=== PATIENT | male | born 1930 | race Caucasian/White ===

== ENCOUNTER 2017-07-21 09:20 | Inpatient (IN) | payer MEDICARE, OTHER ==
[2017-07-21 09:20] VITALS: BMI 24.3
[2017-07-21] MEDS ORDERED: Albuterol-Ipratrop 3 mg / 0.5 (3 ml) UD INH STA ×2 (09:33→09:34)
[2017-07-21 09:53] LABS: BASO % 0.3 % (0.0-2.0); EOS # 0.9 K/uL (0.0-0.7); EOS % 6.7 % (0.0-4.0); HEMOGLOBIN 10.8 g/dL (12.0-18.0); LYMPH # 0.7 K/uL (1.0-4.3); LYMPH % 4.7 % (20.0-40.0); MEAN CORPUSCULAR HEMOGLOBIN 24.1 pg (27.0-31.0); MEAN CORPUSCULAR HGB CONC 32.1 g/dL (33.0-37.0); MEAN PLATELET VOLUME 7.8 fL (7.2-11.7); MONO # 0.8 K/uL (0.0-0.8); MONO % 6.1 % (0.0-10.0); NEUT # 11.4 K/uL (1.8-7.0); NEUT % 82.2 % (50.0-75.0); NRBC % 0.2 % (0.0-2.0); PLATELET COUNT 336 K/uL (130-400); RED CELL DISTRIBUTION WIDTH 19.2 % (11.5-14.5); WHITE BLOOD COUNT 13.9 K/uL (4.8-10.8)
[2017-07-21 10:00] LABS: INR 1.3; PROTHROMBIN TIME 14.4 SECONDS (9.7-12.2)
--- NOTE | 2017-07-21 10:09 | RAD ---
HISTORY: SOB COMPARISON: Chest x-ray performed 08/27/14 TECHNIQUE: Chest, one view. FINDINGS: LUNGS: Left greater than right apical scarring re-identified. Retraction of bilateral tyler. 8 mm left lower lobe nodular density. Scattered tiny right upper lobe nodular densities, possibly granulomas. Please note that chest x-ray has limited sensitivity for the detection of pulmonary masses. PLEURA: No significant pleural effusion identified. No definite pneumothorax . CARDIOVASCULAR: Cardiomegaly. OSSEOUS STRUCTURES: Osseous demineralization. Degenerative changes. VISUALIZED UPPER ABDOMEN: Unremarkable. OTHER FINDINGS: None. IMPRESSION: Left greater than right apical scarring re-identified. Retraction of bilateral tyler. Cardiomegaly. 8 mm left lower lobe nodular density. Scattered tiny right upper lobe nodular densities, possibly granulomas. Follow-up outpatient chest CT may be considered if indicated.
[2017-07-21 10:22] LABS: ALB/GLOB RATIO 1.1 (1.0-2.1); ALT/SGPT 43 U/L (21-72); AST/SGOT 32 U/L (17-59); BLOOD UREA NITROGEN 16 mg/dL (9-20); CALCIUM 8.1 mg/dl (8.6-10.4); GFR AFRICAN-AMERICAN > 60; GFR NON-AFRICAN AMERICAN > 60
[2017-07-21] MEDS ORDERED: Albuterol-Ipratrop 3 mg / 0.5 (3 ml) UD ONE ×2 (10:22→12:08)
--- NOTE | 2017-07-21 10:23 | C.PDOC ---
History Of Present Illness Patient presents to ED c/o SOB and wheezing, productive cough with yellow sputum since yesterday. Patient is also having sharp substernal chest pain. He denies fever, abdominal pain, nausea/vomiting/diarrhea. PMHx of COPD, HTN, Atrial fibrillation on Xarelto. Time Seen by Provider: 07/21/17 09:23 Chief Complaint (Nursing): Chest Pain History Per: Patient, Family History/Exam Limitations: clinical condition Onset/Duration Of Symptoms: Days Current Symptoms Are (Timing): Still Present Severity: Moderate Quality: Sharp, "Pain" Associated Symptoms: Dyspnea Exacerbating Factors: Movement, Deep Breathing Past Medical History Reviewed: Historical Data, Nursing Documentation, Vital Signs Vital Signs: Last Vital Signs Temp 97.4 F L 07/27/17 16:14 Pulse 87 07/27/17 16:14 Resp 20 07/27/17 16:14 BP 139/79 07/27/17 16:14 Pulse Ox 95 07/27/17 16:14 - Medical History PMH: Asthma, Atrial Fibrillation, COPD, Emphysema, HTN - [facility] Procedures CONTINUOUS INVASIVE MECHANICAL VENTILATION <96 CONSEC HRS (09/18/13) INSERT ENDOTRACHEAL TUBE (09/18/13) Family History: States: No Known Family Hx - Social History Hx Tobacco Use: No Hx Alcohol Use: No Hx Substance Use: No - Immunization History Hx Tetanus Toxoid Vaccination: No Hx Influenza Vaccination: No Hx Pneumococcal Vaccination: No Review Of Systems Except As Marked, All Systems Reviewed And Found Negative. Constitutional: Negative for: Fever, Chills Cardiovascular: Positive for: Chest Pain. Negative for: Palpitations Respiratory: Positive for: Cough, Shortness of Breath, SOB with Excertion Gastrointestinal: Negative for: Nausea, Vomiting, Abdominal Pain, Diarrhea Skin: Negative for: Rash Physical Exam - Physical Exam Appears: Non-toxic, In Acute Distress (in mild respiratory distress) Skin: Normal Color, Warm, Dry, Rash Head: Normacephalic Eye(s): bilateral: Normal Inspection Oral Mucosa: Moist Cardiovascular: Rhythm Irregular (tachycardic and irregularly irregular) Respiratory: Accessory Muscle Use (mild), No Rales, No Rhonchi, Wheezing ( diffuse expiratory wheezing B/L) Gastrointestinal/Abdominal: Normal Exam, Bowel Sounds, Soft, No Tenderness Extremity: Normal ROM, No Pedal Edema, No Calf Tenderness Pulses: Left Dorsalis Pedis: Normal, Right Dorsalis Pedis: Normal Neurological/Psych: Oriented x3 ED Course And Treatment - Laboratory Results Result Diagrams: 07/27/17 08:24 07/27/17 08:24 ECG: Interpreted By Me, Viewed By Me (atrial fibrillationwith RVR 146 bpm, normal axis, T wave inversions I, aVL, no acute ST changes) ECG Interpretation: Abnormal O2 Sat by Pulse Oximetry: 94 (RA) Pulse Ox Interpretation: Normal - Radiology CXR: Interpreted by Me, Viewed By Me CXR Interpretation: Yes: No Acute Disease. No: Infiltrates Progress Note: Blood work, EKG, CXR ordered and reviewed. Patient given IV solumedrol, duoneb treatments, IV Cardizem 10mg and PO Cardizem 30mg for rapid atrial fibrillation. IV rocephin and azithromycin given for COPD exacerbation/ productive cough. Reevaluation Time: 11:45 Reassessment Condition: Improved (Patient still tachycardic with borderline BP - IV digoxin given.) - Physician Consult Information Physician Contacted: Lori Rod Outcome Of Conversation: Discussed patient with Dr. Rod, agrees with admission for COPD exacerbation, productive cough, A fib with RVR. Critical Care Time - Critical Care Note Total Time (in mins): 40 Documented critical care: time excludes all time spent performing seperately billable procedures. Disposition - Disposition Disposition: HOSPITALIZED Disposition Time: 11:57 Condition: FAIR - Clinical Impression Clinical Impression: Atrial fibrillation with RVR, Productive cough, COPD with exacerbation Decision To Admit - Pt Status Changed To: Hospital Disposition Of: Inpatient - Admit Certification Admit to Inpatient:: After my assessment, the patient will require hospitalization for at least two midnights. This is because of the severity of symptoms shown, intensity of services needed, and/or the medical risk in this patient being treated as an outpatient. - InPatient: Physician Admission Certification: I certify that this patient requires 2 or more midnights of care for the following reason:: see notes - . Bed Request Type: Telemetry Admitting Physician: Lori Rod Patient Diagnosis: Atrial fibrillation with RVR, COPD with exacerbation, Productive cough
[2017-07-21 10:37] LABS: B-TYPE NATRIURETIC PEPTIDE 969 pg/mL (0-900); CK-MB 1.05 ng/mL (0.0-3.38)
[2017-07-21 11:18] LABS: BANDS 2 % (0-2); EOSINOPHIL 4 % (0-4); LYMPHOCYTE 5 % (20-40); MONOCYTE 8 % (0-10); NEUTROPHIL 81 % (50-75); TOTAL CELLS COUNTED 100
[2017-07-21 11:19] LABS: PLATELET ESTIMATE NORMAL (NORMAL)
[2017-07-21 11:20] LABS: ANISOCYTOSIS SLIGHT; HYPOCHROMIC SLIGHT; LARGE PLATELETS PRESENT; POLYCHROMIC SLIGHT
[2017-07-21] MEDS ORDERED: Albuterol 0.083% Inhal Sol (2.5 mg/3 mL) UD IH STA ×2 (11:41→11:49)
[2017-07-21] MEDS ORDERED: cefTRIAXone IV 1 gm in Dextros 50 ML IV STA (11:44)
[2017-07-21] MEDS ORDERED: Azithromycin 500 MG in Sodium Chloride 0.9% 250 ML IVPB STA (11:44)
[2017-07-21] MEDS ORDERED: Digoxin 500 mcg/2ml (0.5 mg/2ml) Inj IVP STA (11:49)
[2017-07-21] MEDS ORDERED: Digoxin 500 mcg/2ml (0.5 mg/2ml) Inj ONE (11:57)
--- NOTE | 2017-07-21 16:56 | CP.PCM.HP ---
History of Present Illness - History of Present Illness History of Present Illness: Patient presents to ED c/o SOB and wheezing, productive cough with yellow sputum since yesterday. Patient is also having sharp substernal chest pain. He denies fever, abdominal pain, nausea/vomiting/diarrhea. PMHx of COPD, HTN, Atrial fibrillation on Xarelto. Present on Admission - Present on Admission Any Indicators Present on Admission: No History of DVT/PE: No History of Uncontrolled Diabetes: No Urinary Catheter: No Decubitus Ulcer Present: No Review of Systems - Review of Systems All systems: reviewed and no additional remarkable complaints except (As in HPI) Past Patient History - Past Medical History & Family History Past Medical History?: Yes - Past Social History Smoking Status: Former Smoker - CARDIAC Hx Atrial Fibrillation: Yes Hx Hypertension: Yes - PULMONARY Hx Asthma: Yes Hx Chronic Obstructive Pulmonary Disease (COPD): Yes Hx Emphysema: Yes - MUSCULOSKELETAL/RHEUMATOLOGICAL Hx Falls: No - PSYCHIATRIC Hx Substance Use: No - SURGICAL HISTORY Other/Comment: abdominal sx - ANESTHESIA Hx Anesthesia: Yes Hx Anesthesia Reactions: No Hx Malignant Hyperthermia: No Meds Allergies/Adverse Reactions: Allergies Allergy/AdvReac Type Severity Reaction Status Date / Time No Known Allergies Allergy Verified 07/21/17 09:32 Physical Exam - Head Exam Head Exam: NORMAL INSPECTION - Eye Exam Eye Exam: Normal appearance - ENT Exam ENT Exam: Mucous Membranes Moist - Respiratory Exam Respiratory Exam: Decreased Breath Sounds, Prolonged Expiratory Phase, Wheezes - Cardiovascular Exam Cardiovascular Exam: REGULAR RHYTHM, +S1, +S2 - GI/Abdominal Exam GI & Abdominal Exam: Normal Bowel Sounds, Soft - Extremities Exam Extremities exam: Positive for: pedal edema Results - Vital Signs Recent Vital Signs: Last Vital Signs Temp 97.4 F L 07/21/17 16:15 Pulse 95 H 07/21/17 16:15 Resp 20 07/21/17 16:15 BP 121/75 07/21/17 16:15 Pulse Ox 98 07/21/17 16:15 - Labs Result Diagrams: 07/23/17 14:34 07/23/17 14:34 Labs: Laboratory Results - last 24 hr 07/21/17 07/21/17 07/21/17 09:47 09:47 09:47 WBC 13.9 H RBC 4.50 Hgb 10.8 L Hct 33.8 L MCV 75.0 L D MCH 24.1 L MCHC 32.1 L RDW 19.2 H Plt Count 336 D MPV 7.8 Neut % (Auto) 82.2 H Lymph % (Auto) 4.7 L [place] % (Auto) 6.1 Eos % (Auto) 6.7 H Baso % (Auto) 0.3 Neut # 11.4 H Lymph # 0.7 L [place] # 0.8 Eos # 0.9 H Baso # 0.0 Neutrophils % (Manual) 81 H Band Neutrophils % 2 Lymphocytes % (Manual) 5 L Monocytes % (Manual) 8 Eosinophils % (Manual) 4 Platelet Estimate Normal Large Platelets Present Polychromasia Slight Hypochromasia (manual) Slight Anisocytosis (manual) Slight PT 14.4 H INR 1.3 APTT 32 Sodium 129 L Potassium 4.3 Chloride 93 L Carbon Dioxide 25 Anion Gap 16 BUN 16 Creatinine 0.7 L Est GFR ( Amer) > 60 Est GFR (Non-Af Amer) > 60 Random Glucose 80 Calcium 8.1 L Total Bilirubin 1.8 H AST 32 ALT 43 Alkaline Phosphatase 73 Total Creatine Kinase 35 L CK-MB (Mass) 1.05 Troponin I < 0.0120 NT-Pro-B Natriuret Pep 969 H Total Protein 7.7 Albumin 4.0 Globulin 3.7 Albumin/Globulin Ratio 1.1 Assessment & Plan - Assessment and Plan (Free Text) Assessment: COPD exacerbation ? Pneumonia A. fib Ceftriaxone/Zithromax Bronchodilators Solu-Medrol Continue Xarelto Rest as per orders DVT/GI prophylaxis
[2017-07-21] MEDS: MethylPREDNISolone 40 mg Vial IVP SCH (17:34)
[2017-07-21] MEDS: Albuterol-Ipratrop 3 mg / 0.5 (3 ml) UD INH SCH (19:10)
[2017-07-21] MEDS ORDERED: guaiFENesin 200 mg/10 ml Syrup UD PO ONE (22:27)
[2017-07-22] MEDS: MethylPREDNISolone 40 mg Vial IVP SCH ×4 (00:56→17:32)
[2017-07-22] MEDS: Albuterol-Ipratrop 3 mg / 0.5 (3 ml) UD INH SCH ×5 (01:50→19:46)
[2017-07-22] MEDS: Azithromycin 500 MG in Sodium Chloride 0.9% 250 ML IVPB SCH (10:00)
--- NOTE | 2017-07-22 12:35 | CP.PCM.PN ---
Subjective - Date & Time of Evaluation Date of Evaluation: 07/22/17 Time of Evaluation: 12:35 - Subjective Subjective: Patient seen and examined Continues to wheeze Reports improved dyspnea Objective - Vital Signs/Intake and Output Vital Signs (last 24 hours): Temp Pulse Resp BP Pulse Ox 97.3 F L 95 H 20 126/67 98 07/22/17 08:52 07/22/17 08:52 07/22/17 08:52 07/22/17 08:52 07/22/17 08:52 - Medications Medications: Current Medications Albuterol/Ipratropium (Duoneb 3 Mg/0.5 Mg (3 Ml) Ud) 3 ml INH RQ6 [facility] Last Admin: 07/22/17 08:59 Dose: 3 ml Azithromycin 500 mg/ Sodium (Chloride) 250 mls @ 250 mls/hr IVPB DAILY [facility] Last Admin: 07/22/17 10:00 Dose: 250 mls/hr Ceftriaxone Sodium 1 gm/ (Sodium Chloride) 100 mls @ 100 mls/hr IVPB Q12H [facility] Last Admin: 07/22/17 12:00 Dose: 100 mls/hr Methylprednisolone (Solu-Medrol) 40 mg IVP Q6 [facility] Last Admin: 07/22/17 12:05 Dose: 40 mg Pneumococcal Polyvalent Vaccine (Pneumovax 23 Vaccine) 0.5 ml IM .ONCE ONE Stop: 07/23/17 10:01 Rivaroxaban (Xarelto) 15 mg PO DAILY [facility] Last Admin: 07/22/17 10:48 Dose: 15 mg - Labs Labs: 07/21/17 09:47 07/21/17 09:47 PT 14.4 SECONDS (9.7-12.2) H 07/21/17 09:47 INR 1.3 07/21/17 09:47 APTT 32 SECONDS (21-34) 07/21/17 09:47 - Head Exam Head Exam: NORMAL INSPECTION - Eye Exam Eye Exam: Normal appearance - ENT Exam ENT Exam: Mucous Membranes Moist - Respiratory Exam Respiratory Exam: Prolonged Expiratory Phase, Wheezes - Cardiovascular Exam Cardiovascular Exam: REGULAR RHYTHM, +S1, +S2 - GI/Abdominal Exam GI & Abdominal Exam: Soft, Normal Bowel Sounds - Extremities Exam Extremities Exam: Normal Inspection Assessment and Plan - Assessment and Plan (Free Text) Assessment: COPD exacerbation Pneumonia A. fib Ceftriaxone/Zithromax Bronchodilators Solu-Medrol Continue Xarelto Rest as per orders DVT/GI prophylaxis
--- NOTE | 2017-07-22 22:40 | CP.PCM.CON ---
History of Present Illness - History of Present Illness History of Present Illness: 86 M admitted for dyspnea, cough associated with sputum Chest pain non exertional Trop negative Likely COPD excarbation and Bronchtis Will follow Stress test when lungs improve Review Of Systems Except As Marked, All Systems Reviewed And Found Negative. Constitutional: Negative for: Fever, Chills Cardiovascular: Positive for: Chest Pain. Negative for: Palpitations Respiratory: Positive for: Cough, Shortness of Breath, SOB with Excertion Gastrointestinal: Negative for: Nausea, Vomiting, Abdominal Pain, Diarrhea Skin: Negative for: Rash Physical Exam - Physical Exam Appears: Non-toxic, In Acute Distress (in mild respiratory distress) Skin: Normal Color, Warm, Dry, Rash Head: Normacephalic Eye(s): bilateral: Normal Inspection Oral Mucosa: Moist Cardiovascular: Rhythm Irregular (tachycardic and irregularly irregular) Respiratory: Accessory Muscle Use (mild), No Rales, No Rhonchi, Wheezing ( diffuse expiratory wheezing B/L) Gastrointestinal/Abdominal: Normal Exam, Bowel Sounds, Soft, No Tenderness Extremity: Normal ROM, No Pedal Edema, No Calf Tenderness Pulses: Left Dorsalis Pedis: Normal, Right Dorsalis Pedis: Normal Neurological/Psych: Oriented x3 Past Patient History - Past Medical History & Family History Past Medical History?: Yes - Past Social History Smoking Status: Former Smoker - CARDIAC Hx Atrial Fibrillation: Yes Hx Hypertension: Yes - PULMONARY Hx Asthma: Yes Hx Chronic Obstructive Pulmonary Disease (COPD): Yes Hx Emphysema: Yes - MUSCULOSKELETAL/RHEUMATOLOGICAL Hx Falls: No - PSYCHIATRIC Hx Substance Use: No - SURGICAL HISTORY Other/Comment: abdominal sx - ANESTHESIA Hx Anesthesia: Yes Hx Anesthesia Reactions: No Hx Malignant Hyperthermia: No Meds Allergies/Adverse Reactions: Allergies Allergy/AdvReac Type Severity Reaction Status Date / Time No Known Allergies Allergy Verified 07/21/17 09:32 - Medications Medications: Current Medications Albuterol/Ipratropium (Duoneb 3 Mg/0.5 Mg (3 Ml) Ud) 3 ml INH RQ6 [facility] Last Admin: 07/22/17 19:46 Dose: 3 ml Diltiazem HCl (Cardizem) 30 mg PO Q6 [facility] Last Admin: 07/22/17 17:32 Dose: 30 mg Azithromycin 500 mg/ Sodium (Chloride) 250 mls @ 250 mls/hr IVPB DAILY [facility] Last Admin: 07/22/17 10:00 Dose: 250 mls/hr Ceftriaxone Sodium 1 gm/ (Sodium Chloride) 100 mls @ 100 mls/hr IVPB Q12H [facility] Last Admin: 07/22/17 12:00 Dose: 100 mls/hr Methylprednisolone (Solu-Medrol) 40 mg IVP Q6 [facility] Last Admin: 07/22/17 17:32 Dose: 40 mg Pneumococcal Polyvalent Vaccine (Pneumovax 23 Vaccine) 0.5 ml IM .ONCE ONE Stop: 07/23/17 10:01 Rivaroxaban (Xarelto) 15 mg PO DAILY [facility] Last Admin: 07/22/17 10:48 Dose: 15 mg Results - Vital Signs Recent Vital Signs: Last Vital Signs Temp 97.4 F L 07/22/17 15:33 Pulse 105 H 07/22/17 16:00 Resp 20 07/22/17 15:33 BP 127/63 07/22/17 15:33 Pulse Ox 100 07/22/17 15:33 - Labs Result Diagrams: 07/27/17 08:24 07/27/17 08:24 Assessment & Plan - Assessment and Plan (Free Text) Assessment: Assessment and Plan - Assessment and Plan (Free Text) Assessment: COPD exacerbation Pneumonia A. fib Ceftriaxone/Zithromax Bronchodilators Solu-Medrol Continue Xarelto Rest as per orders DVT/GI prophylaxis
[2017-07-23] MEDS ORDERED: Benzocaine/Menthol (Cepacol) Lozenge MT ONE
[2017-07-23] MEDS: MethylPREDNISolone 40 mg Vial IVP SCH ×4 (00:54→17:19)
[2017-07-23] MEDS: Albuterol-Ipratrop 3 mg / 0.5 (3 ml) UD INH SCH ×4 (01:40→19:53)
[2017-07-23] MEDS ORDERED: Pneumococcal 23-Valent Vaccine IM ONE (10:00)
[2017-07-23] MEDS: Azithromycin 500 MG in Sodium Chloride 0.9% 250 ML IVPB SCH (10:14)
--- NOTE | 2017-07-23 13:47 | CP.PCM.PN ---
Subjective - Date & Time of Evaluation Date of Evaluation: 07/23/17 Time of Evaluation: 13:47 - Subjective Subjective: Patient seen and examined No events overnight Objective - Vital Signs/Intake and Output Vital Signs (last 24 hours): Temp Pulse Resp BP Pulse Ox 97.6 F 62 20 119/61 95 07/23/17 08:17 07/23/17 08:17 07/23/17 08:17 07/23/17 08:17 07/23/17 08:17 - Medications Medications: Current Medications Albuterol/Ipratropium (Duoneb 3 Mg/0.5 Mg (3 Ml) Ud) 3 ml INH RQ6 [facility] Last Admin: 07/23/17 13:13 Dose: 3 ml Diltiazem HCl (Cardizem) 30 mg PO Q6 [facility] Last Admin: 07/23/17 12:21 Dose: 30 mg Azithromycin 500 mg/ Sodium (Chloride) 250 mls @ 250 mls/hr IVPB DAILY [facility] Last Admin: 07/23/17 10:14 Dose: 250 mls/hr Ceftriaxone Sodium 1 gm/ (Sodium Chloride) 100 mls @ 100 mls/hr IVPB Q12H [facility] Last Admin: 07/23/17 12:22 Dose: 100 mls/hr Methylprednisolone (Solu-Medrol) 40 mg IVP Q6 [facility] Last Admin: 07/23/17 12:20 Dose: 40 mg Rivaroxaban (Xarelto) 15 mg PO DAILY [facility] Last Admin: 07/23/17 10:15 Dose: 15 mg - Labs Labs: 07/21/17 09:47 07/21/17 09:47 PT 14.4 SECONDS (9.7-12.2) H 07/21/17 09:47 INR 1.3 07/21/17 09:47 APTT 32 SECONDS (21-34) 07/21/17 09:47 - Head Exam Head Exam: NORMAL INSPECTION - Eye Exam Eye Exam: Normal appearance - ENT Exam ENT Exam: Mucous Membranes Moist - Respiratory Exam Respiratory Exam: Prolonged Expiratory Phase, Wheezes - Cardiovascular Exam Cardiovascular Exam: REGULAR RHYTHM, +S1, +S2 - GI/Abdominal Exam GI & Abdominal Exam: Soft, Normal Bowel Sounds - Extremities Exam Extremities Exam: Normal Inspection Assessment and Plan - Assessment and Plan (Free Text) Assessment: COPD exacerbation Pneumonia A. fib Ceftriaxone/Zithromax Bronchodilators Solu-Medrol Continue Xarelto Cardizem Continue supportive care DVT/GI prophylaxis
[2017-07-23 14:48] LABS: BASO % 0.1 % (0.0-2.0); HEMOGLOBIN 9.8 g/dL (12.0-18.0); LYMPH # 0.2 K/uL (1.0-4.3); LYMPH % 0.9 % (20.0-40.0); MEAN CELL VOLUME 76.1 fL (80.0-94.0); MEAN CORPUSCULAR HEMOGLOBIN 23.6 pg (27.0-31.0); MEAN CORPUSCULAR HGB CONC 31.1 g/dL (33.0-37.0); MEAN PLATELET VOLUME 7.8 fL (7.2-11.7); MONO # 0.9 K/uL (0.0-0.8); MONO % 4.4 % (0.0-10.0); NEUT # 18.9 K/uL (1.8-7.0); NEUT % 94.6 % (50.0-75.0); PLATELET COUNT 370 K/uL (130-400); RBC 4.15 Mil/uL (4.40-5.90); RED CELL DISTRIBUTION WIDTH 19.1 % (11.5-14.5)
--- NOTE | 2017-07-23 15:03 | CARD ---
APPROVED REPORT EKG Measurement Heart [id number] <Conclusion> Atrial fibrillation with rapid ventricular response Septal infarct, age undetermined ST & T wave abnormality, consider lateral ischemia Abnormal ECG
[2017-07-23 15:13] LABS: BLOOD UREA NITROGEN 21 mg/dL (9-20); CALCIUM 7.8 mg/dl (8.6-10.4); GFR AFRICAN-AMERICAN > 60; GFR NON-AFRICAN AMERICAN > 60
[2017-07-23 18:41] LABS: BANDS 7 % (0-2); MICROCYTOSIS SLIGHT; MONOCYTE 6 % (0-10); NEUTROPHIL 87 % (50-75); PLATELET ESTIMATE NORMAL (NORMAL); TOTAL CELLS COUNTED 100
[2017-07-23 18:42] LABS: OVALOCYTES SLIGHT
--- NOTE | 2017-07-23 19:05 | CARD ---
APPROVED REPORT EXAM: Two-dimensional and M-mode echocardiogram with Doppler and color Doppler. Other Information Quality : GoodRhythm : INDICATION Dyspnea Atrial Fibrillation COPD ASTHMA RISK FACTORS Hypertension 2D DIMENSIONS IVSd1.0 (0.7-1.1cm)LVDd5.3 (3.9-5.9cm) PWd0.7 (0.7-1.1cm)LVDs4.7 (2.5-4.0cm) FS (%) 10.5 %LVEF (%)22.7 (>50%) M-Mode DIMENSIONS RVDd0.80 (2.1-3.2cm)Left Atrium (MM)4.57 (2.5-4.0cm) IVSd0.49 (0.7-1.1cm)Aortic Root3.30 (2.2-3.7cm) LVDd6.49 (4.0-5.6cm)Aortic Cusp Exc.1.89 (1.5-2.0cm) PWd0.69 (0.7-1.1cm)FS (%) 25 % LVDs4.86 (2.0-3.8cm)LVEF (%)49 (>50%) Aortic Valve AI P 1/2 [id number] Mitral Valve MV E Dsictmlq755.7cm/sMV A Mvudcvab07.5cm/sE/A ratio2.1 TDI E/Lateral E'0.0E/Medial E'0.0 Tricuspid Valve TR Peak Ptytanip828sg/sTR Peak Gr.[id number] LEFT VENTRICLE The Left Ventricle is moderately dilated. There is normal left ventricular wall thickness. Left ventricle systolic function is moderately impaired. The Ejection Fraction is 35-40%. There is global hypokinesis of the left ventricle. Transmitral Doppler flow pattern is Grade II-pseudonormal filling dynamics. RIGHT VENTRICLE The right ventricular systolic function is normal. ATRIA The left atrium is moderately dilated. The right atrium is moderately dilated. AORTIC VALVE The aortic valve is normal in structure. There is mild aortic regurgitation. MITRAL VALVE The mitral valve is normal in structure. Mitral regurgitation is mild. TRICUSPID VALVE The tricuspid valve is normal in structure. There is mild to moderate tricuspid regurgitation. Right ventricular systolic pressure is estimated at - 45 mmHg. There is mild-moderate pulmonary hypertension. PULMONIC VALVE The pulmonic valve is not well visualized. GREAT VESSELS The IVC is normal in size and collapses >50% with inspiration. PERICARDIAL EFFUSION There is no pericardial effusion. <Conclusion> There is global hypokinesis of the left ventricle. Left ventricle systolic function is moderately impaired. The Ejection Fraction is - 35-40%. Moderate diastoic dysfunction. Transmitral Doppler flow pattern is Grade II-pseudonormal filling dynamics. The right ventricular systolic function is normal. Moderate bi-atrial dilatation. There is mild aortic regurgitation. Mitral regurgitation is mild to moderate. There is mild to moderate tricuspid regurgitation. Right ventricular systolic pressure is estimated at - 45 mmHg compatible with mild-moderate pulmonary hypertension. No pericardial effusion.
[2017-07-23] MEDS ORDERED: Albuterol-Ipratrop 3 mg / 0.5 (3 ml) UD INH STA (22:18)
--- NOTE | 2017-07-23 23:09 | CP.PCM.PN ---
Subjective - Date & Time of Evaluation Date of Evaluation: 07/23/17 Time of Evaluation: 07:20 - Subjective Subjective: Patient seen and evaluated Denies chest pain Still some dyspnea COPD Mgt as per pulmonary Review Of Systems Except As Marked, All Systems Reviewed And Found Negative. Constitutional: Negative for: Fever, Chills Cardiovascular: Positive for: Chest Pain. Negative for: Palpitations Respiratory: Positive for: Cough, Shortness of Breath, SOB with Excertion Gastrointestinal: Negative for: Nausea, Vomiting, Abdominal Pain, Diarrhea Skin: Negative for: Rash Physical Exam - Physical Exam Appears: Non-toxic, In Acute Distress (in mild respiratory distress) Skin: Normal Color, Warm, Dry, Rash Head: Normacephalic Eye(s): bilateral: Normal Inspection Oral Mucosa: Moist Cardiovascular: Rhythm Irregular (tachycardic and irregularly irregular) Respiratory: Accessory Muscle Use (mild), No Rales, No Rhonchi, Wheezing ( diffuse expiratory wheezing B/L) Gastrointestinal/Abdominal: Normal Exam, Bowel Sounds, Soft, No Tenderness Extremity: Normal ROM, No Pedal Edema, No Calf Tenderness Pulses: Left Dorsalis Pedis: Normal, Right Dorsalis Pedis: Normal Neurological/Psych: Oriented x3 Objective - Vital Signs/Intake and Output Vital Signs (last 24 hours): Temp Pulse Resp BP Pulse Ox 97.4 F L 100 H 20 121/62 95 07/23/17 15:44 07/23/17 22:25 07/23/17 22:25 07/23/17 15:44 07/23/17 22:25 - Medications Medications: Current Medications Albuterol/Ipratropium (Duoneb 3 Mg/0.5 Mg (3 Ml) Ud) 3 ml INH RQ6 [facility] Last Admin: 07/23/17 19:53 Dose: 3 ml Diltiazem HCl (Cardizem) 30 mg PO Q6 [facility] Last Admin: 07/23/17 17:19 Dose: 30 mg Azithromycin 500 mg/ Sodium (Chloride) 250 mls @ 250 mls/hr IVPB DAILY [facility] Last Admin: 07/23/17 10:14 Dose: 250 mls/hr Ceftriaxone Sodium 1 gm/ (Sodium Chloride) 100 mls @ 100 mls/hr IVPB Q12H [facility] Last Admin: 07/23/17 12:22 Dose: 100 mls/hr Methylprednisolone (Solu-Medrol) 40 mg IVP Q6 [facility] Last Admin: 07/23/17 17:19 Dose: 40 mg Rivaroxaban (Xarelto) 15 mg PO DAILY [facility] Last Admin: 07/23/17 10:15 Dose: 15 mg - Labs Labs: 07/23/17 14:34 07/23/17 14:34 PT 14.4 SECONDS (9.7-12.2) H 07/21/17 09:47 INR 1.3 07/21/17 09:47 APTT 32 SECONDS (21-34) 07/21/17 09:47 Assessment and Plan - Assessment and Plan (Free Text) Assessment: Assessment and Plan - Assessment and Plan (Free Text) Assessment: COPD exacerbation Pneumonia A. fib Ceftriaxone/Zithromax Bronchodilators Solu-Medrol Continue Xarelto Rest as per orders DVT/GI prophylaxis
[2017-07-24] MEDS: MethylPREDNISolone 40 mg Vial IVP SCH ×4 (00:23→17:22)
[2017-07-24] MEDS: Albuterol-Ipratrop 3 mg / 0.5 (3 ml) UD INH SCH ×4 (01:20→20:20)
[2017-07-24] MEDS: Azithromycin 500 MG in Sodium Chloride 0.9% 250 ML IVPB SCH (09:42)
[2017-07-24] MEDS ORDERED: Albuterol-Ipratrop 3 mg / 0.5 (3 ml) UD INH STA (11:36)
[2017-07-24 11:47] LABS: BLOOD UREA NITROGEN 22 mg/dL (9-20); CALCIUM 7.2 mg/dl (8.6-10.4); GFR AFRICAN-AMERICAN > 60; GFR NON-AFRICAN AMERICAN > 60; MAGNESIUM 1.9 mg/dL (1.6-2.3)
[2017-07-24 11:55] LABS: ARTERIAL BLOOD GAS HCO3 28.2 mmol/L (21-28); ARTERIAL BLOOD GAS HEMOGLOBIN 9.8 g/dL (11.7-17.4); ARTERIAL BLOOD GAS O2 SAT 99.9 % (95-98); ARTERIAL BLOOD GAS PCO2 40 mm/Hg (35-45); ARTERIAL BLOOD GAS PH 7.46 (7.35-7.45); ARTERIAL BLOOD GAS PO2 116 mm/Hg (80-100); ARTERIAL BLOOD GAS TCO2 29.6 mmol/L (22-28)
--- NOTE | 2017-07-24 12:09 | CP.PCM.PN ---
<Moose White - Last Filed: 07/24/17 12:06> Subjective - Date & Time of Evaluation Date of Evaluation: 07/24/17 Time of Evaluation: 12:06 - Subjective Subjective: PGY-[address] Johnson. Patient this AM had 23 beats of VTach. Patient remained asymptomatic. Upon exam patient did not complain of any chest pain or palpitations. Bilateral wheezing was noted on physical. Objective - Vital Signs/Intake and Output Vital Signs (last 24 hours): Temp Pulse Resp BP Pulse Ox 97.6 F 104 H 20 126/70 95 07/24/17 08:26 07/24/17 08:26 07/24/17 08:26 07/24/17 08:26 07/24/17 08:26 - Medications Medications: Current Medications Albuterol/Ipratropium (Duoneb 3 Mg/0.5 Mg (3 Ml) Ud) 3 ml INH RQ6 [facility] Last Admin: 07/24/17 08:09 Dose: 3 ml Aspirin (Aspirin Chewable) 81 mg PO DAILY [facility] Clopidogrel Bisulfate (Plavix) 75 mg PO DAILY [facility] Diltiazem HCl (Cardizem) 30 mg PO Q6 [facility] Last Admin: 07/24/17 05:21 Dose: 30 mg Enoxaparin Sodium (Lovenox) 60 mg SC Q12 [facility] Azithromycin 500 mg/ Sodium (Chloride) 250 mls @ 250 mls/hr IVPB DAILY [facility] Last Admin: 07/24/17 09:42 Dose: 250 mls/hr Ceftriaxone Sodium 1 gm/ (Sodium Chloride) 100 mls @ 100 mls/hr IVPB Q12H [facility] Last Admin: 07/24/17 00:23 Dose: 100 mls/hr Methylprednisolone (Solu-Medrol) 60 mg IVP Q6 [facility] Rivaroxaban (Xarelto) 15 mg PO DAILY [facility] Last Admin: 07/24/17 09:43 Dose: 15 mg Rosuvastatin Calcium (Crestor) 5 mg PO HS [facility] Fluticasone/Salmeterol (Advair Diskus 250/50) 1 puff IH RQ12 [facility] - Labs Labs: 07/23/17 14:34 07/24/17 11:26 PT 14.4 SECONDS (9.7-12.2) H 07/21/17 09:47 INR 1.3 07/21/17 09:47 APTT 32 SECONDS (21-34) 07/21/17 09:47 - Constitutional Appears: No Acute Distress - Head Exam Head Exam: ATRAUMATIC, NORMAL INSPECTION - Eye Exam Eye Exam: EOMI - ENT Exam ENT Exam: Mucous Membranes Moist - Respiratory Exam Respiratory Exam: Wheezes - Cardiovascular Exam Cardiovascular Exam: Tachycardia, REGULAR RHYTHM. absent: Murmur - GI/Abdominal Exam GI & Abdominal Exam: Soft, Normal Bowel Sounds. 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 Denies any cardiac history. Denies family cardiac history. HTN. 23 beats of VTach noted on monitor AM of 07/24/17 Potassium NORMAL, ADALID on 07/21/17 NORMAL F/U ABG, Mag, repeat ADALID HOLD home Xaralto 15mg PO QD Will start therapeutic Lovenox 60mg SC Q12H 07/25/17 Start Aspirin 81mg PO QD Start Plavix 75mg PO QD Start Crestor 5mg PO HS Cardiac Cath planned for 07/27/17 Status: Acute (2) Atrial fibrillation Assessment & Plan: Hx of AFib. NSR on telemetry. HOLD home Xaralto 15mg PO QD Will start therapeutic Lovenox 60mg SC Q12H 07/25/17 See plan for above. Status: Acute <Francisco Johnson - Last Filed: 07/24/17 23:35> Objective - Vital Signs/Intake and Output Vital Signs (last 24 hours): Temp Pulse Resp BP Pulse Ox 97.4 F L 101 H 22 123/63 95 07/24/17 16:27 07/24/17 16:27 07/24/17 16:27 07/24/17 16:27 07/24/17 16:27 - Medications Medications: Current Medications Albuterol/Ipratropium (Duoneb 3 Mg/0.5 Mg (3 Ml) Ud) 3 ml INH RQ6 [facility] Last Admin: 07/24/17 20:20 Dose: 3 ml Aspirin (Aspirin Chewable) 81 mg PO DAILY [facility] Last Admin: 07/24/17 13:24 Dose: 81 mg Clopidogrel Bisulfate (Plavix) 75 mg PO DAILY [facility] Last Admin: 07/24/17 13:24 Dose: 75 mg Diltiazem HCl (Cardizem) 30 mg PO Q6 [facility] Last Admin: 07/24/17 17:22 Dose: 30 mg Enoxaparin Sodium (Lovenox) 60 mg SC Q12 [facility] Azithromycin 500 mg/ Sodium (Chloride) 250 mls @ 250 mls/hr IVPB DAILY [facility] Last Admin: 07/24/17 09:42 Dose: 250 mls/hr Ceftriaxone Sodium 1 gm/ (Sodium Chloride) 100 mls @ 100 mls/hr IVPB Q12H [facility] Last Admin: 07/24/17 12:09 Dose: 100 mls/hr Methylprednisolone (Solu-Medrol) 60 mg IVP Q6 [facility] Last Admin: 07/24/17 17:22 Dose: 60 mg Rivaroxaban (Xarelto) 15 mg PO DAILY [facility] Last Admin: 07/24/17 09:43 Dose: 15 mg Rosuvastatin Calcium (Crestor) 5 mg PO HS [facility] Last Admin: 07/24/17 21:09 Dose: 5 mg Fluticasone/Salmeterol (Advair Diskus 250/50) 1 puff IH RQ12 [facility] Last Admin: 07/24/17 20:20 Dose: 1 puff - Labs Labs: 07/24/17 12:07 07/24/17 11:26 PT 14.4 SECONDS (9.7-12.2) H 07/21/17 09:47 INR 1.3 07/21/17 09:47 APTT 32 SECONDS (21-34) 07/21/17 09:47 Assessment and Plan - Assessment and Plan (Free Text) Assessment: Patient seen and evaluated Cardiac cath Sunday Plan of care as documented
[2017-07-24 12:22] LABS: BASO % 0.2 % (0.0-2.0); HEMOGLOBIN 9.8 g/dL (12.0-18.0); LYMPH # 0.2 K/uL (1.0-4.3); LYMPH % 1.4 % (20.0-40.0); MEAN CELL VOLUME 75.3 fL (80.0-94.0); MEAN CORPUSCULAR HEMOGLOBIN 23.3 pg (27.0-31.0); MEAN PLATELET VOLUME 7.4 fL (7.2-11.7); MONO # 0.8 K/uL (0.0-0.8); MONO % 4.6 % (0.0-10.0); NEUT # 15.7 K/uL (1.8-7.0); NEUT % 93.8 % (50.0-75.0); PLATELET COUNT 378 K/uL (130-400); RBC 4.22 Mil/uL (4.40-5.90); RED CELL DISTRIBUTION WIDTH 19.1 % (11.5-14.5); WHITE BLOOD COUNT 16.7 K/uL (4.8-10.8)
[2017-07-24 12:59] LABS: ANISOCYTOSIS MODERATE; BANDS 5 % (0-2); LYMPHOCYTE 2 % (20-40); MONOCYTE 5 % (0-10); NEUTROPHIL 88 % (50-75); PLATELET ESTIMATE NORMAL (NORMAL); TOTAL CELLS COUNTED 100
[2017-07-24 13:00] LABS: HYPOCHROMIC SLIGHT; OVALOCYTES SLIGHT
--- NOTE | 2017-07-24 13:33 | CP.PCM.PN ---
Subjective - Date & Time of Evaluation Date of Evaluation: 07/24/17 Time of Evaluation: 13:33 Objective - Vital Signs/Intake and Output Vital Signs (last 24 hours): Temp Pulse Resp BP Pulse Ox 97.6 F 104 H 20 126/70 95 07/24/17 08:26 07/24/17 08:26 07/24/17 08:26 07/24/17 08:26 07/24/17 08:26 - Medications Medications: Current Medications Albuterol/Ipratropium (Duoneb 3 Mg/0.5 Mg (3 Ml) Ud) 3 ml INH RQ6 [facility] Last Admin: 07/24/17 08:09 Dose: 3 ml Aspirin (Aspirin Chewable) 81 mg PO DAILY [facility] Last Admin: 07/24/17 13:24 Dose: 81 mg Clopidogrel Bisulfate (Plavix) 75 mg PO DAILY [facility] Last Admin: 07/24/17 13:24 Dose: 75 mg Diltiazem HCl (Cardizem) 30 mg PO Q6 [facility] Last Admin: 07/24/17 12:09 Dose: 30 mg Enoxaparin Sodium (Lovenox) 60 mg SC Q12 [facility] Azithromycin 500 mg/ Sodium (Chloride) 250 mls @ 250 mls/hr IVPB DAILY [facility] Last Admin: 07/24/17 09:42 Dose: 250 mls/hr Ceftriaxone Sodium 1 gm/ (Sodium Chloride) 100 mls @ 100 mls/hr IVPB Q12H [facility] Last Admin: 07/24/17 12:09 Dose: 100 mls/hr Methylprednisolone (Solu-Medrol) 60 mg IVP Q6 [facility] Last Admin: 07/24/17 12:10 Dose: 60 mg Rivaroxaban (Xarelto) 15 mg PO DAILY [facility] Last Admin: 07/24/17 09:43 Dose: 15 mg Rosuvastatin Calcium (Crestor) 5 mg PO HS [facility] Fluticasone/Salmeterol (Advair Diskus 250/50) 1 puff IH RQ12 [facility] - Labs Labs: 07/24/17 12:07 07/24/17 11:26 PT 14.4 SECONDS (9.7-12.2) H 07/21/17 09:47 INR 1.3 07/21/17 09:47 APTT 32 SECONDS (21-34) 07/21/17 09:47
--- NOTE | 2017-07-24 14:16 | CP.PCM.CON ---
History of Present Illness - History of Present Illness History of Present Illness: Case and imaging studies reviewed Admitted with chest pain and cough with a working diagnosis of an infectious pulmonary process This AM was noted to have run of ventricular tachycardia Past medical history significant for systemic hypertension atrial fibrillation on Rivaroxaban/xarelto Exam Afebrile Echymoses scattered Normal venous pressures lungs: decreased breath osunds intensity; prolonged expiration; scattered rhinchi PMI undisplaced Varying heart sounds intensity No edema DP +=+ EKG: atrial fibrillation Tele: 23 beat run of regular monomorphic tachycardia at rates of 170 beats per minute likely ventricular tachycardia; there is no suggestion of the DAVID phenomenon Past Patient History - Past Medical History & Family History Past Medical History?: Yes - Past Social History Smoking Status: Former Smoker - CARDIAC Hx Atrial Fibrillation: Yes Hx Hypertension: Yes - PULMONARY Hx Asthma: Yes Hx Chronic Obstructive Pulmonary Disease (COPD): Yes Hx Emphysema: Yes - MUSCULOSKELETAL/RHEUMATOLOGICAL Hx Falls: No - PSYCHIATRIC Hx Substance Use: No - SURGICAL HISTORY Other/Comment: abdominal sx - ANESTHESIA Hx Anesthesia: Yes Hx Anesthesia Reactions: No Hx Malignant Hyperthermia: No Meds Allergies/Adverse Reactions: Allergies Allergy/AdvReac Type Severity Reaction Status Date / Time No Known Allergies Allergy Verified 07/21/17 09:32 - Medications Medications: Current Medications Albuterol/Ipratropium (Duoneb 3 Mg/0.5 Mg (3 Ml) Ud) 3 ml INH RQ6 [facility] Last Admin: 07/24/17 13:35 Dose: 3 ml Aspirin (Aspirin Chewable) 81 mg PO DAILY [facility] Last Admin: 07/24/17 13:24 Dose: 81 mg Clopidogrel Bisulfate (Plavix) 75 mg PO DAILY [facility] Last Admin: 07/24/17 13:24 Dose: 75 mg Diltiazem HCl (Cardizem) 30 mg PO Q6 [facility] Last Admin: 07/24/17 12:09 Dose: 30 mg Enoxaparin Sodium (Lovenox) 60 mg SC Q12 [facility] Azithromycin 500 mg/ Sodium (Chloride) 250 mls @ 250 mls/hr IVPB DAILY [facility] Last Admin: 07/24/17 09:42 Dose: 250 mls/hr Ceftriaxone Sodium 1 gm/ (Sodium Chloride) 100 mls @ 100 mls/hr IVPB Q12H [facility] Last Admin: 07/24/17 12:09 Dose: 100 mls/hr Methylprednisolone (Solu-Medrol) 60 mg IVP Q6 [facility] Last Admin: 07/24/17 12:10 Dose: 60 mg Rivaroxaban (Xarelto) 15 mg PO DAILY [facility] Last Admin: 07/24/17 09:43 Dose: 15 mg Rosuvastatin Calcium (Crestor) 5 mg PO HS [facility] Fluticasone/Salmeterol (Advair Diskus 250/50) 1 puff IH RQ12 [facility] Results - Vital Signs Recent Vital Signs: Last Vital Signs Temp 97.6 F 07/24/17 08:26 Pulse 104 H 07/24/17 08:26 Resp 20 07/24/17 08:26 BP 126/70 07/24/17 08:26 Pulse Ox 95 07/24/17 08:26 - Labs Result Diagrams: 07/24/17 12:07 07/24/17 11:26 Labs: Laboratory Results - last 24 hr 07/23/17 07/23/17 07/24/17 14:34 14:34 11:26 WBC 20.0 H RBC 4.15 L Hgb 9.8 L Hct 31.5 L MCV 76.1 L MCH 23.6 L MCHC 31.1 L RDW 19.1 H Plt Count 370 MPV 7.8 Neut % (Auto) 94.6 H Lymph % (Auto) 0.9 L [place] % (Auto) 4.4 Eos % (Auto) 0.0 Baso % (Auto) 0.1 Neut # 18.9 H Lymph # 0.2 L [place] # 0.9 H Eos # 0.0 Baso # 0.0 Neutrophils % (Manual) 87 H Band Neutrophils % 7 H Lymphocytes % (Manual) TEST NOT PERFORMED Monocytes % (Manual) 6 Platelet Estimate Normal Hypochromasia (manual) Anisocytosis (manual) Microcytosis (manual) Slight Ovalocytes Slight Puncture Site pCO2 pO2 HCO3 ABG pH ABG Total CO2 ABG O2 Saturation ABG Base Excess ABG Hemoglobin ABG Carboxyhemoglobin POC ABG HHb (Measured) ABG Methemoglobin Peter Test A-a O2 Difference Respiratory Index Hgb O2 Saturation Liter Flow FiO2 Sodium 134 131 L Potassium 4.0 4.5 Chloride 96 L 96 L Carbon Dioxide 27 26 Anion Gap 14 14 BUN 21 H 22 H Creatinine 0.7 L 0.5 L Est GFR ( Amer) > 60 > 60 Est GFR (Non-Af Amer) > 60 > 60 Random Glucose 119 H 182 H Lactic Acid Calcium 7.8 L 7.2 L Phosphorus 3.0 Magnesium 1.9 Total Bilirubin 0.6 Troponin I < 0.0120 07/24/17 07/24/17 07/24/17 11:52 12:07 12:07 WBC 16.7 H RBC 4.22 L Hgb 9.8 L Hct 31.8 L MCV 75.3 L MCH 23.3 L MCHC 31.0 L RDW 19.1 H Plt Count 378 MPV 7.4 Neut % (Auto) 93.8 H Lymph % (Auto) 1.4 L [place] % (Auto) 4.6 Eos % (Auto) 0.0 Baso % (Auto) 0.2 Neut # 15.7 H Lymph # 0.2 L [place] # 0.8 Eos # 0.0 Baso # 0.0 Neutrophils % (Manual) 88 H Band Neutrophils % 5 H Lymphocytes % (Manual) 2 L Monocytes % (Manual) 5 Platelet Estimate Normal Hypochromasia (manual) Slight Anisocytosis (manual) Moderate Microcytosis (manual) Ovalocytes Slight Puncture Site Rb pCO2 40 pO2 116 H HCO3 28.2 H ABG pH 7.46 H ABG Total CO2 29.6 H ABG O2 Saturation 99.9 H ABG Base Excess 4.2 H ABG Hemoglobin 9.8 L ABG Carboxyhemoglobin 2.4 H POC ABG HHb (Measured) 0.1 ABG Methemoglobin 1.0 Peter Test Na A-a O2 Difference 69.0 Respiratory Index 0.6 Hgb O2 Saturation 96.4 Liter Flow 3.0 FiO2 33.0 Sodium Potassium Chloride Carbon Dioxide Anion Gap BUN Creatinine Est GFR ( Amer) Est GFR (Non-Af Amer) Random Glucose Lactic Acid 3.3 H Calcium Phosphorus Magnesium Total Bilirubin Troponin I Assessment & Plan - Assessment and Plan (Free Text) Assessment: 86 year old male with 23 beat run of regular monomorphic tachycardia at rates of 170 beats per minute likely ventricular tachycardia; there is no suggestion of the DAVID phenomenon not discounting the underlying atrial fibrillation Assuming VT the underlying substrate is unclear (?ischemic) and the significance and its ability to sustain needs to be defined Atrial fibrillation is seemingly chronic rate controlled and appropriately anticoagulated in absence of an obvious contraindication; the supportive substrate is likely hypertensive heart disease; would exclude thyroid disease Plan: Plan: Echocardiogram Cardiac cath Thyroid function EP study contingent on results of further work up if in consonance with his advance directives
--- NOTE | 2017-07-24 15:35 | CP.PCM.PN ---
Subjective - Date & Time of Evaluation Date of Evaluation: 07/24/17 Time of Evaluation: 11:15 - Subjective Subjective: PAVING MACHINE OPERATOR NOTES Patient seen today , c/o sob an d cough, denies any chest pain , exp.wheezing noted RN reported 23 beat run of regular monomorphic tachycardia this am Objective - Vital Signs/Intake and Output Vital Signs (last 24 hours): Temp Pulse Resp BP Pulse Ox 97.6 F 104 H 20 126/70 95 07/24/17 08:26 07/24/17 08:26 07/24/17 08:26 07/24/17 08:26 07/24/17 08:26 - Medications Medications: Current Medications Albuterol/Ipratropium (Duoneb 3 Mg/0.5 Mg (3 Ml) Ud) 3 ml INH RQ6 [facility] Last Admin: 07/24/17 13:35 Dose: 3 ml Aspirin (Aspirin Chewable) 81 mg PO DAILY [facility] Last Admin: 07/24/17 13:24 Dose: 81 mg Clopidogrel Bisulfate (Plavix) 75 mg PO DAILY [facility] Last Admin: 07/24/17 13:24 Dose: 75 mg Diltiazem HCl (Cardizem) 30 mg PO Q6 [facility] Last Admin: 07/24/17 12:09 Dose: 30 mg Enoxaparin Sodium (Lovenox) 60 mg SC Q12 [facility] Azithromycin 500 mg/ Sodium (Chloride) 250 mls @ 250 mls/hr IVPB DAILY [facility] Last Admin: 07/24/17 09:42 Dose: 250 mls/hr Ceftriaxone Sodium 1 gm/ (Sodium Chloride) 100 mls @ 100 mls/hr IVPB Q12H [facility] Last Admin: 07/24/17 12:09 Dose: 100 mls/hr Methylprednisolone (Solu-Medrol) 60 mg IVP Q6 [facility] Last Admin: 07/24/17 12:10 Dose: 60 mg Rivaroxaban (Xarelto) 15 mg PO DAILY [facility] Last Admin: 07/24/17 09:43 Dose: 15 mg Rosuvastatin Calcium (Crestor) 5 mg PO HS [facility] Fluticasone/Salmeterol (Advair Diskus 250/50) 1 puff IH RQ12 [facility] - Labs Labs: 07/24/17 12:07 07/24/17 11:26 PT 14.4 SECONDS (9.7-12.2) H 07/21/17 09:47 INR 1.3 07/21/17 09:47 APTT 32 SECONDS (21-34) 07/21/17 09:47 Assessment and Plan - Assessment and Plan (Free Text) Assessment: A/P 86 yr old male admitted with
--- NOTE | 2017-07-24 17:54 | CP.PCM.CON ---
History of Present Illness - History of Present Illness History of Present Illness: CCU Consult Note HPI: Patient is a 86M who came to the ED on 07/21 with a CC of SOB. He has a history of COPD. Also complaining of cough with sputum production. Patient was found to have pneumonia. Patient is being treated with steroids and antibiotics. Has a history of Afib on xarelto. Patient was complaining of chest pain on admission that was non exertional in nature. Was seen by Dr. Johnson. Given the negative trops at that time it was unlikely to be cardiac in nature. On the morning of 07/24 patient had a 23 beat run of Vtach. Patient was asymptomatic at that time. Denied palpatations or chest pain. Will bring to ICU for closer monitoring. Review of Systems - Review of Systems Review of Systems: per HPI Past Patient History - Past Medical History & Family History Past Medical History?: Yes - Past Social History Smoking Status: Former Smoker - CARDIAC Hx Atrial Fibrillation: Yes Hx Hypertension: Yes - PULMONARY Hx Asthma: Yes Hx Chronic Obstructive Pulmonary Disease (COPD): Yes Hx Emphysema: Yes - MUSCULOSKELETAL/RHEUMATOLOGICAL Hx Falls: No - PSYCHIATRIC Hx Substance Use: No - SURGICAL HISTORY Other/Comment: abdominal sx - ANESTHESIA Hx Anesthesia: Yes Hx Anesthesia Reactions: No Hx Malignant Hyperthermia: No Meds Allergies/Adverse Reactions: Allergies Allergy/AdvReac Type Severity Reaction Status Date / Time No Known Allergies Allergy Verified 07/21/17 09:32 - Medications Medications: Current Medications Albuterol/Ipratropium (Duoneb 3 Mg/0.5 Mg (3 Ml) Ud) 3 ml INH RQ6 [facility] Last Admin: 07/24/17 13:35 Dose: 3 ml Aspirin (Aspirin Chewable) 81 mg PO DAILY [facility] Last Admin: 07/24/17 13:24 Dose: 81 mg Clopidogrel Bisulfate (Plavix) 75 mg PO DAILY [facility] Last Admin: 07/24/17 13:24 Dose: 75 mg Diltiazem HCl (Cardizem) 30 mg PO Q6 [facility] Last Admin: 07/24/17 17:22 Dose: 30 mg Enoxaparin Sodium (Lovenox) 60 mg SC Q12 [facility] Azithromycin 500 mg/ Sodium (Chloride) 250 mls @ 250 mls/hr IVPB DAILY [facility] Last Admin: 07/24/17 09:42 Dose: 250 mls/hr Ceftriaxone Sodium 1 gm/ (Sodium Chloride) 100 mls @ 100 mls/hr IVPB Q12H [facility] Last Admin: 07/24/17 12:09 Dose: 100 mls/hr Methylprednisolone (Solu-Medrol) 60 mg IVP Q6 [facility] Last Admin: 07/24/17 17:22 Dose: 60 mg Rivaroxaban (Xarelto) 15 mg PO DAILY [facility] Last Admin: 07/24/17 09:43 Dose: 15 mg Rosuvastatin Calcium (Crestor) 5 mg PO HS [facility] Fluticasone/Salmeterol (Advair Diskus 250/50) 1 puff IH RQ12 [facility] Physical Exam - Constitutional Appears: Well, Non-toxic, No Acute Distress - Head Exam Head Exam: ATRAUMATIC, NORMAL INSPECTION, NORMOCEPHALIC - Eye Exam Eye Exam: EOMI Pupil Exam: NORMAL ACCOMODATION - ENT Exam ENT Exam: Mucous Membranes Moist - Respiratory Exam Respiratory Exam: Clear to Auscultation Bilateral, NORMAL BREATHING PATTERN - Cardiovascular Exam Cardiovascular Exam: REGULAR RHYTHM - GI/Abdominal Exam GI & Abdominal Exam: Normal Bowel Sounds, Soft. absent: Distended, Tenderness - Extremities Exam Extremities exam: Negative for: joint swelling, tenderness - Neurological Exam Neurological exam: Alert, Oriented x3 - Psychiatric Exam Psychiatric exam: Normal Affect, Normal Mood - Skin Skin Exam: Dry, Intact, Normal Color, Warm Results - Vital Signs Recent Vital Signs: Last Vital Signs Temp 97.4 F L 07/24/17 16:27 Pulse 101 H 07/24/17 16:27 Resp 22 07/24/17 16:27 BP 123/63 07/24/17 16:27 Pulse Ox 95 07/24/17 16:27 - Labs Result Diagrams: 07/24/17 12:07 07/24/17 11:26 Labs: Laboratory Results - last 24 hr 07/23/17 07/24/17 07/24/17 14:34 11:26 11:52 WBC RBC Hgb Hct MCV MCH MCHC RDW Plt Count MPV Neut % (Auto) Lymph % (Auto) [place] % (Auto) Eos % (Auto) Baso % (Auto) Neut # Lymph # Morton # Eos # Baso # Neutrophils % (Manual) 87 H Band Neutrophils % 7 H Lymphocytes % (Manual) TEST NOT PERFORMED Monocytes % (Manual) 6 Platelet Estimate Normal Hypochromasia (manual) Anisocytosis (manual) Microcytosis (manual) Slight Ovalocytes Slight Puncture Site Rb pCO2 40 pO2 116 H HCO3 28.2 H ABG pH 7.46 H ABG Total CO2 29.6 H ABG O2 Saturation 99.9 H ABG Base Excess 4.2 H ABG Hemoglobin 9.8 L ABG Carboxyhemoglobin 2.4 H POC ABG HHb (Measured) 0.1 ABG Methemoglobin 1.0 Peter Test Na A-a O2 Difference 69.0 Respiratory Index 0.6 Hgb O2 Saturation 96.4 Liter Flow 3.0 FiO2 33.0 Sodium 131 L Potassium 4.5 Chloride 96 L Carbon Dioxide 26 Anion Gap 14 BUN 22 H Creatinine 0.5 L Est GFR ( Amer) > 60 Est GFR (Non-Af Amer) > 60 Random Glucose 182 H Lactic Acid Calcium 7.2 L Phosphorus 3.0 Magnesium 1.9 Total Bilirubin 0.6 Troponin I < 0.0120 07/24/17 07/24/17 12:07 12:07 WBC 16.7 H RBC 4.22 L Hgb 9.8 L Hct 31.8 L MCV 75.3 L MCH 23.3 L MCHC 31.0 L RDW 19.1 H Plt Count 378 MPV 7.4 Neut % (Auto) 93.8 H Lymph % (Auto) 1.4 L [place] % (Auto) 4.6 Eos % (Auto) 0.0 Baso % (Auto) 0.2 Neut # 15.7 H Lymph # 0.2 L [place] # 0.8 Eos # 0.0 Baso # 0.0 Neutrophils % (Manual) 88 H Band Neutrophils % 5 H Lymphocytes % (Manual) 2 L Monocytes % (Manual) 5 Platelet Estimate Normal Hypochromasia (manual) Slight Anisocytosis (manual) Moderate Microcytosis (manual) Ovalocytes Slight Puncture Site pCO2 pO2 HCO3 ABG pH ABG Total CO2 ABG O2 Saturation ABG Base Excess ABG Hemoglobin ABG Carboxyhemoglobin POC ABG HHb (Measured) ABG Methemoglobin Peter Test A-a O2 Difference Respiratory Index Hgb O2 Saturation Liter Flow FiO2 Sodium Potassium Chloride Carbon Dioxide Anion Gap BUN Creatinine Est GFR ( Amer) Est GFR (Non-Af Amer) Random Glucose Lactic Acid 3.3 H Calcium Phosphorus Magnesium Total Bilirubin Troponin I Assessment & Plan - Assessment and Plan (Free Text) Assessment: Neuro A&Ox3 Cardio: asx Vtach, Afib on xarelto Cardio (Ameen/Alex) Trop negative Meds: * plavix 75 PO daily * aspirin 81 PO daily * crestor 5 PO HS * hold Xarelto 15 PO daily * lovenox 60 SC Q12 07/25/17 * cardizem 30 PO Q6 Cardiac cath planned for 07/27/17 Pulm: Pneumonia, COPD, emphysema AB.46/40/116/29.6 on 3L flow FiO2 33.0 WBC: 16.7 Meds: * ceftriaxone IV Q12 * azithromycin 500mg IV QD * Solu-Medrol 60 IV Q6 * advair 1 puff RQ12 Renal BUN/Cr: 22/0.5 Fluids, electrolytes, nutrition * Electrolytes WNL except for mentioned below * Na: 131 * Cl: 96 * Calcium: 7.2 * Nutrition: HHD * Infectious disease: Pneumonia WBC: 16.7 Meds: * ceftriaxone IV Q12 * azithromycin 500mg IV QD Hematology H&H: 9.8/31.8 Plt: 378 PT/PTT/INR: 14.4/32/1.3 Prophylaxis GI: pepcid DVT: SCDs, levenox
--- NOTE | 2017-07-24 18:50 | CP.PCM.CON ---
Past Patient History - Past Medical History & Family History Past Medical History?: Yes - Past Social History Smoking Status: Former Smoker - CARDIAC Hx Atrial Fibrillation: Yes Hx Hypertension: Yes - PULMONARY Hx Asthma: Yes Hx Chronic Obstructive Pulmonary Disease (COPD): Yes Hx Emphysema: Yes - MUSCULOSKELETAL/RHEUMATOLOGICAL Hx Falls: No - PSYCHIATRIC Hx Substance Use: No - SURGICAL HISTORY Other/Comment: abdominal sx - ANESTHESIA Hx Anesthesia: Yes Hx Anesthesia Reactions: No Hx Malignant Hyperthermia: No Meds Allergies/Adverse Reactions: Allergies Allergy/AdvReac Type Severity Reaction Status Date / Time No Known Allergies Allergy Verified 07/21/17 09:32 - Medications Medications: Current Medications Albuterol/Ipratropium (Duoneb 3 Mg/0.5 Mg (3 Ml) Ud) 3 ml INH RQ6 [facility] Last Admin: 07/24/17 13:35 Dose: 3 ml Aspirin (Aspirin Chewable) 81 mg PO DAILY [facility] Last Admin: 07/24/17 13:24 Dose: 81 mg Clopidogrel Bisulfate (Plavix) 75 mg PO DAILY [facility] Last Admin: 07/24/17 13:24 Dose: 75 mg Diltiazem HCl (Cardizem) 30 mg PO Q6 [facility] Last Admin: 07/24/17 17:22 Dose: 30 mg Enoxaparin Sodium (Lovenox) 60 mg SC Q12 [facility] Azithromycin 500 mg/ Sodium (Chloride) 250 mls @ 250 mls/hr IVPB DAILY [facility] Last Admin: 07/24/17 09:42 Dose: 250 mls/hr Ceftriaxone Sodium 1 gm/ (Sodium Chloride) 100 mls @ 100 mls/hr IVPB Q12H [facility] Last Admin: 07/24/17 12:09 Dose: 100 mls/hr Methylprednisolone (Solu-Medrol) 60 mg IVP Q6 [facility] Last Admin: 07/24/17 17:22 Dose: 60 mg Rivaroxaban (Xarelto) 15 mg PO DAILY [facility] Last Admin: 07/24/17 09:43 Dose: 15 mg Rosuvastatin Calcium (Crestor) 5 mg PO HS [facility] Fluticasone/Salmeterol (Advair Diskus 250/50) 1 puff IH RQ12 [facility] Results - Vital Signs Recent Vital Signs: Last Vital Signs Temp 97.4 F L 07/24/17 16:27 Pulse 101 H 07/24/17 16:27 Resp 22 07/24/17 16:27 BP 123/63 07/24/17 16:27 Pulse Ox 95 07/24/17 16:27 - Labs Result Diagrams: 07/24/17 12:07 07/24/17 11:26 Labs: Laboratory Results - last 24 hr 07/23/17 07/24/17 07/24/17 14:34 11:26 11:52 WBC RBC Hgb Hct MCV MCH MCHC RDW Plt Count MPV Neut % (Auto) Lymph % (Auto) Nelson % (Auto) Eos % (Auto) Baso % (Auto) Neut # Lymph # Nelson # Eos # Baso # Neutrophils % (Manual) Band Neutrophils % Lymphocytes % (Manual) TEST NOT PERFORMED Monocytes % (Manual) Platelet Estimate Hypochromasia (manual) Anisocytosis (manual) Ovalocytes Puncture Site Rb pCO2 40 pO2 116 H HCO3 28.2 H ABG pH 7.46 H ABG Total CO2 29.6 H ABG O2 Saturation 99.9 H ABG Base Excess 4.2 H ABG Hemoglobin 9.8 L ABG Carboxyhemoglobin 2.4 H POC ABG HHb (Measured) 0.1 ABG Methemoglobin 1.0 Peter Test Na A-a O2 Difference 69.0 Respiratory Index 0.6 Hgb O2 Saturation 96.4 Liter Flow 3.0 FiO2 33.0 Sodium 131 L Potassium 4.5 Chloride 96 L Carbon Dioxide 26 Anion Gap 14 BUN 22 H Creatinine 0.5 L Est GFR ( Amer) > 60 Est GFR (Non-Af Amer) > 60 Random Glucose 182 H Lactic Acid Calcium 7.2 L Phosphorus 3.0 Magnesium 1.9 Total Bilirubin 0.6 Troponin I < 0.0120 07/24/17 07/24/17 12:07 12:07 WBC 16.7 H RBC 4.22 L Hgb 9.8 L Hct 31.8 L MCV 75.3 L MCH 23.3 L MCHC 31.0 L RDW 19.1 H Plt Count 378 MPV 7.4 Neut % (Auto) 93.8 H Lymph % (Auto) 1.4 L Nelson % (Auto) 4.6 Eos % (Auto) 0.0 Baso % (Auto) 0.2 Neut # 15.7 H Lymph # 0.2 L Nelson # 0.8 Eos # 0.0 Baso # 0.0 Neutrophils % (Manual) 88 H Band Neutrophils % 5 H Lymphocytes % (Manual) 2 L Monocytes % (Manual) 5 Platelet Estimate Normal Hypochromasia (manual) Slight Anisocytosis (manual) Moderate Ovalocytes Slight Puncture Site pCO2 pO2 HCO3 ABG pH ABG Total CO2 ABG O2 Saturation ABG Base Excess ABG Hemoglobin ABG Carboxyhemoglobin POC ABG HHb (Measured) ABG Methemoglobin Peter Test A-a O2 Difference Respiratory Index Hgb O2 Saturation Liter Flow FiO2 Sodium Potassium Chloride Carbon Dioxide Anion Gap BUN Creatinine Est GFR ( Amer) Est GFR (Non-Af Amer) Random Glucose Lactic Acid 3.3 H Calcium Phosphorus Magnesium Total Bilirubin Troponin I
[2017-07-24] MEDS: Fluticasone-Salmeterol 250-50mcg Diskus IH SCH (20:20)
[2017-07-25] MEDS: MethylPREDNISolone 40 mg Vial IVP SCH ×4 (00:38→22:00)
[2017-07-25] MEDS: Albuterol-Ipratrop 3 mg / 0.5 (3 ml) UD INH SCH ×4 (02:06→19:44)
[2017-07-25 06:38] LABS: HEMOGLOBIN 8.6 g/dL (12.0-18.0); LYMPH # 0.2 K/uL (1.0-4.3); LYMPH % 2.2 % (20.0-40.0); MEAN CELL VOLUME 74.9 fL (80.0-94.0); MEAN CORPUSCULAR HEMOGLOBIN 24.2 pg (27.0-31.0); MEAN CORPUSCULAR HGB CONC 32.3 g/dL (33.0-37.0); MEAN PLATELET VOLUME 7.6 fL (7.2-11.7); MONO # 0.5 K/uL (0.0-0.8); NEUT # 8.8 K/uL (1.8-7.0); NEUT % 92.8 % (50.0-75.0); RBC 3.54 Mil/uL (4.40-5.90); WHITE BLOOD COUNT 9.5 K/uL (4.8-10.8)
[2017-07-25 06:39] LABS: PLATELET COUNT 268 K/uL (130-400)
[2017-07-25 07:28] LABS: BLOOD UREA NITROGEN 21 mg/dL (9-20); CALCIUM 7.2 mg/dl (8.6-10.4); GFR AFRICAN-AMERICAN > 60; GFR NON-AFRICAN AMERICAN > 60; HDL CHOLESTEROL 28 mg/dL (30-70)
[2017-07-25] MEDS: Fluticasone-Salmeterol 250-50mcg Diskus IH SCH ×2 (07:34→19:42)
[2017-07-25 07:39] LABS: LDL CHOLESTEROL 54 mg/dL (0-129)
[2017-07-25 09:35] LABS: ANISOCYTOSIS SLIGHT; BANDS 7 % (0-2); LYMPHOCYTE 2 % (20-40); MONOCYTE 1 % (0-10); NEUTROPHIL 90 % (50-75); PLATELET ESTIMATE NORMAL (NORMAL); TOTAL CELLS COUNTED 100
[2017-07-25 09:36] LABS: HYPOCHROMIC SLIGHT; MICROCYTOSIS SLIGHT
[2017-07-25 09:38] LABS: OVALOCYTES SLIGHT
[2017-07-25 09:39] LABS: POLYCHROMIC SLIGHT
[2017-07-25] MEDS: Azithromycin 500 MG in Sodium Chloride 0.9% 250 ML IVPB SCH (10:30)
[2017-07-25] MEDS: Enoxaparin 60 mg Syringe SC SCH ×2 (10:55→21:56)
--- NOTE | 2017-07-25 12:20 | CP.PCM.PN ---
Subjective - Date & Time of Evaluation Date of Evaluation: 07/25/17 Time of Evaluation: 12:20 Objective - Vital Signs/Intake and Output Vital Signs (last 24 hours): Temp Pulse Resp BP Pulse Ox 98.1 F 120 H 20 128/63 98 07/25/17 08:47 07/25/17 08:47 07/25/17 08:47 07/25/17 08:47 07/25/17 08:47 Intake and Output: 07/25/17 07/25/17 06:59 18:59 Intake Total 140 Balance 140 - Medications Medications: Current Medications Albuterol/Ipratropium (Duoneb 3 Mg/0.5 Mg (3 Ml) Ud) 3 ml INH RQ6 [facility] Last Admin: 07/25/17 07:33 Dose: 3 ml Aspirin (Aspirin Chewable) 81 mg PO DAILY [facility] Last Admin: 07/25/17 10:55 Dose: 81 mg Clopidogrel Bisulfate (Plavix) 75 mg PO DAILY [facility] Last Admin: 07/25/17 10:55 Dose: 75 mg Diltiazem HCl (Cardizem) 30 mg PO Q6 [facility] [place] Last Admin: 07/25/17 11:22 Dose: 30 mg Enoxaparin Sodium (Lovenox) 60 mg SC Q12 [facility] [place] Last Admin: 07/25/17 10:55 Dose: 60 mg Azithromycin 500 mg/ Sodium (Chloride) 250 mls @ 250 mls/hr IVPB DAILY [facility] [place] Last Admin: 07/24/17 09:42 Dose: 250 mls/hr Ceftriaxone Sodium 1 gm/ (Sodium Chloride) 100 mls @ 100 mls/hr IVPB Q12H [facility] [place] Last Admin: 07/25/17 11:29 Dose: 100 mls/hr Methylprednisolone (Solu-Medrol) 60 mg IVP Q6 [facility] [place] Last Admin: 07/25/17 11:22 Dose: 60 mg Oseltamivir Phosphate (Tamiflu Cap) 75 mg PO BID [facility] [place] Stop: 07/30/17 08:47 Last Admin: 07/25/17 10:55 Dose: 75 mg Rivaroxaban (Xarelto) 15 mg PO DAILY [facility] [place] Last Admin: 07/24/17 09:43 Dose: 15 mg Rosuvastatin Calcium (Crestor) 5 mg PO HS [facility] Last Admin: 07/24/17 21:09 Dose: 5 mg Fluticasone/Salmeterol (Advair Diskus 250/50) 1 puff IH RQ12 [facility] Last Admin: 07/25/17 07:34 Dose: 1 puff - Labs Labs: 07/25/17 06:20 07/25/17 06:20 PT 14.4 SECONDS (9.7-12.2) H 07/21/17 09:47 INR 1.3 07/21/17 09:47 APTT 32 SECONDS (21-34) 07/21/17 09:47
--- NOTE | 2017-07-25 12:26 | CP.PCM.PN ---
Subjective - Date & Time of Evaluation Date of Evaluation: 07/25/17 Time of Evaluation: 12:25 - Subjective Subjective: No interval change Telemetry reviewed Objective - Vital Signs/Intake and Output Vital Signs (last 24 hours): Temp Pulse Resp BP Pulse Ox 98.1 F 120 H 20 128/63 98 07/25/17 08:47 07/25/17 08:47 07/25/17 08:47 07/25/17 08:47 07/25/17 08:47 Intake and Output: 07/25/17 07/25/17 06:59 18:59 Intake Total 140 Balance 140 - Medications Medications: Current Medications Albuterol/Ipratropium (Duoneb 3 Mg/0.5 Mg (3 Ml) Ud) 3 ml INH RQ6 [facility] Last Admin: 07/25/17 07:33 Dose: 3 ml Aspirin (Aspirin Chewable) 81 mg PO DAILY [facility] Last Admin: 07/25/17 10:55 Dose: 81 mg Clopidogrel Bisulfate (Plavix) 75 mg PO DAILY [facility] Last Admin: 07/25/17 10:55 Dose: 75 mg Diltiazem HCl (Cardizem) 30 mg PO Q6 [facility] Last Admin: 07/25/17 11:22 Dose: 30 mg Enoxaparin Sodium (Lovenox) 60 mg SC Q12 [facility] Last Admin: 07/25/17 10:55 Dose: 60 mg Azithromycin 500 mg/ Sodium (Chloride) 250 mls @ 250 mls/hr IVPB DAILY [facility] Last Admin: 07/24/17 09:42 Dose: 250 mls/hr Ceftriaxone Sodium 1 gm/ (Sodium Chloride) 100 mls @ 100 mls/hr IVPB Q12H [facility] Last Admin: 07/25/17 11:29 Dose: 100 mls/hr Methylprednisolone (Solu-Medrol) 60 mg IVP Q6 [facility] Last Admin: 07/25/17 11:22 Dose: 60 mg Oseltamivir Phosphate (Tamiflu Cap) 75 mg PO BID [facility] Stop: 07/30/17 08:47 Last Admin: 07/25/17 10:55 Dose: 75 mg Rivaroxaban (Xarelto) 15 mg PO DAILY [facility] Last Admin: 07/24/17 09:43 Dose: 15 mg Rosuvastatin Calcium (Crestor) 5 mg PO HS [facility] Last Admin: 07/24/17 21:09 Dose: 5 mg Fluticasone/Salmeterol (Advair Diskus 250/50) 1 puff IH RQ12 [facility] Last Admin: 07/25/17 07:34 Dose: 1 puff - Labs Labs: 07/25/17 06:20 07/25/17 06:20 PT 14.4 SECONDS (9.7-12.2) H 07/21/17 09:47 INR 1.3 07/21/17 09:47 APTT 32 SECONDS (21-34) 07/21/17 09:47 Assessment and Plan - Assessment and Plan (Free Text) Assessment: No recurrence of ventricular tachycardia Awaiting cardiac cath Plan: as outlined yesterday
--- NOTE | 2017-07-25 12:37 | CP.PCM.PN ---
<Moose White - Last Filed: 07/25/17 12:35> Subjective - Date & Time of Evaluation Date of Evaluation: 07/25/17 Time of Evaluation: 11:30 - Subjective Subjective: PGY-[address] Johnson. No acute events overnight. Patient on respiratory isolation due to Flu. Upon exam today patient did not complain of any chest pain or palpitations. Bilateral wheezing was noted on physical. Objective - Vital Signs/Intake and Output Vital Signs (last 24 hours): Temp Pulse Resp BP Pulse Ox 98.1 F 120 H 20 128/63 98 07/25/17 08:47 07/25/17 08:47 07/25/17 08:47 07/25/17 08:47 07/25/17 08:47 Intake and Output: 07/25/17 07/25/17 06:59 18:59 Intake Total 140 Balance 140 - Medications Medications: Current Medications Albuterol/Ipratropium (Duoneb 3 Mg/0.5 Mg (3 Ml) Ud) 3 ml INH RQ6 [facility] Last Admin: 07/25/17 07:33 Dose: 3 ml Aspirin (Aspirin Chewable) 81 mg PO DAILY [facility] Last Admin: 07/25/17 10:55 Dose: 81 mg Clopidogrel Bisulfate (Plavix) 75 mg PO DAILY [facility] Last Admin: 07/25/17 10:55 Dose: 75 mg Diltiazem HCl (Cardizem) 30 mg PO Q6 [facility] Last Admin: 07/25/17 11:22 Dose: 30 mg Enoxaparin Sodium (Lovenox) 60 mg SC Q12 [facility] Last Admin: 07/25/17 10:55 Dose: 60 mg Azithromycin 500 mg/ Sodium (Chloride) 250 mls @ 250 mls/hr IVPB DAILY [facility] Last Admin: 07/24/17 09:42 Dose: 250 mls/hr Ceftriaxone Sodium 1 gm/ (Sodium Chloride) 100 mls @ 100 mls/hr IVPB Q12H [facility] Last Admin: 07/25/17 11:29 Dose: 100 mls/hr Methylprednisolone (Solu-Medrol) 60 mg IVP Q6 [facility] Last Admin: 07/25/17 11:22 Dose: 60 mg Oseltamivir Phosphate (Tamiflu Cap) 75 mg PO BID [facility] Stop: 07/30/17 08:47 Last Admin: 07/25/17 10:55 Dose: 75 mg Rivaroxaban (Xarelto) 15 mg PO DAILY [facility] Last Admin: 07/24/17 09:43 Dose: 15 mg Rosuvastatin Calcium (Crestor) 5 mg PO HS [facility] Last Admin: 07/24/17 21:09 Dose: 5 mg Fluticasone/Salmeterol (Advair Diskus 250/50) 1 puff IH RQ12 [facility] Last Admin: 07/25/17 07:34 Dose: 1 puff - Labs Labs: 07/25/17 06:20 07/25/17 06:20 PT 14.4 SECONDS (9.7-12.2) H 07/21/17 09:47 INR 1.3 07/21/17 09:47 APTT 32 SECONDS (21-34) 07/21/17 09:47 - Additional Findings Additional findings: - Constitutional Appears: No Acute Distress - Head Exam Head Exam: ATRAUMATIC, NORMAL INSPECTION - Eye Exam Eye Exam: EOMI - ENT Exam ENT Exam: Mucous Membranes Moist - Respiratory Exam Respiratory Exam: Wheezes, decreased breath sounds, prolonged expiration, scattered rhonchi - Cardiovascular Exam Cardiovascular Exam: Tachycardia, IRREGULAR RHYTHM. absent: Murmur - GI/Abdominal Exam GI & Abdominal Exam: Soft, Normal Bowel Sounds. absent: Tenderness - Extremities Exam Extremities Exam: absent: Pedal Edema - Neurological Exam Neurological Exam: Alert, Oriented x3 - Skin Skin Exam: Intact, Normal Color, Warm Assessment and Plan (1) Ventricular tachycardia seen on registered nurse cardiac telemetry Status: Acute (2) Atrial fibrillation Status: Acute - Assessment and Plan (Free Text) Assessment: (1) Ventricular tachycardia seen on registered nurse cardiac telemetry Assessment & Plan: Cardiac Risk Factors: Patient admits to heavy tobacco use in the past. Denies any cardiac history. Denies family cardiac history. HTN. 23 beats of VTach noted on monitor AM of 07/24/17 Potassium NORMAL, Mag NORMAL, ADALID on 07/21/17 NORMAL HOLD home Xaralto 15mg PO QD Therapeutic Lovenox 60mg SC Q12H, started 07/25/17 Start Aspirin 81mg PO QD Start Plavix 75mg PO QD Start Crestor 5mg PO HS Cardiac Cath planned for 07/27/17 Status: Acute (2) Atrial fibrillation Assessment & Plan: Hx of AFib. NSR on telemetry. HOLD home Xaralto 15mg PO QD Therapeutic Lovenox 60mg SC Q12H, started 07/25/17 See plan for above. Status: Acute <Francisco Johnson - Last Filed: 07/25/17 20:44> Objective - Vital Signs/Intake and Output Vital Signs (last 24 hours): Temp Pulse Resp BP Pulse Ox 97.5 F L 99 H 20 128/65 95 07/25/17 16:00 07/25/17 16:00 07/25/17 16:00 07/25/17 16:00 07/25/17 16:00 Intake and Output: 07/25/17 07/26/17 18:59 06:59 Intake Total 710 Balance 710 - Medications Medications: Current Medications Albuterol/Ipratropium (Duoneb 3 Mg/0.5 Mg (3 Ml) Ud) 3 ml INH RQ6 [facility] Last Admin: 07/25/17 19:44 Dose: 3 ml Aspirin (Aspirin Chewable) 81 mg PO DAILY [facility] Last Admin: 07/25/17 10:55 Dose: 81 mg Clopidogrel Bisulfate (Plavix) 75 mg PO DAILY [facility] Last Admin: 07/25/17 10:55 Dose: 75 mg Diltiazem HCl (Cardizem) 30 mg PO Q6 [facility] Last Admin: 07/25/17 17:36 Dose: 30 mg Enoxaparin Sodium (Lovenox) 60 mg SC Q12 [facility] Last Admin: 07/25/17 10:55 Dose: 60 mg Azithromycin 500 mg/ Sodium (Chloride) 250 mls @ 250 mls/hr IVPB DAILY [facility] Last Admin: 07/25/17 10:30 Dose: 250 mls/hr Ceftriaxone Sodium 1 gm/ (Sodium Chloride) 100 mls @ 100 mls/hr IVPB Q12H [facility] Last Admin: 07/25/17 11:29 Dose: 100 mls/hr Methylprednisolone (Solu-Medrol) 60 mg IVP Q8 [facility] Oseltamivir Phosphate (Tamiflu Cap) 75 mg PO BID [facility] Stop: 07/30/17 10:01 Last Admin: 07/25/17 17:36 Dose: 75 mg Rivaroxaban (Xarelto) 15 mg PO DAILY [facility] Last Admin: 07/24/17 09:43 Dose: 15 mg Rosuvastatin Calcium (Crestor) 5 mg PO HS [facility] Last Admin: 07/24/17 21:09 Dose: 5 mg Fluticasone/Salmeterol (Advair Diskus 250/50) 1 puff IH RQ12 [facility] Last Admin: 07/25/17 19:42 Dose: Not Given - Labs Labs: 07/25/17 06:20 07/25/17 06:20 PT 14.4 SECONDS (9.7-12.2) H 07/21/17 09:47 INR 1.3 07/21/17 09:47 APTT 32 SECONDS (21-34) 07/21/17 09:47 Assessment and Plan - Assessment and Plan (Free Text) Assessment: Patient seen and evaluated personally by me. Plan d/w vice president of software development and as documented
[2017-07-26] MEDS: Albuterol-Ipratrop 3 mg / 0.5 (3 ml) UD INH SCH ×5 (00:41→19:37)
[2017-07-26] MEDS: MethylPREDNISolone 40 mg Vial IVP SCH ×3 (05:48→21:53)
[2017-07-26] MEDS: Fluticasone-Salmeterol 250-50mcg Diskus IH SCH ×2 (07:19→19:36)
[2017-07-26] MEDS: Enoxaparin 60 mg Syringe SC SCH ×2 (09:45→21:55)
--- NOTE | 2017-07-26 13:33 | CP.PCM.PN ---
<Moose White - Last Filed: 07/26/17 13:31> Subjective - Date & Time of Evaluation Date of Evaluation: 07/26/17 Time of Evaluation: 13:31 - Subjective Subjective: PGY-[address] Johnson. No acute events overnight. Patient on respiratory isolation due to Flu. Upon exam today patient did not complain of any chest pain or palpitations. Bilateral wheezing was noted on physical. Objective - Vital Signs/Intake and Output Vital Signs (last 24 hours): Temp Pulse Resp BP Pulse Ox 97.4 F L 105 H 20 143/71 96 07/26/17 08:45 07/26/17 08:45 07/26/17 08:45 07/26/17 08:45 07/26/17 08:45 - Medications Medications: Current Medications Albuterol/Ipratropium (Duoneb 3 Mg/0.5 Mg (3 Ml) Ud) 3 ml INH RQ6 [facility] Last Admin: 07/26/17 07:32 Dose: 3 ml Aspirin (Aspirin Chewable) 81 mg PO DAILY [facility] Last Admin: 07/26/17 09:46 Dose: 81 mg Clopidogrel Bisulfate (Plavix) 75 mg PO DAILY [facility] Last Admin: 07/26/17 09:46 Dose: 75 mg Diltiazem HCl (Cardizem) 30 mg PO Q6 [facility] Last Admin: 07/26/17 11:34 Dose: 30 mg Enoxaparin Sodium (Lovenox) 60 mg SC Q12 [facility] Last Admin: 07/26/17 09:45 Dose: 60 mg Ceftriaxone Sodium 1 gm/ (Sodium Chloride) 100 mls @ 100 mls/hr IVPB Q12H [facility] Last Admin: 07/26/17 11:34 Dose: 100 mls/hr Azithromycin 500 mg/ Dextrose 250 mls @ 250 mls/hr IVPB DAILY [facility] Last Admin: 07/26/17 09:45 Dose: 250 mls/hr Methylprednisolone (Solu-Medrol) 60 mg IVP Q8 [facility] Last Admin: 07/26/17 05:48 Dose: 60 mg Oseltamivir Phosphate (Tamiflu Cap) 75 mg PO BID [facility] Stop: 07/30/17 10:01 Last Admin: 07/26/17 09:46 Dose: 75 mg Rivaroxaban (Xarelto) 15 mg PO DAILY [facility] Last Admin: 07/24/17 09:43 Dose: 15 mg Rosuvastatin Calcium (Crestor) 5 mg PO HS [facility] Last Admin: 07/25/17 21:56 Dose: 5 mg Fluticasone/Salmeterol (Advair Diskus 250/50) 1 puff IH RQ12 [facility] Last Admin: 07/26/17 07:19 Dose: Not Given - Labs Labs: 07/25/17 06:20 07/25/17 06:20 PT 14.4 SECONDS (9.7-12.2) H 07/21/17 09:47 INR 1.3 07/21/17 09:47 APTT 32 SECONDS (21-34) 07/21/17 09:47 - Additional Findings Additional findings: - Constitutional Appears: No Acute Distress - Head Exam Head Exam: ATRAUMATIC, NORMAL INSPECTION - Eye Exam Eye Exam: EOMI - ENT Exam ENT Exam: Mucous Membranes Moist - Respiratory Exam Respiratory Exam: Wheezes, decreased breath sounds, prolonged expiration, scattered rhonchi - Cardiovascular Exam Cardiovascular Exam: Tachycardia, IRREGULAR RHYTHM. absent: Murmur - GI/Abdominal Exam GI & Abdominal Exam: Soft, Normal Bowel Sounds. absent: Tenderness - Extremities Exam Extremities Exam: absent: Pedal Edema - Neurological Exam Neurological Exam: Alert, Oriented x3 - Skin Skin Exam: Intact, Normal Color, Warm Assessment and Plan (1) Ventricular tachycardia seen on electronic device monitor Status: Acute (2) Atrial fibrillation Status: Acute - Assessment and Plan (Free Text) Assessment: (1) Ventricular tachycardia seen on electronic device monitor Assessment & Plan: Cardiac Risk Factors: Patient admits to heavy tobacco use in the past. Denies any cardiac history. Denies family cardiac history. HTN. 23 beats of VTach noted on monitor AM of 07/24/17 Potassium NORMAL, Mag NORMAL, ADALID on 07/21/17 NORMAL HOLD home Xaralto 15mg PO QD Therapeutic Lovenox 60mg SC Q12H, started 07/25/17 Start Aspirin 81mg PO QD Start Plavix 75mg PO QD Start Crestor 5mg PO HS Cardiac Cath planned for 07/27/17 * Will make NPO after midnight. Hold morning dose of Lovenox 07/27/17. Will check cbc, cmp, mag, phos, pt, ptt. Status: Acute (2) Atrial fibrillation Assessment & Plan: Hx of AFib. NSR on telemetry. HOLD home Xaralto 15mg PO QD Therapeutic Lovenox 60mg SC Q12H, started 07/25/17 See plan for above. Status: Acute <Francisco Johnson - Last Filed: 07/26/17 20:48> Subjective - Subjective Subjective: Patient seen and evaluated personally by me Plan of care as documented Objective - Vital Signs/Intake and Output Vital Signs (last 24 hours): Temp Pulse Resp BP Pulse Ox 97.5 F L 102 H 20 124/71 97 07/26/17 16:00 07/26/17 16:00 07/26/17 16:00 07/26/17 16:00 07/26/17 16:00 Intake and Output: 07/26/17 07/27/17 18:59 06:59 Intake Total 840 Balance 840 - Medications Medications: Current Medications Albuterol/Ipratropium (Duoneb 3 Mg/0.5 Mg (3 Ml) Ud) 3 ml INH RQ6 [facility] Last Admin: 07/26/17 19:37 Dose: 3 ml Aspirin (Aspirin Chewable) 81 mg PO DAILY [facility] Last Admin: 07/26/17 09:46 Dose: 81 mg Clopidogrel Bisulfate (Plavix) 75 mg PO DAILY [facility] Last Admin: 07/26/17 09:46 Dose: 75 mg Diltiazem HCl (Cardizem) 30 mg PO Q6 [facility] Last Admin: 07/26/17 18:05 Dose: 30 mg Enoxaparin Sodium (Lovenox) 60 mg SC Q12 [facility] Last Admin: 07/26/17 09:45 Dose: 60 mg Ceftriaxone Sodium 1 gm/ (Sodium Chloride) 100 mls @ 100 mls/hr IVPB Q12H [facility] Last Admin: 07/26/17 11:34 Dose: 100 mls/hr Azithromycin 500 mg/ Dextrose 250 mls @ 250 mls/hr IVPB DAILY [facility] Last Admin: 07/26/17 09:45 Dose: 250 mls/hr Methylprednisolone (Solu-Medrol) 60 mg IVP Q8 [facility] Last Admin: 07/26/17 14:18 Dose: 60 mg Oseltamivir Phosphate (Tamiflu Cap) 75 mg PO BID [facility] Stop: 07/30/17 10:01 Last Admin: 07/26/17 18:05 Dose: 75 mg Rivaroxaban (Xarelto) 15 mg PO DAILY [facility] Last Admin: 07/24/17 09:43 Dose: 15 mg Rosuvastatin Calcium (Crestor) 5 mg PO HS [facility] Last Admin: 07/25/17 21:56 Dose: 5 mg Fluticasone/Salmeterol (Advair Diskus 250/50) 1 puff IH RQ12 [facility] Last Admin: 07/26/17 19:36 Dose: Not Given Sodium Chloride ([place] Baby Saline 30 Ml) 0 ml [place] TID PRN PRN Reason: Cough and congestion - Labs Labs: 07/26/17 17:16 07/26/17 17:16 PT 13.6 SECONDS (9.7-12.2) H 07/26/17 17:16 INR 1.2 07/26/17 17:16 APTT 33 SECONDS (21-34) 07/26/17 17:16
[2017-07-26 17:22] LABS: BASO % 0.1 % (0.0-2.0); HEMOGLOBIN 8.4 g/dL (12.0-18.0); LYMPH # 0.3 K/uL (1.0-4.3); LYMPH % 2.3 % (20.0-40.0); MEAN CELL VOLUME 75.2 fL (80.0-94.0); MEAN CORPUSCULAR HEMOGLOBIN 23.2 pg (27.0-31.0); MEAN CORPUSCULAR HGB CONC 30.9 g/dL (33.0-37.0); MEAN PLATELET VOLUME 7.6 fL (7.2-11.7); MONO # 0.6 K/uL (0.0-0.8); MONO % 4.2 % (0.0-10.0); NEUT % 93.4 % (50.0-75.0); PLATELET COUNT 312 K/uL (130-400); RBC 3.61 Mil/uL (4.40-5.90); RED CELL DISTRIBUTION WIDTH 19.1 % (11.5-14.5)
[2017-07-26 17:39] LABS: INR 1.2; PROTHROMBIN TIME 13.6 SECONDS (9.7-12.2)
[2017-07-26 17:42] LABS: ALB/GLOB RATIO 1.1 (1.0-2.1); ALBUMIN 3.1 g/dL (3.5-5.0); ALT/SGPT 54 U/L (21-72); AST/SGOT 34 U/L (17-59); BLOOD UREA NITROGEN 24 mg/dL (9-20); CALCIUM 7.4 mg/dl (8.6-10.4); GFR AFRICAN-AMERICAN > 60; GFR NON-AFRICAN AMERICAN > 60; MAGNESIUM 1.9 mg/dL (1.6-2.3)
[2017-07-26 18:20] LABS: LYMPHOCYTE 1 % (20-40); MONOCYTE 2 % (0-10); NEUTROPHIL 97 % (50-75); TOTAL CELLS COUNTED 100
[2017-07-26 18:21] LABS: ANISOCYTOSIS SLIGHT; HYPOCHROMIC SLIGHT; MICROCYTOSIS SLIGHT; OVALOCYTES SLIGHT; PLATELET ESTIMATE NORMAL (NORMAL); POLYCHROMIC SLIGHT
--- NOTE | 2017-07-26 18:47 | CP.PCM.PN ---
Subjective - Date & Time of Evaluation Date of Evaluation: 07/26/17 Time of Evaluation: 18:47 Objective - Vital Signs/Intake and Output Vital Signs (last 24 hours): Temp Pulse Resp BP Pulse Ox 97.5 F L 102 H 20 124/71 97 07/26/17 16:00 07/26/17 16:00 07/26/17 16:00 07/26/17 16:00 07/26/17 16:00 Intake and Output: 07/26/17 07/26/17 06:59 18:59 Intake Total 840 Balance 840 - Medications Medications: Current Medications Albuterol/Ipratropium (Duoneb 3 Mg/0.5 Mg (3 Ml) Ud) 3 ml INH RQ6 [facility] Last Admin: 07/26/17 13:45 Dose: 3 ml Aspirin (Aspirin Chewable) 81 mg PO DAILY [facility] Last Admin: 07/26/17 09:46 Dose: 81 mg Clopidogrel Bisulfate (Plavix) 75 mg PO DAILY [facility] Last Admin: 07/26/17 09:46 Dose: 75 mg Diltiazem HCl (Cardizem) 30 mg PO Q6 [facility] Last Admin: 07/26/17 18:05 Dose: 30 mg Enoxaparin Sodium (Lovenox) 60 mg SC Q12 [facility] Last Admin: 07/26/17 09:45 Dose: 60 mg Ceftriaxone Sodium 1 gm/ (Sodium Chloride) 100 mls @ 100 mls/hr IVPB Q12H [facility] Last Admin: 07/26/17 11:34 Dose: 100 mls/hr Azithromycin 500 mg/ Dextrose 250 mls @ 250 mls/hr IVPB DAILY [facility] [place] Last Admin: 07/26/17 09:45 Dose: 250 mls/hr Methylprednisolone (Solu-Medrol) 60 mg IVP Q8 [facility] [place] Last Admin: 07/26/17 14:18 Dose: 60 mg Oseltamivir Phosphate (Tamiflu Cap) 75 mg PO BID [facility] [place] Stop: 07/30/17 10:01 Last Admin: 07/26/17 18:05 Dose: 75 mg Rivaroxaban (Xarelto) 15 mg PO DAILY [facility] [place] Last Admin: 07/24/17 09:43 Dose: 15 mg Rosuvastatin Calcium (Crestor) 5 mg PO HS [facility] [place] Last Admin: 07/25/17 21:56 Dose: 5 mg Fluticasone/Salmeterol (Advair Diskus 250/50) 1 puff [facility] RQ12 [facility] Last Admin: 07/26/17 07:19 Dose: Not Given - Labs Labs: 07/26/17 17:16 07/26/17 17:16 PT 13.6 SECONDS (9.7-12.2) H 07/26/17 17:16 INR 1.2 07/26/17 17:16 APTT 33 SECONDS (21-34) 07/26/17 17:16
[2017-07-26] MEDS: Sodium Chloride Nasal 0.65% Soln (30ml) NAS PRN (22:17)
[2017-07-27] MEDS: MethylPREDNISolone 40 mg Vial IVP SCH ×3 (05:51→22:04)
[2017-07-27] MEDS: Fluticasone-Salmeterol 250-50mcg Diskus IH SCH ×2 (08:05→21:15)
[2017-07-27 08:34] LABS: BASO % 0.1 % (0.0-2.0); HEMOGLOBIN 8.5 g/dL (12.0-18.0); LYMPH # 0.5 K/uL (1.0-4.3); MEAN CORPUSCULAR HEMOGLOBIN 23.9 pg (27.0-31.0); MEAN CORPUSCULAR HGB CONC 31.9 g/dL (33.0-37.0); MEAN PLATELET VOLUME 7.8 fL (7.2-11.7); MONO # 0.4 K/uL (0.0-0.8); MONO % 2.6 % (0.0-10.0); NEUT # 15.2 K/uL (1.8-7.0); NEUT % 94.3 % (50.0-75.0); NRBC % 0.1 % (0.0-2.0); PLATELET COUNT 382 K/uL (130-400); RBC 3.56 Mil/uL (4.40-5.90); RED CELL DISTRIBUTION WIDTH 18.5 % (11.5-14.5); WHITE BLOOD COUNT 16.1 K/uL (4.8-10.8)
[2017-07-27 09:25] LABS: ALB/GLOB RATIO 1.1 (1.0-2.1); ALBUMIN 3.3 g/dL (3.5-5.0); ALT/SGPT 48 U/L (21-72); AST/SGOT 38 U/L (17-59); BLOOD UREA NITROGEN 23 mg/dL (9-20); CALCIUM 7.9 mg/dl (8.6-10.4); GFR AFRICAN-AMERICAN > 60; GFR NON-AFRICAN AMERICAN > 60; MAGNESIUM 1.8 mg/dL (1.6-2.3)
[2017-07-27 11:08] LABS: BANDS 2 % (0-2); LYMPHOCYTE 2 % (20-40); MONOCYTE 5 % (0-10); NEUTROPHIL 91 % (50-75); PLATELET ESTIMATE NORMAL (NORMAL); TOTAL CELLS COUNTED 100
[2017-07-27 11:09] LABS: ANISOCYTOSIS MODERATE; HYPOCHROMIC SLIGHT; LARGE PLATELETS PRESENT; OVALOCYTES SLIGHT; POIKILOCYTOSIS SLIGHT; POLYCHROMIC SLIGHT
[2017-07-27 11:10] LABS: TOXIC GRANULATION PRESENT
--- NOTE | 2017-07-27 12:28 | CP.PCM.PN ---
Subjective - Date & Time of Evaluation Date of Evaluation: 07/27/17 Time of Evaluation: 12:28 - Subjective Subjective: Cath cancelled due to active Flue rescheduled for Sunday 2pm Physical Examination - Additional Findings Additional findings: - Constitutional Appears: No Acute Distress - Head Exam Head Exam: ATRAUMATIC, NORMAL INSPECTION - Eye Exam Eye Exam: EOMI - ENT Exam ENT Exam: Mucous Membranes Moist - Respiratory Exam Respiratory Exam: Wheezes, decreased breath sounds, prolonged expiration, scattered rhonchi - Cardiovascular Exam Cardiovascular Exam: Tachycardia, IRREGULAR RHYTHM. absent: Murmur - GI/Abdominal Exam GI & Abdominal Exam: Soft, Normal Bowel Sounds. absent: Tenderness - Extremities Exam Extremities Exam: absent: Pedal Edema - Neurological Exam Neurological Exam: Alert, Oriented x3 - Skin Skin Exam: Intact, Normal Color, Warm Objective - Vital Signs/Intake and Output Vital Signs (last 24 hours): Temp Pulse Resp BP Pulse Ox 97.3 F L 111 H 20 164/90 H 95 07/27/17 07:40 07/27/17 07:40 07/27/17 07:40 07/27/17 07:40 07/27/17 07:40 Intake and Output: 07/27/17 07/27/17 06:59 18:59 Intake Total 450 Balance 450 - Medications Medications: Current Medications Aspirin (Aspirin Chewable) 81 mg PO DAILY [facility] Last Admin: 07/27/17 10:23 Dose: 81 mg Clopidogrel Bisulfate (Plavix) 75 mg PO DAILY [facility] Last Admin: 07/27/17 10:23 Dose: 75 mg Diltiazem HCl (Cardizem) 30 mg PO Q6 [facility] Last Admin: 07/27/17 11:41 Dose: 30 mg Enoxaparin Sodium (Lovenox) 60 mg SC Q12 [facility] Last Admin: 07/26/17 21:55 Dose: 60 mg Azithromycin 500 mg/ Dextrose 250 mls @ 250 mls/hr IVPB DAILY [facility] Last Admin: 07/27/17 10:23 Dose: 250 mls/hr Methylprednisolone (Solu-Medrol) 60 mg IVP Q8 [facility] Last Admin: 07/27/17 05:51 Dose: 60 mg Oseltamivir Phosphate (Tamiflu Cap) 75 mg PO BID [facility] Stop: 07/30/17 10:01 Last Admin: 07/27/17 10:23 Dose: 75 mg Rivaroxaban (Xarelto) 15 mg PO DAILY [facility] Last Admin: 07/24/17 09:43 Dose: 15 mg Rosuvastatin Calcium (Crestor) 5 mg PO HS [facility] Last Admin: 07/26/17 21:52 Dose: 5 mg Fluticasone/Salmeterol (Advair Diskus 250/50) 1 puff IH RQ12 [facility] Last Admin: 07/27/17 08:05 Dose: Not Given Sodium Chloride ([place] Baby Saline 30 Ml) 0 ml [place] TID PRN PRN Reason: Cough and congestion Last Admin: 07/26/17 22:17 Dose: 1 spr - Labs Labs: 07/27/17 08:24 07/27/17 08:24 PT 13.6 SECONDS (9.7-12.2) H 07/26/17 17:16 INR 1.2 07/26/17 17:16 APTT 33 SECONDS (21-34) 07/26/17 17:16 Assessment and Plan - Assessment and Plan (Free Text) Assessment: (1) Ventricular tachycardia seen on supervisor pit and auxiliaries Assessment & Plan: Cardiac Risk Factors: Patient admits to heavy tobacco use in the past. Denies any cardiac history. Denies family cardiac history. HTN. 23 beats of VTach noted on monitor AM of 07/24/17 Potassium NORMAL, Mag NORMAL, ADALID on 07/21/17 NORMAL HOLD home Xaralto 15mg PO QD Therapeutic Lovenox 60mg SC Q12H, started 07/25/17 Start Aspirin 81mg PO QD Start Plavix 75mg PO QD Start Crestor 5mg PO HS Cardiac Cath planned for Sunday Status: Acute (2) Atrial fibrillation Assessment & Plan: Hx of AFib. NSR on telemetry. HOLD home Xaralto 15mg PO QD Therapeutic Lovenox 60mg SC Q12H, started 07/25/17 See plan for above. Status: Acute
--- NOTE | 2017-07-27 15:50 | CP.PCM.PN ---
Subjective - Date & Time of Evaluation Date of Evaluation: 07/27/17 Time of Evaluation: 15:50 Objective - Vital Signs/Intake and Output Vital Signs (last 24 hours): Temp Pulse Resp BP Pulse Ox 97.3 F L 111 H 20 164/90 H 95 07/27/17 07:40 07/27/17 07:40 07/27/17 07:40 07/27/17 07:40 07/27/17 07:40 Intake and Output: 07/27/17 07/27/17 06:59 18:59 Intake Total 450 Balance 450 - Medications Medications: Current Medications Aspirin (Aspirin Chewable) 81 mg PO DAILY [facility] Last Admin: 07/27/17 10:23 Dose: 81 mg Clopidogrel Bisulfate (Plavix) 75 mg PO DAILY [facility] Last Admin: 07/27/17 10:23 Dose: 75 mg Diltiazem HCl (Cardizem) 30 mg PO Q6 [facility] Last Admin: 07/27/17 11:41 Dose: 30 mg Enoxaparin Sodium (Lovenox) 60 mg SC Q12 [facility] Last Admin: 07/26/17 21:55 Dose: 60 mg Azithromycin 500 mg/ Dextrose 250 mls @ 250 mls/hr IVPB DAILY [facility] Last Admin: 07/27/17 10:23 Dose: 250 mls/hr Methylprednisolone (Solu-Medrol) 60 mg IVP Q8 [facility] Last Admin: 07/27/17 13:45 Dose: Not Given Oseltamivir Phosphate (Tamiflu Cap) 75 mg PO BID [facility] Stop: 07/30/17 10:01 Last Admin: 07/27/17 10:23 Dose: 75 mg Rivaroxaban (Xarelto) 15 mg PO DAILY [facility] Last Admin: 07/24/17 09:43 Dose: 15 mg Rosuvastatin Calcium (Crestor) 5 mg PO HS [facility] Last Admin: 07/26/17 21:52 Dose: 5 mg Fluticasone/Salmeterol (Advair Diskus 250/50) 1 puff IH RQ12 [facility] Last Admin: 07/27/17 08:05 Dose: Not Given Sodium Chloride ([place] Baby Saline 30 Ml) 0 ml [place] TID PRN PRN Reason: Cough and congestion Last Admin: 07/26/17 22:17 Dose: 1 spr - Labs Labs: 07/27/17 08:24 07/27/17 08:24 PT 13.6 SECONDS (9.7-12.2) H 07/26/17 17:16 INR 1.2 07/26/17 17:16 APTT 33 SECONDS (21-34) 07/26/17 17:16
[2017-07-27] MEDS ORDERED: Albuterol-Ipratrop 3 mg / 0.5 (3 ml) UD INH SCH (20:00)
[2017-07-27] MEDS: Albuterol-Ipratrop 3 mg / 0.5 (3 ml) UD INH SCH (21:16)
[2017-07-27] MEDS: Enoxaparin 60 mg Syringe SC SCH (22:48)
[2017-07-28] MEDS: Albuterol-Ipratrop 3 mg / 0.5 (3 ml) UD INH SCH ×4 (01:32→19:31)
[2017-07-28] MEDS: MethylPREDNISolone 40 mg Vial IVP SCH ×3 (05:15→21:12)
[2017-07-28] MEDS: Fluticasone-Salmeterol 250-50mcg Diskus IH SCH ×2 (07:48→19:31)
[2017-07-28] MEDS: Enoxaparin 60 mg Syringe SC SCH ×2 (13:10→21:11)
--- NOTE | 2017-07-28 15:55 | CP.PCM.PN ---
Subjective - Date & Time of Evaluation Date of Evaluation: 07/28/17 Time of Evaluation: 15:54 Objective - Vital Signs/Intake and Output Vital Signs (last 24 hours): Temp Pulse Resp BP Pulse Ox 97.4 F L 100 H 18 144/80 99 07/28/17 08:06 07/28/17 08:06 07/28/17 08:06 07/28/17 08:06 07/28/17 08:06 - Medications Medications: Current Medications Albuterol/Ipratropium (Duoneb 3 Mg/0.5 Mg (3 Ml) Ud) 3 ml INH RQ6 [facility] Last Admin: 07/28/17 13:30 Dose: 3 ml Aspirin (Aspirin Chewable) 81 mg PO DAILY [facility] Last Admin: 07/28/17 13:09 Dose: 81 mg Clopidogrel Bisulfate (Plavix) 75 mg PO DAILY [facility] Last Admin: 07/28/17 13:10 Dose: 75 mg Diltiazem HCl (Cardizem) 30 mg PO Q6 [facility] Last Admin: 07/28/17 13:26 Dose: 30 mg Enoxaparin Sodium (Lovenox) 60 mg SC Q12 [facility] Last Admin: 07/28/17 13:10 Dose: 60 mg Azithromycin 500 mg/ Dextrose 250 mls @ 250 mls/hr IVPB DAILY [facility] Last Admin: 07/28/17 13:08 Dose: 250 mls/hr Methylprednisolone (Solu-Medrol) 60 mg IVP Q8 [facility] Last Admin: 07/28/17 13:26 Dose: 60 mg Oseltamivir Phosphate (Tamiflu Cap) 75 mg PO BID [facility] Stop: 07/30/17 10:01 Last Admin: 07/28/17 13:09 Dose: 75 mg Rivaroxaban (Xarelto) 15 mg PO DAILY [facility] Last Admin: 07/24/17 09:43 Dose: 15 mg Rosuvastatin Calcium (Crestor) 5 mg PO HS [facility] Last Admin: 07/27/17 22:05 Dose: 5 mg Fluticasone/Salmeterol (Advair Diskus 250/50) 1 puff IH RQ12 [facility] Last Admin: 07/28/17 07:48 Dose: 1 puff Sodium Chloride ([place] Baby Saline 30 Ml) 0 ml [place] TID PRN PRN Reason: Cough and congestion Last Admin: 07/26/17 22:17 Dose: 1 spr - Labs Labs: 07/27/17 08:24 07/27/17 08:24 PT 13.6 SECONDS (9.7-12.2) H 07/26/17 17:16 INR 1.2 07/26/17 17:16 APTT 33 SECONDS (21-34) 07/26/17 17:16
[2017-07-28] MEDS ORDERED: Sodium Chloride Nasal 0.65% Soln (30ml) NAS PRN (16:42)
[2017-07-28] MEDS: Sodium Chloride Nasal 0.65% Soln (30ml) NAS PRN (21:10)
[2017-07-29] MEDS: Albuterol-Ipratrop 3 mg / 0.5 (3 ml) UD INH SCH ×4 (01:38→20:24)
[2017-07-29] MEDS: MethylPREDNISolone 40 mg Vial IVP SCH ×3 (06:10→22:23)
[2017-07-29] MEDS: Fluticasone-Salmeterol 250-50mcg Diskus IH SCH ×2 (07:36→20:24)
[2017-07-29] MEDS: Enoxaparin 60 mg Syringe SC SCH (10:39)
--- NOTE | 2017-07-29 11:21 | CP.PCM.PN ---
Subjective - Date & Time of Evaluation Date of Evaluation: 07/29/17 Time of Evaluation: 11:21 Objective - Vital Signs/Intake and Output Vital Signs (last 24 hours): Temp Pulse Resp BP Pulse Ox 97.4 F L 114 H 20 126/84 98 07/29/17 08:18 07/29/17 08:18 07/29/17 08:18 07/29/17 08:18 07/29/17 08:18 Intake and Output: 07/29/17 07/29/17 06:59 18:59 Intake Total 240 Balance 240 - Medications Medications: Current Medications Albuterol/Ipratropium (Duoneb 3 Mg/0.5 Mg (3 Ml) Ud) 3 ml INH RQ6 [facility] Last Admin: 07/29/17 07:37 Dose: 3 ml Aspirin (Aspirin Chewable) 81 mg PO DAILY [facility] Last Admin: 07/29/17 10:39 Dose: 81 mg Clopidogrel Bisulfate (Plavix) 75 mg PO DAILY [facility] Last Admin: 07/29/17 10:39 Dose: 75 mg Diltiazem HCl (Cardizem) 30 mg PO Q6 [facility] Last Admin: 07/29/17 06:10 Dose: 30 mg Enoxaparin Sodium (Lovenox) 60 mg SC Q12 [facility] Last Admin: 07/29/17 10:39 Dose: 60 mg Azithromycin 500 mg/ Dextrose 250 mls @ 250 mls/hr IVPB DAILY [facility] Last Admin: 07/29/17 10:39 Dose: 250 mls/hr Methylprednisolone (Solu-Medrol) 60 mg IVP Q8 [facility] Last Admin: 07/29/17 06:10 Dose: 60 mg Oseltamivir Phosphate (Tamiflu Cap) 75 mg PO BID [facility] Stop: 07/30/17 10:01 Last Admin: 07/29/17 10:39 Dose: 75 mg Rivaroxaban (Xarelto) 15 mg PO DAILY [facility] Last Admin: 07/24/17 09:43 Dose: 15 mg Rosuvastatin Calcium (Crestor) 5 mg PO HS [facility] Last Admin: 07/28/17 21:10 Dose: 5 mg Fluticasone/Salmeterol (Advair Diskus 250/50) 1 puff IH RQ12 [facility] Last Admin: 07/29/17 07:36 Dose: 1 puff Sodium Chloride ([place] Baby Saline 30 Ml) 0 ml [place] TID PRN PRN Reason: Cough and congestion Last Admin: 07/28/17 21:10 Dose: 1 spr Sodium Chloride ([place] Baby Saline 30 Ml) 0 ml [place] Q4 PRN PRN Reason: Cough and congestion - Labs Labs: 07/27/17 08:24 07/27/17 08:24 PT 13.6 SECONDS (9.7-12.2) H 07/26/17 17:16 INR 1.2 07/26/17 17:16 APTT 33 SECONDS (21-34) 07/26/17 17:16
--- NOTE | 2017-07-29 13:48 | CP.PCM.PN ---
Subjective - Date & Time of Evaluation Date of Evaluation: 07/28/17 Time of Evaluation: 14:10 - Subjective Subjective: Patient denies chest pain and dyspnea For Cath Sunday Physical Examination - Additional Findings Additional findings: - Constitutional Appears: No Acute Distress - Head Exam Head Exam: ATRAUMATIC, NORMAL INSPECTION - Eye Exam Eye Exam: EOMI - ENT Exam ENT Exam: Mucous Membranes Moist - Respiratory Exam Respiratory Exam: Wheezes, decreased breath sounds, prolonged expiration, scattered rhonchi - Cardiovascular Exam Cardiovascular Exam: Tachycardia, IRREGULAR RHYTHM. absent: Murmur - GI/Abdominal Exam GI & Abdominal Exam: Soft, Normal Bowel Sounds. absent: Tenderness - Extremities Exam Extremities Exam: absent: Pedal Edema - Neurological Exam Neurological Exam: Alert, Oriented x3 - Skin Skin Exam: Intact, Normal Color, Warm Objective - Vital Signs/Intake and Output Vital Signs (last 24 hours): Temp Pulse Resp BP Pulse Ox 97.4 F L 114 H 20 126/84 98 07/29/17 08:18 07/29/17 08:18 07/29/17 08:18 07/29/17 08:18 07/29/17 08:18 Intake and Output: 07/29/17 07/29/17 06:59 18:59 Intake Total 240 Balance 240 - Medications Medications: Current Medications Albuterol/Ipratropium (Duoneb 3 Mg/0.5 Mg (3 Ml) Ud) 3 ml INH RQ6 [facility] Last Admin: 07/29/17 13:20 Dose: 3 ml Aspirin (Aspirin Chewable) 81 mg PO DAILY [facility] Last Admin: 07/29/17 10:39 Dose: 81 mg Clopidogrel Bisulfate (Plavix) 75 mg PO DAILY [facility] Last Admin: 07/29/17 10:39 Dose: 75 mg Diltiazem HCl (Cardizem) 30 mg PO Q6 [facility] Last Admin: 07/29/17 13:10 Dose: 30 mg Enoxaparin Sodium (Lovenox) 60 mg SC Q12 [facility] Last Admin: 07/29/17 10:39 Dose: 60 mg Azithromycin 500 mg/ Dextrose 250 mls @ 250 mls/hr IVPB DAILY [facility] Last Admin: 07/29/17 10:39 Dose: 250 mls/hr Methylprednisolone (Solu-Medrol) 60 mg IVP Q8 [facility] Last Admin: 07/29/17 13:10 Dose: 60 mg Oseltamivir Phosphate (Tamiflu Cap) 75 mg PO BID [facility] Stop: 07/30/17 10:01 Last Admin: 07/29/17 10:39 Dose: 75 mg Rivaroxaban (Xarelto) 15 mg PO DAILY [facility] Last Admin: 07/24/17 09:43 Dose: 15 mg Rosuvastatin Calcium (Crestor) 5 mg PO HS [facility] Last Admin: 07/28/17 21:10 Dose: 5 mg Fluticasone/Salmeterol (Advair Diskus 250/50) 1 puff IH RQ12 [facility] Last Admin: 07/29/17 07:36 Dose: 1 puff Sodium Chloride ([place] Baby Saline 30 Ml) 0 ml [place] TID PRN PRN Reason: Cough and congestion Last Admin: 07/28/17 21:10 Dose: 1 spr Sodium Chloride ([place] Baby Saline 30 Ml) 0 ml [place] Q4 PRN PRN Reason: Cough and congestion - Labs Labs: 07/27/17 08:24 07/27/17 08:24 PT 13.6 SECONDS (9.7-12.2) H 07/26/17 17:16 INR 1.2 07/26/17 17:16 APTT 33 SECONDS (21-34) 07/26/17 17:16 Assessment and Plan - Assessment and Plan (Free Text) Assessment: (1) Ventricular tachycardia seen on clinical nursing director Assessment & Plan: Cardiac Risk Factors: Patient admits to heavy tobacco use in the past. Denies any cardiac history. Denies family cardiac history. HTN. 23 beats of VTach noted on monitor AM of 07/24/17 Potassium NORMAL, Mag NORMAL, ADALID on 07/21/17 NORMAL HOLD home Xaralto 15mg PO QD Therapeutic Lovenox 60mg SC Q12H, started 07/25/17 Start Aspirin 81mg PO QD Start Plavix 75mg PO QD Start Crestor 5mg PO HS Cardiac Cath planned for Sunday Status: Acute (2) Atrial fibrillation Assessment & Plan: Hx of AFib. NSR on telemetry. HOLD home Xaralto 15mg PO QD Therapeutic Lovenox 60mg SC Q12H, started 07/25/17 See plan for above. Status: Acute
[2017-07-29] MEDS ORDERED: Benzocaine/Menthol (Cepacol) Lozenge MT SCH (16:00)
--- NOTE | 2017-07-29 22:15 | CP.PCM.PN ---
Subjective - Date & Time of Evaluation Date of Evaluation: 07/29/17 Time of Evaluation: 07:10 - Subjective Subjective: Patient seen and evaluated No cardiac symptoms For cardiac cath tomorrow for V Tach run Objective - Vital Signs/Intake and Output Vital Signs (last 24 hours): Temp Pulse Resp BP Pulse Ox 97.5 F L 99 H 20 122/63 95 07/29/17 15:53 07/29/17 18:00 07/29/17 15:53 07/29/17 15:53 07/29/17 15:53 Intake and Output: 07/29/17 07/30/17 18:59 06:59 Intake Total 760 Balance 760 - Medications Medications: Current Medications Albuterol/Ipratropium (Duoneb 3 Mg/0.5 Mg (3 Ml) Ud) 3 ml INH RQ6 [facility] Last Admin: 07/29/17 20:24 Dose: 3 ml Aspirin (Aspirin Chewable) 81 mg PO DAILY [facility] Last Admin: 07/29/17 10:39 Dose: 81 mg Benzocaine/Menthol (Cepacol Sore Throat) 1 [place]yan [place] Q4 PRN PRN Reason: Sore Throat Clopidogrel Bisulfate (Plavix) 75 mg PO DAILY [facility] Last Admin: 07/29/17 10:39 Dose: 75 mg Diltiazem HCl (Cardizem) 30 mg PO Q6 [facility] Last Admin: 07/29/17 17:27 Dose: 30 mg Azithromycin 500 mg/ Dextrose 250 mls @ 250 mls/hr IVPB DAILY [facility] Last Admin: 07/29/17 10:39 Dose: 250 mls/hr Methylprednisolone (Solu-Medrol) 60 mg IVP Q8 [facility] Last Admin: 07/29/17 13:10 Dose: 60 mg Oseltamivir Phosphate (Tamiflu Cap) 75 mg PO BID [facility] Stop: 07/30/17 10:01 Last Admin: 07/29/17 17:27 Dose: 75 mg Rosuvastatin Calcium (Crestor) 5 mg PO HS [facility] Last Admin: 07/28/17 21:10 Dose: 5 mg Fluticasone/Salmeterol (Advair Diskus 250/50) 1 puff IH RQ12 [facility] Last Admin: 07/29/17 20:24 Dose: 1 puff Sodium Chloride ([place] Baby Saline 30 Ml) 0 ml [place] TID PRN PRN Reason: Cough and congestion Last Admin: 07/28/17 21:10 Dose: 1 spr Sodium Chloride ([place] Baby Saline 30 Ml) 0 ml [place] Q4 PRN PRN Reason: Cough and congestion - Labs Labs: 07/27/17 08:24 07/27/17 08:24 PT 13.6 SECONDS (9.7-12.2) H 07/26/17 17:16 INR 1.2 07/26/17 17:16 APTT 33 SECONDS (21-34) 07/26/17 17:16
[2017-07-30] MEDS: Albuterol-Ipratrop 3 mg / 0.5 (3 ml) UD INH SCH ×4 (01:09→20:55)
[2017-07-30] MEDS: MethylPREDNISolone 40 mg Vial IVP SCH ×3 (05:43→21:22)
[2017-07-30] MEDS: Fluticasone-Salmeterol 250-50mcg Diskus IH SCH ×2 (13:32→20:55)
--- NOTE | 2017-07-30 14:38 | CT ---
CT chest without IV contrast Indication: bloody sputum Technique: Contiguous axial images were obtained through the chest without intravenous contrast enhancement. Sagittal and coronal reconstructions were generated and reviewed. This CT exam was performed using 1 or more of the following dose reduction techniques: Automated exposure control, adjustment of the MAA and/or kV according to patient size, and/or use of iterative reconstruction technique. Radiation dose (DLP): 235.22 MGy-cm. Comparison: Chest xray performed 07/21/17 Findings: Visualized portions of the inferior thyroid gland appear unremarkable. The unenhanced mediastinal and hilar vascular structures appear grossly unremarkable. Cardiomegaly. Left greater than right apical scarring/consolidaion. Retraction of bilateral tyler. Left apical traction bronchiectasis. Scattered bilateral calcified granulomas. Multifocal patchy right greater than left pulmonary opacities may reflect infiltrates. Small left pleural effusion. No pneumothorax. Limited visualization of the noncontrast upper abdomen ; partially imaged hypodense lesion within the right lateral mid pole kidney measures approximately 6 HU, likely cyst. Mild bilateral gynecomastia. Osseous demineralization. Degenerative changes. Kyphosis. 8 mm T10 sclerotic focus, likely bone island. Impression: Cardiomegaly. Left greater than right apical scarring/ consolidation. Retraction of bilateral tyler. Left apical traction bronchiectasis. Scattered bilateral calcified granulomas. Multifocal patchy right greater than left pulmonary opacities may reflect infiltrates. Small left pleural effusion. Correlate clinically. Additional findings as above.
[2017-07-30 17:11] LABS: HEMOGLOBIN 7.6 g/dL (12.0-18.0); LYMPH # 0.2 K/uL (1.0-4.3); MEAN PLATELET VOLUME 7.6 fL (7.2-11.7)
[2017-07-30 17:17] LABS: LYMPH % 1.1 % (20.0-40.0); MEAN CELL VOLUME 74.3 fL (80.0-94.0); MEAN CORPUSCULAR HGB CONC 30.9 g/dL (33.0-37.0); MONO # 0.7 K/uL (0.0-0.8); MONO % 3.5 % (0.0-10.0); NEUT # 18.2 K/uL (1.8-7.0); NEUT % 95.4 % (50.0-75.0); NRBC % 0.1 % (0.0-2.0); PLATELET COUNT 353 K/uL (130-400); RBC 3.29 Mil/uL (4.40-5.90); WHITE BLOOD COUNT 19.1 K/uL (4.8-10.8)
[2017-07-30 17:29] LABS: ALB/GLOB RATIO 1.2 (1.0-2.1); ALT/SGPT 58 U/L (21-72); AST/SGOT 42 U/L (17-59); BLOOD UREA NITROGEN 21 mg/dL (9-20); CALCIUM 7.5 mg/dl (8.6-10.4); GFR AFRICAN-AMERICAN > 60; GFR NON-AFRICAN AMERICAN > 60
[2017-07-30 17:59] LABS: LYMPHOCYTE 2 % (20-40); MONOCYTE 5 % (0-10); NEUTROPHIL 93 % (50-75); TOTAL CELLS COUNTED 100
[2017-07-30 18:00] LABS: ANISOCYTOSIS SLIGHT; HYPOCHROMIC SLIGHT; MICROCYTOSIS SLIGHT; PLATELET ESTIMATE NORMAL (NORMAL); POIKILOCYTOSIS SLIGHT
--- NOTE | 2017-07-30 19:38 | CP.PCM.PN ---
Subjective - Date & Time of Evaluation Date of Evaluation: 07/30/17 Time of Evaluation: 19:38 Objective - Vital Signs/Intake and Output Vital Signs (last 24 hours): Temp Pulse Resp BP Pulse Ox 97.5 F L 96 H 20 124/75 95 07/30/17 15:31 07/30/17 16:46 07/30/17 15:31 07/30/17 15:31 07/30/17 15:31 Intake and Output: 07/30/17 07/31/17 18:59 06:59 Intake Total 480 Balance 480 - Medications Medications: Current Medications Albuterol/Ipratropium (Duoneb 3 Mg/0.5 Mg (3 Ml) Ud) 3 ml INH RQ6 [facility] Last Admin: 07/30/17 13:32 Dose: 3 ml Aspirin (Aspirin Chewable) 81 mg PO DAILY [facility] Last Admin: 07/30/17 10:41 Dose: Not Given Benzocaine/Menthol (Cepacol Sore Throat) 1 ryan MT Q4 PRN PRN Reason: Sore Throat Clopidogrel Bisulfate (Plavix) 75 mg PO DAILY [facility] Last Admin: 07/30/17 10:41 Dose: Not Given Diltiazem HCl (Cardizem) 30 mg PO Q6 [facility] Last Admin: 07/30/17 17:08 Dose: 30 mg Azithromycin 500 mg/ Dextrose 250 mls @ 250 mls/hr IVPB DAILY [facility] Last Admin: 07/30/17 10:39 Dose: 250 mls/hr Methylprednisolone (Solu-Medrol) 60 mg IVP Q8 [facility] Last Admin: 07/30/17 13:54 Dose: 60 mg Rosuvastatin Calcium (Crestor) 5 mg PO HS [facility] Last Admin: 07/29/17 22:22 Dose: 5 mg Fluticasone/Salmeterol (Advair Diskus 250/50) 1 puff IH RQ12 [facility] Last Admin: 07/30/17 13:32 Dose: 1 puff Sodium Chloride ([place] Baby Saline 30 Ml) 0 ml [place] Q4 PRN PRN Reason: Cough and congestion - Labs Labs: 07/30/17 16:59 07/30/17 16:59 PT 13.6 SECONDS (9.7-12.2) H 07/26/17 17:16 INR 1.2 07/26/17 17:16 APTT 33 SECONDS (21-34) 07/26/17 17:16
--- NOTE | 2017-07-30 20:02 | CP.PCM.PN ---
Subjective - Date & Time of Evaluation Date of Evaluation: 07/30/17 Objective - Vital Signs/Intake and Output Vital Signs (last 24 hours): Temp Pulse Resp BP Pulse Ox 97.5 F L 96 H 20 124/75 95 07/30/17 15:31 07/30/17 16:46 07/30/17 15:31 07/30/17 15:31 07/30/17 15:31 Intake and Output: 07/30/17 07/31/17 18:59 06:59 Intake Total 480 Balance 480 - Medications Medications: Current Medications Albuterol/Ipratropium (Duoneb 3 Mg/0.5 Mg (3 Ml) Ud) 3 ml INH RQ6 [facility] Last Admin: 07/30/17 13:32 Dose: 3 ml Aspirin (Aspirin Chewable) 81 mg PO DAILY [facility] Last Admin: 07/30/17 10:41 Dose: Not Given Benzocaine/Menthol (Cepacol Sore Throat) 1 ryan MT Q4 PRN PRN Reason: Sore Throat Clopidogrel Bisulfate (Plavix) 75 mg PO DAILY [facility] Last Admin: 07/30/17 10:41 Dose: Not Given Diltiazem HCl (Cardizem) 30 mg PO Q6 [facility] Last Admin: 07/30/17 17:08 Dose: 30 mg Azithromycin 500 mg/ Dextrose 250 mls @ 250 mls/hr IVPB DAILY [facility] Last Admin: 07/30/17 10:39 Dose: 250 mls/hr Methylprednisolone (Solu-Medrol) 60 mg IVP Q8 [facility] Last Admin: 07/30/17 13:54 Dose: 60 mg Rosuvastatin Calcium (Crestor) 5 mg PO HS [facility] Last Admin: 07/29/17 22:22 Dose: 5 mg Fluticasone/Salmeterol (Advair Diskus 250/50) 1 puff IH RQ12 [facility] Last Admin: 07/30/17 13:32 Dose: 1 puff Sodium Chloride ([place] Baby Saline 30 Ml) 0 ml [place] Q4 PRN PRN Reason: Cough and congestion - Labs Labs: 07/30/17 16:59 07/30/17 16:59 PT 13.6 SECONDS (9.7-12.2) H 07/26/17 17:16 INR 1.2 07/26/17 17:16 APTT 33 SECONDS (21-34) 07/26/17 17:16
--- NOTE | 2017-07-30 22:41 | CP.PCM.PN ---
Subjective - Date & Time of Evaluation Date of Evaluation: 07/30/17 Time of Evaluation: 11:15 - Subjective Subjective: Cadiac cath cancelled for today due to hemoptysis and respiratory isolation Objective - Vital Signs/Intake and Output Vital Signs (last 24 hours): Temp Pulse Resp BP Pulse Ox 97.5 F L 96 H 20 124/75 95 07/30/17 15:31 07/30/17 16:46 07/30/17 15:31 07/30/17 15:31 07/30/17 15:31 Intake and Output: 07/30/17 07/31/17 18:59 06:59 Intake Total 480 Balance 480 - Medications Medications: Current Medications Albuterol/Ipratropium (Duoneb 3 Mg/0.5 Mg (3 Ml) Ud) 3 ml INH RQ6 [facility] Last Admin: 07/30/17 20:55 Dose: 3 ml Aspirin (Aspirin Chewable) 81 mg PO DAILY [facility] Last Admin: 07/30/17 10:41 Dose: Not Given Benzocaine/Menthol (Cepacol Sore Throat) 1 ryan MT Q4 PRN PRN Reason: Sore Throat Clopidogrel Bisulfate (Plavix) 75 mg PO DAILY [facility] Last Admin: 07/30/17 10:41 Dose: Not Given Diltiazem HCl (Cardizem) 30 mg PO Q6 [facility] Last Admin: 07/30/17 17:08 Dose: 30 mg Azithromycin 500 mg/ Dextrose 250 mls @ 250 mls/hr IVPB DAILY [facility] Last Admin: 07/30/17 10:39 Dose: 250 mls/hr Methylprednisolone (Solu-Medrol) 60 mg IVP Q8 [facility] Last Admin: 07/30/17 21:22 Dose: 60 mg Rosuvastatin Calcium (Crestor) 5 mg PO HS [facility] Last Admin: 07/30/17 21:22 Dose: 5 mg Fluticasone/Salmeterol (Advair Diskus 250/50) 1 puff IH RQ12 [facility] Last Admin: 07/30/17 20:55 Dose: 1 puff Sodium Chloride ([place] Baby Saline 30 Ml) 0 ml [place] Q4 PRN PRN Reason: Cough and congestion - Labs Labs: 07/30/17 16:59 07/30/17 16:59 PT 13.6 SECONDS (9.7-12.2) H 07/26/17 17:16 INR 1.2 07/26/17 17:16 APTT 33 SECONDS (21-34) 07/26/17 17:16
--- NOTE | 2017-07-30 22:55 | CP.PCM.PN ---
Subjective - Date & Time of Evaluation Date of Evaluation: 07/30/17 Time of Evaluation: 22:53 - Subjective Subjective: Events noted Cath on hold Hemoptysis and respiratory isolation No recurrence of ventricular tachycardia Objective - Vital Signs/Intake and Output Vital Signs (last 24 hours): Temp Pulse Resp BP Pulse Ox 97.5 F L 96 H 20 124/75 95 07/30/17 15:31 07/30/17 16:46 07/30/17 15:31 07/30/17 15:31 07/30/17 15:31 Intake and Output: 07/30/17 07/31/17 18:59 06:59 Intake Total 480 Balance 480 - Medications Medications: Current Medications Albuterol/Ipratropium (Duoneb 3 Mg/0.5 Mg (3 Ml) Ud) 3 ml INH RQ6 [facility] Last Admin: 07/30/17 20:55 Dose: 3 ml Aspirin (Aspirin Chewable) 81 mg PO DAILY [facility] Last Admin: 07/30/17 10:41 Dose: Not Given Benzocaine/Menthol (Cepacol Sore Throat) 1 ryan MT Q4 PRN PRN Reason: Sore Throat Clopidogrel Bisulfate (Plavix) 75 mg PO DAILY [facility] Last Admin: 07/30/17 10:41 Dose: Not Given Diltiazem HCl (Cardizem) 30 mg PO Q6 [facility] Last Admin: 07/30/17 17:08 Dose: 30 mg Azithromycin 500 mg/ Dextrose 250 mls @ 250 mls/hr IVPB DAILY [facility] Last Admin: 07/30/17 10:39 Dose: 250 mls/hr Methylprednisolone (Solu-Medrol) 60 mg IVP Q8 [facility] Last Admin: 07/30/17 21:22 Dose: 60 mg Rosuvastatin Calcium (Crestor) 5 mg PO HS [facility] Last Admin: 07/30/17 21:22 Dose: 5 mg Fluticasone/Salmeterol (Advair Diskus 250/50) 1 puff IH RQ12 [facility] Last Admin: 07/30/17 20:55 Dose: 1 puff Sodium Chloride ([place] Baby Saline 30 Ml) 0 ml [place] Q4 PRN PRN Reason: Cough and congestion - Labs Labs: 07/30/17 16:59 07/30/17 16:59 PT 13.6 SECONDS (9.7-12.2) H 07/26/17 17:16 INR 1.2 07/26/17 17:16 APTT 33 SECONDS (21-34) 07/26/17 17:16 Assessment and Plan - Assessment and Plan (Free Text) Assessment: Stable from an arrhythmic standpoint No recurrence of ventricular tachycardia would await cardiac cath for final recommendations Plan: Continue with current care
[2017-07-31] MEDS: Albuterol-Ipratrop 3 mg / 0.5 (3 ml) UD INH SCH ×4 (01:01→20:18)
[2017-07-31] MEDS: MethylPREDNISolone 40 mg Vial IVP SCH ×3 (05:26→21:14)
[2017-07-31] MEDS: Fluticasone-Salmeterol 250-50mcg Diskus IH SCH ×2 (08:00→20:18)
[2017-07-31 11:39] LABS: HEMOGLOBIN 8.3 g/dL (12.0-18.0); LYMPH # 0.2 K/uL (1.0-4.3)
[2017-07-31 11:54] LABS: BASO # 0.2 K/uL (0.0-0.2); BASO % 0.3 % (0.0-2.0); LYMPH % 0.4 % (20.0-40.0); MEAN CORPUSCULAR HEMOGLOBIN 23.2 pg (27.0-31.0); MEAN CORPUSCULAR HGB CONC 30.9 g/dL (33.0-37.0); MEAN PLATELET VOLUME 7.8 fL (7.2-11.7); MONO # 1.6 K/uL (0.0-0.8); MONO % 3.3 % (0.0-10.0); NEUT # 47.6 K/uL (1.8-7.0); PLATELET COUNT 365 K/uL (130-400); RBC 3.56 Mil/uL (4.40-5.90); RED CELL DISTRIBUTION WIDTH 18.9 % (11.5-14.5)
[2017-07-31 12:01] LABS: WHITE BLOOD COUNT 49.6 K/uL (4.8-10.8)
[2017-07-31 12:13] LABS: ANISOCYTOSIS SLIGHT; BANDS 6 % (0-2); HYPOCHROMIC SLIGHT; LYMPHOCYTE 2 % (20-40); MONOCYTE 2 % (0-10); NEUTROPHIL 90 % (50-75); PLATELET ESTIMATE NORMAL (NORMAL); TOTAL CELLS COUNTED 100
[2017-07-31 12:14] LABS: ALB/GLOB RATIO 1.1 (1.0-2.1); ALBUMIN 2.9 g/dL (3.5-5.0); ALT/SGPT 55 U/L (21-72); AST/SGOT 29 U/L (17-59); BLOOD UREA NITROGEN 24 mg/dL (9-20); CALCIUM 7.7 mg/dl (8.6-10.4); GFR AFRICAN-AMERICAN > 60; GFR NON-AFRICAN AMERICAN > 60
--- NOTE | 2017-07-31 12:18 | CP.PCM.CON ---
History of Present Illness - History of Present Illness History of Present Illness: Admitted with chest pain and cough with a working diagnosis of an infectious pulmonary process + Flu ag now with hemoptysis AFB smears ordered Past medical history significant for systemic hypertension atrial fibrillation on Rivaroxaban/xarelto Review of Systems - Review of Systems All systems: reviewed and no additional remarkable complaints except - Constitutional Constitutional: As Per HPI Past Patient History - Past Medical History & Family History Past Medical History?: Yes - Past Social History Smoking Status: Former Smoker - CARDIAC Hx Atrial Fibrillation: Yes Hx Hypertension: Yes - PULMONARY Hx Asthma: Yes Hx Chronic Obstructive Pulmonary Disease (COPD): Yes Hx Emphysema: Yes - MUSCULOSKELETAL/RHEUMATOLOGICAL Hx Falls: No - PSYCHIATRIC Hx Substance Use: No - SURGICAL HISTORY Other/Comment: abdominal sx - ANESTHESIA Hx Anesthesia: Yes Hx Anesthesia Reactions: No Hx Malignant Hyperthermia: No Meds Allergies/Adverse Reactions: Allergies Allergy/AdvReac Type Severity Reaction Status Date / Time No Known Allergies Allergy Verified 07/21/17 09:32 - Medications Medications: Current Medications Albuterol/Ipratropium (Duoneb 3 Mg/0.5 Mg (3 Ml) Ud) 3 ml INH RQ6 [facility] Last Admin: 07/31/17 08:00 Dose: 3 ml Aspirin (Aspirin Chewable) 81 mg PO DAILY [facility] Benzocaine/Menthol (Cepacol Sore Throat) 1 ryan MT Q4 PRN PRN Reason: Sore Throat Clopidogrel Bisulfate (Plavix) 75 mg PO DAILY [facility] Last Admin: 07/30/17 10:41 Dose: Not Given Diltiazem HCl (Cardizem) 30 mg PO Q6 [facility] Last Admin: 07/31/17 05:26 Dose: 30 mg Azithromycin 500 mg/ Dextrose 250 mls @ 250 mls/hr IVPB DAILY [facility] Last Admin: 07/31/17 09:58 Dose: 250 mls/hr Ceftriaxone Sodium 1 gm/ (Sodium Chloride) 100 mls @ 100 mls/hr IVPB DAILY [facility] Methylprednisolone (Solu-Medrol) 60 mg IVP Q8 [facility] Last Admin: 07/31/17 05:26 Dose: 60 mg Rosuvastatin Calcium (Crestor) 5 mg PO HS [facility] Last Admin: 07/30/17 21:22 Dose: 5 mg Fluticasone/Salmeterol (Advair Diskus 250/50) 1 puff IH RQ12 [facility] Last Admin: 07/31/17 08:00 Dose: 1 puff Sodium Chloride ([place] Baby Saline 30 Ml) 0 ml [place] Q4 PRN PRN Reason: Cough and congestion Physical Exam - Constitutional Appears: No Acute Distress, Cachectic, Chronically Ill - Head Exam Head Exam: NORMAL INSPECTION - Eye Exam Eye Exam: PERRL - ENT Exam ENT Exam: Mucous Membranes Dry - Neck Exam Neck exam: Negative for: Lymphadenopathy - Respiratory Exam Respiratory Exam: Decreased Breath Sounds, Rhonchi - Cardiovascular Exam Cardiovascular Exam: REGULAR RHYTHM, +S1, +S2 - GI/Abdominal Exam GI & Abdominal Exam: Diminished Bowel Sounds, Soft. absent: Tenderness - Rectal Exam Rectal Exam: Deferred - Exam Exam: NORMAL INSPECTION - Extremities Exam Extremities exam: Negative for: calf tenderness, pedal edema - Back Exam Back exam: absent: CVA tenderness (L), CVA tenderness (R) - Neurological Exam Neurological exam: Alert, CN II-XII Intact, Oriented x3, Reflexes Normal - Psychiatric Exam Psychiatric exam: Depressed - Skin Skin Exam: Dry Results - Vital Signs Recent Vital Signs: Last Vital Signs Temp 97.7 F 07/31/17 08:27 Pulse 109 H 07/31/17 08:27 Resp 20 07/31/17 08:27 BP 123/75 07/31/17 08:27 Pulse Ox 95 07/31/17 08:27 - Labs Result Diagrams: 07/31/17 11:26 07/31/17 11:26 Labs: Laboratory Results - last 24 hr 07/30/17 07/30/17 07/31/17 16:59 16:59 06:29 WBC 19.1 H RBC 3.29 L Hgb 7.6 L Hct 24.5 L MCV 74.3 L MCH 23.0 L MCHC 30.9 L RDW 19.0 H Plt Count 353 MPV 7.6 Neut % (Auto) 95.4 H Lymph % (Auto) 1.1 L [place] % (Auto) 3.5 Eos % (Auto) 0.0 Baso % (Auto) 0.0 Neut # 18.2 H Lymph # 0.2 L [place] # 0.7 Eos # 0.0 Baso # 0.0 Neutrophils % (Manual) 93 H Band Neutrophils % Lymphocytes % (Manual) 2 L Monocytes % (Manual) 5 Platelet Estimate Normal Hypochromasia (manual) Slight Poikilocytosis (manual Slight Anisocytosis (manual) Slight Microcytosis (manual) Slight Sodium 130 L Potassium 3.8 Chloride 94 L Carbon Dioxide 32 H Anion Gap 8 L BUN 21 H Creatinine 0.5 L Est GFR ( Amer) > 60 Est GFR (Non-Af Amer) > 60 POC Glucose (mg/dL) 194 H Random Glucose 143 H Calcium 7.5 L Total Bilirubin 1.0 AST 42 ALT 58 Alkaline Phosphatase 46 Total Protein 5.6 L Albumin 3.0 L Globulin 2.6 Albumin/Globulin Ratio 1.2 07/31/17 07/31/17 11:26 11:26 WBC 49.6 H* D RBC 3.56 L Hgb 8.3 L Hct 26.7 L MCV 75.0 L MCH 23.2 L MCHC 30.9 L RDW 18.9 H Plt Count 365 MPV 7.8 Neut % (Auto) 96.0 H Lymph % (Auto) 0.4 L [place] % (Auto) 3.3 Eos % (Auto) 0.0 Baso % (Auto) 0.3 Neut # 47.6 H Lymph # 0.2 L [place] # 1.6 H Eos # 0.0 Baso # 0.2 Neutrophils % (Manual) 90 H Band Neutrophils % 6 H Lymphocytes % (Manual) 2 L Monocytes % (Manual) 2 Platelet Estimate Normal Hypochromasia (manual) Slight Poikilocytosis (manual Anisocytosis (manual) Slight Microcytosis (manual) Sodium 131 L Potassium 4.1 Chloride 93 L Carbon Dioxide 33 H Anion Gap 9 L BUN 24 H Creatinine 0.6 L Est GFR ( Amer) > 60 Est GFR (Non-Af Amer) > 60 POC Glucose (mg/dL) Random Glucose 178 H Calcium 7.7 L Total Bilirubin 1.1 AST 29 ALT 55 Alkaline Phosphatase 48 Total Protein 5.4 L Albumin 2.9 L Globulin 2.5 Albumin/Globulin Ratio 1.1 Assessment & Plan - Assessment and Plan (Free Text) Assessment: cont iv antibiotics and tamiflu await AFB smears
[2017-07-31 12:28] LABS: FERRITIN 56.6 ng/mL
--- NOTE | 2017-07-31 13:19 | CP.PCM.PN ---
Subjective - Date & Time of Evaluation Date of Evaluation: 07/31/17 Time of Evaluation: 13:19 Objective - Vital Signs/Intake and Output Vital Signs (last 24 hours): Temp Pulse Resp BP Pulse Ox 97.7 F 112 H 23 111/72 93 L 07/31/17 08:27 07/31/17 13:12 07/31/17 13:12 07/31/17 13:12 07/31/17 13:12 Intake and Output: 07/31/17 07/31/17 06:59 18:59 Intake Total 700 Balance 700 - Medications Medications: Current Medications Albuterol/Ipratropium (Duoneb 3 Mg/0.5 Mg (3 Ml) Ud) 3 ml INH RQ6 [facility] Last Admin: 07/31/17 08:00 Dose: 3 ml Aspirin (Aspirin Chewable) 81 mg PO DAILY [facility] Benzocaine/Menthol (Cepacol Sore Throat) 1 ryan MT Q4 PRN PRN Reason: Sore Throat Clopidogrel Bisulfate (Plavix) 75 mg PO DAILY [facility] Last Admin: 07/30/17 10:41 Dose: Not Given Diltiazem HCl (Cardizem) 30 mg PO Q6 [facility] Last Admin: 07/31/17 05:26 Dose: 30 mg Azithromycin 500 mg/ Dextrose 250 mls @ 250 mls/hr IVPB DAILY [facility] Last Admin: 07/31/17 09:58 Dose: 250 mls/hr Ceftriaxone Sodium 1 gm/ (Sodium Chloride) 100 mls @ 100 mls/hr IVPB DAILY [facility] Methylprednisolone (Solu-Medrol) 40 mg IVP Q8 [facility] Rosuvastatin Calcium (Crestor) 5 mg PO HS [facility] Last Admin: 07/30/17 21:22 Dose: 5 mg Fluticasone/Salmeterol (Advair Diskus 250/50) 1 puff IH RQ12 [facility] Last Admin: 07/31/17 08:00 Dose: 1 puff Sodium Chloride ([place] Baby Saline 30 Ml) 0 ml [place] Q4 PRN PRN Reason: Cough and congestion - Labs Labs: 07/31/17 11:26 07/31/17 11:26 PT 13.6 SECONDS (9.7-12.2) H 07/26/17 17:16 INR 1.2 07/26/17 17:16 APTT 33 SECONDS (21-34) 07/26/17 17:16
[2017-07-31 13:27] LABS: ARTERIAL BLOOD GAS HCO3 30.4 mmol/L (21-28); ARTERIAL BLOOD GAS O2 SAT 99.1 % (95-98); ARTERIAL BLOOD GAS PCO2 36 mm/Hg (35-45); ARTERIAL BLOOD GAS PH 7.53 (7.35-7.45); ARTERIAL BLOOD GAS PO2 76 mm/Hg (80-100); ARTERIAL BLOOD GAS TCO2 31.2 mmol/L (22-28)
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
--- NOTE | 2017-07-31 16:42 | RAD ---
PROCEDURE: CHEST RADIOGRAPH, 1 VIEW HISTORY: sob COMPARISON: 07/21/2017 FINDINGS: LUNGS: Left apical parenchymal opacity with traction bronchiectasis similar. A left zack diaphragmatic scar/retraction tenting similar Interval increased infiltrates right lung base and right upper lobe PLEURA: No pneumothorax or pleural fluid seen. CARDIOVASCULAR: Normal. OSSEOUS STRUCTURES: No significant abnormalities. VISUALIZED UPPER ABDOMEN: Normal. OTHER FINDINGS: None. IMPRESSION: Interval right upper lobe and right lower lobe infiltrates. That the right lung base is more dense and more nodular.
--- NOTE | 2017-07-31 18:15 | CP.PCM.PN ---
Subjective - Date & Time of Evaluation Date of Evaluation: 07/31/17 Time of Evaluation: 12:00 - Subjective Subjective: clinically same Objective - Vital Signs/Intake and Output Vital Signs (last 24 hours): Temp Pulse Resp BP Pulse Ox 97.3 F L 102 H 20 121/64 95 07/31/17 16:34 07/31/17 17:05 07/31/17 16:34 07/31/17 16:34 07/31/17 16:34 Intake and Output: 07/31/17 07/31/17 06:59 18:59 Intake Total 700 730 Balance 700 730 - Medications Medications: Current Medications Albuterol/Ipratropium (Duoneb 3 Mg/0.5 Mg (3 Ml) Ud) 3 ml INH RQ6 [facility] Last Admin: 07/31/17 13:00 Dose: 3 ml Aspirin (Aspirin Chewable) 81 mg PO DAILY [facility] Last Admin: 07/31/17 13:23 Dose: 81 mg Benzocaine/Menthol (Cepacol Sore Throat) 1 [place]yan MT Q4 PRN PRN Reason: Sore Throat Clopidogrel Bisulfate (Plavix) 75 mg PO DAILY [facility] Last Admin: 07/30/17 10:41 Dose: Not Given Diltiazem HCl (Cardizem) 30 mg PO Q6 [facility] Last Admin: 07/31/17 17:45 Dose: 30 mg Azithromycin 500 mg/ Dextrose 250 mls @ 250 mls/hr IVPB DAILY [facility] Last Admin: 07/31/17 09:58 Dose: 250 mls/hr Ceftriaxone Sodium 1 gm/ (Sodium Chloride) 100 mls @ 100 mls/hr IVPB DAILY [facility] Last Admin: 07/31/17 15:03 Dose: 100 mls/hr Methylprednisolone (Solu-Medrol) 40 mg IVP Q8 [facility] Last Admin: 07/31/17 13:23 Dose: 40 mg Rosuvastatin Calcium (Crestor) 5 mg PO HS [facility] Last Admin: 07/30/17 21:22 Dose: 5 mg Fluticasone/Salmeterol (Advair Diskus 250/50) 1 puff IH RQ12 [facility] Last Admin: 07/31/17 08:00 Dose: 1 puff Sodium Chloride ([place] Baby Saline 30 Ml) 0 ml [place] Q4 PRN PRN Reason: Cough and congestion - Labs Labs: 07/31/17 11:26 01/23/18 11:26 PT 13.6 SECONDS (9.7-12.2) H 07/26/17 17:16 INR 1.2 07/26/17 17:16 APTT 33 SECONDS (21-34) 07/26/17 17:16 - Constitutional Appears: Well - Head Exam Head Exam: ATRAUMATIC, NORMAL INSPECTION, NORMOCEPHALIC - Eye Exam Eye Exam: EOMI, Normal appearance, PERRL Pupil Exam: NORMAL ACCOMODATION, PERRL - ENT Exam ENT Exam: Mucous Membranes Moist, Normal Exam - Neck Exam Neck Exam: Full ROM, Normal Inspection. absent: Lymphadenopathy - Respiratory Exam Respiratory Exam: Decreased Breath Sounds - Cardiovascular Exam Cardiovascular Exam: REGULAR RHYTHM, +S1, +S2 - GI/Abdominal Exam GI & Abdominal Exam: Soft, Diminished Bowel Sounds - Rectal Exam Rectal Exam: Deferred
[2017-08-01] MEDS: Albuterol-Ipratrop 3 mg / 0.5 (3 ml) UD INH SCH ×3 (02:25→13:22)
[2017-08-01] MEDS: MethylPREDNISolone 40 mg Vial IVP SCH ×3 (05:57→21:07)
[2017-08-01] MEDS: Fluticasone-Salmeterol 250-50mcg Diskus IH SCH ×2 (07:11→20:58)
[2017-08-01 08:13] LABS: RBC 3.27 Mil/uL (4.40-5.90)
[2017-08-01 08:18] LABS: BASO # 0.1 K/uL (0.0-0.2); BASO % 0.2 % (0.0-2.0); HEMOGLOBIN 7.8 g/dL (12.0-18.0); LYMPH # 0.2 K/uL (1.0-4.3); LYMPH % 0.7 % (20.0-40.0); MEAN CELL VOLUME 75.2 fL (80.0-94.0); MEAN CORPUSCULAR HEMOGLOBIN 23.7 pg (27.0-31.0); MEAN CORPUSCULAR HGB CONC 31.5 g/dL (33.0-37.0); MONO # 0.9 K/uL (0.0-0.8); MONO % 2.6 % (0.0-10.0); NEUT # 32.8 K/uL (1.8-7.0); NEUT % 96.5 % (50.0-75.0); RED CELL DISTRIBUTION WIDTH 18.8 % (11.5-14.5)
[2017-08-01 08:22] LABS: PLATELET COUNT 259 K/uL (130-400)
[2017-08-01 10:43] LABS: BANDS 9 % (0-2); LYMPHOCYTE 1 % (20-40); MONOCYTE 1 % (0-10); NEUTROPHIL 89 % (50-75); PLATELET ESTIMATE NORMAL (NORMAL); TOTAL CELLS COUNTED 100
[2017-08-01 10:44] LABS: ANISOCYTOSIS SLIGHT; OVALOCYTES SLIGHT; POIKILOCYTOSIS SLIGHT
[2017-08-01 10:45] LABS: TARGET CELLS SLIGHT; TOXIC GRANULATION PRESENT
--- NOTE | 2017-08-01 12:48 | CP.PCM.PN ---
<Sil Timmons - Last Filed: 08/01/17 12:44> Subjective - Date & Time of Evaluation Date of Evaluation: 08/01/17 Time of Evaluation: 10:00 - Subjective Subjective: PGY 3- Heme/Onc Progress Note- Dr. Maldonado's Service: Patient seen and examined at bedside this AM. Patient states he is breathing better this morning. He continues to have cough and phlegm and has been providing sputum samples. He has no other complaints this AM. Objective - Vital Signs/Intake and Output Vital Signs (last 24 hours): Temp Pulse Resp BP Pulse Ox 97.4 F L 103 H 20 101/59 L 94 L 08/01/17 07:15 08/01/17 08:00 08/01/17 07:15 08/01/17 07:15 08/01/17 07:15 Intake and Output: 08/01/17 08/01/17 06:59 18:59 Intake Total 500 Output Total 375 Balance 125 - Medications Medications: Current Medications Albuterol/Ipratropium (Duoneb 3 Mg/0.5 Mg (3 Ml) Ud) 3 ml INH RQ6 [facility] Last Admin: 08/01/17 07:11 Dose: 3 ml Aspirin (Aspirin Chewable) 81 mg PO DAILY [facility] Last Admin: 08/01/17 09:40 Dose: 81 mg Benzocaine/Menthol (Cepacol Sore Throat) 1 ryan MT Q4 PRN PRN Reason: Sore Throat Clopidogrel Bisulfate (Plavix) 75 mg PO DAILY [facility] Last Admin: 07/30/17 10:41 Dose: Not Given Diltiazem HCl (Cardizem) 30 mg PO Q6 [facility] Last Admin: 08/01/17 11:12 Dose: 30 mg Azithromycin 500 mg/ Dextrose 250 mls @ 250 mls/hr IVPB DAILY [facility] Last Admin: 08/01/17 10:55 Dose: 250 mls/hr Ceftriaxone Sodium 1 gm/ (Sodium Chloride) 100 mls @ 100 mls/hr IVPB DAILY [facility] Last Admin: 08/01/17 09:40 Dose: 100 mls/hr Methylprednisolone (Solu-Medrol) 40 mg IVP Q8 [facility] Last Admin: 08/01/17 05:57 Dose: 40 mg Rosuvastatin Calcium (Crestor) 5 mg PO HS [facility] Last Admin: 07/31/17 21:14 Dose: 5 mg Fluticasone/Salmeterol (Advair Diskus 250/50) 1 puff IH RQ12 [facility] Last Admin: 08/01/17 07:11 Dose: Not Given Sodium Chloride ([place] Baby Saline 30 Ml) 0 ml [place] Q4 PRN PRN Reason: Cough and congestion - Labs Labs: 08/01/17 07:58 07/31/17 11:26 PT 13.6 SECONDS (9.7-12.2) H 07/26/17 17:16 INR 1.2 07/26/17 17:16 APTT 33 SECONDS (21-34) 07/26/17 17:16 - Constitutional Appears: No Acute Distress - Head Exam Head Exam: NORMAL INSPECTION, NORMOCEPHALIC - Eye Exam Eye Exam: EOMI, Normal appearance - ENT Exam ENT Exam: Mucous Membranes Moist - Respiratory Exam Respiratory Exam: Rales, Rhonchi, Wheezes. absent: Clear to Ausculation Bilateral - Cardiovascular Exam Cardiovascular Exam: Irregular Rhythm - GI/Abdominal Exam GI & Abdominal Exam: Soft. absent: Distended, Tenderness - Extremities Exam Extremities Exam: Full ROM, Normal Capillary Refill - Neurological Exam Neurological Exam: Alert, Awake, Oriented x3 - Psychiatric Exam Psychiatric exam: Normal Mood - Skin Skin Exam: Dry, Warm Assessment and Plan - Assessment and Plan (Free Text) Assessment: (1) Anemia Assessment and Plan: Hgb 7.6. Up to 8.3 today. Retic 1.6, retic index 0.68. Hypoproliferative. 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 Can supplement IV iron once clear of infection. Transfusion support PRN. Status: Acute (2) Leukocytosis Assessment and Plan: likely leukomoid reaction given patient is on steroids. patient on antibiotics and tamiflu monitor Status: Acute Patient seen and examined during rounds with Dr. Maldonado. Recommendations above as per attending. Kaelyn Timmons, PGY 3 <Dean Maldonado - Last Filed: 08/01/17 22:04> Objective - Vital Signs/Intake and Output Vital Signs (last 24 hours): Temp Pulse Resp BP Pulse Ox 97.8 F 107 H 22 110/69 94 L 08/01/17 17:20 08/01/17 20:12 08/01/17 17:20 08/01/17 17:20 08/01/17 17:34 Intake and Output: 08/01/17 08/02/17 18:59 06:59 Intake Total 810 Balance 810 - Medications Medications: Current Medications Aspirin (Aspirin Chewable) 81 mg PO DAILY [facility] Last Admin: 08/01/17 09:40 Dose: 81 mg Benzocaine/Menthol (Cepacol Sore Throat) 1 ryan MT Q4 PRN PRN Reason: Sore Throat Clopidogrel Bisulfate (Plavix) 75 mg PO DAILY [facility] Last Admin: 07/30/17 10:41 Dose: Not Given Diltiazem HCl (Cardizem) 30 mg PO Q6 [facility] Last Admin: 08/01/17 17:40 Dose: 30 mg Azithromycin 500 mg/ Dextrose 250 mls @ 250 mls/hr IVPB DAILY [facility] Last Admin: 08/01/17 10:55 Dose: 250 mls/hr Ceftriaxone Sodium 1 gm/ (Sodium Chloride) 100 mls @ 100 mls/hr IVPB DAILY [facility] Last Admin: 08/01/17 09:40 Dose: 100 mls/hr Methylprednisolone (Solu-Medrol) 40 mg IVP Q8 [facility] Last Admin: 08/01/17 21:07 Dose: 40 mg Rosuvastatin Calcium (Crestor) 5 mg PO HS [facility] Last Admin: 08/01/17 21:06 Dose: 5 mg Fluticasone/Salmeterol (Advair Diskus 250/50) 1 puff IH RQ12 [facility] Last Admin: 08/01/17 20:58 Dose: 1 puff Sodium Chloride ([place] Baby Saline 30 Ml) 0 ml [place] Q4 PRN PRN Reason: Cough and congestion - Labs Labs: 08/01/17 07:58 08/01/17 20:01 PT 13.6 SECONDS (9.7-12.2) H 07/26/17 17:16 INR 1.2 07/26/17 17:16 APTT 33 SECONDS (21-34) 07/26/17 17:16 Assessment and Plan - Assessment and Plan (Free Text) Assessment: Pt seen and examined, agree with residents note.
--- NOTE | 2017-08-01 14:24 | CP.PCM.PN ---
Subjective - Date & Time of Evaluation Date of Evaluation: 08/01/17 Time of Evaluation: 14:24 Objective - Vital Signs/Intake and Output Vital Signs (last 24 hours): Temp Pulse Resp BP Pulse Ox 97.4 F L 103 H 20 101/59 L 94 L 08/01/17 07:15 08/01/17 08:00 08/01/17 07:15 08/01/17 07:15 08/01/17 07:15 Intake and Output: 08/01/17 08/01/17 06:59 18:59 Intake Total 500 Output Total 375 Balance 125 - Medications Medications: Current Medications Albuterol/Ipratropium (Duoneb 3 Mg/0.5 Mg (3 Ml) Ud) 3 ml INH RQ6 [facility] Last Admin: 08/01/17 13:22 Dose: 3 ml Aspirin (Aspirin Chewable) 81 mg PO DAILY [facility] Last Admin: 08/01/17 09:40 Dose: 81 mg Benzocaine/Menthol (Cepacol Sore Throat) 1 ryan MT Q4 PRN PRN Reason: Sore Throat Clopidogrel Bisulfate (Plavix) 75 mg PO DAILY [facility] Last Admin: 07/30/17 10:41 Dose: Not Given Diltiazem HCl (Cardizem) 30 mg PO Q6 [facility] Last Admin: 08/01/17 11:12 Dose: 30 mg Azithromycin 500 mg/ Dextrose 250 mls @ 250 mls/hr IVPB DAILY [facility] Last Admin: 08/01/17 10:55 Dose: 250 mls/hr Ceftriaxone Sodium 1 gm/ (Sodium Chloride) 100 mls @ 100 mls/hr IVPB DAILY [facility] Last Admin: 08/01/17 09:40 Dose: 100 mls/hr Methylprednisolone (Solu-Medrol) 40 mg IVP Q8 [facility] Last Admin: 08/01/17 13:04 Dose: 40 mg Rosuvastatin Calcium (Crestor) 5 mg PO HS [facility] Last Admin: 07/31/17 21:14 Dose: 5 mg Fluticasone/Salmeterol (Advair Diskus 250/50) 1 puff IH RQ12 [facility] Last Admin: 08/01/17 07:11 Dose: Not Given Sodium Chloride ([place] Baby Saline 30 Ml) 0 ml [place] Q4 PRN PRN Reason: Cough and congestion - Labs Labs: 08/01/17 07:58 07/31/17 11:26 PT 13.6 SECONDS (9.7-12.2) H 07/26/17 17:16 INR 1.2 07/26/17 17:16 APTT 33 SECONDS (21-34) 07/26/17 17:16
[2017-08-01] MEDS ORDERED: Albuterol-Ipratrop 3 mg / 0.5 (3 ml) UD INH STA (17:30)
--- NOTE | 2017-08-01 18:35 | CP.PCM.PN ---
Subjective - Date & Time of Evaluation Date of Evaluation: 08/01/17 Time of Evaluation: 06:00 - Subjective Subjective: weak and bedridden no fever Positive cough Objective - Vital Signs/Intake and Output Vital Signs (last 24 hours): Temp Pulse Resp BP Pulse Ox 97.8 F 108 H 22 110/69 94 L 08/01/17 17:20 08/01/17 17:20 08/01/17 17:20 08/01/17 17:20 08/01/17 17:34 Intake and Output: 08/01/17 08/01/17 06:59 18:59 Intake Total 500 810 Output Total 375 Balance 125 810 - Medications Medications: Current Medications Aspirin (Aspirin Chewable) 81 mg PO DAILY [facility] Last Admin: 08/01/17 09:40 Dose: 81 mg Benzocaine/Menthol (Cepacol Sore Throat) 1 ryan MT Q4 PRN PRN Reason: Sore Throat Clopidogrel Bisulfate (Plavix) 75 mg PO DAILY [facility] Last Admin: 07/30/17 10:41 Dose: Not Given Diltiazem HCl (Cardizem) 30 mg PO Q6 [facility] Last Admin: 08/01/17 17:40 Dose: 30 mg Azithromycin 500 mg/ Dextrose 250 mls @ 250 mls/hr IVPB DAILY [facility] Last Admin: 08/01/17 10:55 Dose: 250 mls/hr Ceftriaxone Sodium 1 gm/ (Sodium Chloride) 100 mls @ 100 mls/hr IVPB DAILY [facility] Last Admin: 08/01/17 09:40 Dose: 100 mls/hr Methylprednisolone (Solu-Medrol) 40 mg IVP Q8 [facility] Last Admin: 08/01/17 13:04 Dose: 40 mg Rosuvastatin Calcium (Crestor) 5 mg PO HS [facility] Last Admin: 07/31/17 21:14 Dose: 5 mg Fluticasone/Salmeterol (Advair Diskus 250/50) 1 puff IH RQ12 [facility] Last Admin: 08/01/17 07:11 Dose: Not Given Sodium Chloride ([place] Baby Saline 30 Ml) 0 ml [place] Q4 PRN PRN Reason: Cough and congestion - Labs Labs: 08/01/17 07:58 07/31/17 11:26 PT 13.6 SECONDS (9.7-12.2) H 07/26/17 17:16 INR 1.2 07/26/17 17:16 APTT 33 SECONDS (21-34) 07/26/17 17:16 - Constitutional Appears: Non-toxic, Chronically Ill - Head Exam Head Exam: NORMOCEPHALIC - Eye Exam Eye Exam: PERRL - ENT Exam ENT Exam: Mucous Membranes Dry - Neck Exam Neck Exam: absent: Lymphadenopathy - Respiratory Exam Respiratory Exam: Decreased Breath Sounds, Rales, Rhonchi - Cardiovascular Exam Cardiovascular Exam: REGULAR RHYTHM - GI/Abdominal Exam GI & Abdominal Exam: Distended, Soft - Rectal Exam Rectal Exam: Deferred - Exam Exam: NORMAL INSPECTION - Extremities Exam Extremities Exam: absent: Pedal Edema - Back Exam Back Exam: absent: CVA tenderness (L), CVA tenderness (R) Assessment and Plan - Assessment and Plan (Free Text) Plan: cont rx pneumonia check afb follow up with pulmonary
--- NOTE | 2017-08-01 19:18 | CP.PCM.PN ---
Subjective - Date & Time of Evaluation Date of Evaluation: 08/01/17 Time of Evaluation: 09:00 - Subjective Subjective: clinically same Objective - Vital Signs/Intake and Output Vital Signs (last 24 hours): Temp Pulse Resp BP Pulse Ox 97.8 F 108 H 22 110/69 94 L 08/01/17 17:20 08/01/17 17:20 08/01/17 17:20 08/01/17 17:20 08/01/17 17:34 Intake and Output: 08/01/17 08/02/17 18:59 06:59 Intake Total 810 Balance 810 - Medications Medications: Current Medications Aspirin (Aspirin Chewable) 81 mg PO DAILY [facility] Last Admin: 08/01/17 09:40 Dose: 81 mg Benzocaine/Menthol (Cepacol Sore Throat) 1 ryan MT Q4 PRN PRN Reason: Sore Throat Clopidogrel Bisulfate (Plavix) 75 mg PO DAILY [facility] Last Admin: 07/30/17 10:41 Dose: Not Given Diltiazem HCl (Cardizem) 30 mg PO Q6 [facility] Last Admin: 08/01/17 17:40 Dose: 30 mg Azithromycin 500 mg/ Dextrose 250 mls @ 250 mls/hr IVPB DAILY [facility] Last Admin: 08/01/17 10:55 Dose: 250 mls/hr Ceftriaxone Sodium 1 gm/ (Sodium Chloride) 100 mls @ 100 mls/hr IVPB DAILY [facility] Last Admin: 08/01/17 09:40 Dose: 100 mls/hr Methylprednisolone (Solu-Medrol) 40 mg IVP Q8 [facility] Last Admin: 08/01/17 13:04 Dose: 40 mg Rosuvastatin Calcium (Crestor) 5 mg PO HS [facility] Last Admin: 07/31/17 21:14 Dose: 5 mg Fluticasone/Salmeterol (Advair Diskus 250/50) 1 puff IH RQ12 [facility] Last Admin: 08/01/17 07:11 Dose: Not Given Sodium Chloride ([place] Baby Saline 30 Ml) 0 ml [place] Q4 PRN PRN Reason: Cough and congestion - Labs Labs: 08/01/17 07:58 07/31/17 11:26 PT 13.6 SECONDS (9.7-12.2) H 07/26/17 17:16 INR 1.2 07/26/17 17:16 APTT 33 SECONDS (21-34) 07/26/17 17:16
--- NOTE | 2017-08-01 20:22 | CP.PCM.PN ---
Subjective - Date & Time of Evaluation Date of Evaluation: 08/01/17 Time of Evaluation: 10:00 - Subjective Subjective: Seen and examined remains in isolation no recurrence of ventricular tachycardia Objective - Vital Signs/Intake and Output Vital Signs (last 24 hours): Temp Pulse Resp BP Pulse Ox 97.8 F 107 H 22 110/69 94 L 08/01/17 17:20 08/01/17 20:12 08/01/17 17:20 08/01/17 17:20 08/01/17 17:34 Intake and Output: 08/01/17 08/02/17 18:59 06:59 Intake Total 810 Balance 810 - Medications Medications: Current Medications Aspirin (Aspirin Chewable) 81 mg PO DAILY [facility] Last Admin: 08/01/17 09:40 Dose: 81 mg Benzocaine/Menthol (Cepacol Sore Throat) 1 ryan MT Q4 PRN PRN Reason: Sore Throat Clopidogrel Bisulfate (Plavix) 75 mg PO DAILY [facility] Last Admin: 07/30/17 10:41 Dose: Not Given Diltiazem HCl (Cardizem) 30 mg PO Q6 [facility] Last Admin: 08/01/17 17:40 Dose: 30 mg Azithromycin 500 mg/ Dextrose 250 mls @ 250 mls/hr IVPB DAILY [facility] Last Admin: 08/01/17 10:55 Dose: 250 mls/hr Ceftriaxone Sodium 1 gm/ (Sodium Chloride) 100 mls @ 100 mls/hr IVPB DAILY [facility] Last Admin: 08/01/17 09:40 Dose: 100 mls/hr Methylprednisolone (Solu-Medrol) 40 mg IVP Q8 [facility] Last Admin: 08/01/17 13:04 Dose: 40 mg Rosuvastatin Calcium (Crestor) 5 mg PO HS [facility] Last Admin: 07/31/17 21:14 Dose: 5 mg Fluticasone/Salmeterol (Advair Diskus 250/50) 1 puff IH RQ12 [facility] Last Admin: 08/01/17 07:11 Dose: Not Given Sodium Chloride ([place] Baby Saline 30 Ml) 0 ml [place] Q4 PRN PRN Reason: Cough and congestion - Labs Labs: 08/01/17 07:58 07/31/17 11:26 PT 13.6 SECONDS (9.7-12.2) H 07/26/17 17:16 INR 1.2 07/26/17 17:16 APTT 33 SECONDS (21-34) 07/26/17 17:16 Assessment and Plan - Assessment and Plan (Free Text) Assessment: Hemoptysis Ventricular tachycardia Coronary artery disease Plan: Cardiac cath at some point EPS ? contingent on cath results
[2017-08-01 20:54] LABS: ALB/GLOB RATIO 1.1 (1.0-2.1); ALBUMIN 2.6 g/dL (3.5-5.0); ALT/SGPT 49 U/L (21-72); AST/SGOT 32 U/L (17-59); BLOOD UREA NITROGEN 31 mg/dL (9-20); CALCIUM 7.6 mg/dl (8.6-10.4); GFR AFRICAN-AMERICAN > 60; GFR NON-AFRICAN AMERICAN > 60
--- NOTE | 2017-08-01 22:16 | CP.PCM.PN ---
Subjective - Date & Time of Evaluation Date of Evaluation: 07/31/17 Time of Evaluation: 10:30 - Subjective Subjective: Patient s/p endoleak repair with Stent Denies chest pain and dyspnea No cardiac events noted Objective - Vital Signs/Intake and Output Vital Signs (last 24 hours): Temp Pulse Resp BP Pulse Ox 97.8 F 107 H 22 110/69 94 L 08/01/17 17:20 08/01/17 20:12 08/01/17 17:20 08/01/17 17:20 08/01/17 17:34 Intake and Output: 08/01/17 08/02/17 18:59 06:59 Intake Total 810 300 Balance 810 300 - Medications Medications: Current Medications Aspirin (Aspirin Chewable) 81 mg PO DAILY [facility] Last Admin: 08/01/17 09:40 Dose: 81 mg Benzocaine/Menthol (Cepacol Sore Throat) 1 ryan MT Q4 PRN PRN Reason: Sore Throat Clopidogrel Bisulfate (Plavix) 75 mg PO DAILY [facility] Last Admin: 07/30/17 10:41 Dose: Not Given Diltiazem HCl (Cardizem) 30 mg PO Q6 [facility] Last Admin: 08/01/17 17:40 Dose: 30 mg Azithromycin 500 mg/ Dextrose 250 mls @ 250 mls/hr IVPB DAILY [facility] Last Admin: 08/01/17 10:55 Dose: 250 mls/hr Ceftriaxone Sodium 1 gm/ (Sodium Chloride) 100 mls @ 100 mls/hr IVPB DAILY [facility] Last Admin: 08/01/17 09:40 Dose: 100 mls/hr Methylprednisolone (Solu-Medrol) 40 mg IVP Q8 [facility] Last Admin: 08/01/17 21:07 Dose: 40 mg Rosuvastatin Calcium (Crestor) 5 mg PO HS [facility] Last Admin: 08/01/17 21:06 Dose: 5 mg Fluticasone/Salmeterol (Advair Diskus 250/50) 1 puff IH RQ12 [facility] Last Admin: 08/01/17 20:58 Dose: 1 puff Sodium Chloride ([place] Baby Saline 30 Ml) 0 ml [place] Q4 PRN PRN Reason: Cough and congestion - Labs Labs: 08/01/17 07:58 08/01/17 20:01 PT 13.6 SECONDS (9.7-12.2) H 07/26/17 17:16 INR 1.2 07/26/17 17:16 APTT 33 SECONDS (21-34) 07/26/17 17:16
--- NOTE | 2017-08-01 22:16 | CP.PCM.PN ---
Subjective - Date & Time of Evaluation Date of Evaluation: 08/01/17 Time of Evaluation: 10:25 - Subjective Subjective: Patient s/p endoleak repair with Stent Denies chest pain and dyspnea No cardiac events noted Objective - Vital Signs/Intake and Output Vital Signs (last 24 hours): Temp Pulse Resp BP Pulse Ox 97.8 F 107 H 22 110/69 94 L 08/01/17 17:20 08/01/17 20:12 08/01/17 17:20 08/01/17 17:20 08/01/17 17:34 Intake and Output: 08/01/17 08/02/17 18:59 06:59 Intake Total 810 300 Balance 810 300 - Medications Medications: Current Medications Aspirin (Aspirin Chewable) 81 mg PO DAILY [facility] Last Admin: 08/01/17 09:40 Dose: 81 mg Benzocaine/Menthol (Cepacol Sore Throat) 1 [place]yan MT Q4 PRN PRN Reason: Sore Throat Clopidogrel Bisulfate (Plavix) 75 mg PO DAILY [facility] Last Admin: 07/30/17 10:41 Dose: Not Given Diltiazem HCl (Cardizem) 30 mg PO Q6 [facility] Last Admin: 08/01/17 17:40 Dose: 30 mg Azithromycin 500 mg/ Dextrose 250 mls @ 250 mls/hr IVPB DAILY [facility] Last Admin: 08/01/17 10:55 Dose: 250 mls/hr Ceftriaxone Sodium 1 gm/ (Sodium Chloride) 100 mls @ 100 mls/hr IVPB DAILY [facility] Last Admin: 08/01/17 09:40 Dose: 100 mls/hr Methylprednisolone (Solu-Medrol) 40 mg IVP Q8 [facility] Last Admin: 08/01/17 21:07 Dose: 40 mg Rosuvastatin Calcium (Crestor) 5 mg PO HS [facility] Last Admin: 08/01/17 21:06 Dose: 5 mg Fluticasone/Salmeterol (Advair Diskus 250/50) 1 puff IH RQ12 [facility] Last Admin: 08/01/17 20:58 Dose: 1 puff Sodium Chloride ([place] Baby Saline 30 Ml) 0 ml [place] Q4 PRN PRN Reason: Cough and congestion - Labs Labs: 08/01/17 07:58 08/01/17 20:01 PT 13.6 SECONDS (9.7-12.2) H 07/26/17 17:16 INR 1.2 07/26/17 17:16 APTT 33 SECONDS (21-34) 07/26/17 17:16
[2017-08-02] MEDS: Albuterol-Ipratrop 3 mg / 0.5 (3 ml) UD INH SCH ×4 (01:08→20:25)
[2017-08-02] MEDS: MethylPREDNISolone 40 mg Vial IVP SCH ×3 (05:58→21:28)
[2017-08-02] MEDS: Fluticasone-Salmeterol 250-50mcg Diskus IH SCH ×2 (07:05→20:25)
--- NOTE | 2017-08-02 11:59 | CP.PCM.PN ---
Subjective - Date & Time of Evaluation Date of Evaluation: 08/02/17 Time of Evaluation: 09:40 - Subjective Subjective: clinically same Objective - Vital Signs/Intake and Output Vital Signs (last 24 hours): Temp Pulse Resp BP Pulse Ox 97.4 F L 98 H 20 109/66 95 08/02/17 07:10 08/02/17 07:45 08/02/17 07:10 08/02/17 07:10 08/02/17 07:10 Intake and Output: 08/02/17 08/02/17 06:59 18:59 Intake Total 300 Output Total 200 Balance 100 - Medications Medications: Current Medications Albuterol/Ipratropium (Duoneb 3 Mg/0.5 Mg (3 Ml) Ud) 3 ml INH RQ6 [facility] Last Admin: 08/02/17 08:55 Dose: 3 ml Aspirin (Aspirin Chewable) 81 mg PO DAILY [facility] Last Admin: 08/02/17 09:12 Dose: 81 mg Benzocaine/Menthol (Cepacol Sore Throat) 1 ryan MT Q4 PRN PRN Reason: Sore Throat Clopidogrel Bisulfate (Plavix) 75 mg PO DAILY [facility] Last Admin: 07/30/17 10:41 Dose: Not Given Diltiazem HCl (Cardizem) 30 mg PO Q6 [facility] Last Admin: 08/02/17 11:05 Dose: 30 mg Azithromycin 500 mg/ Dextrose 250 mls @ 250 mls/hr IVPB DAILY [facility] Last Admin: 08/02/17 10:55 Dose: 250 mls/hr Ceftriaxone Sodium 1 gm/ (Sodium Chloride) 100 mls @ 100 mls/hr IVPB DAILY [facility] Last Admin: 08/02/17 09:12 Dose: 100 mls/hr Methylprednisolone (Solu-Medrol) 40 mg IVP Q8 [facility] Last Admin: 08/02/17 05:58 Dose: 40 mg Rosuvastatin Calcium (Crestor) 5 mg PO HS [facility] Last Admin: 08/01/17 21:06 Dose: 5 mg Fluticasone/Salmeterol (Advair Diskus 250/50) 1 puff IH RQ12 [facility] Last Admin: 08/01/17 20:58 Dose: 1 puff Sodium Chloride ([place] Baby Saline 30 Ml) 0 ml [place] Q4 PRN PRN Reason: Cough and congestion - Labs Labs: 08/01/17 07:58 08/01/17 20:01 PT 13.6 SECONDS (9.7-12.2) H 07/26/17 17:16 INR 1.2 07/26/17 17:16 APTT 33 SECONDS (21-34) 07/26/17 17:16 - Constitutional Appears: Well - Head Exam Head Exam: ATRAUMATIC, NORMAL INSPECTION, NORMOCEPHALIC - Eye Exam Eye Exam: EOMI, Normal appearance, PERRL Pupil Exam: NORMAL ACCOMODATION, PERRL - ENT Exam ENT Exam: Mucous Membranes Moist, Normal Exam - Neck Exam Neck Exam: Full ROM, Normal Inspection. absent: Lymphadenopathy - Respiratory Exam Respiratory Exam: Decreased Breath Sounds - Cardiovascular Exam Cardiovascular Exam: REGULAR RHYTHM, +S1, +S2 - GI/Abdominal Exam GI & Abdominal Exam: Soft, Diminished Bowel Sounds - Rectal Exam Rectal Exam: Deferred
[2017-08-02] MEDS ORDERED: Albuterol 0.083% Inhal Sol (2.5 mg/3 mL) UD INH STA (16:05)
--- NOTE | 2017-08-02 18:43 | CP.PCM.PN ---
Subjective - Date & Time of Evaluation Date of Evaluation: 08/02/17 Time of Evaluation: 18:43 Objective - Vital Signs/Intake and Output Vital Signs (last 24 hours): Temp Pulse Resp BP Pulse Ox 98.1 F 100 H 20 114/64 95 08/02/17 16:42 08/02/17 17:37 08/02/17 17:37 08/02/17 17:37 08/02/17 17:37 Intake and Output: 08/02/17 08/02/17 06:59 18:59 Intake Total 300 Output Total 200 Balance 100 - Medications Medications: Current Medications Albuterol/Ipratropium (Duoneb 3 Mg/0.5 Mg (3 Ml) Ud) 3 ml INH RQ6 [facility] Last Admin: 08/02/17 14:05 Dose: Not Given Aspirin (Aspirin Chewable) 81 mg PO DAILY [facility] Last Admin: 08/02/17 09:12 Dose: 81 mg Benzocaine/Menthol (Cepacol Sore Throat) 1 ryan MT Q4 PRN PRN Reason: Sore Throat Clopidogrel Bisulfate (Plavix) 75 mg PO DAILY [facility] Last Admin: 07/30/17 10:41 Dose: Not Given Diltiazem HCl (Cardizem) 30 mg PO Q6 [facility] Last Admin: 08/02/17 17:38 Dose: 30 mg Azithromycin 500 mg/ Dextrose 250 mls @ 250 mls/hr IVPB DAILY [facility] Last Admin: 08/02/17 10:55 Dose: 250 mls/hr Ceftriaxone Sodium 1 gm/ (Sodium Chloride) 100 mls @ 100 mls/hr IVPB DAILY [facility] Last Admin: 08/02/17 09:12 Dose: 100 mls/hr Lidocaine HCl (Lidocaine 2% Viscous) 15 ml PO ONCE PRN PRN Reason: throat pain Last Admin: 08/02/17 13:30 Dose: 15 ml Methylprednisolone (Solu-Medrol) 40 mg IVP Q8 [facility] Last Admin: 08/02/17 13:30 Dose: 40 mg Rosuvastatin Calcium (Crestor) 5 mg PO HS [facility] Last Admin: 08/01/17 21:06 Dose: 5 mg Fluticasone/Salmeterol (Advair Diskus 250/50) 1 puff IH RQ12 [facility] Last Admin: 08/02/17 07:05 Dose: Not Given Sodium Chloride ([place] Baby Saline 30 Ml) 0 ml [place] Q4 PRN PRN Reason: Cough and congestion - Labs Labs: 08/01/17 07:58 08/01/17 20:01 PT 13.6 SECONDS (9.7-12.2) H 07/26/17 17:16 INR 1.2 07/26/17 17:16 APTT 33 SECONDS (21-34) 07/26/17 17:16
--- NOTE | 2017-08-02 20:11 | CP.PCM.PN ---
Subjective - Date & Time of Evaluation Date of Evaluation: 08/02/17 Time of Evaluation: 13:00 - Subjective Subjective: No complaints. Objective - Vital Signs/Intake and Output Vital Signs (last 24 hours): Temp Pulse Resp BP Pulse Ox 98.1 F 98 H 20 114/64 95 08/02/17 16:42 08/02/17 18:57 08/02/17 17:37 08/02/17 17:37 08/02/17 17:37 - Medications Medications: Current Medications Albuterol/Ipratropium (Duoneb 3 Mg/0.5 Mg (3 Ml) Ud) 3 ml INH RQ6 [facility] Last Admin: 08/02/17 14:05 Dose: Not Given Aspirin (Aspirin Chewable) 81 mg PO DAILY [facility] Last Admin: 08/02/17 09:12 Dose: 81 mg Benzocaine/Menthol (Cepacol Sore Throat) 1 ryan MT Q4 PRN PRN Reason: Sore Throat Clopidogrel Bisulfate (Plavix) 75 mg PO DAILY [facility] Last Admin: 07/30/17 10:41 Dose: Not Given Diltiazem HCl (Cardizem) 30 mg PO Q6 [facility] Last Admin: 08/02/17 17:38 Dose: 30 mg Azithromycin 500 mg/ Dextrose 250 mls @ 250 mls/hr IVPB DAILY [facility] Last Admin: 08/02/17 10:55 Dose: 250 mls/hr Ceftriaxone Sodium 1 gm/ (Sodium Chloride) 100 mls @ 100 mls/hr IVPB DAILY [facility] Last Admin: 08/02/17 09:12 Dose: 100 mls/hr Lidocaine HCl (Lidocaine 2% Viscous) 15 ml PO ONCE PRN PRN Reason: throat pain Last Admin: 08/02/17 13:30 Dose: 15 ml Methylprednisolone (Solu-Medrol) 40 mg IVP Q8 [facility] Last Admin: 08/02/17 13:30 Dose: 40 mg Rosuvastatin Calcium (Crestor) 5 mg PO HS [facility] Last Admin: 08/01/17 21:06 Dose: 5 mg Fluticasone/Salmeterol (Advair Diskus 250/50) 1 puff IH RQ12 [facility] Last Admin: 08/02/17 07:05 Dose: Not Given Sodium Chloride ([place] Baby Saline 30 Ml) 0 ml [place] Q4 PRN PRN Reason: Cough and congestion - Labs Labs: 08/01/17 07:58 08/01/17 20:01 PT 13.6 SECONDS (9.7-12.2) H 07/26/17 17:16 INR 1.2 07/26/17 17:16 APTT 33 SECONDS (21-34) 07/26/17 17:16 - Head Exam Head Exam: ATRAUMATIC - Eye Exam Eye Exam: Normal appearance - ENT Exam ENT Exam: Mucous Membranes Dry - Respiratory Exam Respiratory Exam: Decreased Breath Sounds - Cardiovascular Exam Cardiovascular Exam: +S1, +S2 - GI/Abdominal Exam GI & Abdominal Exam: Normal Bowel Sounds Assessment and Plan (1) Anemia Assessment & Plan: chronic diseae borderline iron stores; okay to start IV iron once clear of infection transfusion support PRN Status: Acute (2) Leukocytosis Assessment & Plan: secondary to steroids Status: Acute
[2017-08-02 20:15] LABS: BASO # 0.1 K/uL (0.0-0.2); BASO % 0.2 % (0.0-2.0); HEMOGLOBIN 7.3 g/dL (12.0-18.0); LYMPH # 0.2 K/uL (1.0-4.3); LYMPH % 0.7 % (20.0-40.0); MEAN CELL VOLUME 76.7 fL (80.0-94.0); MEAN CORPUSCULAR HEMOGLOBIN 24.2 pg (27.0-31.0); MEAN CORPUSCULAR HGB CONC 31.6 g/dL (33.0-37.0); MEAN PLATELET VOLUME 8.2 fL (7.2-11.7); MONO % 3.2 % (0.0-10.0); NEUT # 28.6 K/uL (1.8-7.0); NEUT % 95.9 % (50.0-75.0); NRBC % 0.1 % (0.0-2.0); PLATELET COUNT 221 K/uL (130-400); RBC 3.02 Mil/uL (4.40-5.90); RED CELL DISTRIBUTION WIDTH 19.4 % (11.5-14.5); WHITE BLOOD COUNT 29.8 K/uL (4.8-10.8)
[2017-08-02] MEDS: Benzocaine/Menthol (Cepacol) Lozenge MT PRN (21:28)
[2017-08-02 21:50] LABS: ANISOCYTOSIS SLIGHT; BANDS 2 % (0-2); LYMPHOCYTE 2 % (20-40); MICROCYTOSIS SLIGHT; MONOCYTE 4 % (0-10); NEUTROPHIL 92 % (50-75); PLATELET ESTIMATE NORMAL (NORMAL); POIKILOCYTOSIS SLIGHT; TOTAL CELLS COUNTED 100
[2017-08-02 21:51] LABS: HYPOCHROMIC SLIGHT
[2017-08-02 21:52] LABS: ACANTHOCYTES SLIGHT
--- NOTE | 2017-08-02 22:13 | CP.PCM.PN ---
Subjective - Date & Time of Evaluation Date of Evaluation: 08/02/17 Time of Evaluation: 16:15 - Subjective Subjective: Patient seen and evaluated No cardiac events noted Denies chest pain and dyspnea Objective - Vital Signs/Intake and Output Vital Signs (last 24 hours): Temp Pulse Resp BP Pulse Ox 98.1 F 110 H 20 114/64 95 08/02/17 16:42 08/02/17 20:12 08/02/17 17:37 08/02/17 17:37 08/02/17 17:37 - Medications Medications: Current Medications Albuterol/Ipratropium (Duoneb 3 Mg/0.5 Mg (3 Ml) Ud) 3 ml INH RQ6 [facility] Last Admin: 08/02/17 20:25 Dose: 3 ml Aspirin (Aspirin Chewable) 81 mg PO DAILY [facility] Last Admin: 08/02/17 09:12 Dose: 81 mg Benzocaine/Menthol (Cepacol Sore Throat) 1 ryan MT Q4 PRN PRN Reason: Sore Throat Last Admin: 08/02/17 21:28 Dose: 1 ryan Clopidogrel Bisulfate (Plavix) 75 mg PO DAILY [facility] Last Admin: 07/30/17 10:41 Dose: Not Given Diltiazem HCl (Cardizem) 30 mg PO Q6 [facility] Last Admin: 08/02/17 17:38 Dose: 30 mg Azithromycin 500 mg/ Dextrose 250 mls @ 250 mls/hr IVPB DAILY [facility] Last Admin: 08/02/17 10:55 Dose: 250 mls/hr Ceftriaxone Sodium 1 gm/ (Sodium Chloride) 100 mls @ 100 mls/hr IVPB DAILY [facility] Last Admin: 08/02/17 09:12 Dose: 100 mls/hr Lidocaine HCl (Lidocaine 2% Viscous) 15 ml PO ONCE PRN PRN Reason: throat pain Last Admin: 08/02/17 13:30 Dose: 15 ml Methylprednisolone (Solu-Medrol) 40 mg IVP Q8 [facility] Last Admin: 08/02/17 21:28 Dose: 40 mg Rosuvastatin Calcium (Crestor) 5 mg PO HS [facility] Last Admin: 08/02/17 21:28 Dose: 5 mg Fluticasone/Salmeterol (Advair Diskus 250/50) 1 puff IH RQ12 [facility] Last Admin: 08/02/17 20:25 Dose: 1 puff Sodium Chloride ([place] Baby Saline 30 Ml) 0 ml [place] Q4 PRN PRN Reason: Cough and congestion - Labs Labs: 08/02/17 19:59 08/01/17 20:01 PT 13.6 SECONDS (9.7-12.2) H 07/26/17 17:16 INR 1.2 07/26/17 17:16 APTT 33 SECONDS (21-34) 07/26/17 17:16
[2017-08-02] MEDS ORDERED: Albuterol-Ipratrop 3 mg / 0.5 (3 ml) UD INH SCH (23:37)
[2017-08-03] MEDS: Albuterol-Ipratrop 3 mg / 0.5 (3 ml) UD INH SCH ×5 (01:01→18:56)
[2017-08-03] MEDS: MethylPREDNISolone 40 mg Vial IVP SCH ×3 (05:23→21:40)
[2017-08-03] MEDS: Fluticasone-Salmeterol 250-50mcg Diskus IH SCH ×2 (08:03→18:55)
--- NOTE | 2017-08-03 12:56 | CP.PCM.PN ---
<Sil Timmons - Last Filed: 08/03/17 12:53> Subjective - Date & Time of Evaluation Date of Evaluation: 08/03/17 Time of Evaluation: 10:30 - Subjective Subjective: PGY 3 Progress Note- Heme/Onc Service - Dr. Maldonado: Patient seen and examined at bedside this AM. Patient reports he is having wheezing and some trouble breathing. He has been receiving nebulizer treatments. S/P PRBC last night. Will check CBC today. Objective - Vital Signs/Intake and Output Vital Signs (last 24 hours): Temp Pulse Resp BP Pulse Ox 97.4 F L 104 H 20 116/77 96 08/03/17 08:10 08/03/17 08:10 08/03/17 08:10 08/03/17 08:10 08/03/17 08:10 Intake and Output: 08/03/17 08/03/17 06:59 18:59 Intake Total 860 Balance 860 - Medications Medications: Current Medications Acetaminophen (Tylenol 325mg Tab) 650 mg PO ONCE PRN PRN Reason: Pre transfusion Last Admin: 08/03/17 01:35 Dose: 650 mg Albuterol/Ipratropium (Duoneb 3 Mg/0.5 Mg (3 Ml) Ud) 3 ml INH Q4H [facility] Aspirin (Aspirin Chewable) 81 mg PO DAILY [facility] Last Admin: 08/03/17 10:36 Dose: 81 mg Benzocaine/Menthol (Cepacol Sore Throat) 1 ryan MT Q4 PRN PRN Reason: Sore Throat Last Admin: 08/02/17 21:28 Dose: 1 ryan Clopidogrel Bisulfate (Plavix) 75 mg PO DAILY [facility] Last Admin: 07/30/17 10:41 Dose: Not Given Diltiazem HCl (Cardizem) 30 mg PO Q6 [facility] Last Admin: 08/03/17 05:23 Dose: 30 mg Diphenhydramine HCl (Benadryl) 25 mg PO ONCE PRN PRN Reason: Pre transfusion Last Admin: 08/03/17 01:35 Dose: 25 mg Azithromycin 500 mg/ Dextrose 250 mls @ 250 mls/hr IVPB DAILY [facility] Last Admin: 08/03/17 10:36 Dose: 250 mls/hr Ceftriaxone Sodium 1 gm/ (Sodium Chloride) 100 mls @ 100 mls/hr IVPB DAILY [facility] Last Admin: 08/03/17 09:00 Dose: 100 mls/hr Lidocaine HCl (Lidocaine 2% Viscous) 15 ml PO ONCE PRN PRN Reason: throat pain Last Admin: 08/02/17 13:30 Dose: 15 ml Methylprednisolone (Solu-Medrol) 40 mg IVP Q8 [facility] Last Admin: 08/03/17 05:23 Dose: 40 mg Rosuvastatin Calcium (Crestor) 5 mg PO HS [facility] Last Admin: 08/02/17 21:28 Dose: 5 mg Fluticasone/Salmeterol (Advair Diskus 250/50) 1 puff IH RQ12 [facility] Last Admin: 08/03/17 08:03 Dose: 1 puff Sodium Chloride ([place] Baby Saline 30 Ml) 0 ml [place] Q4 PRN PRN Reason: Cough and congestion - Labs Labs: 08/02/17 19:59 08/01/17 20:01 PT 13.6 SECONDS (9.7-12.2) H 07/26/17 17:16 INR 1.2 07/26/17 17:16 APTT 33 SECONDS (21-34) 07/26/17 17:16 - Constitutional Appears: No Acute Distress, Chronically Ill - Head Exam Head Exam: NORMAL INSPECTION, NORMOCEPHALIC - Eye Exam Eye Exam: EOMI, Normal appearance - ENT Exam ENT Exam: Mucous Membranes Moist - Neck Exam Neck Exam: Full ROM - Respiratory Exam Respiratory Exam: Rales, Rhonchi, Wheezes - Cardiovascular Exam Cardiovascular Exam: REGULAR RHYTHM, +S1, +S2 - GI/Abdominal Exam GI & Abdominal Exam: Soft. absent: Distended, Tenderness - Extremities Exam Extremities Exam: Full ROM - Neurological Exam Neurological Exam: Alert, Awake, Oriented x3 - Psychiatric Exam Psychiatric exam: Normal Mood - Skin Skin Exam: Dry, Warm Assessment and Plan - Assessment and Plan (Free Text) Assessment: (1) Anemia Assessment and Plan: Hgb 7.63 yesterday AM. S/P 1 unit of PRBC overnight. Recheck CBC today. Patient with Retic 1.6, retic index 0.68. Hypoproliferative. Ferritin 56.6 B12 943 Check stool OB Transfusion support PRN. Anemia workup consistent with iron deficiency and chronic disease. Can supplement IV iron once clear of infection. Status: Acute (2) Leukocytosis Assessment and Plan: patient on antibiotics and tamiflu monitor Status: Acute Patient seen and examined during rounds with Dr. Maldonado. Recommendations above as per attending. Kaelyn Timmons, PGY 3 <Dean Maldonado - Last Filed: 08/03/17 22:29> Objective - Vital Signs/Intake and Output Vital Signs (last 24 hours): Temp Pulse Resp BP Pulse Ox 98.2 F 123 H 20 118/70 79 L 08/03/17 16:59 08/03/17 16:59 08/03/17 16:59 08/03/17 18:11 08/03/17 16:59 - Medications Medications: Current Medications Acetaminophen (Tylenol 325mg Tab) 650 mg PO ONCE PRN PRN Reason: Pre transfusion Last Admin: 08/03/17 01:35 Dose: 650 mg Albuterol/Ipratropium (Duoneb 3 Mg/0.5 Mg (3 Ml) Ud) 3 ml INH Q4H [facility] Last Admin: 08/03/17 18:56 Dose: 3 ml Aspirin (Aspirin Chewable) 81 mg PO DAILY [facility] Last Admin: 08/03/17 10:36 Dose: 81 mg Benzocaine/Menthol (Cepacol Sore Throat) 1 ryan MT Q4 PRN PRN Reason: Sore Throat Last Admin: 08/02/17 21:28 Dose: 1 ryan Clopidogrel Bisulfate (Plavix) 75 mg PO DAILY [facility] Last Admin: 07/30/17 10:41 Dose: Not Given Diltiazem HCl (Cardizem) 30 mg PO Q6 [facility] Last Admin: 08/03/17 18:07 Dose: 30 mg Diphenhydramine HCl (Benadryl) 25 mg PO ONCE PRN PRN Reason: Pre transfusion Last Admin: 08/03/17 01:35 Dose: 25 mg Azithromycin 500 mg/ Dextrose 250 mls @ 250 mls/hr IVPB DAILY [facility] Last Admin: 08/03/17 10:36 Dose: 250 mls/hr Cefepime HCl 1 gm/ Dextrose 50 mls @ 100 mls/hr IVPB Q8H [facility] Vancomycin HCl 1 gm/ Sodium (Chloride) 200 mls @ 133.333 mls/hr IVPB Q12H [facility] Last Admin: 08/03/17 17:33 Dose: 133.333 mls/hr Lidocaine HCl (Lidocaine 2% Viscous) 15 ml PO ONCE PRN PRN Reason: throat pain Last Admin: 08/02/17 13:30 Dose: 15 ml Methylprednisolone (Solu-Medrol) 40 mg IVP Q8 [facility] Last Admin: 08/03/17 21:40 Dose: 40 mg Nystatin (Nystop Topical Powder) 1 applic TOP BID [facility] Stop: 08/17/17 18:01 Last Admin: 08/03/17 18:39 Dose: Not Given Rosuvastatin Calcium (Crestor) 5 mg PO HS [facility] Last Admin: 08/03/17 21:41 Dose: 5 mg Fluticasone/Salmeterol (Advair Diskus 250/50) 1 puff IH RQ12 [facility] Last Admin: 08/03/17 18:55 Dose: 1 puff Sodium Chloride ([place] Baby Saline 30 Ml) 0 ml [place] Q4 PRN PRN Reason: Cough and congestion - Labs Labs: 08/03/17 14:24 08/03/17 17:40 PT 13.6 SECONDS (9.7-12.2) H 07/26/17 17:16 INR 1.2 07/26/17 17:16 APTT 33 SECONDS (21-34) 07/26/17 17:16 Assessment and Plan (1) Anemia Status: Acute (2) Leukocytosis Status: Acute - Assessment and Plan (Free Text) Assessment: Pt seen and examined, agree with residents note.
[2017-08-03 14:29] LABS: BASO # 0.1 K/uL (0.0-0.2); BASO % 0.3 % (0.0-2.0); HEMOGLOBIN 8.8 g/dL (12.0-18.0); LYMPH # 0.1 K/uL (1.0-4.3); LYMPH % 0.3 % (20.0-40.0); MEAN PLATELET VOLUME 8.1 fL (7.2-11.7); MONO # 0.8 K/uL (0.0-0.8); MONO % 2.4 % (0.0-10.0); NEUT # 32.2 K/uL (1.8-7.0); NRBC % 0.1 % (0.0-2.0); PLATELET COUNT 225 K/uL (130-400); RBC 3.51 Mil/uL (4.40-5.90)
[2017-08-03 14:42] LABS: WHITE BLOOD COUNT 33.3 K/uL (4.8-10.8)
[2017-08-03 15:06] LABS: ANISOCYTOSIS MODERATE; BANDS 8 % (0-2); MONOCYTE 3 % (0-10); NEUTROPHIL 89 % (50-75); PLATELET ESTIMATE NORMAL (NORMAL); TOTAL CELLS COUNTED 100; TOXIC GRANULATION PRESENT
[2017-08-03 15:07] LABS: HYPOCHROMIC SLIGHT; OVALOCYTES SLIGHT; POIKILOCYTOSIS SLIGHT; POLYCHROMIC SLIGHT
[2017-08-03 15:08] LABS: LARGE PLATELETS PRESENT; SCHISTOCYTES SLIGHT; TARGET CELLS SLIGHT
[2017-08-03 15:09] LABS: MICROCYTOSIS SLIGHT
--- NOTE | 2017-08-03 15:18 | CP.PCM.PN ---
Subjective - Date & Time of Evaluation Date of Evaluation: 08/03/17 Time of Evaluation: 15:18 Objective - Vital Signs/Intake and Output Vital Signs (last 24 hours): Temp Pulse Resp BP Pulse Ox 97.4 F L 104 H 20 116/77 96 08/03/17 08:10 08/03/17 08:10 08/03/17 08:10 08/03/17 08:10 08/03/17 08:10 Intake and Output: 08/03/17 08/03/17 06:59 18:59 Intake Total 860 Balance 860 - Medications Medications: Current Medications Acetaminophen (Tylenol 325mg Tab) 650 mg PO ONCE PRN PRN Reason: Pre transfusion Last Admin: 08/03/17 01:35 Dose: 650 mg Albuterol/Ipratropium (Duoneb 3 Mg/0.5 Mg (3 Ml) Ud) 3 ml INH Q4H [facility] Last Admin: 08/03/17 14:00 Dose: 3 ml Aspirin (Aspirin Chewable) 81 mg PO DAILY [facility] Last Admin: 08/03/17 10:36 Dose: 81 mg Benzocaine/Menthol (Cepacol Sore Throat) 1 ryan MT Q4 PRN PRN Reason: Sore Throat Last Admin: 08/02/17 21:28 Dose: 1 ryan Clopidogrel Bisulfate (Plavix) 75 mg PO DAILY [facility] Last Admin: 07/30/17 10:41 Dose: Not Given Diltiazem HCl (Cardizem) 30 mg PO Q6 [facility] Last Admin: 08/03/17 12:55 Dose: 30 mg Diphenhydramine HCl (Benadryl) 25 mg PO ONCE PRN PRN Reason: Pre transfusion Last Admin: 08/03/17 01:35 Dose: 25 mg Azithromycin 500 mg/ Dextrose 250 mls @ 250 mls/hr IVPB DAILY [facility] Last Admin: 08/03/17 10:36 Dose: 250 mls/hr Ceftriaxone Sodium 1 gm/ (Sodium Chloride) 100 mls @ 100 mls/hr IVPB DAILY [facility] Last Admin: 08/03/17 09:00 Dose: 100 mls/hr Lidocaine HCl (Lidocaine 2% Viscous) 15 ml PO ONCE PRN PRN Reason: throat pain Last Admin: 08/02/17 13:30 Dose: 15 ml Methylprednisolone (Solu-Medrol) 40 mg IVP Q8 [facility] Last Admin: 08/03/17 14:38 Dose: 40 mg Rosuvastatin Calcium (Crestor) 5 mg PO HS [facility] Last Admin: 08/02/17 21:28 Dose: 5 mg Fluticasone/Salmeterol (Advair Diskus 250/50) 1 puff IH RQ12 [facility] Last Admin: 08/03/17 08:03 Dose: 1 puff Sodium Chloride ([place] Baby Saline 30 Ml) 0 ml [place] Q4 PRN PRN Reason: Cough and congestion - Labs Labs: 08/03/17 14:24 08/01/17 20:01 PT 13.6 SECONDS (9.7-12.2) H 07/26/17 17:16 INR 1.2 07/26/17 17:16 APTT 33 SECONDS (21-34) 07/26/17 17:16
[2017-08-03] MEDS ORDERED: Digoxin 500 mcg/2ml (0.5 mg/2ml) Inj IVP STA (16:11)
--- NOTE | 2017-08-03 16:38 | PCM.RRT ---
BALL [employer]OLDER Nurses Assessment - Situation Date: 08/03/17 New IV Insertion Tolerance: Good - Ventilator Settings SAO2 %: 96 - Head Head Exam: ATRAUMATIC, NORMOCEPHALIC - Eyes Eye Exam: EOMI - Respiratory Exam Respiratory Exam: Rales, Rhonchi, Wheezes, Respiratory Distress. absent: Clear to Ausculation Bilateral, NORMAL BREATHING PATTERN - Cardiovascular Exam Cardiovascular Exam: +S1, +S2 - GI/Abdominal Exam GI & Abdominal Exam: Soft, Normal Bowel Sounds. absent: Tenderness - Neurological Exam Neurological Exam: Alert, Awake - Extremities Exam Extremities Exam: absent: Pedal Edema Plan - Assessment of Findings&Treatment Plan BALL HOLDER was called at 16:04 for SOB and low oxygen saturation. Vitals were taken and showed T98.2 BP 115/70 HR123, O2 sat 79. O2 sat was retaken and was 72% . Chart was reviewed imaging from 07/30/17 and 07/31/17 were reviewed. Lasix 20mg IV once was given. Chest xray was ordered. Cefepime 1gm Q8 and Vanco 1gm Q12h were ordered. Azithromycin was continued, and Rocephin was discontinued. CMP, Blood culturesx2 and urine cultures were ordered. Procalcitonin and ABG shock were ordered. Blood pressure was manually retaken and was 110/60. Patient was given digoxin 0.25mg once for tachycardia. Patient was also given his scheduled dose of Cardizem 30mg. Repeat manual BP showed 120/75. Patient placed on non rebreather and stabilized. Patient's PMD, Dr. Carolina Payne, Outside Plant Technician, Dr. Rod, and multiple launch rocket system crewmember, Dr. Johnson were contacted and notified.
--- NOTE | 2017-08-03 16:48 | RAD ---
HISTORY: sob COMPARISON: 07/31/2017 FINDINGS: Examination limited due to oblique positioning of the patient. LUNGS: Marked increase in extent of infiltrate throughout the right lung compared to the prior examination. No left-sided infiltrate is appreciated. There is a 10 mm nodular density at the left base not seen on prior examination. This most likely represents a nipple shadow. Recent chest CT examination of 07/30/2017 failed to demonstrate a corresponding 10 mm nodule in the lower left lung. Nevertheless, follow-up chest radiograph with nipple markers is suggested. PLEURA: No significant pleural effusion identified, no pneumothorax apparent. CARDIOVASCULAR: Normal. OSSEOUS STRUCTURES: No significant abnormalities. VISUALIZED UPPER ABDOMEN: Normal. OTHER FINDINGS: None. IMPRESSION: Extensive diffuse right-sided pulmonary consolidation. Concerning for pneumonia. Interval change compared to prior examination. Circumscribed 10 mm nodular density at left base. Possible nipple shadow. Follow-up with repeat chest x-ray utilizing nipple markers.
[2017-08-03 17:04] LABS: ARTERIAL BLOOD GAS HCO3 17.1 mmol/L (21-28); ARTERIAL BLOOD GAS O2 SAT 99.1 % (95-98); ARTERIAL BLOOD GAS PCO2 20 mm/Hg (35-45); ARTERIAL BLOOD GAS PO2 75 mm/Hg (80-100)
[2017-08-03] MEDS: Vancomycin 1 GM in Sodium Chloride 0.9% 200 ML IVPB SCH (17:33)
[2017-08-03 18:01] LABS: ALBUMIN 2.9 g/dL (3.5-5.0); ALT/SGPT 54 U/L (21-72); AST/SGOT 40 U/L (17-59); BLOOD UREA NITROGEN 32 mg/dL (9-20); CALCIUM 7.9 mg/dl (8.6-10.4); GFR AFRICAN-AMERICAN > 60; GFR NON-AFRICAN AMERICAN > 60
--- NOTE | 2017-08-03 19:19 | CP.PCM.PN ---
Subjective - Date & Time of Evaluation Date of Evaluation: 08/03/17 Time of Evaluation: 08:00 - Subjective Subjective: improving slowly' Objective - Vital Signs/Intake and Output Vital Signs (last 24 hours): Temp Pulse Resp BP Pulse Ox 98.2 F 123 H 20 118/70 79 L 08/03/17 16:59 08/03/17 16:59 08/03/17 16:59 08/03/17 18:11 08/03/17 16:59 - Medications Medications: Current Medications Acetaminophen (Tylenol 325mg Tab) 650 mg PO ONCE PRN PRN Reason: Pre transfusion Last Admin: 08/03/17 01:35 Dose: 650 mg Albuterol/Ipratropium (Duoneb 3 Mg/0.5 Mg (3 Ml) Ud) 3 ml INH Q4H [facility] Last Admin: 08/03/17 18:56 Dose: 3 ml Aspirin (Aspirin Chewable) 81 mg PO DAILY [facility] Last Admin: 08/03/17 10:36 Dose: 81 mg Benzocaine/Menthol (Cepacol Sore Throat) 1 ryan MT Q4 PRN PRN Reason: Sore Throat Last Admin: 08/02/17 21:28 Dose: 1 ryan Clopidogrel Bisulfate (Plavix) 75 mg PO DAILY [facility] Last Admin: 07/30/17 10:41 Dose: Not Given Diltiazem HCl (Cardizem) 30 mg PO Q6 [facility] Last Admin: 08/03/17 18:07 Dose: 30 mg Diphenhydramine HCl (Benadryl) 25 mg PO ONCE PRN PRN Reason: Pre transfusion Last Admin: 08/03/17 01:35 Dose: 25 mg Azithromycin 500 mg/ Dextrose 250 mls @ 250 mls/hr IVPB DAILY [facility] Last Admin: 08/03/17 10:36 Dose: 250 mls/hr Cefepime HCl 1 gm/ Dextrose 50 mls @ 100 mls/hr IVPB Q8H [facility] Vancomycin HCl 1 gm/ Sodium (Chloride) 200 mls @ 133.333 mls/hr IVPB Q12H [facility] Lidocaine HCl (Lidocaine 2% Viscous) 15 ml PO ONCE PRN PRN Reason: throat pain Last Admin: 08/02/17 13:30 Dose: 15 ml Methylprednisolone (Solu-Medrol) 40 mg IVP Q8 [facility] Last Admin: 08/03/17 14:38 Dose: 40 mg Nystatin (Nystop Topical Powder) 1 applic TOP BID [facility] Stop: 08/17/17 18:01 Rosuvastatin Calcium (Crestor) 5 mg PO HS [facility] Last Admin: 08/02/17 21:28 Dose: 5 mg Fluticasone/Salmeterol (Advair Diskus 250/50) 1 puff IH RQ12 [facility] Last Admin: 08/03/17 18:55 Dose: 1 puff Sodium Chloride ([place] Baby Saline 30 Ml) 0 ml [facility] Q4 PRN PRN Reason: Cough and congestion - Labs Labs: 08/03/17 14:24 08/03/17 17:40 PT 13.6 SECONDS (9.7-12.2) H 07/26/17 17:16 INR 1.2 07/26/17 17:16 APTT 33 SECONDS (21-34) 07/26/17 17:16 - Constitutional Appears: Non-toxic, Cachectic, Chronically Ill - Head Exam Head Exam: NORMOCEPHALIC - Eye Exam Eye Exam: PERRL - ENT Exam ENT Exam: Mucous Membranes Dry - Neck Exam Neck Exam: absent: Lymphadenopathy - Respiratory Exam Respiratory Exam: Decreased Breath Sounds - Cardiovascular Exam Cardiovascular Exam: REGULAR RHYTHM
--- NOTE | 2017-08-03 21:55 | CP.PCM.PN ---
Subjective - Date & Time of Evaluation Date of Evaluation: 08/03/17 Time of Evaluation: 08:00 - Subjective Subjective: clinically same Objective - Vital Signs/Intake and Output Vital Signs (last 24 hours): Temp Pulse Resp BP Pulse Ox 98.2 F 123 H 20 118/70 79 L 08/03/17 16:59 08/03/17 16:59 08/03/17 16:59 08/03/17 18:11 08/03/17 16:59 - Medications Medications: Current Medications Acetaminophen (Tylenol 325mg Tab) 650 mg PO ONCE PRN PRN Reason: Pre transfusion Last Admin: 08/03/17 01:35 Dose: 650 mg Albuterol/Ipratropium (Duoneb 3 Mg/0.5 Mg (3 Ml) Ud) 3 ml INH Q4H [facility] Last Admin: 08/03/17 18:56 Dose: 3 ml Aspirin (Aspirin Chewable) 81 mg PO DAILY [facility] Last Admin: 08/03/17 10:36 Dose: 81 mg Benzocaine/Menthol (Cepacol Sore Throat) 1 ryan MT Q4 PRN PRN Reason: Sore Throat Last Admin: 08/02/17 21:28 Dose: 1 ryan Clopidogrel Bisulfate (Plavix) 75 mg PO DAILY [facility] Last Admin: 07/30/17 10:41 Dose: Not Given Diltiazem HCl (Cardizem) 30 mg PO Q6 [facility] Last Admin: 08/03/17 18:07 Dose: 30 mg Diphenhydramine HCl (Benadryl) 25 mg PO ONCE PRN PRN Reason: Pre transfusion Last Admin: 08/03/17 01:35 Dose: 25 mg Azithromycin 500 mg/ Dextrose 250 mls @ 250 mls/hr IVPB DAILY [facility] Last Admin: 08/03/17 10:36 Dose: 250 mls/hr Cefepime HCl 1 gm/ Dextrose 50 mls @ 100 mls/hr IVPB Q8H [facility] Vancomycin HCl 1 gm/ Sodium (Chloride) 200 mls @ 133.333 mls/hr IVPB Q12H [facility] Last Admin: 08/03/17 17:33 Dose: 133.333 mls/hr Lidocaine HCl (Lidocaine 2% Viscous) 15 ml PO ONCE PRN PRN Reason: throat pain Last Admin: 08/02/17 13:30 Dose: 15 ml Methylprednisolone (Solu-Medrol) 40 mg IVP Q8 [facility] Last Admin: 08/03/17 21:40 Dose: 40 mg Nystatin (Nystop Topical Powder) 1 applic TOP BID [facility] Stop: 08/17/17 18:01 Last Admin: 08/03/17 18:39 Dose: Not Given Rosuvastatin Calcium (Crestor) 5 mg PO HS [facility] Last Admin: 08/03/17 21:41 Dose: 5 mg Fluticasone/Salmeterol (Advair Diskus 250/50) 1 puff IH RQ12 [facility] Last Admin: 08/03/17 18:55 Dose: 1 puff Sodium Chloride (Nicasio Baby Saline 30 Ml) 0 ml [place] Q4 PRN PRN Reason: Cough and congestion - Labs Labs: 08/03/17 14:24 08/03/17 17:40 PT 13.6 SECONDS (9.7-12.2) H 07/26/17 17:16 INR 1.2 07/26/17 17:16 APTT 33 SECONDS (21-34) 07/26/17 17:16
--- NOTE | 2017-08-04 00:38 | CP.PCM.CON ---
History of Present Illness - History of Present Illness History of Present Illness: ICU Attending Pt is 86 yo male admitted. with Hemoptysis and treated for Influenza ,PNA,COPD exacerbation. Pt had Rapid response today for desat and improved with supplemental O2. ICU consult placed to assess pt. Pt claims breathing better on O2. Denied pain or nausea. O2 sat now 100% on NRB. ROS- as noted All- NKDA [id number]/ no etoh or drugs Meds- reviewed FH- Unknown PE T-97.6 P-102 r- 22 BP-144/80 elderly responsive malenad/ able to talk /no acc ms usage Neck- no jvd Lungs- bilat coarse bs, scattered crackles Heart-irreg irreg Abd- benign eXt- nontender Labs ,EKG,[id number] A&P R PNA Influenza + s/p Rx COPD A-fib Leukocytosis cont meds cont Ab cont supplemental O2 maintain optimal lytes cont rate control DVT prophylaxis re-consult prn Past Patient History - Past Medical History & Family History Past Medical History?: Yes - Past Social History Smoking Status: Former Smoker - CARDIAC Hx Atrial Fibrillation: Yes Hx Hypertension: Yes - PULMONARY Hx Asthma: Yes Hx Chronic Obstructive Pulmonary Disease (COPD): Yes Hx Emphysema: Yes - MUSCULOSKELETAL/RHEUMATOLOGICAL Hx Falls: No - PSYCHIATRIC Hx Substance Use: No - SURGICAL HISTORY Other/Comment: abdominal sx - ANESTHESIA Hx Anesthesia: Yes Hx Anesthesia Reactions: No Hx Malignant Hyperthermia: No Meds Allergies/Adverse Reactions: Allergies Allergy/AdvReac Type Severity Reaction Status Date / Time No Known Allergies Allergy Verified 07/21/17 09:32 - Medications Medications: Current Medications Acetaminophen (Tylenol 325mg Tab) 650 mg PO ONCE PRN PRN Reason: Pre transfusion Last Admin: 08/03/17 01:35 Dose: 650 mg Albuterol/Ipratropium (Duoneb 3 Mg/0.5 Mg (3 Ml) Ud) 3 ml INH Q4H [facility] Last Admin: 08/03/17 18:56 Dose: 3 ml Aspirin (Aspirin Chewable) 81 mg PO DAILY [facility] Last Admin: 08/03/17 10:36 Dose: 81 mg Benzocaine/Menthol (Cepacol Sore Throat) 1 ryan MT Q4 PRN PRN Reason: Sore Throat Last Admin: 08/02/17 21:28 Dose: 1 ryan Clopidogrel Bisulfate (Plavix) 75 mg PO DAILY [facility] Last Admin: 07/30/17 10:41 Dose: Not Given Diltiazem HCl (Cardizem) 30 mg PO Q6 [facility] Last Admin: 08/04/17 00:02 Dose: 30 mg Diphenhydramine HCl (Benadryl) 25 mg PO ONCE PRN PRN Reason: Pre transfusion Last Admin: 08/03/17 01:35 Dose: 25 mg Azithromycin 500 mg/ Dextrose 250 mls @ 250 mls/hr IVPB DAILY [facility] Last Admin: 08/03/17 10:36 Dose: 250 mls/hr Cefepime HCl 1 gm/ Dextrose 50 mls @ 100 mls/hr IVPB Q8H [facility] Last Admin: 08/03/17 17:55 Dose: 100 mls/hr Vancomycin HCl 1 gm/ Sodium (Chloride) 200 mls @ 133.333 mls/hr IVPB Q12H [facility] Last Admin: 08/03/17 17:33 Dose: 133.333 mls/hr Lidocaine HCl (Lidocaine 2% Viscous) 15 ml PO ONCE PRN PRN Reason: throat pain Last Admin: 08/02/17 13:30 Dose: 15 ml Methylprednisolone (Solu-Medrol) 40 mg IVP Q8 [facility] Last Admin: 08/03/17 21:40 Dose: 40 mg Nystatin (Nystop Topical Powder) 1 applic TOP BID [facility] Stop: 08/17/17 18:01 Last Admin: 08/03/17 18:39 Dose: Not Given Rosuvastatin Calcium (Crestor) 5 mg PO HS [facility] Last Admin: 08/03/17 21:41 Dose: 5 mg Fluticasone/Salmeterol (Advair Diskus 250/50) 1 puff IH RQ12 [facility] Last Admin: 08/03/17 18:55 Dose: 1 puff Sodium Chloride ([place] Baby Saline 30 Ml) 0 ml [place] Q4 PRN PRN Reason: Cough and congestion Results - Vital Signs Recent Vital Signs: Last Vital Signs Temp 98.2 F 08/03/17 16:59 Pulse 123 H 08/03/17 16:59 Resp 20 08/03/17 16:59 BP 118/70 08/03/17 18:11 Pulse Ox 79 L 08/03/17 16:59 - Labs Result Diagrams: 08/03/17 14:24 08/03/17 17:40 Labs: Laboratory Results - last 24 hr 08/02/17 08/03/17 08/03/17 22:52 14:24 17:00 WBC 33.3 H RBC 3.51 L Hgb 8.8 L Hct 27.4 L MCV 78.0 L MCH 25.0 L MCHC 32.0 L RDW 19.0 H Plt Count 225 MPV 8.1 Neut % (Auto) 97.0 H Lymph % (Auto) 0.3 L [place] % (Auto) 2.4 Eos % (Auto) 0.0 Baso % (Auto) 0.3 Neut # 32.2 H Lymph # 0.1 L [place] # 0.8 Eos # 0.0 Baso # 0.1 Neutrophils % (Manual) 89 H Band Neutrophils % 8 H Lymphocytes % (Manual) TEST NOT PERFORMED Monocytes % (Manual) 3 Toxic Granulation Present Platelet Estimate Normal Large Platelets Present Polychromasia Slight Hypochromasia (manual) Slight Poikilocytosis (manual Slight Anisocytosis (manual) Moderate Microcytosis (manual) Slight Target Cells Slight Ovalocytes Slight Schistocytes Slight Puncture Site Artery pCO2 20 L pO2 75 L HCO3 17.1 L ABG pH 7.40 ABG Total CO2 13.0 L ABG O2 Saturation 99.1 H ABG Base Excess -10.0 L Peter Test Drawn by them ABG Potassium 1.4 L* Sodium 152.0 H Chloride 129.0 H Glucose 70 L Lactate 1.1 Crit Value Called To Dr. bustillo Crit Value Called By Abhilash banda Crit Value Read Back Y Blood Gas Notified Time 1704 Potassium Carbon Dioxide Anion Gap BUN Creatinine Est GFR ( Amer) Est GFR (Non-Af Amer) Random Glucose Calcium Total Bilirubin AST ALT Alkaline Phosphatase Total Protein Albumin Globulin Albumin/Globulin Ratio Arterial Blood Potassium 1.4 L* Blood Type A NEGATIVE Antibody Screen Negative 08/03/17 17:40 WBC RBC Hgb Hct MCV MCH MCHC RDW Plt Count MPV Neut % (Auto) Lymph % (Auto) [place] % (Auto) Eos % (Auto) Baso % (Auto) Neut # Lymph # [place] # Eos # Baso # Neutrophils % (Manual) Band Neutrophils % Lymphocytes % (Manual) Monocytes % (Manual) Toxic Granulation Platelet Estimate Large Platelets Polychromasia Hypochromasia (manual) Poikilocytosis (manual Anisocytosis (manual) Microcytosis (manual) Target Cells Ovalocytes Schistocytes Puncture Site pCO2 pO2 HCO3 ABG pH ABG Total CO2 ABG O2 Saturation ABG Base Excess Peter Test ABG Potassium Sodium 135 Chloride 96 L Glucose Lactate Crit Value Called To Crit Value Called By Crit Value Read Back Blood Gas Notified Time Potassium 4.1 Carbon Dioxide 34 H Anion Gap 9 L BUN 32 H Creatinine 0.6 L Est GFR ( Amer) > 60 Est GFR (Non-Af Amer) > 60 Random Glucose 167 H Calcium 7.9 L Total Bilirubin 1.7 H AST 40 ALT 54 Alkaline Phosphatase 76 Total Protein 5.6 L Albumin 2.9 L Globulin 2.8 Albumin/Globulin Ratio 1.0 Arterial Blood Potassium Blood Type Antibody Screen Assessment & Plan (1) PNA (pneumonia) Status: Acute (2) COPD with exacerbation Status: Acute (3) Atrial fibrillation with RVR Status: Acute (4) HTN (hypertension) Status: Chronic
[2017-08-04] MEDS: Albuterol-Ipratrop 3 mg / 0.5 (3 ml) UD INH SCH ×6 (00:59→20:05)
[2017-08-04] MEDS: Vancomycin 1 GM in Sodium Chloride 0.9% 200 ML IVPB SCH ×2 (04:22→17:49)
[2017-08-04] MEDS: MethylPREDNISolone 40 mg Vial IVP SCH ×3 (05:37→21:55)
[2017-08-04] MEDS: Fluticasone-Salmeterol 250-50mcg Diskus IH SCH ×2 (07:15→20:05)
[2017-08-04 11:49] LABS: BASO # 0.1 K/uL (0.0-0.2); BASO % 0.2 % (0.0-2.0); HEMOGLOBIN 8.1 g/dL (12.0-18.0); LYMPH # 0.1 K/uL (1.0-4.3); LYMPH % 0.3 % (20.0-40.0); MEAN CELL VOLUME 77.2 fL (80.0-94.0); MEAN CORPUSCULAR HEMOGLOBIN 25.2 pg (27.0-31.0); MEAN CORPUSCULAR HGB CONC 32.6 g/dL (33.0-37.0); MEAN PLATELET VOLUME 8.3 fL (7.2-11.7); MONO # 0.6 K/uL (0.0-0.8); MONO % 1.9 % (0.0-10.0); NEUT % 97.6 % (50.0-75.0); PLATELET COUNT 161 K/uL (130-400); RED CELL DISTRIBUTION WIDTH 18.8 % (11.5-14.5); WHITE BLOOD COUNT 29.7 K/uL (4.8-10.8)
[2017-08-04 12:06] LABS: ALBUMIN 2.6 g/dL (3.5-5.0); ALT/SGPT 47 U/L (21-72); AST/SGOT 34 U/L (17-59); BLOOD UREA NITROGEN 32 mg/dL (9-20); CALCIUM 7.7 mg/dl (8.6-10.4); GFR AFRICAN-AMERICAN > 60; GFR NON-AFRICAN AMERICAN > 60
[2017-08-04 12:08] LABS: ANISOCYTOSIS MODERATE; BANDS 3 % (0-2); HYPOCHROMIC SLIGHT; LYMPHOCYTE 1 % (20-40); MONOCYTE 2 % (0-10); NEUTROPHIL 94 % (50-75); PLATELET ESTIMATE NORMAL (NORMAL); POLYCHROMIC SLIGHT; TOTAL CELLS COUNTED 100
[2017-08-04 12:09] LABS: LARGE PLATELETS PRESENT
--- NOTE | 2017-08-04 12:21 | CP.PCM.PN ---
Subjective - Date & Time of Evaluation Date of Evaluation: 08/04/17 Time of Evaluation: 12:21 Objective - Vital Signs/Intake and Output Vital Signs (last 24 hours): Temp Pulse Resp BP Pulse Ox 98.2 F 110 H 21 117/61 92 L 08/04/17 07:55 08/04/17 07:55 08/04/17 07:55 08/04/17 07:55 08/04/17 07:55 - Medications Medications: Current Medications Acetaminophen (Tylenol 325mg Tab) 650 mg PO ONCE PRN PRN Reason: Pre transfusion Last Admin: 08/03/17 01:35 Dose: 650 mg Albuterol/Ipratropium (Duoneb 3 Mg/0.5 Mg (3 Ml) Ud) 3 ml INH Q4H [facility] Last Admin: 08/04/17 11:20 Dose: 3 ml Aspirin (Aspirin Chewable) 81 mg PO DAILY [facility] Last Admin: 08/04/17 10:14 Dose: 81 mg Benzocaine/Menthol (Cepacol Sore Throat) 1 ryan MT Q4 PRN PRN Reason: Sore Throat Last Admin: 08/02/17 21:28 Dose: 1 ryan Clopidogrel Bisulfate (Plavix) 75 mg PO DAILY [facility] Last Admin: 07/30/17 10:41 Dose: Not Given Diltiazem HCl (Cardizem) 30 mg PO Q6 [facility] Last Admin: 08/04/17 05:38 Dose: 30 mg Diphenhydramine HCl (Benadryl) 25 mg PO ONCE PRN PRN Reason: Pre transfusion Last Admin: 08/03/17 01:35 Dose: 25 mg Azithromycin 500 mg/ Dextrose 250 mls @ 250 mls/hr IVPB DAILY [facility] Last Admin: 08/04/17 11:32 Dose: 250 mls/hr Cefepime HCl 1 gm/ Dextrose 50 mls @ 100 mls/hr IVPB Q8H [facility] Last Admin: 08/04/17 10:14 Dose: 100 mls/hr Vancomycin HCl 1 gm/ Sodium (Chloride) 200 mls @ 133.333 mls/hr IVPB Q12H [facility] Last Admin: 08/04/17 04:22 Dose: 133.333 mls/hr Lidocaine HCl (Lidocaine 2% Viscous) 15 ml PO ONCE PRN PRN Reason: throat pain Last Admin: 08/02/17 13:30 Dose: 15 ml Methylprednisolone (Solu-Medrol) 40 mg IVP Q8 [facility] Last Admin: 08/04/17 05:37 Dose: 40 mg Nystatin (Nystop Topical Powder) 1 applic TOP BID [facility] Stop: 08/17/17 18:01 Last Admin: 08/04/17 10:15 Dose: 1 applic Rosuvastatin Calcium (Crestor) 5 mg PO HS [facility] Last Admin: 08/03/17 21:41 Dose: 5 mg Fluticasone/Salmeterol (Advair Diskus 250/50) 1 puff IH RQ12 [facility] Last Admin: 08/04/17 07:15 Dose: 1 puff Sodium Chloride ([place] Baby Saline 30 Ml) 0 ml [place] Q4 PRN PRN Reason: Cough and congestion - Labs Labs: 08/04/17 11:42 08/04/17 11:42 PT 13.6 SECONDS (9.7-12.2) H 07/26/17 17:16 INR 1.2 07/26/17 17:16 APTT 33 SECONDS (21-34) 07/26/17 17:16
[2017-08-04] MEDS: Benzocaine/Menthol (Cepacol) Lozenge MT PRN (14:39)
--- NOTE | 2017-08-04 14:56 | CP.PCM.PN ---
Subjective - Date & Time of Evaluation Date of Evaluation: 08/04/17 Time of Evaluation: 08:00 - Subjective Subjective: clinically same Objective - Vital Signs/Intake and Output Vital Signs (last 24 hours): Temp Pulse Resp BP Pulse Ox 98.2 F 110 H 21 117/61 92 L 08/04/17 07:55 08/04/17 07:55 08/04/17 07:55 08/04/17 07:55 08/04/17 07:55 - Medications Medications: Current Medications Acetaminophen (Tylenol 325mg Tab) 650 mg PO ONCE PRN PRN Reason: Pre transfusion Last Admin: 08/03/17 01:35 Dose: 650 mg Albuterol/Ipratropium (Duoneb 3 Mg/0.5 Mg (3 Ml) Ud) 3 ml INH Q4H [facility] Last Admin: 08/04/17 11:20 Dose: 3 ml Aspirin (Aspirin Chewable) 81 mg PO DAILY [facility] Last Admin: 08/04/17 10:14 Dose: 81 mg Benzocaine/Menthol (Cepacol Sore Throat) 1 ryan MT Q4 PRN PRN Reason: Sore Throat Last Admin: 08/04/17 14:39 Dose: 1 ryan Clopidogrel Bisulfate (Plavix) 75 mg PO DAILY [facility] Last Admin: 07/30/17 10:41 Dose: Not Given Diltiazem HCl (Cardizem) 30 mg PO Q6 [facility] Last Admin: 08/04/17 12:20 Dose: 30 mg Diphenhydramine HCl (Benadryl) 25 mg PO ONCE PRN PRN Reason: Pre transfusion Last Admin: 08/03/17 01:35 Dose: 25 mg Azithromycin 500 mg/ Dextrose 250 mls @ 250 mls/hr IVPB DAILY [facility] Last Admin: 08/04/17 11:32 Dose: 250 mls/hr Cefepime HCl 1 gm/ Dextrose 50 mls @ 100 mls/hr IVPB Q8H [facility] Last Admin: 08/04/17 10:14 Dose: 100 mls/hr Vancomycin HCl 1 gm/ Sodium (Chloride) 200 mls @ 133.333 mls/hr IVPB Q12H [facility] Last Admin: 08/04/17 04:22 Dose: 133.333 mls/hr Lidocaine HCl (Lidocaine 2% Viscous) 15 ml PO ONCE PRN PRN Reason: throat pain Last Admin: 08/02/17 13:30 Dose: 15 ml Methylprednisolone (Solu-Medrol) 40 mg IVP Q8 [facility] Last Admin: 08/04/17 14:39 Dose: 40 mg Nystatin (Nystop Topical Powder) 1 applic TOP BID [facility] Stop: 08/17/17 18:01 Last Admin: 08/04/17 10:15 Dose: 1 applic Rosuvastatin Calcium (Crestor) 5 mg PO HS [facility] Last Admin: 08/03/17 21:41 Dose: 5 mg Fluticasone/Salmeterol (Advair Diskus 250/50) 1 puff IH RQ12 [facility] Last Admin: 08/04/17 07:15 Dose: 1 puff Sodium Chloride ([place] Baby Saline 30 Ml) 0 ml [place] Q4 PRN PRN Reason: Cough and congestion - Labs Labs: 08/04/17 11:42 08/04/17 11:42 PT 13.6 SECONDS (9.7-12.2) H 07/26/17 17:16 INR 1.2 07/26/17 17:16 APTT 33 SECONDS (21-34) 07/26/17 17:16 - Constitutional Appears: Well - Head Exam Head Exam: ATRAUMATIC, NORMAL INSPECTION, NORMOCEPHALIC - Eye Exam Eye Exam: EOMI, Normal appearance, PERRL Pupil Exam: NORMAL ACCOMODATION, PERRL - ENT Exam ENT Exam: Mucous Membranes Moist, Normal Exam - Neck Exam Neck Exam: Full ROM, Normal Inspection. absent: Lymphadenopathy - Respiratory Exam Respiratory Exam: Decreased Breath Sounds - Cardiovascular Exam Cardiovascular Exam: REGULAR RHYTHM, +S1, +S2 - GI/Abdominal Exam GI & Abdominal Exam: Soft, Diminished Bowel Sounds - Rectal Exam Rectal Exam: Deferred
--- NOTE | 2017-08-04 22:04 | CP.PCM.PN ---
Subjective - Date & Time of Evaluation Date of Evaluation: 08/03/17 Time of Evaluation: 09:25 - Subjective Subjective: Patient seen and evaluated No acute distress S/P Non sustained V Tach A Fib HTN Pneumonia Cath postponed due to pneumonia Objective - Vital Signs/Intake and Output Vital Signs (last 24 hours): Temp Pulse Resp BP Pulse Ox 97.9 F 111 H 22 117/64 92 L 08/04/17 16:01 08/04/17 21:14 08/04/17 16:01 08/04/17 16:01 08/04/17 16:01 Intake and Output: 08/04/17 08/05/17 18:59 06:59 Intake Total 520 100 Output Total 300 Balance 520 -200 - Medications Medications: Current Medications Acetaminophen (Tylenol 325mg Tab) 650 mg PO ONCE PRN PRN Reason: Pre transfusion Last Admin: 08/03/17 01:35 Dose: 650 mg Albuterol/Ipratropium (Duoneb 3 Mg/0.5 Mg (3 Ml) Ud) 3 ml INH Q4H [facility] Last Admin: 08/04/17 20:05 Dose: 3 ml Aspirin (Aspirin Chewable) 81 mg PO DAILY [facility] Last Admin: 08/04/17 10:14 Dose: 81 mg Benzocaine/Menthol (Cepacol Sore Throat) 1 ryan MT Q4 PRN PRN Reason: Sore Throat Last Admin: 08/04/17 14:39 Dose: 1 ryan Clopidogrel Bisulfate (Plavix) 75 mg PO DAILY [facility] Last Admin: 07/30/17 10:41 Dose: Not Given Diltiazem HCl (Cardizem) 30 mg PO Q6 [facility] Last Admin: 08/04/17 17:54 Dose: 30 mg Diphenhydramine HCl (Benadryl) 25 mg PO ONCE PRN PRN Reason: Pre transfusion Last Admin: 08/03/17 01:35 Dose: 25 mg Azithromycin 500 mg/ Dextrose 250 mls @ 250 mls/hr IVPB DAILY [facility] Last Admin: 08/04/17 11:32 Dose: 250 mls/hr Cefepime HCl 1 gm/ Dextrose 50 mls @ 100 mls/hr IVPB Q8H [facility] Last Admin: 08/04/17 18:14 Dose: 100 mls/hr Vancomycin HCl 1 gm/ Sodium (Chloride) 200 mls @ 133.333 mls/hr IVPB Q12H [facility] Last Admin: 08/04/17 17:49 Dose: 133.333 mls/hr Lidocaine HCl (Lidocaine 2% Viscous) 15 ml PO ONCE PRN PRN Reason: throat pain Last Admin: 08/02/17 13:30 Dose: 15 ml Methylprednisolone (Solu-Medrol) 40 mg IVP Q8 [facility] Last Admin: 08/04/17 21:55 Dose: 40 mg Nystatin (Nystop Topical Powder) 1 applic TOP BID [facility] Stop: 08/17/17 18:01 Last Admin: 08/04/17 17:54 Dose: 1 applic Rosuvastatin Calcium (Crestor) 5 mg PO HS [facility] Last Admin: 08/04/17 21:55 Dose: 5 mg Fluticasone/Salmeterol (Advair Diskus 250/50) 1 puff IH RQ12 [facility] Last Admin: 08/04/17 20:05 Dose: Not Given Sodium Chloride ([place] Baby Saline 30 Ml) 0 ml [place] Q4 PRN PRN Reason: Cough and congestion Last Admin: 08/04/17 19:12 Dose: 1 spr - Labs Labs: 08/04/17 11:42 08/04/17 11:42 PT 13.6 SECONDS (9.7-12.2) H 07/26/17 17:16 INR 1.2 07/26/17 17:16 APTT 33 SECONDS (21-34) 07/26/17 17:16
--- NOTE | 2017-08-04 22:05 | CP.PCM.PN ---
Subjective - Date & Time of Evaluation Date of Evaluation: 08/04/17 Time of Evaluation: 08:15 - Subjective Subjective: Events noted Hx of S/P Non sustained V Tach A Fib HTN Pneumonia Cath postponed due to pneumonia Objective - Vital Signs/Intake and Output Vital Signs (last 24 hours): Temp Pulse Resp BP Pulse Ox 97.9 F 111 H 22 117/64 92 L 08/04/17 16:01 08/04/17 21:14 08/04/17 16:01 08/04/17 16:01 08/04/17 16:01 Intake and Output: 08/04/17 08/05/17 18:59 06:59 Intake Total 520 100 Output Total 300 Balance 520 -200 - Medications Medications: Current Medications Acetaminophen (Tylenol 325mg Tab) 650 mg PO ONCE PRN PRN Reason: Pre transfusion Last Admin: 08/03/17 01:35 Dose: 650 mg Albuterol/Ipratropium (Duoneb 3 Mg/0.5 Mg (3 Ml) Ud) 3 ml INH Q4H [facility] Last Admin: 08/04/17 20:05 Dose: 3 ml Aspirin (Aspirin Chewable) 81 mg PO DAILY [facility] Last Admin: 08/04/17 10:14 Dose: 81 mg Benzocaine/Menthol (Cepacol Sore Throat) 1 ryan MT Q4 PRN PRN Reason: Sore Throat Last Admin: 08/04/17 14:39 Dose: 1 ryan Clopidogrel Bisulfate (Plavix) 75 mg PO DAILY [facility] Last Admin: 07/30/17 10:41 Dose: Not Given Diltiazem HCl (Cardizem) 30 mg PO Q6 [facility] Last Admin: 08/04/17 17:54 Dose: 30 mg Diphenhydramine HCl (Benadryl) 25 mg PO ONCE PRN PRN Reason: Pre transfusion Last Admin: 08/03/17 01:35 Dose: 25 mg Azithromycin 500 mg/ Dextrose 250 mls @ 250 mls/hr IVPB DAILY [facility] Last Admin: 08/04/17 11:32 Dose: 250 mls/hr Cefepime HCl 1 gm/ Dextrose 50 mls @ 100 mls/hr IVPB Q8H [facility] Last Admin: 08/04/17 18:14 Dose: 100 mls/hr Vancomycin HCl 1 gm/ Sodium (Chloride) 200 mls @ 133.333 mls/hr IVPB Q12H [facility] Last Admin: 08/04/17 17:49 Dose: 133.333 mls/hr Lidocaine HCl (Lidocaine 2% Viscous) 15 ml PO ONCE PRN PRN Reason: throat pain Last Admin: 08/02/17 13:30 Dose: 15 ml Methylprednisolone (Solu-Medrol) 40 mg IVP Q8 [facility] Last Admin: 08/04/17 21:55 Dose: 40 mg Nystatin (Nystop Topical Powder) 1 applic TOP BID [facility] Stop: 08/17/17 18:01 Last Admin: 08/04/17 17:54 Dose: 1 applic Rosuvastatin Calcium (Crestor) 5 mg PO HS [facility] Last Admin: 08/04/17 21:55 Dose: 5 mg Fluticasone/Salmeterol (Advair Diskus 250/50) 1 puff IH RQ12 [facility] Last Admin: 08/04/17 20:05 Dose: Not Given Sodium Chloride ([place] Baby Saline 30 Ml) 0 ml [place] Q4 PRN PRN Reason: Cough and congestion Last Admin: 08/04/17 19:12 Dose: 1 spr - Labs Labs: 08/04/17 11:42 08/04/17 11:42 PT 13.6 SECONDS (9.7-12.2) H 07/26/17 17:16 INR 1.2 07/26/17 17:16 APTT 33 SECONDS (21-34) 07/26/17 17:16
[2017-08-05] MEDS: Albuterol-Ipratrop 3 mg / 0.5 (3 ml) UD INH SCH ×6 (00:02→21:03)
[2017-08-05] MEDS: Vancomycin 1 GM in Sodium Chloride 0.9% 200 ML IVPB SCH ×2 (04:32→16:35)
[2017-08-05] MEDS: MethylPREDNISolone 40 mg Vial IVP SCH ×3 (06:07→22:04)
[2017-08-05] MEDS: Fluticasone-Salmeterol 250-50mcg Diskus IH SCH ×2 (07:11→21:02)
[2017-08-05] MEDS: Benzocaine/Menthol (Cepacol) Lozenge MT PRN (15:22)
--- NOTE | 2017-08-05 16:13 | CP.PCM.PN ---
Subjective - Date & Time of Evaluation Date of Evaluation: 08/05/17 Time of Evaluation: 10:00 - Subjective Subjective: evennts noted discussed with dr bustillo Objective - Vital Signs/Intake and Output Vital Signs (last 24 hours): Temp Pulse Resp BP Pulse Ox 97.0 F L 110 H 20 133/68 90 L 08/05/17 08:40 08/05/17 08:40 08/05/17 08:40 08/05/17 08:40 08/05/17 08:40 Intake and Output: 08/05/17 08/05/17 06:59 18:59 Intake Total 300 Output Total 700 Balance -400 - Medications Medications: Current Medications Acetaminophen (Tylenol 325mg Tab) 650 mg PO ONCE PRN PRN Reason: Pre transfusion Last Admin: 08/03/17 01:35 Dose: 650 mg Albuterol/Ipratropium (Duoneb 3 Mg/0.5 Mg (3 Ml) Ud) 3 ml INH Q4H [facility] Last Admin: 08/05/17 15:32 Dose: 3 ml Aspirin (Aspirin Chewable) 81 mg PO DAILY [facility] Last Admin: 08/05/17 09:09 Dose: 81 mg Benzocaine/Menthol (Cepacol Sore Throat) 1 ryan MT Q4 PRN PRN Reason: Sore Throat Last Admin: 08/05/17 15:22 Dose: 1 ryan Clopidogrel Bisulfate (Plavix) 75 mg PO DAILY [facility] Last Admin: 07/30/17 10:41 Dose: Not Given Diltiazem HCl (Cardizem) 30 mg PO Q6 [facility] Last Admin: 08/05/17 11:28 Dose: 30 mg Diphenhydramine HCl (Benadryl) 25 mg PO ONCE PRN PRN Reason: Pre transfusion Last Admin: 08/03/17 01:35 Dose: 25 mg Azithromycin 500 mg/ Dextrose 250 mls @ 250 mls/hr IVPB DAILY [facility] Last Admin: 08/05/17 11:18 Dose: 250 mls/hr Cefepime HCl 1 gm/ Dextrose 50 mls @ 100 mls/hr IVPB Q8H [facility] Last Admin: 08/05/17 10:26 Dose: 100 mls/hr Vancomycin HCl 1 gm/ Sodium (Chloride) 200 mls @ 133.333 mls/hr IVPB Q12H [facility] Last Admin: 08/05/17 04:32 Dose: 133.333 mls/hr Lidocaine HCl (Lidocaine 2% Viscous) 15 ml PO ONCE PRN PRN Reason: throat pain Last Admin: 08/05/17 15:22 Dose: 15 ml Methylprednisolone (Solu-Medrol) 40 mg IVP Q8 [facility] Last Admin: 08/05/17 13:48 Dose: 40 mg Nystatin (Nystop Topical Powder) 1 applic TOP BID [facility] Stop: 08/17/17 18:01 Last Admin: 08/05/17 10:26 Dose: 1 applic Rosuvastatin Calcium (Crestor) 5 mg PO HS [facility] Last Admin: 08/04/17 21:55 Dose: 5 mg Fluticasone/Salmeterol (Advair Diskus 250/50) 1 puff IH RQ12 [facility] Last Admin: 08/05/17 07:11 Dose: 1 puff Sodium Chloride ([place] Baby Saline 30 Ml) 0 ml [place] Q4 PRN PRN Reason: Cough and congestion Last Admin: 08/04/17 19:12 Dose: 1 spr - Labs Labs: 08/04/17 11:42 08/04/17 11:42 PT 13.6 SECONDS (9.7-12.2) H 07/26/17 17:16 INR 1.2 07/26/17 17:16 APTT 33 SECONDS (21-34) 07/26/17 17:16 - Constitutional Appears: Non-toxic, Cachectic, Chronically Ill - Head Exam Head Exam: NORMOCEPHALIC - Eye Exam Eye Exam: PERRL - ENT Exam ENT Exam: Mucous Membranes Dry - Neck Exam Neck Exam: absent: Lymphadenopathy - Respiratory Exam Respiratory Exam: Decreased Breath Sounds - Cardiovascular Exam Cardiovascular Exam: REGULAR RHYTHM - GI/Abdominal Exam GI & Abdominal Exam: Distended Assessment and Plan (1) Anemia Status: Acute (2) Atrial fibrillation with RVR Status: Acute (3) COPD with exacerbation Status: Acute (4) Leukocytosis Status: Acute (5) PNA (pneumonia) Status: Acute (6) Productive cough Status: Acute
--- NOTE | 2017-08-05 17:56 | CP.PCM.PN ---
Subjective - Date & Time of Evaluation Date of Evaluation: 08/05/17 Time of Evaluation: 08:00 - Subjective Subjective: clinically same Objective - Vital Signs/Intake and Output Vital Signs (last 24 hours): Temp Pulse Resp BP Pulse Ox 98.3 F 111 H 18 116/68 100 08/05/17 16:15 08/05/17 17:36 08/05/17 16:15 08/05/17 16:15 08/05/17 17:36 Intake and Output: 08/05/17 08/05/17 06:59 18:59 Intake Total 300 260 Output Total 700 100 Balance -400 160 - Medications Medications: Current Medications Acetaminophen (Tylenol 325mg Tab) 650 mg PO ONCE PRN PRN Reason: Pre transfusion Last Admin: 08/03/17 01:35 Dose: 650 mg Albuterol/Ipratropium (Duoneb 3 Mg/0.5 Mg (3 Ml) Ud) 3 ml INH Q4H [facility] Last Admin: 08/05/17 15:32 Dose: 3 ml Aspirin (Aspirin Chewable) 81 mg PO DAILY [facility] Last Admin: 08/05/17 09:09 Dose: 81 mg Benzocaine/Menthol (Cepacol Sore Throat) 1 ryan MT Q4 PRN PRN Reason: Sore Throat Last Admin: 08/05/17 15:22 Dose: 1 ryan Clopidogrel Bisulfate (Plavix) 75 mg PO DAILY [facility] Last Admin: 07/30/17 10:41 Dose: Not Given Diltiazem HCl (Cardizem) 30 mg PO Q6 [facility] Last Admin: 08/05/17 17:44 Dose: 30 mg Diphenhydramine HCl (Benadryl) 25 mg PO ONCE PRN PRN Reason: Pre transfusion Last Admin: 08/03/17 01:35 Dose: 25 mg Azithromycin 500 mg/ Dextrose 250 mls @ 250 mls/hr IVPB DAILY [facility] Last Admin: 08/05/17 11:18 Dose: 250 mls/hr Cefepime HCl 1 gm/ Dextrose 50 mls @ 100 mls/hr IVPB Q8H [facility] Last Admin: 08/05/17 10:26 Dose: 100 mls/hr Vancomycin HCl 1 gm/ Sodium (Chloride) 200 mls @ 133.333 mls/hr IVPB Q12H [facility] Last Admin: 08/05/17 16:35 Dose: 133.333 mls/hr Lidocaine HCl (Lidocaine 2% Viscous) 15 ml PO ONCE PRN PRN Reason: throat pain Last Admin: 08/05/17 15:22 Dose: 15 ml Methylprednisolone (Solu-Medrol) 40 mg IVP Q8 [facility] Last Admin: 08/05/17 13:48 Dose: 40 mg Nystatin (Nystop Topical Powder) 1 applic TOP BID [facility] Stop: 08/17/17 18:01 Last Admin: 08/05/17 17:45 Dose: 1 applic Rosuvastatin Calcium (Crestor) 5 mg PO HS [facility] Last Admin: 08/04/17 21:55 Dose: 5 mg Fluticasone/Salmeterol (Advair Diskus 250/50) 1 puff IH RQ12 [facility] Last Admin: 08/05/17 07:11 Dose: 1 puff Sodium Chloride ([place] Baby Saline 30 Ml) 0 ml [place] Q4 PRN PRN Reason: Cough and congestion Last Admin: 08/04/17 19:12 Dose: 1 spr - Labs Labs: 08/04/17 11:42 08/04/17 11:42 PT 13.6 SECONDS (9.7-12.2) H 07/26/17 17:16 INR 1.2 07/26/17 17:16 APTT 33 SECONDS (21-34) 07/26/17 17:16 - Constitutional Appears: Well - Head Exam Head Exam: ATRAUMATIC, NORMAL INSPECTION, NORMOCEPHALIC - Eye Exam Eye Exam: EOMI, Normal appearance, PERRL Pupil Exam: NORMAL ACCOMODATION, PERRL - ENT Exam ENT Exam: Mucous Membranes Moist, Normal Exam - Neck Exam Neck Exam: Full ROM, Normal Inspection. absent: Lymphadenopathy - Respiratory Exam Respiratory Exam: Decreased Breath Sounds - Cardiovascular Exam Cardiovascular Exam: REGULAR RHYTHM, +S1, +S2 - GI/Abdominal Exam GI & Abdominal Exam: Soft, Diminished Bowel Sounds - Rectal Exam Rectal Exam: Deferred
--- NOTE | 2017-08-05 18:58 | CP.PCM.PN ---
Subjective - Date & Time of Evaluation Date of Evaluation: 08/05/17 Time of Evaluation: 18:58 Objective - Vital Signs/Intake and Output Vital Signs (last 24 hours): Temp Pulse Resp BP Pulse Ox 98.3 F 111 H 18 116/68 100 08/05/17 16:15 08/05/17 17:36 08/05/17 16:15 08/05/17 16:15 08/05/17 17:36 Intake and Output: 08/05/17 08/05/17 06:59 18:59 Intake Total 300 310 Output Total 700 100 Balance -400 210 - Medications Medications: Current Medications Acetaminophen (Tylenol 325mg Tab) 650 mg PO ONCE PRN PRN Reason: Pre transfusion Last Admin: 08/03/17 01:35 Dose: 650 mg Albuterol/Ipratropium (Duoneb 3 Mg/0.5 Mg (3 Ml) Ud) 3 ml INH Q4H [facility] Last Admin: 08/05/17 15:32 Dose: 3 ml Aspirin (Aspirin Chewable) 81 mg PO DAILY [facility] Last Admin: 08/05/17 09:09 Dose: 81 mg Benzocaine/Menthol (Cepacol Sore Throat) 1 ryan MT Q4 PRN PRN Reason: Sore Throat Last Admin: 08/05/17 15:22 Dose: 1 ryan Clopidogrel Bisulfate (Plavix) 75 mg PO DAILY [facility] Last Admin: 07/30/17 10:41 Dose: Not Given Diltiazem HCl (Cardizem) 30 mg PO Q6 [facility] Last Admin: 08/05/17 17:44 Dose: 30 mg Diphenhydramine HCl (Benadryl) 25 mg PO ONCE PRN PRN Reason: Pre transfusion Last Admin: 08/03/17 01:35 Dose: 25 mg Azithromycin 500 mg/ Dextrose 250 mls @ 250 mls/hr IVPB DAILY [facility] Last Admin: 08/05/17 11:18 Dose: 250 mls/hr Cefepime HCl 1 gm/ Dextrose 50 mls @ 100 mls/hr IVPB Q8H [facility] Last Admin: 08/05/17 18:10 Dose: 100 mls/hr Vancomycin HCl 1 gm/ Sodium (Chloride) 200 mls @ 133.333 mls/hr IVPB Q12H [facility] Last Admin: 08/05/17 16:35 Dose: 133.333 mls/hr Lidocaine HCl (Lidocaine 2% Viscous) 15 ml PO ONCE PRN PRN Reason: throat pain Last Admin: 08/05/17 15:22 Dose: 15 ml Methylprednisolone (Solu-Medrol) 40 mg IVP Q8 [facility] Last Admin: 08/05/17 13:48 Dose: 40 mg Nystatin (Nystop Topical Powder) 1 applic TOP BID [facility] Stop: 08/17/17 18:01 Last Admin: 08/05/17 17:45 Dose: 1 applic Rosuvastatin Calcium (Crestor) 5 mg PO HS [facility] Last Admin: 08/04/17 21:55 Dose: 5 mg Fluticasone/Salmeterol (Advair Diskus 250/50) 1 puff IH RQ12 [facility] Last Admin: 08/05/17 07:11 Dose: 1 puff Sodium Chloride ([place] Baby Saline 30 Ml) 0 ml [place] Q4 PRN PRN Reason: Cough and congestion Last Admin: 08/04/17 19:12 Dose: 1 spr - Labs Labs: 08/04/17 11:42 08/04/17 11:42 PT 13.6 SECONDS (9.7-12.2) H 07/26/17 17:16 INR 1.2 07/26/17 17:16 APTT 33 SECONDS (21-34) 07/26/17 17:16
[2017-08-06] MEDS: Albuterol-Ipratrop 3 mg / 0.5 (3 ml) UD INH SCH ×6 (00:55→20:02)
[2017-08-06] MEDS: MethylPREDNISolone 40 mg Vial IVP SCH ×4 (05:28→21:28)
[2017-08-06] MEDS: Vancomycin 1 GM in Sodium Chloride 0.9% 200 ML IVPB SCH ×2 (05:28→19:18)
[2017-08-06] MEDS: Fluticasone-Salmeterol 250-50mcg Diskus IH SCH ×2 (07:08→20:02)
--- NOTE | 2017-08-06 18:42 | CP.PCM.PN ---
Subjective - Date & Time of Evaluation Date of Evaluation: 08/06/17 Time of Evaluation: 18:41 Objective - Vital Signs/Intake and Output Vital Signs (last 24 hours): Temp Pulse Resp BP Pulse Ox 97.2 F L 114 H 20 107/67 99 08/06/17 15:52 08/06/17 15:52 08/06/17 15:52 08/06/17 15:52 08/06/17 15:52 Intake and Output: 08/06/17 08/06/17 06:59 18:59 Intake Total 310 Balance 310 - Medications Medications: Current Medications Acetaminophen (Tylenol 325mg Tab) 650 mg PO ONCE PRN PRN Reason: Pre transfusion Last Admin: 08/03/17 01:35 Dose: 650 mg Albuterol/Ipratropium (Duoneb 3 Mg/0.5 Mg (3 Ml) Ud) 3 ml INH Q4H [facility] Last Admin: 08/06/17 15:56 Dose: 3 ml Aspirin (Aspirin Chewable) 81 mg PO DAILY [facility] Last Admin: 08/06/17 09:14 Dose: 81 mg Benzocaine/Menthol (Cepacol Sore Throat) 1 ryan MT Q4 PRN PRN Reason: Sore Throat Last Admin: 08/05/17 15:22 Dose: 1 ryan Clopidogrel Bisulfate (Plavix) 75 mg PO DAILY [facility] Last Admin: 07/30/17 10:41 Dose: Not Given Diphenhydramine HCl (Benadryl) 25 mg PO ONCE PRN PRN Reason: Pre transfusion Last Admin: 08/03/17 01:35 Dose: 25 mg Azithromycin 500 mg/ Dextrose 250 mls @ 250 mls/hr IVPB DAILY [facility] Last Admin: 08/06/17 10:55 Dose: 250 mls/hr Cefepime HCl 1 gm/ Dextrose 50 mls @ 100 mls/hr IVPB Q8H [facility] Last Admin: 08/06/17 09:36 Dose: 100 mls/hr Vancomycin HCl 1 gm/ Sodium (Chloride) 200 mls @ 133.333 mls/hr IVPB Q12H [facility] Last Admin: 08/06/17 05:28 Dose: 133.333 mls/hr Lidocaine HCl (Lidocaine 2% Viscous) 15 ml PO ONCE PRN PRN Reason: throat pain Last Admin: 08/05/17 15:22 Dose: 15 ml Methylprednisolone (Solu-Medrol) 40 mg IVP Q8 [facility] Last Admin: 08/06/17 15:17 Dose: Not Given Nystatin (Nystop Topical Powder) 1 applic TOP BID [facility] Stop: 08/17/17 18:01 Last Admin: 08/06/17 10:46 Dose: 1 applic Rosuvastatin Calcium (Crestor) 5 mg PO HS [facility] Last Admin: 08/05/17 22:06 Dose: 5 mg Fluticasone/Salmeterol (Advair Diskus 250/50) 1 puff IH RQ12 [facility] Last Admin: 08/06/17 07:08 Dose: 1 puff Sodium Chloride ([place] Baby Saline 30 Ml) 0 ml [place] Q4 PRN PRN Reason: Cough and congestion Last Admin: 08/04/17 19:12 Dose: 1 spr - Labs Labs: 08/04/17 11:42 08/04/17 11:42 PT 13.6 SECONDS (9.7-12.2) H 07/26/17 17:16 INR 1.2 07/26/17 17:16 APTT 33 SECONDS (21-34) 07/26/17 17:16
--- NOTE | 2017-08-06 19:46 | CP.PCM.PN ---
Subjective - Date & Time of Evaluation Date of Evaluation: 08/06/17 Time of Evaluation: 08:00 - Subjective Subjective: clinically same Objective - Vital Signs/Intake and Output Vital Signs (last 24 hours): Temp Pulse Resp BP Pulse Ox 97.2 F L 114 H 20 107/67 99 08/06/17 15:52 08/06/17 15:52 08/06/17 15:52 08/06/17 15:52 08/06/17 15:52 - Medications Medications: Current Medications Acetaminophen (Tylenol 325mg Tab) 650 mg PO ONCE PRN PRN Reason: Pre transfusion Last Admin: 08/03/17 01:35 Dose: 650 mg Albuterol/Ipratropium (Duoneb 3 Mg/0.5 Mg (3 Ml) Ud) 3 ml INH Q4H [facility] Last Admin: 08/06/17 15:56 Dose: 3 ml Aspirin (Aspirin Chewable) 81 mg PO DAILY [facility] Last Admin: 08/06/17 09:14 Dose: 81 mg Benzocaine/Menthol (Cepacol Sore Throat) 1 ryan MT Q4 PRN PRN Reason: Sore Throat Last Admin: 08/05/17 15:22 Dose: 1 ryan Clopidogrel Bisulfate (Plavix) 75 mg PO DAILY [facility] Last Admin: 07/30/17 10:41 Dose: Not Given Diphenhydramine HCl (Benadryl) 25 mg PO ONCE PRN PRN Reason: Pre transfusion Last Admin: 08/03/17 01:35 Dose: 25 mg Azithromycin 500 mg/ Dextrose 250 mls @ 250 mls/hr IVPB DAILY [facility] Last Admin: 08/06/17 10:55 Dose: 250 mls/hr Cefepime HCl 1 gm/ Dextrose 50 mls @ 100 mls/hr IVPB Q8H [facility] Last Admin: 08/06/17 19:17 Dose: Not Given Vancomycin HCl 1 gm/ Sodium (Chloride) 200 mls @ 133.333 mls/hr IVPB Q12H [facility] Last Admin: 08/06/17 19:18 Dose: Not Given Lidocaine HCl (Lidocaine 2% Viscous) 15 ml PO ONCE PRN PRN Reason: throat pain Last Admin: 08/05/17 15:22 Dose: 15 ml Methylprednisolone (Solu-Medrol) 40 mg IVP Q8 [facility] Last Admin: 08/06/17 15:17 Dose: Not Given Nystatin (Nystop Topical Powder) 1 applic TOP BID [facility] Stop: 08/17/17 18:01 Last Admin: 08/06/17 17:39 Dose: 1 applic Rosuvastatin Calcium (Crestor) 5 mg PO HS [facility] Last Admin: 08/05/17 22:06 Dose: 5 mg Fluticasone/Salmeterol (Advair Diskus 250/50) 1 puff IH RQ12 [facility] Last Admin: 08/06/17 07:08 Dose: 1 puff Sodium Chloride ([place] Baby Saline 30 Ml) 0 ml [place] Q4 PRN PRN Reason: Cough and congestion Last Admin: 08/04/17 19:12 Dose: 1 spr - Labs Labs: 08/04/17 11:42 08/04/17 11:42 PT 13.6 SECONDS (9.7-12.2) H 07/26/17 17:16 INR 1.2 07/26/17 17:16 APTT 33 SECONDS (21-34) 07/26/17 17:16 - Constitutional Appears: Well - Head Exam Head Exam: ATRAUMATIC, NORMAL INSPECTION, NORMOCEPHALIC - Eye Exam Eye Exam: EOMI, Normal appearance, PERRL Pupil Exam: NORMAL ACCOMODATION, PERRL - ENT Exam ENT Exam: Mucous Membranes Moist, Normal Exam - Neck Exam Neck Exam: Full ROM, Normal Inspection. absent: Lymphadenopathy - Respiratory Exam Respiratory Exam: Decreased Breath Sounds - Cardiovascular Exam Cardiovascular Exam: REGULAR RHYTHM, +S1, +S2 - GI/Abdominal Exam GI & Abdominal Exam: Soft, Diminished Bowel Sounds - Rectal Exam Rectal Exam: Deferred
--- NOTE | 2017-08-06 21:38 | CP.PCM.PN ---
Subjective - Date & Time of Evaluation Date of Evaluation: 08/04/17 Time of Evaluation: 16:00 - Subjective Subjective: Episodes of shortness of breath Objective - Vital Signs/Intake and Output Vital Signs (last 24 hours): Temp Pulse Resp BP Pulse Ox 97.2 F L 114 H 20 107/67 99 08/06/17 15:52 08/06/17 15:52 08/06/17 15:52 08/06/17 15:52 08/06/17 15:52 - Medications Medications: Current Medications Acetaminophen (Tylenol 325mg Tab) 650 mg PO ONCE PRN PRN Reason: Pre transfusion Last Admin: 08/03/17 01:35 Dose: 650 mg Albuterol/Ipratropium (Duoneb 3 Mg/0.5 Mg (3 Ml) Ud) 3 ml INH Q4H [facility] Last Admin: 08/06/17 20:02 Dose: 3 ml Aspirin (Aspirin Chewable) 81 mg PO DAILY [facility] Last Admin: 08/06/17 09:14 Dose: 81 mg Benzocaine/Menthol (Cepacol Sore Throat) 1 ryan MT Q4 PRN PRN Reason: Sore Throat Last Admin: 08/05/17 15:22 Dose: 1 ryan Clopidogrel Bisulfate (Plavix) 75 mg PO DAILY [facility] Last Admin: 07/30/17 10:41 Dose: Not Given Diphenhydramine HCl (Benadryl) 25 mg PO ONCE PRN PRN Reason: Pre transfusion Last Admin: 08/03/17 01:35 Dose: 25 mg Azithromycin 500 mg/ Dextrose 250 mls @ 250 mls/hr IVPB DAILY [facility] Last Admin: 08/06/17 10:55 Dose: 250 mls/hr Cefepime HCl 1 gm/ Dextrose 50 mls @ 100 mls/hr IVPB Q8H [facility] Last Admin: 08/06/17 19:17 Dose: Not Given Vancomycin HCl 1 gm/ Sodium (Chloride) 200 mls @ 133.333 mls/hr IVPB Q12H [facility] Last Admin: 08/06/17 19:18 Dose: Not Given Lidocaine HCl (Lidocaine 2% Viscous) 15 ml PO ONCE PRN PRN Reason: throat pain Last Admin: 08/05/17 15:22 Dose: 15 ml Methylprednisolone (Solu-Medrol) 40 mg IVP Q8 [facility] Last Admin: 08/06/17 21:28 Dose: Not Given Nystatin (Nystop Topical Powder) 1 applic TOP BID [facility] Stop: 08/17/17 18:01 Last Admin: 08/06/17 17:39 Dose: 1 applic Rosuvastatin Calcium (Crestor) 5 mg PO HS [facility] Last Admin: 08/06/17 21:27 Dose: 5 mg Fluticasone/Salmeterol (Advair Diskus 250/50) 1 puff IH RQ12 [facility] Last Admin: 08/06/17 20:02 Dose: 1 puff Sodium Chloride ([place] Baby Saline 30 Ml) 0 ml [place] Q4 PRN PRN Reason: Cough and congestion Last Admin: 08/04/17 19:12 Dose: 1 spr - Labs Labs: 08/04/17 11:42 08/04/17 11:42 PT 13.6 SECONDS (9.7-12.2) H 07/26/17 17:16 INR 1.2 07/26/17 17:16 APTT 33 SECONDS (21-34) 07/26/17 17:16 - Head Exam Head Exam: ATRAUMATIC - Eye Exam Eye Exam: Normal appearance - ENT Exam ENT Exam: Mucous Membranes Dry - Respiratory Exam Respiratory Exam: Decreased Breath Sounds - Cardiovascular Exam Cardiovascular Exam: +S1, +S2 - GI/Abdominal Exam GI & Abdominal Exam: Normal Bowel Sounds Assessment and Plan (1) Anemia Assessment & Plan: chronic disease borderline iron stores Status: Acute (2) Leukocytosis Status: Acute
--- NOTE | 2017-08-06 21:50 | CP.PCM.PN ---
Subjective - Date & Time of Evaluation Date of Evaluation: 08/06/17 Time of Evaluation: 20:00 - Subjective Subjective: Intermittent periods of shortness of breath Objective - Vital Signs/Intake and Output Vital Signs (last 24 hours): Temp Pulse Resp BP Pulse Ox 97.2 F L 114 H 20 107/67 99 08/06/17 15:52 08/06/17 15:52 08/06/17 15:52 08/06/17 15:52 08/06/17 15:52 - Medications Medications: Current Medications Acetaminophen (Tylenol 325mg Tab) 650 mg PO ONCE PRN PRN Reason: Pre transfusion Last Admin: 08/03/17 01:35 Dose: 650 mg Albuterol/Ipratropium (Duoneb 3 Mg/0.5 Mg (3 Ml) Ud) 3 ml INH Q4H [facility] Last Admin: 08/06/17 20:02 Dose: 3 ml Aspirin (Aspirin Chewable) 81 mg PO DAILY [facility] Last Admin: 08/06/17 09:14 Dose: 81 mg Benzocaine/Menthol (Cepacol Sore Throat) 1 ryan MT Q4 PRN PRN Reason: Sore Throat Last Admin: 08/05/17 15:22 Dose: 1 ryan Clopidogrel Bisulfate (Plavix) 75 mg PO DAILY [facility] Last Admin: 07/30/17 10:41 Dose: Not Given Diphenhydramine HCl (Benadryl) 25 mg PO ONCE PRN PRN Reason: Pre transfusion Last Admin: 08/03/17 01:35 Dose: 25 mg Azithromycin 500 mg/ Dextrose 250 mls @ 250 mls/hr IVPB DAILY [facility] Last Admin: 08/06/17 10:55 Dose: 250 mls/hr Cefepime HCl 1 gm/ Dextrose 50 mls @ 100 mls/hr IVPB Q8H [facility] Last Admin: 08/06/17 19:17 Dose: Not Given Vancomycin HCl 1 gm/ Sodium (Chloride) 200 mls @ 133.333 mls/hr IVPB Q12H [facility] Last Admin: 08/06/17 19:18 Dose: Not Given Lidocaine HCl (Lidocaine 2% Viscous) 15 ml PO ONCE PRN PRN Reason: throat pain Last Admin: 08/05/17 15:22 Dose: 15 ml Methylprednisolone (Solu-Medrol) 40 mg IVP Q8 [facility] Last Admin: 08/06/17 21:28 Dose: Not Given Nystatin (Nystop Topical Powder) 1 applic TOP BID [facility] Stop: 08/17/17 18:01 Last Admin: 08/06/17 17:39 Dose: 1 applic Rosuvastatin Calcium (Crestor) 5 mg PO HS [facility] Last Admin: 08/06/17 21:27 Dose: 5 mg Fluticasone/Salmeterol (Advair Diskus 250/50) 1 puff IH RQ12 [facility] Last Admin: 08/06/17 20:02 Dose: 1 puff Sodium Chloride ([place] Baby Saline 30 Ml) 0 ml [place] Q4 PRN PRN Reason: Cough and congestion Last Admin: 08/04/17 19:12 Dose: 1 spr - Labs Labs: 08/04/17 11:42 08/04/17 11:42 PT 13.6 SECONDS (9.7-12.2) H 07/26/17 17:16 INR 1.2 07/26/17 17:16 APTT 33 SECONDS (21-34) 07/26/17 17:16 - Head Exam Head Exam: ATRAUMATIC - Eye Exam Eye Exam: Normal appearance - ENT Exam ENT Exam: Mucous Membranes Dry - Respiratory Exam Respiratory Exam: Decreased Breath Sounds - Cardiovascular Exam Cardiovascular Exam: +S1, +S2 - GI/Abdominal Exam GI & Abdominal Exam: Normal Bowel Sounds Assessment and Plan (1) Anemia Assessment & Plan: chronic disease borderline iron stores, repeat ferritin Status: Acute (2) Leukocytosis Status: Acute
[2017-08-07] MEDS: Albuterol-Ipratrop 3 mg / 0.5 (3 ml) UD INH SCH ×6 (00:42→20:01)
[2017-08-07] MEDS ORDERED: Digoxin 500 mcg/2ml (0.5 mg/2ml) Inj IVP ONE (01:13)
--- NOTE | 2017-08-07 01:16 | PCM.RRT ---
CATALYST RECOVERY OPERATOR Nurses Assessment - Situation Date: 08/03/17 - IV IV Inserted during CATALYST RECOVERY OPERATOR?: No New IV Insertion Tolerance: Good - Respiratory [employer] RECOVERY OPERATOR Delivery Method: Non Rebreather @% Oxygen Flow Rate: 10 Received Nebulizer Treatments: Yes Was the Patient Ventilated with Bag/Mask 100% O2?: No Secretions Suctioned?: No Was the Patient Intubated?: No Was the Patient Placed on a Ventilator?: No - Ventilator Settings SAO2 %: 92 - Diagnostic Test Ordered EKG: No Chest X-Ray: Yes CT Scan: No - Stat Labs Ordered [employer]YST RECOVERY OPERATOR Stat Labs Ordered: BMP, LACTIC ACID, BLOOD C&S X2, ABG CPR started during CATALYST RECOVERY OPERATOR?: No - Vital Signs Vital Signs: Rapid Response Vital Sign Blood Pressure 115/70 Pulse Rate 123 Respiratory Rate 30 Temperature 98.2 F Oxygen Saturation 72 - Time CATALYST RECOVERY OPERATOR Ended Time [employer]ALYST RECOVERY OPERATOR Ended: 16:45 - Vital Signs at end of CATALYST RECOVERY OPERATOR Vital Signs at end of CATALYST RECOVERY OPERATOR: Rapid Response End Vital Sign Blood Pressure 120/75 Pulse Rate 112 Respiratory Rate 22 Temperature 98.3 F O2 Sat by Pulse Oximetry 96 - Respiratory Oxygen Delivery Method: Non Rebreather @% Oxygen Flow Rate: 10 Plan - Assessment of Findings&Treatment Plan CATALYST RECOVERY OPERATOR was called at 12:59am for tachycardia at 140bpm and low oxygen saturation 80 -85%. Vitals were taken and showed T 97.9 BP 114/69 HR 84 O2 sat 81%. Upon review of patients daily vitals it appears that he has been tachycardic 129bpm for the greater portion of the day, however no intervention has been taken thus far. Patient was also previously on cardizem which has since fallen off his medication list. EKG was done and patient is in afib. The patient was given digoxin 0.25mg IVP once for tachycardia however the heart rate continued to be elevated at 140bpm. Review of his chart showed that he had not received cardizem dosage in >6hrs. A one time dose was entered for 30mg PO. The heart rate improved 100-120bpm. Patient is hemodynamically stable. The cardizem is to be renewed at the discretion of PMD/cardiology. Patient placed on BIPAP 10/5 @ 50%. O2 sat improved to 95-100% saturation. Patient's PMD, Dr. Carolina Payne, Candle Wrapper, Dr. Rod, and insurance sales specialist, Dr. Johnson were contacted and notified by the nursing staff.
[2017-08-07 01:32] LABS: ARTERIAL BLOOD GAS HCO3 30.9 mmol/L (21-28); ARTERIAL BLOOD GAS HEMOGLOBIN 7.4 g/dL (11.7-17.4); ARTERIAL BLOOD GAS O2 SAT 98.1 % (95-98); ARTERIAL BLOOD GAS PCO2 36 mm/Hg (35-45); ARTERIAL BLOOD GAS PH 7.54 (7.35-7.45); ARTERIAL BLOOD GAS PO2 62 mm/Hg (80-100); ARTERIAL BLOOD GAS TCO2 31.9 mmol/L (22-28)
[2017-08-07 01:45] LABS: BASO # 0.1 K/uL (0.0-0.2); BASO % 0.2 % (0.0-2.0); HEMOGLOBIN 7.5 g/dL (12.0-18.0); LYMPH # 0.2 K/uL (1.0-4.3); LYMPH % 0.6 % (20.0-40.0); MEAN CELL VOLUME 77.9 fL (80.0-94.0); MEAN CORPUSCULAR HEMOGLOBIN 24.7 pg (27.0-31.0); MEAN CORPUSCULAR HGB CONC 31.8 g/dL (33.0-37.0); MEAN PLATELET VOLUME 8.3 fL (7.2-11.7); MONO # 0.3 K/uL (0.0-0.8); MONO % 1.1 % (0.0-10.0); NEUT % 98.1 % (50.0-75.0); NRBC % 0.1 % (0.0-2.0); PLATELET COUNT 103 K/uL (130-400); RBC 3.04 Mil/uL (4.40-5.90); RED CELL DISTRIBUTION WIDTH 19.5 % (11.5-14.5); WHITE BLOOD COUNT 24.5 K/uL (4.8-10.8)
[2017-08-07 01:53] LABS: ALB/GLOB RATIO 0.9 (1.0-2.1); ALBUMIN 2.5 g/dL (3.5-5.0); ALT/SGPT 56 U/L (21-72); AST/SGOT 37 U/L (17-59); BLOOD UREA NITROGEN 38 mg/dL (9-20); CALCIUM 7.9 mg/dl (8.6-10.4); GFR AFRICAN-AMERICAN > 60; GFR NON-AFRICAN AMERICAN > 60
[2017-08-07 04:17] LABS: LYMPHOCYTE 1 % (20-40); MONOCYTE 1 % (0-10); NEUTROPHIL 98 % (50-75); OVALOCYTES SLIGHT; PLATELET ESTIMATE SLIGHTLY DECREASED (NORMAL); TEARDROP CELLS SLIGHT; TOTAL CELLS COUNTED 100; TOXIC GRANULATION PRESENT
[2017-08-07 04:18] LABS: ANISOCYTOSIS MODERATE; GIANT PLATELETS PRESENT; HYPOCHROMIC MODERATE; MICROCYTOSIS MODERATE; ROULEAUX FORMATION SLIGHT
[2017-08-07] MEDS: MethylPREDNISolone 40 mg Vial IVP SCH ×2 (06:57→13:09)
[2017-08-07] MEDS: Vancomycin 1 GM in Sodium Chloride 0.9% 200 ML IVPB SCH ×2 (07:03→18:14)
[2017-08-07] MEDS: Fluticasone-Salmeterol 250-50mcg Diskus IH SCH ×2 (07:15→19:58)
[2017-08-07 07:40] LABS: BASO % 0.1 % (0.0-2.0); HEMOGLOBIN 7.7 g/dL (12.0-18.0); LYMPH # 0.1 K/uL (1.0-4.3); LYMPH % 0.5 % (20.0-40.0); MEAN CELL VOLUME 78.6 fL (80.0-94.0); MEAN CORPUSCULAR HGB CONC 31.8 g/dL (33.0-37.0); MEAN PLATELET VOLUME 8.5 fL (7.2-11.7); MONO # 0.3 K/uL (0.0-0.8); MONO % 1.1 % (0.0-10.0); NEUT # 23.8 K/uL (1.8-7.0); NEUT % 98.3 % (50.0-75.0); PLATELET COUNT 90 K/uL (130-400); RBC 3.08 Mil/uL (4.40-5.90); RED CELL DISTRIBUTION WIDTH 19.8 % (11.5-14.5); WHITE BLOOD COUNT 24.2 K/uL (4.8-10.8)
[2017-08-07 09:07] LABS: ANISOCYTOSIS SLIGHT; BANDS 6 % (0-2); HYPOCHROMIC SLIGHT; LYMPHOCYTE 1 % (20-40); MICROCYTOSIS SLIGHT; MONOCYTE 1 % (0-10); NEUTROPHIL 92 % (50-75); PLATELET ESTIMATE DECREASED (NORMAL); POLYCHROMIC SLIGHT; TOTAL CELLS COUNTED 100
[2017-08-07 09:12] LABS: OVALOCYTES SLIGHT
--- NOTE | 2017-08-07 09:49 | RAD ---
HISTORY: sob COMPARISON: Chest x-ray performed 08/03/17 TECHNIQUE: Chest, one view. FINDINGS: Images were obtained with the patient in an oblique position. LUNGS: Biapical pleural thickening. Bilateral interstitial and airspace opacities appear increased overall in extent particularly at the left lung base. Persistent right middle and lower lobe consolidation. Please note that chest x-ray has limited sensitivity for the detection of pulmonary masses. PLEURA: No significant pleural effusion identified. No definite pneumothorax . CARDIOVASCULAR: Partially obscured. OSSEOUS STRUCTURES: Degenerative changes. VISUALIZED UPPER ABDOMEN: Unremarkable. OTHER FINDINGS: None. IMPRESSION: Increasing consolidations as above. Overall appearance concerning for pneumonia. Recommend follow-up to complete resolution.
[2017-08-07] MEDS ORDERED: Metoprolol 1 mg/ml Inj IVP ONE (11:00)
[2017-08-07] MEDS: Digoxin 500 mcg/2ml (0.5 mg/2ml) Inj IVP ONE ×2 (11:02→13:07)
[2017-08-07 11:04] VITALS: PULSE 131
[2017-08-07 11:24] LABS: ABG ALLEN TEST POS; ARTERIAL BLOOD GAS HCO3 29.5 mmol/L (21-28); ARTERIAL BLOOD GAS O2 SAT 98.8 % (95-98); ARTERIAL BLOOD GAS PCO2 39 mm/Hg (35-45); ARTERIAL BLOOD GAS PH 7.49 (7.35-7.45); ARTERIAL BLOOD GAS PO2 74 mm/Hg (80-100); ARTERIAL BLOOD GAS TCO2 30.9 mmol/L (22-28)
[2017-08-07] MEDS ORDERED: Etomidate 20 mg/10ml Inj IV ONE (12:37)
[2017-08-07] MEDS: Propofol 10 mg/ml 1,000 MG/100 ML VIAL IV PRN (13:03)
--- NOTE | 2017-08-07 13:14 | PCM.PROC ---
Procedures Attestation:: I certify that I have explained the specified Operation(s) or Procedure(s), risks, benefits and reasonable alternatives to the Patient and/or other person responsible. The opportunity was given to ask questions and all questions answered - Central Line Placement Right Internal Jugular Triple Lumen Catheter Aseptic technique was employed throughout the procedure: Hand Hygiene done prior to procedure, Full sterile barriers (mask, hair cover, sterile gown, sterile gloves), Full body sterile drape, Chloraprep Antiseptic: 30 second prep for IJ or SC sites CVP Time Out Performed: Yes Pt. Placed on Pulse Ox Monitor: Yes Central Line Prep: Chlorhexidine-Alcohol Combination Local Anesthesia Used: Lidocaine 1% Ultrasound Used for Placement: Yes Central Line Lumen Inserted: triple Central Line Length: 16 cm Post Procedure: Sutured in Place, Good Blood Return, All Ports Aspirated, Flushed, Capped, Sterile Dressing Applied Secured by: Suture Post procedure dressing: Gauze Post Procedure X-Ray: Yes Patient Tolerated Procedure: Well Immediate Complications: None
--- NOTE | 2017-08-07 13:36 | CP.PCM.CON ---
<Francisco Taylor - Last Filed: 08/07/17 14:01> History of Present Illness - History of Present Illness History of Present Illness: CCU Consult Note CC: Rapid Afib, SOB, Pneumonia HPI: 86 year old male with a history of COPD, HTN and Afib hospitalized since 07/21 due to difficulty breathing. Pt was found to be positive for influenza infection and his stay has been complicated by pneumonia. Today, pt unable to speak full sentences on bipap and will be transferred to the ICU for respiratory distress. During hospitalization, Afib was treated with plavix, ASA , cardizem, digoxin and crestor. COPD was treated with advair, solumedrol, duonebs and benedryl. Pneumonia was treated with vancomycin and maxipime, and azithromycin will be added at this time. Patient was taken to the ICU, intubated and TLC placed. PMH: COPD, HTN and Afib PSH: none FH: unremarkable SH: ex smoker, denies alcohol or tobacco All: none Review of Systems - Review of Systems Review of Systems: per hpi Past Patient History - Past Medical History & Family History Past Medical History?: Yes - Past Social History Smoking Status: Former Smoker - CARDIAC Hx Atrial Fibrillation: Yes Hx Hypertension: Yes - PULMONARY Hx Asthma: Yes Hx Chronic Obstructive Pulmonary Disease (COPD): Yes Hx Emphysema: Yes - MUSCULOSKELETAL/RHEUMATOLOGICAL Hx Falls: No - PSYCHIATRIC Hx Substance Use: No - SURGICAL HISTORY Other/Comment: abdominal sx - ANESTHESIA Hx Anesthesia: Yes Hx Anesthesia Reactions: No Hx Malignant Hyperthermia: No Meds Allergies/Adverse Reactions: Allergies Allergy/AdvReac Type Severity Reaction Status Date / Time No Known Allergies Allergy Verified 07/21/17 09:32 - Medications Medications: Current Medications Acetaminophen (Tylenol 325mg Tab) 650 mg PO ONCE PRN PRN Reason: Pre transfusion Last Admin: 08/03/17 01:35 Dose: 650 mg Albuterol/Ipratropium (Duoneb 3 Mg/0.5 Mg (3 Ml) Ud) 3 ml INH Q4H [facility] Last Admin: 08/07/17 11:19 Dose: Not Given Aspirin (Aspirin Chewable) 81 mg PO DAILY [facility] Last Admin: 08/07/17 10:26 Dose: 81 mg Benzocaine/Menthol (Cepacol Sore Throat) 1 ryan MT Q4 PRN PRN Reason: Sore Throat Last Admin: 08/05/17 15:22 Dose: 1 ryan Clopidogrel Bisulfate (Plavix) 75 mg PO DAILY [facility] Last Admin: 07/30/17 10:41 Dose: Not Given Diltiazem HCl (Cardizem) 30 mg PO Q6 [facility] Last Admin: 08/07/17 10:10 Dose: 30 mg Diphenhydramine HCl (Benadryl) 25 mg PO ONCE PRN PRN Reason: Pre transfusion Last Admin: 08/03/17 01:35 Dose: 25 mg Cefepime HCl 1 gm/ Dextrose 50 mls @ 100 mls/hr IVPB Q8H [facility] Last Admin: 08/07/17 10:24 Dose: 100 mls/hr Vancomycin HCl 1 gm/ Sodium (Chloride) 200 mls @ 133.333 mls/hr IVPB Q12H [facility] Last Admin: 08/07/17 07:03 Dose: 133.333 mls/hr Azithromycin 500 mg/ Sodium (Chloride) 250 mls @ 250 mls/hr IVPB DAILY [facility] Propofol (Diprivan) 1,000 mg in 100 mls @ 1.683 mls/hr IV .Q24H PRN; Protocol; 5 MCG/KG/MIN PRN Reason: TITRATE PER MD ORDER Last Admin: 08/07/17 13:03 Dose: 10 mcg/kg/min, 3.367 mls/hr Lidocaine HCl (Lidocaine 2% Viscous) 15 ml PO ONCE PRN PRN Reason: throat pain Last Admin: 08/05/17 15:22 Dose: 15 ml Methylprednisolone (Solu-Medrol) 40 mg IVP Q8 [facility] Last Admin: 08/07/17 13:09 Dose: 40 mg Nystatin (Nystop Topical Powder) 1 applic TOP BID [facility] Stop: 08/17/17 18:01 Last Admin: 08/06/17 17:39 Dose: 1 applic Rosuvastatin Calcium (Crestor) 5 mg PO HS [facility] Last Admin: 08/06/17 21:27 Dose: 5 mg Fluticasone/Salmeterol (Advair Diskus 250/50) 1 puff IH RQ12 [facility] Last Admin: 08/07/17 07:15 Dose: Not Given Sodium Chloride (Ada Baby Saline 30 Ml) 0 ml [place] Q4 PRN PRN Reason: Cough and congestion Last Admin: 08/04/17 19:12 Dose: 1 spr Physical Exam - Constitutional Appears: Non-toxic - Head Exam Head Exam: ATRAUMATIC, NORMAL INSPECTION, NORMOCEPHALIC - Eye Exam Eye Exam: EOMI - ENT Exam ENT Exam: Mucous Membranes Moist Additional comments: intubated - Respiratory Exam Respiratory Exam: Rhonchi Additional comments: intubated - Cardiovascular Exam Cardiovascular Exam: Tachycardia - GI/Abdominal Exam GI & Abdominal Exam: Normal Bowel Sounds, Soft. absent: Distended, Tenderness Results - Vital Signs Recent Vital Signs: Last Vital Signs Temp 97.9 F 08/07/17 11:40 Pulse 121 H 08/07/17 11:40 Resp 22 08/07/17 11:40 BP 129/56 L 08/07/17 11:40 Pulse Ox 95 08/07/17 11:40 - Labs Result Diagrams: 08/07/17 07:32 08/07/17 01:35 Labs: Laboratory Results - last 24 hr 08/07/17 08/07/17 08/07/17 01:22 01:25 01:34 WBC 24.5 H RBC 3.04 L Hgb 7.5 L Hct 23.7 L MCV 77.9 L MCH 24.7 L MCHC 31.8 L RDW 19.5 H Plt Count 103 L D MPV 8.3 Neut % (Auto) 98.1 H Lymph % (Auto) 0.6 L [place] % (Auto) 1.1 Eos % (Auto) 0.0 Baso % (Auto) 0.2 Neut # 24.0 H Lymph # 0.2 L [place] # 0.3 Eos # 0.0 Baso # 0.1 Neutrophils % (Manual) 98 H Band Neutrophils % Lymphocytes % (Manual) 1 L Monocytes % (Manual) 1 Toxic Granulation Present Platelet Estimate Slightly decreased L Giant Platelets Present Polychromasia Hypochromasia (manual) Moderate Anisocytosis (manual) Moderate Microcytosis (manual) Moderate Tear Drop Cells Slight Ovalocytes Slight Rouleaux Slight Puncture Site Rb pCO2 36 pO2 62 L HCO3 30.9 H ABG pH 7.54 H ABG Total CO2 31.9 H ABG O2 Saturation 98.1 H ABG Base Excess 7.7 H ABG Hemoglobin 7.4 L ABG Carboxyhemoglobin 2.8 H POC ABG HHb (Measured) 1.8 ABG Methemoglobin 0.5 Peter Test Na ABG Potassium A-a O2 Difference 250.0 Respiratory Index 4.0 Hgb O2 Saturation 94.8 L Glucose Lactate Vent Mode Bipap FiO2 50.0 Inspiratory BiPAP 10 Expiratory BiPAP 5 Sodium Potassium Chloride Carbon Dioxide Anion Gap BUN Creatinine Est GFR ( Amer) Est GFR (Non-Af Amer) POC Glucose (mg/dL) 164 H Random Glucose Calcium Total Bilirubin AST ALT Alkaline Phosphatase Total Protein Albumin Globulin Albumin/Globulin Ratio Arterial Blood Potassium 08/07/17 08/07/17 08/07/17 01:35 07:32 11:18 WBC 24.2 H RBC 3.08 L Hgb 7.7 L Hct 24.2 L MCV 78.6 L MCH 25.0 L MCHC 31.8 L RDW 19.8 H Plt Count 90 L MPV 8.5 Neut % (Auto) 98.3 H Lymph % (Auto) 0.5 L [place] % (Auto) 1.1 Eos % (Auto) 0.0 Baso % (Auto) 0.1 Neut # 23.8 H Lymph # 0.1 L [place] # 0.3 Eos # 0.0 Baso # 0.0 Neutrophils % (Manual) 92 H Band Neutrophils % 6 H Lymphocytes % (Manual) 1 L Monocytes % (Manual) 1 Toxic Granulation Platelet Estimate Decreased L Giant Platelets Polychromasia Slight Hypochromasia (manual) Slight Anisocytosis (manual) Slight Microcytosis (manual) Slight Tear Drop Cells Ovalocytes Slight Rouleaux Puncture Site Lra pCO2 39 pO2 74 L HCO3 29.5 H ABG pH 7.49 H ABG Total CO2 30.9 H ABG O2 Saturation 98.8 H ABG Base Excess 5.9 H ABG Hemoglobin ABG Carboxyhemoglobin POC ABG HHb (Measured) ABG Methemoglobin Peter Test Pos ABG Potassium 3.5 L A-a O2 Difference 234.0 Respiratory Index 3.2 Hgb O2 Saturation Glucose 143 H Lactate 1.4 Vent Mode Bipap FiO2 50.0 Inspiratory BiPAP 10 Expiratory BiPAP 5 Sodium 144 146.0 Potassium 4.0 Chloride 105 117.0 H Carbon Dioxide 32 H Anion Gap 11 BUN 38 H Creatinine 0.6 L Est GFR ( Amer) > 60 Est GFR (Non-Af Amer) > 60 POC Glucose (mg/dL) Random Glucose 156 H Calcium 7.9 L Total Bilirubin 1.5 H AST 37 ALT 56 Alkaline Phosphatase 73 Total Protein 5.2 L Albumin 2.5 L Globulin 2.7 Albumin/Globulin Ratio 0.9 L Arterial Blood Potassium 3.5 L Assessment & Plan - Assessment and Plan (Free Text) Assessment: Psych: no acute issues Neuro: sedated diprivan Cardio: Rapid Afib cardizem 30 Q6 Plan: Psych: No acute issues Neuro: sedated, diprivan Cards: rapid afib, cardizem 30, asa, plavix held due to thrombocytopenia, low Hgb and patient only wanted to be on ASA Pulm: pneumonia complicated by respiratory failure, intubated cefepime, zithromax, vanco Q12 GI: No acute issues Renal: No acute issues PPX: protonix, heparin <Stone Rodgers S - Last Filed: 08/07/17 17:20> Meds - Medications Medications: Current Medications Acetaminophen (Tylenol 325mg Tab) 650 mg PO ONCE PRN PRN Reason: Pre transfusion Last Admin: 08/03/17 01:35 Dose: 650 mg Albuterol/Ipratropium (Duoneb 3 Mg/0.5 Mg (3 Ml) Ud) 3 ml INH Q4H [facility] Last Admin: 08/07/17 16:58 Dose: 3 ml Aspirin (Aspirin Chewable) 81 mg PO DAILY [facility] Last Admin: 08/07/17 10:26 Dose: 81 mg Benzocaine/Menthol (Cepacol Sore Throat) 1 ryan MT Q4 PRN PRN Reason: Sore Throat Last Admin: 08/05/17 15:22 Dose: 1 ryan Clopidogrel Bisulfate (Plavix) 75 mg PO DAILY [facility] Last Admin: 07/30/17 10:41 Dose: Not Given Diltiazem HCl (Cardizem) 30 mg PO Q6 [facility] Last Admin: 08/07/17 15:45 Dose: 30 mg Diphenhydramine HCl (Benadryl) 25 mg PO ONCE PRN PRN Reason: Pre transfusion Last Admin: 08/03/17 01:35 Dose: 25 mg Famotidine (Pepcid) 20 mg IVP DAILY [facility] Last Admin: 08/07/17 15:45 Dose: 20 mg Heparin Sodium (Porcine) (Heparin) 5,000 units SC Q8 [facility] Cefepime HCl 1 gm/ Dextrose 50 mls @ 100 mls/hr IVPB Q8H [facility] Last Admin: 08/07/17 10:24 Dose: 100 mls/hr Vancomycin HCl 1 gm/ Sodium (Chloride) 200 mls @ 133.333 mls/hr IVPB Q12H [facility] Last Admin: 08/07/17 07:03 Dose: 133.333 mls/hr Azithromycin 500 mg/ Sodium (Chloride) 250 mls @ 250 mls/hr IVPB DAILY [facility] Propofol (Diprivan) 1,000 mg in 100 mls @ 1.683 mls/hr IV .Q24H PRN; Protocol; 5 MCG/KG/MIN PRN Reason: TITRATE PER MD ORDER Last Admin: 08/07/17 13:03 Dose: 10 mcg/kg/min, 3.367 mls/hr Lidocaine HCl (Lidocaine 2% Viscous) 15 ml PO ONCE PRN PRN Reason: throat pain Last Admin: 08/05/17 15:22 Dose: 15 ml Nystatin (Nystop Topical Powder) 1 applic TOP BID [facility] Stop: 08/17/17 18:01 Last Admin: 08/06/17 17:39 Dose: 1 applic Rosuvastatin Calcium (Crestor) 5 mg PO HS [facility] Last Admin: 08/06/17 21:27 Dose: 5 mg Fluticasone/Salmeterol (Advair Diskus 250/50) 1 puff IH RQ12 [facility] Last Admin: 08/07/17 07:15 Dose: Not Given Sodium Chloride (Ada Baby Saline 30 Ml) 0 ml [place] Q4 PRN PRN Reason: Cough and congestion Last Admin: 08/04/17 19:12 Dose: 1 spr Results - Vital Signs Recent Vital Signs: Last Vital Signs Temp 97.9 F 08/07/17 16:00 Pulse 121 H 08/07/17 11:40 Resp 22 08/07/17 11:40 BP 129/56 L 08/07/17 11:40 Pulse Ox 95 08/07/17 11:40 - Labs Result Diagrams: 08/07/17 07:32 08/07/17 01:35 Labs: Laboratory Results - last 24 hr 08/07/17 08/07/17 08/07/17 01:22 01:25 01:34 WBC 24.5 H RBC 3.04 L Hgb 7.5 L Hct 23.7 L MCV 77.9 L MCH 24.7 L MCHC 31.8 L RDW 19.5 H Plt Count 103 L D MPV 8.3 Neut % (Auto) 98.1 H Lymph % (Auto) 0.6 L [place] % (Auto) 1.1 Eos % (Auto) 0.0 Baso % (Auto) 0.2 Neut # 24.0 H Lymph # 0.2 L [place] # 0.3 Eos # 0.0 Baso # 0.1 Neutrophils % (Manual) 98 H Band Neutrophils % Lymphocytes % (Manual) 1 L Monocytes % (Manual) 1 Toxic Granulation Present Platelet Estimate Slightly decreased L Giant Platelets Present Polychromasia Hypochromasia (manual) Moderate Anisocytosis (manual) Moderate Microcytosis (manual) Moderate Tear Drop Cells Slight Ovalocytes Slight Rouleaux Slight Puncture Site Rb pCO2 36 pO2 62 L HCO3 30.9 H ABG pH 7.54 H ABG Total CO2 31.9 H ABG O2 Saturation 98.1 H ABG Base Excess 7.7 H ABG Hemoglobin 7.4 L ABG Carboxyhemoglobin 2.8 H POC ABG HHb (Measured) 1.8 ABG Methemoglobin 0.5 Peter Test Na ABG Potassium A-a O2 Difference 250.0 Respiratory Index 4.0 Hgb O2 Saturation 94.8 L Glucose Lactate Vent Mode Bipap Mechanical Rate FiO2 50.0 Tidal Volume PEEP Inspiratory BiPAP 10 Expiratory BiPAP 5 Sodium Potassium Chloride Carbon Dioxide Anion Gap BUN Creatinine Est GFR ( Amer) Est GFR (Non-Af Amer) POC Glucose (mg/dL) 164 H Random Glucose Calcium Total Bilirubin AST ALT Alkaline Phosphatase Total Protein Albumin Globulin Albumin/Globulin Ratio Arterial Blood Potassium 08/07/17 08/07/17 08/07/17 01:35 07:32 11:18 WBC 24.2 H RBC 3.08 L Hgb 7.7 L Hct 24.2 L MCV 78.6 L MCH 25.0 L MCHC 31.8 L RDW 19.8 H Plt Count 90 L MPV 8.5 Neut % (Auto) 98.3 H Lymph % (Auto) 0.5 L [place] % (Auto) 1.1 Eos % (Auto) 0.0 Baso % (Auto) 0.1 Neut # 23.8 H Lymph # 0.1 L [place] # 0.3 Eos # 0.0 Baso # 0.0 Neutrophils % (Manual) 92 H Band Neutrophils % 6 H Lymphocytes % (Manual) 1 L Monocytes % (Manual) 1 Toxic Granulation Platelet Estimate Decreased L Giant Platelets Polychromasia Slight Hypochromasia (manual) Slight Anisocytosis (manual) Slight Microcytosis (manual) Slight Tear Drop Cells Ovalocytes Slight Rouleaux Puncture Site Lra pCO2 39 pO2 74 L HCO3 29.5 H ABG pH 7.49 H ABG Total CO2 30.9 H ABG O2 Saturation 98.8 H ABG Base Excess 5.9 H ABG Hemoglobin ABG Carboxyhemoglobin POC ABG HHb (Measured) ABG Methemoglobin Peter Test Pos ABG Potassium 3.5 L A-a O2 Difference 234.0 Respiratory Index 3.2 Hgb O2 Saturation Glucose 143 H Lactate 1.4 Vent Mode Bipap Mechanical Rate FiO2 50.0 Tidal Volume PEEP Inspiratory BiPAP 10 Expiratory BiPAP 5 Sodium 144 146.0 Potassium 4.0 Chloride 105 117.0 H Carbon Dioxide 32 H Anion Gap 11 BUN 38 H Creatinine 0.6 L Est GFR ( Amer) > 60 Est GFR (Non-Af Amer) > 60 POC Glucose (mg/dL) Random Glucose 156 H Calcium 7.9 L Total Bilirubin 1.5 H AST 37 ALT 56 Alkaline Phosphatase 73 Total Protein 5.2 L Albumin 2.5 L Globulin 2.7 Albumin/Globulin Ratio 0.9 L Arterial Blood Potassium 3.5 L 08/07/17 13:50 WBC RBC Hgb Hct MCV MCH MCHC RDW Plt Count MPV Neut % (Auto) Lymph % (Auto) [place] % (Auto) Eos % (Auto) Baso % (Auto) Neut # Lymph # [place] # Eos # Baso # Neutrophils % (Manual) Band Neutrophils % Lymphocytes % (Manual) Monocytes % (Manual) Toxic Granulation Platelet Estimate Giant Platelets Polychromasia Hypochromasia (manual) Anisocytosis (manual) Microcytosis (manual) Tear Drop Cells Ovalocytes Rouleaux Puncture Site Rb pCO2 46 H pO2 311 H HCO3 30.4 H ABG pH 7.45 ABG Total CO2 33.4 H ABG O2 Saturation 99.9 H ABG Base Excess 6.9 H ABG Hemoglobin ABG Carboxyhemoglobin POC ABG HHb (Measured) ABG Methemoglobin Peter Test Na ABG Potassium 3.9 A-a O2 Difference 345.0 Respiratory Index 1.1 Hgb O2 Saturation Glucose 160 H Lactate 1.5 Vent Mode Mechanical Rate 14 FiO2 100.0 Tidal Volume 450 PEEP 5 Inspiratory BiPAP Expiratory BiPAP Sodium 149.0 H Potassium Chloride 114.0 H Carbon Dioxide Anion Gap BUN Creatinine Est GFR ( Amer) Est GFR (Non-Af Amer) POC Glucose (mg/dL) Random Glucose Calcium Total Bilirubin AST ALT Alkaline Phosphatase Total Protein Albumin Globulin Albumin/Globulin Ratio Arterial Blood Potassium 3.9 Attending/Attestation - Attestation I have personally seen and examined this patient.: Yes I have fully participated in the care of the patient.: Yes I have reviewed all pertinent clinical information: Yes Notes (Text): 08/07/17 17:09 patient seen and examined 86-year-old male was transferred to intensive care unit for respiratory distress. Patient intubated and put on ventilatory support. Copious amount of thick purulent secretions aspirated from the ET tube Continue IV antibiotic Follow-up culture and sensitivity Follow-up ABG and chest x-ray Continue Cardizem for A. fib Heparin on hold for thrombocytopenia
[2017-08-07 13:54] LABS: ARTERIAL BLOOD GAS HCO3 30.4 mmol/L (21-28); ARTERIAL BLOOD GAS O2 SAT 99.9 % (95-98); ARTERIAL BLOOD GAS PCO2 46 mm/Hg (35-45); ARTERIAL BLOOD GAS PH 7.45 (7.35-7.45); ARTERIAL BLOOD GAS PO2 311 mm/Hg (80-100); ARTERIAL BLOOD GAS TCO2 33.4 mmol/L (22-28)
--- NOTE | 2017-08-07 14:29 | RAD ---
HISTORY: tlc COMPARISON: 08/07/2017 at 0926 hours and 09/18/2013 FINDINGS: LUNGS: Bilateral similar coalescent airspace opacities concomitant interstitial lung marking prominence not excluded. Left apical asymmetrical pleural thickening with scarring//traction bronchiectasis here suggested - similar to recent study and to a 2014 exam PLEURA: No significant pleural effusion identified, no pneumothorax apparent. Left apical chronic changes as above CARDIOVASCULAR: Normal. OSSEOUS STRUCTURES: Thoracic spondylosis. Bilateral shoulder arthrosis VISUALIZED UPPER ABDOMEN: Normal. OTHER FINDINGS: None. IMPRESSION: Bilateral coalescing pulmonary infiltrates inferred. Similar with most recent Interval insertion endotracheal tube back clavicle level. Interval insertion right internal jugular vein catheter tip cavoatrial junction. . Interval insertion NG tube- course along gastric cardia tip beyond inferior edge of this image Low left apical pleural thickening with traction bronchiectasis similar dating back to 2013
--- NOTE | 2017-08-07 15:10 | PCM.PROC ---
Procedures Attestation:: I certify that I have explained the specified Operation(s) or Procedure(s), risks, benefits and reasonable alternatives to the Patient and/or other person responsible. The opportunity was given to ask questions and all questions answered - Intubation Time Out Performed: Yes Sedative: Etomidate Mg Given: 20 Laryngoscope: Smith ET Tube Size: 8.0 ET Tube Uncuffed: Yes ET Tube Secured at Depth: 22 ET Tube Secured [place]: Lips ET Tube Placement Confirmation: Visualized Passing Through Cords, Breath Sounds Equal Bilaterally, No Breath Sounds Over Epigastrum, Confirmation w/Capnometry Patient Tolerated Procedure: Well Procedure Immediate Complications: None
--- NOTE | 2017-08-07 17:15 | CP.PCM.PN ---
Subjective - Date & Time of Evaluation Date of Evaluation: 08/07/17 Time of Evaluation: 12:20 - Subjective Subjective: clinically same Objective - Vital Signs/Intake and Output Vital Signs (last 24 hours): Temp Pulse Resp BP Pulse Ox 97.9 F 121 H 22 129/56 L 95 08/07/17 16:00 08/07/17 11:40 08/07/17 11:40 08/07/17 11:40 08/07/17 11:40 Intake and Output: 08/07/17 08/07/17 06:59 18:59 Intake Total 23.4 Output Total 300 Balance -276.6 - Medications Medications: Current Medications Acetaminophen (Tylenol 325mg Tab) 650 mg PO ONCE PRN PRN Reason: Pre transfusion Last Admin: 08/03/17 01:35 Dose: 650 mg Albuterol/Ipratropium (Duoneb 3 Mg/0.5 Mg (3 Ml) Ud) 3 ml INH Q4H [facility] Last Admin: 08/07/17 16:58 Dose: 3 ml Aspirin (Aspirin Chewable) 81 mg PO DAILY [facility] Last Admin: 08/07/17 10:26 Dose: 81 mg Benzocaine/Menthol (Cepacol Sore Throat) 1 ryan MT Q4 PRN PRN Reason: Sore Throat Last Admin: 08/05/17 15:22 Dose: 1 ryan Clopidogrel Bisulfate (Plavix) 75 mg PO DAILY [facility] Last Admin: 07/30/17 10:41 Dose: Not Given Diltiazem HCl (Cardizem) 30 mg PO Q6 [facility] Last Admin: 08/07/17 15:45 Dose: 30 mg Diphenhydramine HCl (Benadryl) 25 mg PO ONCE PRN PRN Reason: Pre transfusion Last Admin: 08/03/17 01:35 Dose: 25 mg Famotidine (Pepcid) 20 mg IVP DAILY [facility] Last Admin: 08/07/17 15:45 Dose: 20 mg Heparin Sodium (Porcine) (Heparin) 5,000 units SC Q8 [facility] Cefepime HCl 1 gm/ Dextrose 50 mls @ 100 mls/hr IVPB Q8H [facility] Last Admin: 08/07/17 10:24 Dose: 100 mls/hr Vancomycin HCl 1 gm/ Sodium (Chloride) 200 mls @ 133.333 mls/hr IVPB Q12H [facility] Last Admin: 08/07/17 07:03 Dose: 133.333 mls/hr Azithromycin 500 mg/ Sodium (Chloride) 250 mls @ 250 mls/hr IVPB DAILY [facility] Propofol (Diprivan) 1,000 mg in 100 mls @ 1.683 mls/hr IV .Q24H PRN; Protocol; 5 MCG/KG/MIN PRN Reason: TITRATE PER MD ORDER Last Admin: 08/07/17 13:03 Dose: 10 mcg/kg/min, 3.367 mls/hr Lidocaine HCl (Lidocaine 2% Viscous) 15 ml PO ONCE PRN PRN Reason: throat pain Last Admin: 08/05/17 15:22 Dose: 15 ml Nystatin (Nystop Topical Powder) 1 applic TOP BID [facility] Stop: 08/17/17 18:01 Last Admin: 08/06/17 17:39 Dose: 1 applic Rosuvastatin Calcium (Crestor) 5 mg PO HS [facility] Last Admin: 08/06/17 21:27 Dose: 5 mg Fluticasone/Salmeterol (Advair Diskus 250/50) 1 puff IH RQ12 [facility] Last Admin: 08/07/17 07:15 Dose: Not Given Sodium Chloride ([place] Baby Saline 30 Ml) 0 ml [place] Q4 PRN PRN Reason: Cough and congestion Last Admin: 08/04/17 19:12 Dose: 1 spr - Labs Labs: 08/07/17 07:32 08/07/17 01:35 PT 13.6 SECONDS (9.7-12.2) H 07/26/17 17:16 INR 1.2 07/26/17 17:16 APTT 33 SECONDS (21-34) 07/26/17 17:16 - Constitutional Appears: Well - Head Exam Head Exam: ATRAUMATIC, NORMAL INSPECTION, NORMOCEPHALIC - Eye Exam Eye Exam: EOMI, Normal appearance, PERRL Pupil Exam: NORMAL ACCOMODATION, PERRL - ENT Exam ENT Exam: Mucous Membranes Moist, Normal Exam - Neck Exam Neck Exam: Full ROM, Normal Inspection. absent: Lymphadenopathy - Respiratory Exam Respiratory Exam: Decreased Breath Sounds - Cardiovascular Exam Cardiovascular Exam: REGULAR RHYTHM, +S1, +S2 - GI/Abdominal Exam GI & Abdominal Exam: Soft, Diminished Bowel Sounds - Rectal Exam Rectal Exam: Deferred
--- NOTE | 2017-08-07 17:17 | CP.PCM.PN ---
Subjective - Date & Time of Evaluation Date of Evaluation: 08/07/17 Time of Evaluation: 17:17 Objective - Vital Signs/Intake and Output Vital Signs (last 24 hours): Temp Pulse Resp BP Pulse Ox 97.9 F 121 H 22 129/56 L 95 08/07/17 16:00 08/07/17 11:40 08/07/17 11:40 08/07/17 11:40 08/07/17 11:40 Intake and Output: 08/07/17 08/07/17 06:59 18:59 Intake Total 23.4 Output Total 300 Balance -276.6 - Medications Medications: Current Medications Acetaminophen (Tylenol 325mg Tab) 650 mg PO ONCE PRN PRN Reason: Pre transfusion Last Admin: 08/03/17 01:35 Dose: 650 mg Albuterol/Ipratropium (Duoneb 3 Mg/0.5 Mg (3 Ml) Ud) 3 ml INH Q4H [facility] Last Admin: 08/07/17 16:58 Dose: 3 ml Aspirin (Aspirin Chewable) 81 mg PO DAILY [facility] Last Admin: 08/07/17 10:26 Dose: 81 mg Benzocaine/Menthol (Cepacol Sore Throat) 1 ryan MT Q4 PRN PRN Reason: Sore Throat Last Admin: 08/05/17 15:22 Dose: 1 ryan Clopidogrel Bisulfate (Plavix) 75 mg PO DAILY [facility] Last Admin: 07/30/17 10:41 Dose: Not Given Diltiazem HCl (Cardizem) 30 mg PO Q6 [facility] Last Admin: 08/07/17 15:45 Dose: 30 mg Diphenhydramine HCl (Benadryl) 25 mg PO ONCE PRN PRN Reason: Pre transfusion Last Admin: 08/03/17 01:35 Dose: 25 mg Famotidine (Pepcid) 20 mg IVP DAILY [facility] Last Admin: 08/07/17 15:45 Dose: 20 mg Heparin Sodium (Porcine) (Heparin) 5,000 units SC Q8 [facility] Cefepime HCl 1 gm/ Dextrose 50 mls @ 100 mls/hr IVPB Q8H [facility] Last Admin: 08/07/17 10:24 Dose: 100 mls/hr Vancomycin HCl 1 gm/ Sodium (Chloride) 200 mls @ 133.333 mls/hr IVPB Q12H [facility] Last Admin: 08/07/17 07:03 Dose: 133.333 mls/hr Azithromycin 500 mg/ Sodium (Chloride) 250 mls @ 250 mls/hr IVPB DAILY [facility] Propofol (Diprivan) 1,000 mg in 100 mls @ 1.683 mls/hr IV .Q24H PRN; Protocol; 5 MCG/KG/MIN PRN Reason: TITRATE PER MD ORDER Last Admin: 08/07/17 13:03 Dose: 10 mcg/kg/min, 3.367 mls/hr Lidocaine HCl (Lidocaine 2% Viscous) 15 ml PO ONCE PRN PRN Reason: throat pain Last Admin: 08/05/17 15:22 Dose: 15 ml Nystatin (Nystop Topical Powder) 1 applic TOP BID [facility] Stop: 08/17/17 18:01 Last Admin: 08/06/17 17:39 Dose: 1 applic Rosuvastatin Calcium (Crestor) 5 mg PO HS [facility] Last Admin: 08/06/17 21:27 Dose: 5 mg Fluticasone/Salmeterol (Advair Diskus 250/50) 1 puff IH RQ12 [facility] Last Admin: 08/07/17 07:15 Dose: Not Given Sodium Chloride ([place] Baby Saline 30 Ml) 0 ml [place] Q4 PRN PRN Reason: Cough and congestion Last Admin: 08/04/17 19:12 Dose: 1 spr - Labs Labs: 08/07/17 07:32 08/07/17 01:35 PT 13.6 SECONDS (9.7-12.2) H 07/26/17 17:16 INR 1.2 07/26/17 17:16 APTT 33 SECONDS (21-34) 07/26/17 17:16
[2017-08-07 19:24] LABS: LEGIONELLA AG URINE NEGATIVE (NEGATIVE); MYCOPLASMA PNEUMONIAE IGM NEGATIVE (NEGATIVE)
--- NOTE | 2017-08-07 22:09 | CP.PCM.PN ---
Subjective - Date & Time of Evaluation Date of Evaluation: 08/07/17 Time of Evaluation: 20:00 - Subjective Subjective: Vented Objective - Vital Signs/Intake and Output Vital Signs (last 24 hours): Temp Pulse Resp BP Pulse Ox 98.8 F 106 H 19 120/43 L 97 08/07/17 20:00 08/07/17 20:30 08/07/17 20:30 08/07/17 20:30 08/07/17 20:30 Intake and Output: 08/07/17 08/08/17 18:59 06:59 Intake Total 278.4 130 Output Total 420 90 Balance -141.6 40 - Medications Medications: Current Medications Acetaminophen (Tylenol 325mg Tab) 650 mg PO ONCE PRN PRN Reason: Pre transfusion Last Admin: 08/03/17 01:35 Dose: 650 mg Albuterol/Ipratropium (Duoneb 3 Mg/0.5 Mg (3 Ml) Ud) 3 ml INH Q4H [facility] Last Admin: 08/07/17 20:01 Dose: 3 ml Aspirin (Aspirin Chewable) 81 mg PO DAILY [facility] Last Admin: 08/07/17 10:26 Dose: 81 mg Benzocaine/Menthol (Cepacol Sore Throat) 1 ryan [place] Q4 PRN PRN Reason: Sore Throat Last Admin: 08/05/17 15:22 Dose: 1 ryan Clopidogrel Bisulfate (Plavix) 75 mg PO DAILY [facility] Last Admin: 07/30/17 10:41 Dose: Not Given Diltiazem HCl (Cardizem) 30 mg PO Q6 [facility] Last Admin: 08/07/17 18:15 Dose: 30 mg Diphenhydramine HCl (Benadryl) 25 mg PO ONCE PRN PRN Reason: Pre transfusion Last Admin: 08/03/17 01:35 Dose: 25 mg Famotidine (Pepcid) 20 mg IVP DAILY [facility] Last Admin: 08/07/17 15:45 Dose: 20 mg Heparin Sodium (Porcine) (Heparin) 5,000 units SC Q8 [facility] Last Admin: 08/07/17 21:59 Dose: 5,000 units Cefepime HCl 1 gm/ Dextrose 50 mls @ 100 mls/hr IVPB Q8H [facility] Last Admin: 08/07/17 18:15 Dose: 100 mls/hr Vancomycin HCl 1 gm/ Sodium (Chloride) 200 mls @ 133.333 mls/hr IVPB Q12H [facility] Last Admin: 08/07/17 18:14 Dose: 133.333 mls/hr Azithromycin 500 mg/ Sodium (Chloride) 250 mls @ 250 mls/hr IVPB DAILY [facility] Propofol (Diprivan) 1,000 mg in 100 mls @ 1.683 mls/hr IV .Q24H PRN; Protocol; 5 MCG/KG/MIN PRN Reason: TITRATE PER MD ORDER Last Titration: 08/07/17 20:12 Dose: 15 mcg/kg/min, 5.05 mls/hr Lidocaine HCl (Lidocaine 2% Viscous) 15 ml PO ONCE PRN PRN Reason: throat pain Last Admin: 08/05/17 15:22 Dose: 15 ml Nystatin (Nystop Topical Powder) 1 applic TOP BID [facility] Stop: 08/17/17 18:01 Last Admin: 08/07/17 18:17 Dose: 1 applic Rosuvastatin Calcium (Crestor) 5 mg PO HS [facility] Last Admin: 08/07/17 21:59 Dose: 5 mg Fluticasone/Salmeterol (Advair Diskus 250/50) 1 puff IH RQ12 [facility] Last Admin: 08/07/17 19:58 Dose: Not Given Sodium Chloride ([place] Baby Saline 30 Ml) 0 ml [place] Q4 PRN PRN Reason: Cough and congestion Last Admin: 08/04/17 19:12 Dose: 1 spr - Labs Labs: 08/07/17 07:32 08/07/17 01:35 PT 13.6 SECONDS (9.7-12.2) H 07/26/17 17:16 INR 1.2 07/26/17 17:16 APTT 33 SECONDS (21-34) 07/26/17 17:16 - Head Exam Head Exam: ATRAUMATIC - Eye Exam Eye Exam: Normal appearance - ENT Exam ENT Exam: Mucous Membranes Dry - Respiratory Exam Respiratory Exam: NORMAL BREATHING PATTERN - GI/Abdominal Exam GI & Abdominal Exam: Normal Bowel Sounds Assessment and Plan (1) Thrombocytopenia Assessment & Plan: progressive ? sepsis rule out DIC heparin Ab and serotonin release assay sent Status: Acute (2) Anemia Assessment & Plan: chronic disease, borderline iron stores transfusion support PRN Status: Acute (3) Leukocytosis Assessment & Plan: on antibiotics Status: Acute
--- NOTE | 2017-08-07 23:25 | CP.PCM.PN ---
Subjective - Date & Time of Evaluation Date of Evaluation: 08/05/17 Time of Evaluation: 07:20 - Subjective Subjective: Patient seen and evaluated Objective - Vital Signs/Intake and Output Vital Signs (last 24 hours): Temp Pulse Resp BP Pulse Ox 98.8 F 106 H 19 120/43 L 97 08/07/17 20:00 08/07/17 20:30 08/07/17 20:30 08/07/17 20:30 08/07/17 20:30 Intake and Output: 08/07/17 08/08/17 18:59 06:59 Intake Total 278.4 130 Output Total 420 90 Balance -141.6 40 - Medications Medications: Current Medications Acetaminophen (Tylenol 325mg Tab) 650 mg PO ONCE PRN PRN Reason: Pre transfusion Last Admin: 08/03/17 01:35 Dose: 650 mg Albuterol/Ipratropium (Duoneb 3 Mg/0.5 Mg (3 Ml) Ud) 3 ml INH Q4H [facility] Last Admin: 08/07/17 20:01 Dose: 3 ml Aspirin (Aspirin Chewable) 81 mg PO DAILY [facility] Last Admin: 08/07/17 10:26 Dose: 81 mg Benzocaine/Menthol (Cepacol Sore Throat) 1 ryan MT Q4 PRN PRN Reason: Sore Throat Last Admin: 08/05/17 15:22 Dose: 1 ryan Clopidogrel Bisulfate (Plavix) 75 mg PO DAILY [facility] Last Admin: 07/30/17 10:41 Dose: Not Given Diltiazem HCl (Cardizem) 30 mg PO Q6 [facility] Last Admin: 08/07/17 18:15 Dose: 30 mg Diphenhydramine HCl (Benadryl) 25 mg PO ONCE PRN PRN Reason: Pre transfusion Last Admin: 08/03/17 01:35 Dose: 25 mg Famotidine (Pepcid) 20 mg IVP DAILY [facility] Last Admin: 08/07/17 15:45 Dose: 20 mg Heparin Sodium (Porcine) (Heparin) 5,000 units SC Q8 [facility] Last Admin: 08/07/17 21:59 Dose: 5,000 units Cefepime HCl 1 gm/ Dextrose 50 mls @ 100 mls/hr IVPB Q8H [facility] Last Admin: 08/07/17 18:15 Dose: 100 mls/hr Vancomycin HCl 1 gm/ Sodium (Chloride) 200 mls @ 133.333 mls/hr IVPB Q12H [facility] Last Admin: 08/07/17 18:14 Dose: 133.333 mls/hr Azithromycin 500 mg/ Sodium (Chloride) 250 mls @ 250 mls/hr IVPB DAILY [facility] Propofol (Diprivan) 1,000 mg in 100 mls @ 1.683 mls/hr IV .Q24H PRN; Protocol; 5 MCG/KG/MIN PRN Reason: TITRATE PER MD ORDER Last Titration: 08/07/17 20:12 Dose: 15 mcg/kg/min, 5.05 mls/hr Lidocaine HCl (Lidocaine 2% Viscous) 15 ml PO ONCE PRN PRN Reason: throat pain Last Admin: 08/05/17 15:22 Dose: 15 ml Nystatin (Nystop Topical Powder) 1 applic TOP BID [facility] Stop: 08/17/17 18:01 Last Admin: 08/07/17 18:17 Dose: 1 applic Rosuvastatin Calcium (Crestor) 5 mg PO HS [facility] Last Admin: 08/07/17 21:59 Dose: 5 mg Fluticasone/Salmeterol (Advair Diskus 250/50) 1 puff IH RQ12 [facility] Last Admin: 08/07/17 19:58 Dose: Not Given Sodium Chloride ([place] Baby Saline 30 Ml) 0 ml [place] Q4 PRN PRN Reason: Cough and congestion Last Admin: 08/04/17 19:12 Dose: 1 spr - Labs Labs: 08/07/17 07:32 08/07/17 01:35 PT 13.6 SECONDS (9.7-12.2) H 07/26/17 17:16 INR 1.2 07/26/17 17:16 APTT 33 SECONDS (21-34) 07/26/17 17:16
--- NOTE | 2017-08-07 23:26 | CP.PCM.PN ---
Subjective - Date & Time of Evaluation Date of Evaluation: 08/06/17 Time of Evaluation: 08:10 - Subjective Subjective: Patient seen and evaluated No new events noted Objective - Vital Signs/Intake and Output Vital Signs (last 24 hours): Temp Pulse Resp BP Pulse Ox 98.8 F 106 H 19 120/43 L 97 08/07/17 20:00 08/07/17 20:30 08/07/17 20:30 08/07/17 20:30 08/07/17 20:30 Intake and Output: 08/07/17 08/08/17 18:59 06:59 Intake Total 278.4 130 Output Total 420 90 Balance -141.6 40 - Medications Medications: Current Medications Acetaminophen (Tylenol 325mg Tab) 650 mg PO ONCE PRN PRN Reason: Pre transfusion Last Admin: 08/03/17 01:35 Dose: 650 mg Albuterol/Ipratropium (Duoneb 3 Mg/0.5 Mg (3 Ml) Ud) 3 ml INH Q4H [facility] Last Admin: 08/07/17 20:01 Dose: 3 ml Aspirin (Aspirin Chewable) 81 mg PO DAILY [facility] Last Admin: 08/07/17 10:26 Dose: 81 mg Benzocaine/Menthol (Cepacol Sore Throat) 1 ryan MT Q4 PRN PRN Reason: Sore Throat Last Admin: 08/05/17 15:22 Dose: 1 ryan Clopidogrel Bisulfate (Plavix) 75 mg PO DAILY [facility] Last Admin: 07/30/17 10:41 Dose: Not Given Diltiazem HCl (Cardizem) 30 mg PO Q6 [facility] Last Admin: 08/07/17 18:15 Dose: 30 mg Diphenhydramine HCl (Benadryl) 25 mg PO ONCE PRN PRN Reason: Pre transfusion Last Admin: 08/03/17 01:35 Dose: 25 mg Famotidine (Pepcid) 20 mg IVP DAILY [facility] Last Admin: 08/07/17 15:45 Dose: 20 mg Heparin Sodium (Porcine) (Heparin) 5,000 units SC Q8 [facility] Last Admin: 08/07/17 21:59 Dose: 5,000 units Cefepime HCl 1 gm/ Dextrose 50 mls @ 100 mls/hr IVPB Q8H [facility] Last Admin: 08/07/17 18:15 Dose: 100 mls/hr Vancomycin HCl 1 gm/ Sodium (Chloride) 200 mls @ 133.333 mls/hr IVPB Q12H [facility] Last Admin: 08/07/17 18:14 Dose: 133.333 mls/hr Azithromycin 500 mg/ Sodium (Chloride) 250 mls @ 250 mls/hr IVPB DAILY [facility] Propofol (Diprivan) 1,000 mg in 100 mls @ 1.683 mls/hr IV .Q24H PRN; Protocol; 5 MCG/KG/MIN PRN Reason: TITRATE PER MD ORDER Last Titration: 08/07/17 20:12 Dose: 15 mcg/kg/min, 5.05 mls/hr Lidocaine HCl (Lidocaine 2% Viscous) 15 ml PO ONCE PRN PRN Reason: throat pain Last Admin: 08/05/17 15:22 Dose: 15 ml Nystatin (Nystop Topical Powder) 1 applic TOP BID [facility] Stop: 08/17/17 18:01 Last Admin: 08/07/17 18:17 Dose: 1 applic Rosuvastatin Calcium (Crestor) 5 mg PO HS [facility] Last Admin: 08/07/17 21:59 Dose: 5 mg Fluticasone/Salmeterol (Advair Diskus 250/50) 1 puff IH RQ12 [facility] Last Admin: 08/07/17 19:58 Dose: Not Given Sodium Chloride ([place] Baby Saline 30 Ml) 0 ml [place] Q4 PRN PRN Reason: Cough and congestion Last Admin: 08/04/17 19:12 Dose: 1 spr - Labs Labs: 08/07/17 07:32 08/07/17 01:35 PT 13.6 SECONDS (9.7-12.2) H 07/26/17 17:16 INR 1.2 07/26/17 17:16 APTT 33 SECONDS (21-34) 07/26/17 17:16
--- NOTE | 2017-08-07 23:27 | CP.PCM.PN ---
Subjective - Date & Time of Evaluation Date of Evaluation: 08/07/17 Time of Evaluation: 08:25 - Subjective Subjective: Patient seen and evaluated in ICU Objective - Vital Signs/Intake and Output Vital Signs (last 24 hours): Temp Pulse Resp BP Pulse Ox 98.8 F 106 H 19 120/43 L 97 08/07/17 20:00 08/07/17 20:30 08/07/17 20:30 08/07/17 20:30 08/07/17 20:30 Intake and Output: 08/07/17 08/08/17 18:59 06:59 Intake Total 278.4 130 Output Total 420 90 Balance -141.6 40 - Medications Medications: Current Medications Acetaminophen (Tylenol 325mg Tab) 650 mg PO ONCE PRN PRN Reason: Pre transfusion Last Admin: 08/03/17 01:35 Dose: 650 mg Albuterol/Ipratropium (Duoneb 3 Mg/0.5 Mg (3 Ml) Ud) 3 ml INH Q4H [facility] Last Admin: 08/07/17 20:01 Dose: 3 ml Aspirin (Aspirin Chewable) 81 mg PO DAILY [facility] Last Admin: 08/07/17 10:26 Dose: 81 mg Benzocaine/Menthol (Cepacol Sore Throat) 1 ryan MT Q4 PRN PRN Reason: Sore Throat Last Admin: 08/05/17 15:22 Dose: 1 ryan Clopidogrel Bisulfate (Plavix) 75 mg PO DAILY [facility] Last Admin: 07/30/17 10:41 Dose: Not Given Diltiazem HCl (Cardizem) 30 mg PO Q6 [facility] Last Admin: 08/07/17 18:15 Dose: 30 mg Diphenhydramine HCl (Benadryl) 25 mg PO ONCE PRN PRN Reason: Pre transfusion Last Admin: 08/03/17 01:35 Dose: 25 mg Famotidine (Pepcid) 20 mg IVP DAILY [facility] Last Admin: 08/07/17 15:45 Dose: 20 mg Heparin Sodium (Porcine) (Heparin) 5,000 units SC Q8 [facility] Last Admin: 08/07/17 21:59 Dose: 5,000 units Cefepime HCl 1 gm/ Dextrose 50 mls @ 100 mls/hr IVPB Q8H [facility] Last Admin: 08/07/17 18:15 Dose: 100 mls/hr Vancomycin HCl 1 gm/ Sodium (Chloride) 200 mls @ 133.333 mls/hr IVPB Q12H [facility] Last Admin: 08/07/17 18:14 Dose: 133.333 mls/hr Azithromycin 500 mg/ Sodium (Chloride) 250 mls @ 250 mls/hr IVPB DAILY [facility] Propofol (Diprivan) 1,000 mg in 100 mls @ 1.683 mls/hr IV .Q24H PRN; Protocol; 5 MCG/KG/MIN PRN Reason: TITRATE PER MD ORDER Last Titration: 08/07/17 20:12 Dose: 15 mcg/kg/min, 5.05 mls/hr Lidocaine HCl (Lidocaine 2% Viscous) 15 ml PO ONCE PRN PRN Reason: throat pain Last Admin: 08/05/17 15:22 Dose: 15 ml Nystatin (Nystop Topical Powder) 1 applic TOP BID [facility] Stop: 08/17/17 18:01 Last Admin: 08/07/17 18:17 Dose: 1 applic Rosuvastatin Calcium (Crestor) 5 mg PO HS [facility] Last Admin: 08/07/17 21:59 Dose: 5 mg Fluticasone/Salmeterol (Advair Diskus 250/50) 1 puff IH RQ12 [facility] Last Admin: 08/07/17 19:58 Dose: Not Given Sodium Chloride ([place] Baby Saline 30 Ml) 0 ml [place] Q4 PRN PRN Reason: Cough and congestion Last Admin: 08/04/17 19:12 Dose: 1 spr - Labs Labs: 08/07/17 07:32 08/07/17 01:35 PT 13.6 SECONDS (9.7-12.2) H 07/26/17 17:16 INR 1.2 07/26/17 17:16 APTT 33 SECONDS (21-34) 07/26/17 17:16
[2017-08-08] MEDS: Albuterol-Ipratrop 3 mg / 0.5 (3 ml) UD INH SCH ×6 (00:09→19:59)
[2017-08-08] MEDS: Vancomycin 1 GM in Sodium Chloride 0.9% 200 ML IVPB SCH ×2 (04:29→17:00)
[2017-08-08] MEDS: Propofol 10 mg/ml 1,000 MG/100 ML VIAL IV PRN (04:29)
[2017-08-08 05:29] LABS: ARTERIAL BLOOD GAS HCO3 30.2 mmol/L (21-28); ARTERIAL BLOOD GAS HEMOGLOBIN 7.2 g/dL (11.7-17.4); ARTERIAL BLOOD GAS O2 SAT 99.4 % (95-98); ARTERIAL BLOOD GAS PCO2 38 mm/Hg (35-45); ARTERIAL BLOOD GAS PH 7.51 (7.35-7.45); ARTERIAL BLOOD GAS PO2 102 mm/Hg (80-100); ARTERIAL BLOOD GAS TCO2 31.5 mmol/L (22-28)
[2017-08-08 06:30] LABS: BASO % 0.1 % (0.0-2.0); LYMPH # 0.2 K/uL (1.0-4.3); MEAN CORPUSCULAR HEMOGLOBIN 25.2 pg (27.0-31.0); MEAN CORPUSCULAR HGB CONC 31.9 g/dL (33.0-37.0); MEAN PLATELET VOLUME 9.3 fL (7.2-11.7); MONO # 0.2 K/uL (0.0-0.8); MONO % 1.1 % (0.0-10.0); NEUT # 16.5 K/uL (1.8-7.0); NEUT % 97.8 % (50.0-75.0); PLATELET COUNT 59 K/uL (130-400); WHITE BLOOD COUNT 16.9 K/uL (4.8-10.8)
[2017-08-08 06:54] LABS: ALB/GLOB RATIO 0.8 (1.0-2.1); ALBUMIN 2.2 g/dL (3.5-5.0); ALT/SGPT 46 U/L (21-72); AST/SGOT 35 U/L (17-59); BLOOD UREA NITROGEN 36 mg/dL (9-20); CALCIUM 7.6 mg/dl (8.6-10.4); GFR AFRICAN-AMERICAN > 60; GFR NON-AFRICAN AMERICAN > 60; MAGNESIUM 2.1 mg/dL (1.6-2.3)
[2017-08-08 06:57] LABS: HEMOGLOBIN 6.5 g/dL (12.0-18.0)
[2017-08-08] MEDS: Fluticasone-Salmeterol 250-50mcg Diskus IH SCH (07:56)
[2017-08-08 08:13] LABS: LYMPH # 0.2 K/uL (1.0-4.3); LYMPH % 1.1 % (20.0-40.0); MEAN CELL VOLUME 78.3 fL (80.0-94.0); MEAN CORPUSCULAR HEMOGLOBIN 25.2 pg (27.0-31.0); MEAN CORPUSCULAR HGB CONC 32.2 g/dL (33.0-37.0); MEAN PLATELET VOLUME 8.6 fL (7.2-11.7); MONO # 0.2 K/uL (0.0-0.8); NEUT # 16.1 K/uL (1.8-7.0); NEUT % 97.9 % (50.0-75.0); RBC 2.59 Mil/uL (4.40-5.90); RED CELL DISTRIBUTION WIDTH 19.6 % (11.5-14.5); WHITE BLOOD COUNT 16.4 K/uL (4.8-10.8)
[2017-08-08 08:20] LABS: HEMOGLOBIN 6.5 g/dL (12.0-18.0)
[2017-08-08 08:40] LABS: ANISOCYTOSIS MODERATE; BANDS 7 % (0-2); HYPOCHROMIC MODERATE; LYMPHOCYTE 1 % (20-40); MONOCYTE 1 % (0-10); NEUTROPHIL 91 % (50-75); PLATELET ESTIMATE DECREASED (NORMAL); TOTAL CELLS COUNTED 100
[2017-08-08 08:54] LABS: LARGE PLATELETS PRESENT; OVALOCYTES SLIGHT; TOXIC GRANULATION PRESENT
--- NOTE | 2017-08-08 08:57 | RAD ---
HISTORY: sob COMPARISON: 08/07/2017 FINDINGS: LUNGS: Extensive opacity upper and lower right lung. Opacity at left lung base unchanged. Slight improvement in left upper lobe opacity. PLEURA: Extensive left apical pleural thickening, unchanged. No pleural effusion or pneumothorax. CARDIOVASCULAR: Normal heart size. ET tube, NG tube and right IJ central venous catheter unchanged. OSSEOUS STRUCTURES: No significant abnormalities. VISUALIZED UPPER ABDOMEN: Normal. OTHER FINDINGS: None. IMPRESSION: Persistent bilateral infiltrates. Extensive left apical pleural thickening. Lines and tubes unchanged.
[2017-08-08] MEDS ORDERED: Azithromycin 500 MG in Sodium Chloride 0.9% 250 ML IVPB SCH (10:00)
--- NOTE | 2017-08-08 11:47 | CP.CCUPN ---
<Francisco Taylor - Last Filed: 08/08/17 11:44> CCU Subjective - Physician Review Subjective (Free Text): 08/08/17 11:44 patient seen and examined at bedside intubted sedated patient HgB dropped today, transfuse 2 units, checking stool for blood, will let GI know pneumonia, afib, will continue antibiotics CCU Objective - Vital Signs / Intake & Output Vital Signs (Last 4 hours): Vital Signs Temp Pulse Resp BP 08/08/17 10:25 98.1 F 117 H 18 107/41 L 08/08/17 10:05 98.1 F 117 H 17 100/49 L Intake and Output (Last 8hrs): Intake & Output 08/07/17 08/08/17 08/08/17 22:59 06:59 14:59 Intake Total 440 430 60 Output Total 550 450 0 Balance -110 -20 60 Weight 121 lb 4.068 oz Intake: IV 20 80 50 Intake, IV Amount 390 290 10 Right Medial Port 40 40 10 Right Proximal Port 350 250 Blood Product 0 Red Blood Cells Cpd As1 0 Lr Unit [id number] Other 30 60 Output: Urine 550 450 0 Urethral (Han) 550 450 0 Emesis 0 Other: # Bowel Movements 0 0 0 - Physical Exam Head: Positive for: Atraumatic, Normocephalic Pupils: Positive for: PERRL Extroacular Muscles: Positive for: EOMI Conjunctiva: Positive for: Normal Mouth: Positive for: Moist Mucous Membranes Neck: Positive for: Normal Range of Motion Respiratory/Chest: Positive for: Rales Cardiovascular: Positive for: Tachycardic Abdomen: Positive for: Normal Bowel Sounds. Negative for: Tenderness, Distention, Peritoneal Signs Skin: Positive for: Warm Psychiatric: Positive for: Alert - Medications Active Medications: Active Medications Generic Name Dose Route Start Last Admin Trade Name Freq PRN Reason Stop Dose Admin Acetaminophen 650 mg 08/03/17 01:00 08/03/17 01:35 Tylenol 325mg Tab PO 650 mg ONCE PRN Administration Pre transfusion Albuterol/Ipratropium 3 ml 08/03/17 12:00 08/08/17 07:56 Duoneb 3 Mg/0.5 Mg (3 Ml) Ud INH 3 ml Q4H HAZEL Administration Benzocaine/Menthol 1 ryan 07/29/17 16:59 08/05/17 15:22 Cepacol Sore Throat MT 1 ryan Q4 PRN Administration Sore Throat Clopidogrel Bisulfate 75 mg 07/24/17 12:15 07/30/17 10:41 Plavix PO Not Given DAILY HAZEL Diltiazem HCl 30 mg 08/07/17 09:15 08/08/17 05:11 Cardizem PO 30 mg Q6 HAZEL Administration Diphenhydramine HCl 25 mg 08/03/17 01:00 08/03/17 01:35 Benadryl PO 25 mg ONCE PRN Administration Pre transfusion Famotidine 20 mg 08/07/17 14:15 08/08/17 11:25 Pepcid IVP 20 mg DAILY HAEZL Administration Cefepime HCl 1 gm/ Dextrose 50 mls @ 100 mls/hr 08/03/17 18:30 08/08/17 11:31 IVPB 100 mls/hr Q8H HAZEL Administration Vancomycin HCl 1 gm/ Sodium 200 mls @ 133.333 mls/hr 08/03/17 17:00 08/08/17 04:29 Chloride IVPB 133.333 mls/hr Q12H HAZEL Administration Propofol 1,000 mg in 100 mls @ 1.683 mls/hr 08/07/17 11:11 08/08/17 09:00 Diprivan IV 0 mcg/kg/min .Q24H PRN 0 mls/hr TITRATE PER MD ORDER Titration Protocol 5 MCG/KG/MIN Lidocaine HCl 15 ml 08/02/17 12:41 08/05/17 15:22 Lidocaine 2% Viscous PO 15 ml ONCE PRN Administration throat pain Nystatin 1 applic 08/03/17 18:00 08/08/17 10:00 Nystop Topical Powder TOP 08/17/17 18:01 1 applic BID HAZEL Administration Rosuvastatin Calcium 5 mg 07/24/17 22:00 08/07/17 21:59 Crestor PO 5 mg HS HAZEL Administration Sodium Chloride 0 ml 07/28/17 16:42 08/04/17 19:12 Hart Baby Saline 30 Ml MADISON 1 spr Q4 PRN Administration Cough and congestion - Patient Studies Lab Studies: Microbiology Studies 08/07/17 13:46 Gram Stain - Final Trachasp 08/03/17 16:45 Blood Culture - Preliminary Blood-Venous NO GROWTH AFTER 4 DAYS 08/03/17 17:00 Blood Culture - Preliminary Blood-Venous NO GROWTH AFTER 4 DAYS 08/05/17 07:56 Mycobacterial Culture - Preliminary Other: Please Indicate Lab Studies 08/08/17 08/08/17 08/08/17 Range/Units 07:59 07:59 06:19 WBC 16.4 H (4.8-10.8) K/uL RBC 2.59 L (4.40-5.90) Mil/uL Hgb 6.5 L* (12.0-18.0) g/dL Hct 20.3 L (35.0-51.0) % MCV 78.3 L (80.0-94.0) fL MCH 25.2 L (27.0-31.0) pg MCHC 32.2 L (33.0-37.0) g/dL RDW 19.6 H (11.5-14.5) % Plt Count 57 L (130-400) K/uL MPV 8.6 (7.2-11.7) fL Neut % (Auto) 97.9 H (50.0-75.0) % Lymph % (Auto) 1.1 L (20.0-40.0) % Weston % (Auto) 1.0 (0.0-10.0) % Eos % (Auto) 0.0 (0.0-4.0) % Baso % (Auto) 0.0 (0.0-2.0) % Neut # (Auto) 16.1 H (1.8-7.0) K/uL Lymph # (Auto) 0.2 L (1.0-4.3) K/uL Weston # (Auto) 0.2 (0.0-0.8) K/uL Eos # (Auto) 0.0 (0.0-0.7) K/uL Baso # (Auto) 0.0 (0.0-0.2) K/uL Neutrophils % (Manual) (50-75) % Band Neutrophils % (0-2) % Lymphocytes % (Manual) (20-40) % Monocytes % (Manual) (0-10) % Toxic Granulation Platelet Estimate (NORMAL) Large Platelets Hypochromasia (manual) Anisocytosis (manual) Ovalocytes Fibrinogen (200-400) mg/dL Puncture Site pCO2 (35-45) mm/Hg pO2 (80-100) mm/Hg HCO3 (21-28) mmol/L ABG pH (7.35-7.45) ABG Total CO2 (22-28) mmol/L ABG O2 Saturation (95-98) % ABG Base Excess (-2.0-3.0) mmol/L ABG Hemoglobin (11.7-17.4) g/dL ABG Carboxyhemoglobin (0.5-1.5) % POC ABG HHb (Measured) (0.0-5.0) % ABG Methemoglobin (0.0-3.0) % Peter Test ABG Potassium (3.6-5.2) mmol/L A-a O2 Difference mm/Hg Respiratory Index Sodium 148 (132-148) mmol/l Chloride 109 H (98-107) mmol/L Glucose (75-110) mg/dl Lactate (0.7-2.1) mmol/L Hgb O2 Saturation (95.0-98.0) % Mechanical Rate FiO2 % Tidal Volume PEEP Vent Mode Potassium 3.6 (3.6-5.2) mmol/L Carbon Dioxide 33 H (22-30) mmol/L Anion Gap 9 L (10-20) BUN 36 H (9-20) mg/dL Creatinine 0.6 L (0.8-1.5) mg/dL Est GFR ( Amer) > 60 Est GFR (Non-Af Amer) > 60 Random Glucose 142 H (75-110) mg/dL Calcium 7.6 L (8.6-10.4) mg/dl Phosphorus 3.8 (2.5-4.5) mg/dL Magnesium 2.1 (1.6-2.3) mg/dL Total Bilirubin 1.3 (0.2-1.3) mg/dL AST 35 (17-59) U/L ALT 46 (21-72) U/L Alkaline Phosphatase 79 (38-126) U/L Total Protein 4.9 L (6.3-8.3) g/dL Albumin 2.2 L (3.5-5.0) g/dL Globulin 2.7 (2.2-3.9) gm/dL Albumin/Globulin Ratio 0.8 L (1.0-2.1) Procalcitonin (0.19-0.49) NG/ML Arterial Blood Potassium (3.6-5.2) mmol/L Ur L.pneumophila Ag (NEGATIVE) Mycoplasma pneumon IgM (NEGATIVE) Blood Type A NEGATIVE Antibody Screen Negative 08/08/17 08/08/17 08/08/17 Range/Units 06:18 06:18 05:11 WBC 16.9 H (4.8-10.8) K/uL RBC 2.60 L (4.40-5.90) Mil/uL Hgb 6.5 L* (12.0-18.0) g/dL Hct 20.5 L (35.0-51.0) % MCV 79.0 L (80.0-94.0) fL MCH 25.2 L (27.0-31.0) pg MCHC 31.9 L (33.0-37.0) g/dL RDW 20.0 H (11.5-14.5) % Plt Count 59 L D (130-400) K/uL MPV 9.3 (7.2-11.7) fL Neut % (Auto) 97.8 H (50.0-75.0) % Lymph % (Auto) 1.0 L (20.0-40.0) % Weston % (Auto) 1.1 (0.0-10.0) % Eos % (Auto) 0.0 (0.0-4.0) % Baso % (Auto) 0.1 (0.0-2.0) % Neut # (Auto) 16.5 H (1.8-7.0) K/uL Lymph # (Auto) 0.2 L (1.0-4.3) K/uL Weston # (Auto) 0.2 (0.0-0.8) K/uL Eos # (Auto) 0.0 (0.0-0.7) K/uL Baso # (Auto) 0.0 (0.0-0.2) K/uL Neutrophils % (Manual) 91 H (50-75) % Band Neutrophils % 7 H (0-2) % Lymphocytes % (Manual) 1 L (20-40) % Monocytes % (Manual) 1 (0-10) % Toxic Granulation Present Platelet Estimate Decreased L (NORMAL) Large Platelets Present Hypochromasia (manual) Moderate Anisocytosis (manual) Moderate Ovalocytes Slight Fibrinogen 633 H (200-400) mg/dL Puncture Site Rb pCO2 38 (35-45) mm/Hg pO2 102 H (80-100) mm/Hg HCO3 30.2 H (21-28) mmol/L ABG pH 7.51 H (7.35-7.45) ABG Total CO2 31.5 H (22-28) mmol/L ABG O2 Saturation 99.4 H (95-98) % ABG Base Excess 6.7 H (-2.0-3.0) mmol/L ABG Hemoglobin 7.2 L (11.7-17.4) g/dL ABG Carboxyhemoglobin 2.2 H (0.5-1.5) % POC ABG HHb (Measured) 0.6 (0.0-5.0) % ABG Methemoglobin 0.5 (0.0-3.0) % Peter Test Na ABG Potassium (3.6-5.2) mmol/L A-a O2 Difference 207.0 mm/Hg Respiratory Index 2.0 Sodium (132-148) mmol/l Chloride (98-107) mmol/L Glucose (75-110) mg/dl Lactate (0.7-2.1) mmol/L Hgb O2 Saturation 96.7 (95.0-98.0) % Mechanical Rate 14 FiO2 50.0 % Tidal Volume 450 PEEP 5 Vent Mode Prvc Potassium (3.6-5.2) mmol/L Carbon Dioxide (22-30) mmol/L Anion Gap (10-20) BUN (9-20) mg/dL Creatinine (0.8-1.5) mg/dL Est GFR ( Amer) Est GFR (Non-Af Amer) Random Glucose (75-110) mg/dL Calcium (8.6-10.4) mg/dl Phosphorus (2.5-4.5) mg/dL Magnesium (1.6-2.3) mg/dL Total Bilirubin (0.2-1.3) mg/dL AST (17-59) U/L ALT (21-72) U/L Alkaline Phosphatase (38-126) U/L Total Protein (6.3-8.3) g/dL Albumin (3.5-5.0) g/dL Globulin (2.2-3.9) gm/dL Albumin/Globulin Ratio (1.0-2.1) Procalcitonin (0.19-0.49) NG/ML Arterial Blood Potassium (3.6-5.2) mmol/L Ur L.pneumophila Ag (NEGATIVE) Mycoplasma pneumon IgM (NEGATIVE) Blood Type Antibody Screen 08/07/17 08/07/17 08/07/17 Range/Units 18:38 18:38 13:50 WBC (4.8-10.8) K/uL RBC (4.40-5.90) Mil/uL Hgb (12.0-18.0) g/dL Hct (35.0-51.0) % MCV (80.0-94.0) fL MCH (27.0-31.0) pg MCHC (33.0-37.0) g/dL RDW (11.5-14.5) % Plt Count (130-400) K/uL MPV (7.2-11.7) fL Neut % (Auto) (50.0-75.0) % Lymph % (Auto) (20.0-40.0) % Weston % (Auto) (0.0-10.0) % Eos % (Auto) (0.0-4.0) % Baso % (Auto) (0.0-2.0) % Neut # (Auto) (1.8-7.0) K/uL Lymph # (Auto) (1.0-4.3) K/uL Weston # (Auto) (0.0-0.8) K/uL Eos # (Auto) (0.0-0.7) K/uL Baso # (Auto) (0.0-0.2) K/uL Neutrophils % (Manual) (50-75) % Band Neutrophils % (0-2) % Lymphocytes % (Manual) (20-40) % Monocytes % (Manual) (0-10) % Toxic Granulation Platelet Estimate (NORMAL) Large Platelets Hypochromasia (manual) Anisocytosis (manual) Ovalocytes Fibrinogen (200-400) mg/dL Puncture Site Rb pCO2 46 H (35-45) mm/Hg pO2 311 H (80-100) mm/Hg HCO3 30.4 H (21-28) mmol/L ABG pH 7.45 (7.35-7.45) ABG Total CO2 33.4 H (22-28) mmol/L ABG O2 Saturation 99.9 H (95-98) % ABG Base Excess 6.9 H (-2.0-3.0) mmol/L ABG Hemoglobin (11.7-17.4) g/dL ABG Carboxyhemoglobin (0.5-1.5) % POC ABG HHb (Measured) (0.0-5.0) % ABG Methemoglobin (0.0-3.0) % Peter Test Na ABG Potassium 3.9 (3.6-5.2) mmol/L A-a O2 Difference 345.0 mm/Hg Respiratory Index 1.1 Sodium 149.0 H (132-148) mmol/l Chloride 114.0 H (98-107) mmol/L Glucose 160 H (75-110) mg/dl Lactate 1.5 (0.7-2.1) mmol/L Hgb O2 Saturation (95.0-98.0) % Mechanical Rate 14 FiO2 100.0 % Tidal Volume 450 PEEP 5 Vent Mode Potassium (3.6-5.2) mmol/L Carbon Dioxide (22-30) mmol/L Anion Gap (10-20) BUN (9-20) mg/dL Creatinine (0.8-1.5) mg/dL Est GFR ( Amer) Est GFR (Non-Af Amer) Random Glucose (75-110) mg/dL Calcium (8.6-10.4) mg/dl Phosphorus (2.5-4.5) mg/dL Magnesium (1.6-2.3) mg/dL Total Bilirubin (0.2-1.3) mg/dL AST (17-59) U/L ALT (21-72) U/L Alkaline Phosphatase (38-126) U/L Total Protein (6.3-8.3) g/dL Albumin (3.5-5.0) g/dL Globulin (2.2-3.9) gm/dL Albumin/Globulin Ratio (1.0-2.1) Procalcitonin 0.49 (0.19-0.49) NG/ML Arterial Blood Potassium 3.9 (3.6-5.2) mmol/L Ur L.pneumophila Ag Negative (NEGATIVE) Mycoplasma pneumon IgM Negative (NEGATIVE) Blood Type Antibody Screen Laboratory Results - last 24 hr 08/07/17 08/07/17 08/07/17 13:50 18:38 18:38 WBC RBC Hgb Hct MCV MCH MCHC RDW Plt Count MPV Neut % (Auto) Lymph % (Auto) Weston % (Auto) Eos % (Auto) Baso % (Auto) Neut # (Auto) Lymph # (Auto) Weston # (Auto) Eos # (Auto) Baso # (Auto) Neutrophils % (Manual) Band Neutrophils % Lymphocytes % (Manual) Monocytes % (Manual) Toxic Granulation Platelet Estimate Large Platelets Hypochromasia (manual) Anisocytosis (manual) Ovalocytes Fibrinogen Puncture Site Rb pCO2 46 H pO2 311 H HCO3 30.4 H ABG pH 7.45 ABG Total CO2 33.4 H ABG O2 Saturation 99.9 H ABG Base Excess 6.9 H ABG Hemoglobin ABG Carboxyhemoglobin POC ABG HHb (Measured) ABG Methemoglobin Peter Test Na ABG Potassium 3.9 A-a O2 Difference 345.0 Respiratory Index 1.1 Sodium 149.0 H Chloride 114.0 H Glucose 160 H Lactate 1.5 Hgb O2 Saturation Mechanical Rate 14 FiO2 100.0 Tidal Volume 450 PEEP 5 Vent Mode Potassium Carbon Dioxide Anion Gap BUN Creatinine Est GFR ( Amer) Est GFR (Non-Af Amer) Random Glucose Calcium Phosphorus Magnesium Total Bilirubin AST ALT Alkaline Phosphatase Total Protein Albumin Globulin Albumin/Globulin Ratio Procalcitonin 0.49 Arterial Blood Potassium 3.9 Ur L.pneumophila Ag Negative Mycoplasma pneumon IgM Negative Blood Type Antibody Screen 08/08/17 08/08/17 08/08/17 05:11 06:18 06:18 WBC 16.9 H RBC 2.60 L Hgb 6.5 L* Hct 20.5 L MCV 79.0 L MCH 25.2 L MCHC 31.9 L RDW 20.0 H Plt Count 59 L D MPV 9.3 Neut % (Auto) 97.8 H Lymph % (Auto) 1.0 L Weston % (Auto) 1.1 Eos % (Auto) 0.0 Baso % (Auto) 0.1 Neut # (Auto) 16.5 H Lymph # (Auto) 0.2 L Weston # (Auto) 0.2 Eos # (Auto) 0.0 Baso # (Auto) 0.0 Neutrophils % (Manual) 91 H Band Neutrophils % 7 H Lymphocytes % (Manual) 1 L Monocytes % (Manual) 1 Toxic Granulation Present Platelet Estimate Decreased L Large Platelets Present Hypochromasia (manual) Moderate Anisocytosis (manual) Moderate Ovalocytes Slight Fibrinogen 633 H Puncture Site Rb pCO2 38 pO2 102 H HCO3 30.2 H ABG pH 7.51 H ABG Total CO2 31.5 H ABG O2 Saturation 99.4 H ABG Base Excess 6.7 H ABG Hemoglobin 7.2 L ABG Carboxyhemoglobin 2.2 H POC ABG HHb (Measured) 0.6 ABG Methemoglobin 0.5 Peter Test Na ABG Potassium A-a O2 Difference 207.0 Respiratory Index 2.0 Sodium Chloride Glucose Lactate Hgb O2 Saturation 96.7 Mechanical Rate 14 FiO2 50.0 Tidal Volume 450 PEEP 5 Vent Mode Prvc Potassium Carbon Dioxide Anion Gap BUN Creatinine Est GFR ( Amer) Est GFR (Non-Af Amer) Random Glucose Calcium Phosphorus Magnesium Total Bilirubin AST ALT Alkaline Phosphatase Total Protein Albumin Globulin Albumin/Globulin Ratio Procalcitonin Arterial Blood Potassium Ur L.pneumophila Ag Mycoplasma pneumon IgM Blood Type Antibody Screen 08/08/17 08/08/17 08/08/17 06:19 07:59 07:59 WBC 16.4 H RBC 2.59 L Hgb 6.5 L* Hct 20.3 L MCV 78.3 L MCH 25.2 L MCHC 32.2 L RDW 19.6 H Plt Count 57 L MPV 8.6 Neut % (Auto) 97.9 H Lymph % (Auto) 1.1 L Weston % (Auto) 1.0 Eos % (Auto) 0.0 Baso % (Auto) 0.0 Neut # (Auto) 16.1 H Lymph # (Auto) 0.2 L Weston # (Auto) 0.2 Eos # (Auto) 0.0 Baso # (Auto) 0.0 Neutrophils % (Manual) Band Neutrophils % Lymphocytes % (Manual) Monocytes % (Manual) Toxic Granulation Platelet Estimate Large Platelets Hypochromasia (manual) Anisocytosis (manual) Ovalocytes Fibrinogen Puncture Site pCO2 pO2 HCO3 ABG pH ABG Total CO2 ABG O2 Saturation ABG Base Excess ABG Hemoglobin ABG Carboxyhemoglobin POC ABG HHb (Measured) ABG Methemoglobin Peter Test ABG Potassium A-a O2 Difference Respiratory Index Sodium 148 Chloride 109 H Glucose Lactate Hgb O2 Saturation Mechanical Rate FiO2 Tidal Volume PEEP Vent Mode Potassium 3.6 Carbon Dioxide 33 H Anion Gap 9 L BUN 36 H Creatinine 0.6 L Est GFR ( Amer) > 60 Est GFR (Non-Af Amer) > 60 Random Glucose 142 H Calcium 7.6 L Phosphorus 3.8 Magnesium 2.1 Total Bilirubin 1.3 AST 35 ALT 46 Alkaline Phosphatase 79 Total Protein 4.9 L Albumin 2.2 L Globulin 2.7 Albumin/Globulin Ratio 0.8 L Procalcitonin Arterial Blood Potassium Ur L.pneumophila Ag Mycoplasma pneumon IgM Blood Type A NEGATIVE Antibody Screen Negative Critical Care Progress Note - Nutrition Nutrition: Nutrition Category Date Time Status NPO Diet [DIET] Diets 08/07/17 Breakfast Active Assessment/Plan - Assessment and Plan (Free Text) Assessment: 86M Afib, pneumonia Plan: Neuro: sedated for intubation 2/2 respiratory distress, acute Diprivan 1000mg (propofol 10mg/ml), titrate IV q24hr PRN Cards: HTN, chronic; AFib, chronic ASA 81 mg PO QD Crestor 5mg PO qHS Cardizem 30mg q6hr Hold plavix 75mg PO qd pending CBC and continue to trend platelets (90 --> 59) and Hb (7.7 --> 6.5) Heme: Thrombocytopenia - r/o DIC; heparin Ab and 5HT release assay pending Anemia - transfusion support PRN Transfused 2U of PRBCs O- blood with APAP 650mg PO 1x pre-transfusion prophylaxis PRN Continue trending WBCs (24.2 --> 16.9) Pulm: respiratory distress, ?COPD exacerbation Intubated RR 22, Tidal 400, PEEP 5 Duoneb 3 mg/0.5 mg UD INH RQ4 Azithromycin 500mg IV, 250mg/hr Vancomycin 1g IV, 200mg, 133 ml/hr Cefepime 1g, 100mg/hr q8hr CXR this AM showing minor improvements GI: no acute issues Order stool guaic test and GI c/s if positive PPx: Pepcid 20 mg IVP HAZEL <Stone Rodgers S - Last Filed: 08/08/17 17:21> CCU Objective - Vital Signs / Intake & Output Vital Signs (Last 4 hours): Vital Signs Temp Pulse Resp BP 08/08/17 16:55 98.5 F 119 H 19 112/52 L 08/08/17 16:45 98.0 F 117 H 18 117/48 L 08/08/17 16:15 98.2 F 117 H 17 113/47 L 08/08/17 15:45 97.9 F 117 H 19 119/47 L 08/08/17 15:15 98.4 F 116 H 19 115/53 L 08/08/17 14:45 99.1 F 120 H 18 120/49 L 08/08/17 14:30 98.5 F 113 H 17 106/46 L 08/08/17 14:15 98.1 F 108 H 15 115/43 L 08/08/17 14:00 99.3 F 105 H 16 105/40 L 08/08/17 13:45 99.1 F 107 H 17 117/45 L 08/08/17 13:25 99.1 F 111 H 19 120/46 L Intake and Output (Last 8hrs): Intake & Output 08/08/17 08/08/17 08/08/17 06:59 14:59 22:59 Intake Total 430 435 275 Output Total 450 0 Balance -20 435 275 Weight 121 lb 4.068 oz Intake: IV 80 50 Intake, IV Amount 290 10 Right Medial Port 40 10 Right Proximal Port 250 Blood Product 375 275 Apheresis Rbc Cp2d As3 Lr 50 275 1st Unit [id number] Red Blood Cells Cpd As1 325 Lr Unit [id number] Other 60 Output: Urine 450 0 Urethral (Han) 450 0 Other: # Bowel Movements 0 0 - Medications Active Medications: Active Medications Generic Name Dose Route Start Last Admin Trade Name Freq PRN Reason Stop Dose Admin Acetaminophen 650 mg 08/03/17 01:00 08/03/17 01:35 Tylenol 325mg Tab PO 650 mg ONCE PRN Administration Pre transfusion Albuterol/Ipratropium 3 ml 08/03/17 12:00 08/08/17 16:21 Duoneb 3 Mg/0.5 Mg (3 Ml) Ud INH 3 ml Q4H HAZEL Administration Benzocaine/Menthol 1 ryan 07/29/17 16:59 08/05/17 15:22 Cepacol Sore Throat MT 1 ryan Q4 PRN Administration Sore Throat Clopidogrel Bisulfate 75 mg 07/24/17 12:15 07/30/17 10:41 Plavix PO Not Given DAILY HAZEL Diltiazem HCl 30 mg 08/07/17 09:15 08/08/17 12:23 Cardizem PO 30 mg Q6 HAZEL Administration Diphenhydramine HCl 25 mg 08/03/17 01:00 08/03/17 01:35 Benadryl PO 25 mg ONCE PRN Administration Pre transfusion Famotidine 20 mg 08/07/17 14:15 08/08/17 11:25 Pepcid IVP 20 mg DAILY HAZEL Administration Cefepime HCl 1 gm/ Dextrose 50 mls @ 100 mls/hr 08/03/17 18:30 08/08/17 11:31 IVPB 100 mls/hr Q8H HAZEL Administration Vancomycin HCl 1 gm/ Sodium 200 mls @ 133.333 mls/hr 08/03/17 17:00 08/08/17 04:29 Chloride IVPB 133.333 mls/hr Q12H HAZEL Administration Propofol 1,000 mg in 100 mls @ 1.683 mls/hr 08/07/17 11:11 08/08/17 09:00 Diprivan IV 0 mcg/kg/min .Q24H PRN 0 mls/hr TITRATE PER MD ORDER Titration Protocol 5 MCG/KG/MIN Lidocaine HCl 15 ml 08/02/17 12:41 08/05/17 15:22 Lidocaine 2% Viscous PO 15 ml ONCE PRN Administration throat pain Nystatin 1 applic 08/03/17 18:00 08/08/17 10:00 Nystop Topical Powder TOP 08/17/17 18:01 1 applic BID HAZEL Administration Rosuvastatin Calcium 5 mg 07/24/17 22:00 08/07/17 21:59 Crestor PO 5 mg HS HAZEL Administration Sodium Chloride 0 ml 07/28/17 16:42 08/04/17 19:12 Hart Baby Saline 30 Ml [place] 1 spr Q4 PRN Administration Cough and congestion - Patient Studies Lab Studies: Microbiology Studies 08/07/17 13:46 Gram Stain - Final Trachasp Sputum Culture - Preliminary Gram Negative Andreas 08/03/17 16:45 Blood Culture - Preliminary Blood-Venous NO GROWTH AFTER 4 DAYS 08/03/17 17:00 Blood Culture - Preliminary Blood-Venous NO GROWTH AFTER 4 DAYS 08/05/17 07:56 Mycobacterial Culture - Preliminary Other: Please Indicate Lab Studies 08/08/17 08/08/17 08/08/17 Range/Units 07:59 07:59 06:19 WBC 16.4 H (4.8-10.8) K/uL RBC 2.59 L (4.40-5.90) Mil/uL Hgb 6.5 L* (12.0-18.0) g/dL Hct 20.3 L (35.0-51.0) % MCV 78.3 L (80.0-94.0) fL MCH 25.2 L (27.0-31.0) pg MCHC 32.2 L (33.0-37.0) g/dL RDW 19.6 H (11.5-14.5) % Plt Count 57 L (130-400) K/uL MPV 8.6 (7.2-11.7) fL Neut % (Auto) 97.9 H (50.0-75.0) % Lymph % (Auto) 1.1 L (20.0-40.0) % Weston % (Auto) 1.0 (0.0-10.0) % Eos % (Auto) 0.0 (0.0-4.0) % Baso % (Auto) 0.0 (0.0-2.0) % Neut # (Auto) 16.1 H (1.8-7.0) K/uL Lymph # (Auto) 0.2 L (1.0-4.3) K/uL Weston # (Auto) 0.2 (0.0-0.8) K/uL Eos # (Auto) 0.0 (0.0-0.7) K/uL Baso # (Auto) 0.0 (0.0-0.2) K/uL Neutrophils % (Manual) (50-75) % Band Neutrophils % (0-2) % Lymphocytes % (Manual) (20-40) % Monocytes % (Manual) (0-10) % Toxic Granulation Platelet Estimate (NORMAL) Large Platelets Hypochromasia (manual) Anisocytosis (manual) Ovalocytes Fibrinogen (200-400) mg/dL Puncture Site pCO2 (35-45) mm/Hg pO2 (80-100) mm/Hg HCO3 (21-28) mmol/L ABG pH (7.35-7.45) ABG Total CO2 (22-28) mmol/L ABG O2 Saturation (95-98) % ABG Base Excess (-2.0-3.0) mmol/L ABG Hemoglobin (11.7-17.4) g/dL ABG Carboxyhemoglobin (0.5-1.5) % POC ABG HHb (Measured) (0.0-5.0) % ABG Methemoglobin (0.0-3.0) % Peter Test A-a O2 Difference mm/Hg Respiratory Index Hgb O2 Saturation (95.0-98.0) % Vent Mode Mechanical Rate FiO2 % Tidal Volume PEEP Sodium 148 (132-148) mmol/L Potassium 3.6 (3.6-5.2) mmol/L Chloride 109 H (98-107) mmol/L Carbon Dioxide 33 H (22-30) mmol/L Anion Gap 9 L (10-20) BUN 36 H (9-20) mg/dL Creatinine 0.6 L (0.8-1.5) mg/dL Est GFR ( Amer) > 60 Est GFR (Non-Af Amer) > 60 Random Glucose 142 H (75-110) mg/dL Calcium 7.6 L (8.6-10.4) mg/dl Phosphorus 3.8 (2.5-4.5) mg/dL Magnesium 2.1 (1.6-2.3) mg/dL Total Bilirubin 1.3 (0.2-1.3) mg/dL AST 35 (17-59) U/L ALT 46 (21-72) U/L Alkaline Phosphatase 79 (38-126) U/L Total Protein 4.9 L (6.3-8.3) g/dL Albumin 2.2 L (3.5-5.0) g/dL Globulin 2.7 (2.2-3.9) gm/dL Albumin/Globulin Ratio 0.8 L (1.0-2.1) Procalcitonin (0.19-0.49) NG/ML Ur L.pneumophila Ag (NEGATIVE) Mycoplasma pneumon IgM (NEGATIVE) Blood Type A NEGATIVE Antibody Screen Negative 08/08/17 08/08/17 08/08/17 Range/Units 06:18 06:18 05:11 WBC 16.9 H (4.8-10.8) K/uL RBC 2.60 L (4.40-5.90) Mil/uL Hgb 6.5 L* (12.0-18.0) g/dL Hct 20.5 L (35.0-51.0) % MCV 79.0 L (80.0-94.0) fL MCH 25.2 L (27.0-31.0) pg MCHC 31.9 L (33.0-37.0) g/dL RDW 20.0 H (11.5-14.5) % Plt Count 59 L D (130-400) K/uL MPV 9.3 (7.2-11.7) fL Neut % (Auto) 97.8 H (50.0-75.0) % Lymph % (Auto) 1.0 L (20.0-40.0) % Weston % (Auto) 1.1 (0.0-10.0) % Eos % (Auto) 0.0 (0.0-4.0) % Baso % (Auto) 0.1 (0.0-2.0) % Neut # (Auto) 16.5 H (1.8-7.0) K/uL Lymph # (Auto) 0.2 L (1.0-4.3) K/uL Weston # (Auto) 0.2 (0.0-0.8) K/uL Eos # (Auto) 0.0 (0.0-0.7) K/uL Baso # (Auto) 0.0 (0.0-0.2) K/uL Neutrophils % (Manual) 91 H (50-75) % Band Neutrophils % 7 H (0-2) % Lymphocytes % (Manual) 1 L (20-40) % Monocytes % (Manual) 1 (0-10) % Toxic Granulation Present Platelet Estimate Decreased L (NORMAL) Large Platelets Present Hypochromasia (manual) Moderate Anisocytosis (manual) Moderate Ovalocytes Slight Fibrinogen 633 H (200-400) mg/dL Puncture Site Rb pCO2 38 (35-45) mm/Hg pO2 102 H (80-100) mm/Hg HCO3 30.2 H (21-28) mmol/L ABG pH 7.51 H (7.35-7.45) ABG Total CO2 31.5 H (22-28) mmol/L ABG O2 Saturation 99.4 H (95-98) % ABG Base Excess 6.7 H (-2.0-3.0) mmol/L ABG Hemoglobin 7.2 L (11.7-17.4) g/dL ABG Carboxyhemoglobin 2.2 H (0.5-1.5) % POC ABG HHb (Measured) 0.6 (0.0-5.0) % ABG Methemoglobin 0.5 (0.0-3.0) % Peter Test Na A-a O2 Difference 207.0 mm/Hg Respiratory Index 2.0 Hgb O2 Saturation 96.7 (95.0-98.0) % Vent Mode Prvc Mechanical Rate 14 FiO2 50.0 % Tidal Volume 450 PEEP 5 Sodium (132-148) mmol/L Potassium (3.6-5.2) mmol/L Chloride (98-107) mmol/L Carbon Dioxide (22-30) mmol/L Anion Gap (10-20) BUN (9-20) mg/dL Creatinine (0.8-1.5) mg/dL Est GFR ( Amer) Est GFR (Non-Af Amer) Random Glucose (75-110) mg/dL Calcium (8.6-10.4) mg/dl Phosphorus (2.5-4.5) mg/dL Magnesium (1.6-2.3) mg/dL Total Bilirubin (0.2-1.3) mg/dL AST (17-59) U/L ALT (21-72) U/L Alkaline Phosphatase (38-126) U/L Total Protein (6.3-8.3) g/dL Albumin (3.5-5.0) g/dL Globulin (2.2-3.9) gm/dL Albumin/Globulin Ratio (1.0-2.1) Procalcitonin (0.19-0.49) NG/ML Ur L.pneumophila Ag (NEGATIVE) Mycoplasma pneumon IgM (NEGATIVE) Blood Type Antibody Screen 08/07/17 08/07/17 Range/Units 18:38 18:38 WBC (4.8-10.8) K/uL RBC (4.40-5.90) Mil/uL Hgb (12.0-18.0) g/dL Hct (35.0-51.0) % MCV (80.0-94.0) fL MCH (27.0-31.0) pg MCHC (33.0-37.0) g/dL RDW (11.5-14.5) % Plt Count (130-400) K/uL MPV (7.2-11.7) fL Neut % (Auto) (50.0-75.0) % Lymph % (Auto) (20.0-40.0) % Weston % (Auto) (0.0-10.0) % Eos % (Auto) (0.0-4.0) % Baso % (Auto) (0.0-2.0) % Neut # (Auto) (1.8-7.0) K/uL Lymph # (Auto) (1.0-4.3) K/uL Weston # (Auto) (0.0-0.8) K/uL Eos # (Auto) (0.0-0.7) K/uL Baso # (Auto) (0.0-0.2) K/uL Neutrophils % (Manual) (50-75) % Band Neutrophils % (0-2) % Lymphocytes % (Manual) (20-40) % Monocytes % (Manual) (0-10) % Toxic Granulation Platelet Estimate (NORMAL) Large Platelets Hypochromasia (manual) Anisocytosis (manual) Ovalocytes Fibrinogen (200-400) mg/dL Puncture Site pCO2 (35-45) mm/Hg pO2 (80-100) mm/Hg HCO3 (21-28) mmol/L ABG pH (7.35-7.45) ABG Total CO2 (22-28) mmol/L ABG O2 Saturation (95-98) % ABG Base Excess (-2.0-3.0) mmol/L ABG Hemoglobin (11.7-17.4) g/dL ABG Carboxyhemoglobin (0.5-1.5) % POC ABG HHb (Measured) (0.0-5.0) % ABG Methemoglobin (0.0-3.0) % Peter Test A-a O2 Difference mm/Hg Respiratory Index Hgb O2 Saturation (95.0-98.0) % Vent Mode Mechanical Rate FiO2 % Tidal Volume PEEP Sodium (132-148) mmol/L Potassium (3.6-5.2) mmol/L Chloride (98-107) mmol/L Carbon Dioxide (22-30) mmol/L Anion Gap (10-20) BUN (9-20) mg/dL Creatinine (0.8-1.5) mg/dL Est GFR ( Amer) Est GFR (Non-Af Amer) Random Glucose (75-110) mg/dL Calcium (8.6-10.4) mg/dl Phosphorus (2.5-4.5) mg/dL Magnesium (1.6-2.3) mg/dL Total Bilirubin (0.2-1.3) mg/dL AST (17-59) U/L ALT (21-72) U/L Alkaline Phosphatase (38-126) U/L Total Protein (6.3-8.3) g/dL Albumin (3.5-5.0) g/dL Globulin (2.2-3.9) gm/dL Albumin/Globulin Ratio (1.0-2.1) Procalcitonin 0.49 (0.19-0.49) NG/ML Ur L.pneumophila Ag Negative (NEGATIVE) Mycoplasma pneumon IgM Negative (NEGATIVE) Blood Type Antibody Screen Laboratory Results - last 24 hr 08/07/17 08/07/17 08/08/17 18:38 18:38 05:11 WBC RBC Hgb Hct MCV MCH MCHC RDW Plt Count MPV Neut % (Auto) Lymph % (Auto) Weston % (Auto) Eos % (Auto) Baso % (Auto) Neut # (Auto) Lymph # (Auto) [place]on # (Auto) Eos # (Auto) Baso # (Auto) Neutrophils % (Manual) Band Neutrophils % Lymphocytes % (Manual) Monocytes % (Manual) Toxic Granulation Platelet Estimate Large Platelets Hypochromasia (manual) Anisocytosis (manual) Ovalocytes Fibrinogen Puncture Site Rb pCO2 38 pO2 102 H HCO3 30.2 H ABG pH 7.51 H ABG Total CO2 31.5 H ABG O2 Saturation 99.4 H ABG Base Excess 6.7 H ABG Hemoglobin 7.2 L ABG Carboxyhemoglobin 2.2 H POC ABG HHb (Measured) 0.6 ABG Methemoglobin 0.5 Peter Test Na A-a O2 Difference 207.0 Respiratory Index 2.0 Hgb O2 Saturation 96.7 Vent Mode Prvc Mechanical Rate 14 FiO2 50.0 Tidal Volume 450 PEEP 5 Sodium Potassium Chloride Carbon Dioxide Anion Gap BUN Creatinine Est GFR ( Amer) Est GFR (Non-Af Amer) Random Glucose Calcium Phosphorus Magnesium Total Bilirubin AST ALT Alkaline Phosphatase Total Protein Albumin Globulin Albumin/Globulin Ratio Procalcitonin 0.49 Ur L.pneumophila Ag Negative Mycoplasma pneumon IgM Negative Blood Type Antibody Screen 08/08/17 08/08/17 08/08/17 06:18 06:18 06:19 WBC 16.9 H RBC 2.60 L Hgb 6.5 L* Hct 20.5 L MCV 79.0 L MCH 25.2 L MCHC 31.9 L RDW 20.0 H Plt Count 59 L D MPV 9.3 Neut % (Auto) 97.8 H Lymph % (Auto) 1.0 L Weston % (Auto) 1.1 Eos % (Auto) 0.0 Baso % (Auto) 0.1 Neut # (Auto) 16.5 H Lymph # (Auto) 0.2 L Weston # (Auto) 0.2 Eos # (Auto) 0.0 Baso # (Auto) 0.0 Neutrophils % (Manual) 91 H Band Neutrophils % 7 H Lymphocytes % (Manual) 1 L Monocytes % (Manual) 1 Toxic Granulation Present Platelet Estimate Decreased L Large Platelets Present Hypochromasia (manual) Moderate Anisocytosis (manual) Moderate Ovalocytes Slight Fibrinogen 633 H Puncture Site pCO2 pO2 HCO3 ABG pH ABG Total CO2 ABG O2 Saturation ABG Base Excess ABG Hemoglobin ABG Carboxyhemoglobin POC ABG HHb (Measured) ABG Methemoglobin Peter Test A-a O2 Difference Respiratory Index Hgb O2 Saturation Vent Mode Mechanical Rate FiO2 Tidal Volume PEEP Sodium 148 Potassium 3.6 Chloride 109 H Carbon Dioxide 33 H Anion Gap 9 L BUN 36 H Creatinine 0.6 L Est GFR ( Amer) > 60 Est GFR (Non-Af Amer) > 60 Random Glucose 142 H Calcium 7.6 L Phosphorus 3.8 Magnesium 2.1 Total Bilirubin 1.3 AST 35 ALT 46 Alkaline Phosphatase 79 Total Protein 4.9 L Albumin 2.2 L Globulin 2.7 Albumin/Globulin Ratio 0.8 L Procalcitonin Ur L.pneumophila Ag Mycoplasma pneumon IgM Blood Type Antibody Screen 08/08/17 08/08/17 07:59 07:59 WBC 16.4 H RBC 2.59 L Hgb 6.5 L* Hct 20.3 L MCV 78.3 L MCH 25.2 L MCHC 32.2 L RDW 19.6 H Plt Count 57 L MPV 8.6 Neut % (Auto) 97.9 H Lymph % (Auto) 1.1 L Weston % (Auto) 1.0 Eos % (Auto) 0.0 Baso % (Auto) 0.0 Neut # (Auto) 16.1 H Lymph # (Auto) 0.2 L [place]on # (Auto) 0.2 Eos # (Auto) 0.0 Baso # (Auto) 0.0 Neutrophils % (Manual) Band Neutrophils % Lymphocytes % (Manual) Monocytes % (Manual) Toxic Granulation Platelet Estimate Large Platelets Hypochromasia (manual) Anisocytosis (manual) Ovalocytes Fibrinogen Puncture Site pCO2 pO2 HCO3 ABG pH ABG Total CO2 ABG O2 Saturation ABG Base Excess ABG Hemoglobin ABG Carboxyhemoglobin POC ABG HHb (Measured) ABG Methemoglobin Peter Test A-a O2 Difference Respiratory Index Hgb O2 Saturation Vent Mode Mechanical Rate FiO2 Tidal Volume PEEP Sodium Potassium Chloride Carbon Dioxide Anion Gap BUN Creatinine Est GFR ( Amer) Est GFR (Non-Af Amer) Random Glucose Calcium Phosphorus Magnesium Total Bilirubin AST ALT Alkaline Phosphatase Total Protein Albumin Globulin Albumin/Globulin Ratio Procalcitonin Ur L.pneumophila Ag Mycoplasma pneumon IgM Blood Type A NEGATIVE Antibody Screen Negative Critical Care Progress Note - Nutrition Nutrition: Nutrition Category Date Time Status NPO Diet [DIET] Diets 08/07/17 Breakfast Active Attending/Attestation - Attestation I have personally seen and examined this patient.: Yes I have fully participated in the care of the patient.: Yes I have reviewed all pertinent clinical information: Yes Notes (Text): 08/08/17 17:19 Patient seen and examined in the intensive care unit. Case discussed with house staff in the morning rounds Patient remains intubated on ventilatory support Continue antibiotics for pneumonia Transfuse 2 units PRBCs Stool guaiac and GI evaluation Plavix and aspirin on hold
--- NOTE | 2017-08-08 15:57 | CP.PCM.PN ---
Subjective - Date & Time of Evaluation Date of Evaluation: 08/08/17 Time of Evaluation: 15:57 Objective - Vital Signs/Intake and Output Vital Signs (last 24 hours): Temp Pulse Resp BP Pulse Ox 98.1 F 108 H 15 115/43 L 96 08/08/17 14:15 08/08/17 14:15 08/08/17 14:15 08/08/17 14:15 08/08/17 13:04 Intake and Output: 08/08/17 08/08/17 06:59 18:59 Intake Total 600 385 Output Total 740 0 Balance -140 385 - Medications Medications: Current Medications Acetaminophen (Tylenol 325mg Tab) 650 mg PO ONCE PRN PRN Reason: Pre transfusion Last Admin: 08/03/17 01:35 Dose: 650 mg Albuterol/Ipratropium (Duoneb 3 Mg/0.5 Mg (3 Ml) Ud) 3 ml INH Q4H [facility] Last Admin: 08/08/17 13:20 Dose: 3 ml Benzocaine/Menthol (Cepacol Sore Throat) 1 ryan MT Q4 PRN PRN Reason: Sore Throat Last Admin: 08/05/17 15:22 Dose: 1 ryan Clopidogrel Bisulfate (Plavix) 75 mg PO DAILY [facility] Last Admin: 07/30/17 10:41 Dose: Not Given Diltiazem HCl (Cardizem) 30 mg PO Q6 [facility] Last Admin: 08/08/17 12:23 Dose: 30 mg Diphenhydramine HCl (Benadryl) 25 mg PO ONCE PRN PRN Reason: Pre transfusion Last Admin: 08/03/17 01:35 Dose: 25 mg Famotidine (Pepcid) 20 mg IVP DAILY [facility] Last Admin: 08/08/17 11:25 Dose: 20 mg Cefepime HCl 1 gm/ Dextrose 50 mls @ 100 mls/hr IVPB Q8H [facility] Last Admin: 08/08/17 11:31 Dose: 100 mls/hr Vancomycin HCl 1 gm/ Sodium (Chloride) 200 mls @ 133.333 mls/hr IVPB Q12H [facility] Last Admin: 08/08/17 04:29 Dose: 133.333 mls/hr Propofol (Diprivan) 1,000 mg in 100 mls @ 1.683 mls/hr IV .Q24H PRN; Protocol; 5 MCG/KG/MIN PRN Reason: TITRATE PER MD ORDER Last Titration: 08/08/17 09:00 Dose: 0 mcg/kg/min, 0 mls/hr Lidocaine HCl (Lidocaine 2% Viscous) 15 ml PO ONCE PRN PRN Reason: throat pain Last Admin: 08/05/17 15:22 Dose: 15 ml Nystatin (Nystop Topical Powder) 1 applic TOP BID [facility] Stop: 08/17/17 18:01 Last Admin: 08/08/17 10:00 Dose: 1 applic Rosuvastatin Calcium (Crestor) 5 mg PO HS [facility] Last Admin: 08/07/17 21:59 Dose: 5 mg Sodium Chloride ([place] Baby Saline 30 Ml) 0 ml [place] Q4 PRN PRN Reason: Cough and congestion Last Admin: 08/04/17 19:12 Dose: 1 spr - Labs Labs: 08/08/17 07:59 08/08/17 06:19 PT 13.6 SECONDS (9.7-12.2) H 07/26/17 17:16 INR 1.2 07/26/17 17:16 APTT 33 SECONDS (21-34) 07/26/17 17:16
--- NOTE | 2017-08-08 18:47 | CP.PCM.PN ---
Subjective - Date & Time of Evaluation Date of Evaluation: 08/08/17 Time of Evaluation: 13:00 - Subjective Subjective: clinically same Objective - Vital Signs/Intake and Output Vital Signs (last 24 hours): Temp Pulse Resp BP Pulse Ox 98.5 F 119 H 19 112/52 L 96 08/08/17 16:55 08/08/17 16:55 08/08/17 16:55 08/08/17 16:55 08/08/17 13:04 Intake and Output: 08/08/17 08/08/17 06:59 18:59 Intake Total 600 710 Output Total 740 0 Balance -140 710 - Medications Medications: Current Medications Acetaminophen (Tylenol 325mg Tab) 650 mg PO ONCE PRN PRN Reason: Pre transfusion Last Admin: 08/03/17 01:35 Dose: 650 mg Albuterol/Ipratropium (Duoneb 3 Mg/0.5 Mg (3 Ml) Ud) 3 ml INH Q4H [facility] Last Admin: 08/08/17 16:21 Dose: 3 ml Benzocaine/Menthol (Cepacol Sore Throat) 1 ryan MT Q4 PRN PRN Reason: Sore Throat Last Admin: 08/05/17 15:22 Dose: 1 ryan Clopidogrel Bisulfate (Plavix) 75 mg PO DAILY [facility] Last Admin: 07/30/17 10:41 Dose: Not Given Diltiazem HCl (Cardizem) 30 mg PO Q6 [facility] Last Admin: 08/08/17 18:12 Dose: 30 mg Diphenhydramine HCl (Benadryl) 25 mg PO ONCE PRN PRN Reason: Pre transfusion Last Admin: 08/03/17 01:35 Dose: 25 mg Famotidine (Pepcid) 20 mg IVP DAILY [facility] Last Admin: 08/08/17 11:25 Dose: 20 mg Cefepime HCl 1 gm/ Dextrose 50 mls @ 100 mls/hr IVPB Q8H [facility] Last Admin: 08/08/17 18:10 Dose: 100 mls/hr Vancomycin HCl 1 gm/ Sodium (Chloride) 200 mls @ 133.333 mls/hr IVPB Q12H [facility] Last Admin: 08/08/17 17:00 Dose: 133.333 mls/hr Propofol (Diprivan) 1,000 mg in 100 mls @ 1.683 mls/hr IV .Q24H PRN; Protocol; 5 MCG/KG/MIN PRN Reason: TITRATE PER MD ORDER Last Titration: 08/08/17 09:00 Dose: 0 mcg/kg/min, 0 mls/hr Lidocaine HCl (Lidocaine 2% Viscous) 15 ml PO ONCE PRN PRN Reason: throat pain Last Admin: 08/05/17 15:22 Dose: 15 ml Nystatin (Nystop Topical Powder) 1 applic TOP BID [facility]ZEL Stop: 08/17/17 18:01 Last Admin: 08/08/17 18:09 Dose: 1 applic Rosuvastatin Calcium (Crestor) 5 mg PO HS [facility] Last Admin: 08/07/17 21:59 Dose: 5 mg Sodium Chloride ([place] Baby Saline 30 Ml) 0 ml [place] Q4 PRN PRN Reason: Cough and congestion Last Admin: 08/04/17 19:12 Dose: 1 spr - Labs Labs: 08/08/17 07:59 08/08/17 06:19 PT 13.6 SECONDS (9.7-12.2) H 07/26/17 17:16 INR 1.2 07/26/17 17:16 APTT 33 SECONDS (21-34) 07/26/17 17:16 - Constitutional Appears: Well - Head Exam Head Exam: ATRAUMATIC, NORMAL INSPECTION, NORMOCEPHALIC - Eye Exam Eye Exam: EOMI, Normal appearance, PERRL Pupil Exam: NORMAL ACCOMODATION, PERRL - ENT Exam ENT Exam: Mucous Membranes Moist, Normal Exam - Neck Exam Neck Exam: Full ROM, Normal Inspection. absent: Lymphadenopathy - Respiratory Exam Respiratory Exam: Decreased Breath Sounds - Cardiovascular Exam Cardiovascular Exam: REGULAR RHYTHM, +S1, +S2 - GI/Abdominal Exam GI & Abdominal Exam: Soft, Diminished Bowel Sounds - Rectal Exam Rectal Exam: Deferred
[2017-08-08 19:08] LABS: BASO % 0.1 % (0.0-2.0); HEMOGLOBIN 9.6 g/dL (12.0-18.0); LYMPH # 0.2 K/uL (1.0-4.3); LYMPH % 1.5 % (20.0-40.0); MEAN CELL VOLUME 80.4 fL (80.0-94.0); MEAN CORPUSCULAR HEMOGLOBIN 26.8 pg (27.0-31.0); MEAN CORPUSCULAR HGB CONC 33.4 g/dL (33.0-37.0); MEAN PLATELET VOLUME 8.8 fL (7.2-11.7); MONO # 0.1 K/uL (0.0-0.8); NEUT % 97.4 % (50.0-75.0); NRBC % 0.1 % (0.0-2.0); PLATELET COUNT 45 K/uL (130-400); RED CELL DISTRIBUTION WIDTH 19.9 % (11.5-14.5); WHITE BLOOD COUNT 12.3 K/uL (4.8-10.8)
[2017-08-08 19:34] LABS: BANDS 6 % (0-2); MONOCYTE 1 % (0-10); TOTAL CELLS COUNTED 100
[2017-08-08 19:35] LABS: LYMPHOCYTE 2 % (20-40); NEUTROPHIL 91 % (50-75); PLATELET ESTIMATE DECREASED (NORMAL)
--- NOTE | 2017-08-08 22:21 | CP.PCM.PN ---
Subjective - Date & Time of Evaluation Date of Evaluation: 08/08/17 Time of Evaluation: 17:00 - Subjective Subjective: Vented Objective - Vital Signs/Intake and Output Vital Signs (last 24 hours): Temp Pulse Resp BP Pulse Ox 99.1 F 121 H 18 98/41 L 95 08/08/17 20:00 08/08/17 20:00 08/08/17 20:00 08/08/17 19:50 08/08/17 20:00 Intake and Output: 08/08/17 08/09/17 18:59 06:59 Intake Total 855 50 Output Total 605 155 Balance 250 -105 - Medications Medications: Current Medications Acetaminophen (Tylenol 325mg Tab) 650 mg PO ONCE PRN PRN Reason: Pre transfusion Last Admin: 08/03/17 01:35 Dose: 650 mg Albuterol/Ipratropium (Duoneb 3 Mg/0.5 Mg (3 Ml) Ud) 3 ml INH Q4H [facility] Last Admin: 08/08/17 19:59 Dose: 3 ml Benzocaine/Menthol (Cepacol Sore Throat) 1 ryan MT Q4 PRN PRN Reason: Sore Throat Last Admin: 08/05/17 15:22 Dose: 1 ryan Clopidogrel Bisulfate (Plavix) 75 mg PO DAILY [facility] Last Admin: 07/30/17 10:41 Dose: Not Given Diltiazem HCl (Cardizem) 30 mg PO Q6 [facility] Last Admin: 08/08/17 18:12 Dose: 30 mg Diphenhydramine HCl (Benadryl) 25 mg PO ONCE PRN PRN Reason: Pre transfusion Last Admin: 08/03/17 01:35 Dose: 25 mg Famotidine (Pepcid) 20 mg IVP DAILY [facility] Last Admin: 08/08/17 11:25 Dose: 20 mg Cefepime HCl 1 gm/ Dextrose 50 mls @ 100 mls/hr IVPB Q8H [facility] Last Admin: 08/08/17 18:10 Dose: 100 mls/hr Vancomycin HCl 1 gm/ Sodium (Chloride) 200 mls @ 133.333 mls/hr IVPB Q12H [facility] Last Admin: 08/08/17 17:00 Dose: 133.333 mls/hr Propofol (Diprivan) 1,000 mg in 100 mls @ 1.683 mls/hr IV .Q24H PRN; Protocol; 5 MCG/KG/MIN PRN Reason: TITRATE PER MD ORDER Last Titration: 08/08/17 14:30 Dose: 14.85 mcg/kg/min, 5 mls/hr Lidocaine HCl (Lidocaine 2% Viscous) 15 ml PO ONCE PRN PRN Reason: throat pain Last Admin: 08/05/17 15:22 Dose: 15 ml Nystatin (Nystop Topical Powder) 1 applic TOP BID [facility] Stop: 08/17/17 18:01 Last Admin: 08/08/17 18:09 Dose: 1 applic Rosuvastatin Calcium (Crestor) 5 mg PO HS [facility] Last Admin: 08/07/17 21:59 Dose: 5 mg Sodium Chloride ([place] Baby Saline 30 Ml) 0 ml [place] Q4 PRN PRN Reason: Cough and congestion Last Admin: 08/04/17 19:12 Dose: 1 spr - Labs Labs: 08/08/17 19:02 08/08/17 06:19 PT 13.6 SECONDS (9.7-12.2) H 07/26/17 17:16 INR 1.2 07/26/17 17:16 APTT 33 SECONDS (21-34) 07/26/17 17:16 - Head Exam Head Exam: ATRAUMATIC - Eye Exam Eye Exam: Normal appearance - ENT Exam ENT Exam: Mucous Membranes Dry - Respiratory Exam Respiratory Exam: NORMAL BREATHING PATTERN - Cardiovascular Exam Cardiovascular Exam: +S1, +S2 - GI/Abdominal Exam GI & Abdominal Exam: Normal Bowel Sounds Assessment and Plan (1) Thrombocytopenia Assessment & Plan: suspect sepsis related no current DIC heparin Ab sent and heparin stopped Status: Acute (2) Anemia Assessment & Plan: acute drop s/p PRBC transfusion chronic disease, borderline iron stores f/u FOBT transfusion support PRN Status: Acute (3) Leukocytosis Assessment & Plan: improving with antibiotics Status: Acute
[2017-08-09] MEDS: Albuterol-Ipratrop 3 mg / 0.5 (3 ml) UD INH SCH ×8 (00:02→23:37)
[2017-08-09] MEDS: Propofol 10 mg/ml 1,000 MG/100 ML VIAL IV PRN (04:15)
[2017-08-09] MEDS: Vancomycin 1 GM in Sodium Chloride 0.9% 200 ML IVPB SCH ×2 (04:16→17:51)
[2017-08-09 05:54] LABS: ARTERIAL BLOOD GAS HCO3 28.1 mmol/L (21-28); ARTERIAL BLOOD GAS HEMOGLOBIN 13.8 g/dL (11.7-17.4); ARTERIAL BLOOD GAS O2 SAT 96.9 % (95-98); ARTERIAL BLOOD GAS PCO2 35 mm/Hg (35-45); ARTERIAL BLOOD GAS PO2 73 mm/Hg (80-100); ARTERIAL BLOOD GAS TCO2 28.4 mmol/L (22-28)
[2017-08-09 06:23] LABS: BASO % 0.1 % (0.0-2.0); EOS % 0.1 % (0.0-4.0); HEMOGLOBIN 9.4 g/dL (12.0-18.0); LYMPH # 0.2 K/uL (1.0-4.3); LYMPH % 2.2 % (20.0-40.0); MEAN CELL VOLUME 80.6 fL (80.0-94.0); MEAN CORPUSCULAR HEMOGLOBIN 27.3 pg (27.0-31.0); MEAN CORPUSCULAR HGB CONC 33.8 g/dL (33.0-37.0); MEAN PLATELET VOLUME 10.5 fL (7.2-11.7); MONO # 0.1 K/uL (0.0-0.8); MONO % 0.8 % (0.0-10.0); NEUT # 7.7 K/uL (1.8-7.0); NEUT % 96.8 % (50.0-75.0); NRBC % 0.2 % (0.0-2.0); PLATELET COUNT 34 K/uL (130-400); RBC 3.43 Mil/uL (4.40-5.90); RED CELL DISTRIBUTION WIDTH 19.9 % (11.5-14.5)
[2017-08-09 06:35] LABS: ALB/GLOB RATIO 0.8 (1.0-2.1); ALBUMIN 2.2 g/dL (3.5-5.0); ALT/SGPT 53 U/L (21-72); AST/SGOT 53 U/L (17-59); BLOOD UREA NITROGEN 36 mg/dL (9-20); CALCIUM 7.4 mg/dl (8.6-10.4); GFR AFRICAN-AMERICAN > 60; GFR NON-AFRICAN AMERICAN > 60; MAGNESIUM 2.1 mg/dL (1.6-2.3)
[2017-08-09 08:44] LABS: EOSINOPHIL 1 % (0-4); LYMPHOCYTE 3 % (20-40); MONOCYTE 2 % (0-10); TOTAL CELLS COUNTED 100
[2017-08-09 08:45] LABS: ANISOCYTOSIS MODERATE; BANDS 9 % (0-2); HYPOCHROMIC SLIGHT; NEUTROPHIL 85 % (50-75); PLATELET ESTIMATE MARKEDLY DECREASED (NORMAL)
[2017-08-09 08:46] LABS: OVALOCYTES SLIGHT; TOXIC GRANULATION PRESENT
--- NOTE | 2017-08-09 09:46 | RAD ---
Chest x-ray single frontal view History: Shortness of breath. Comparison: 08/08/2017 Findings: Lines and tubes in stable position. Worsening prominent rounded focal consolidated masslike opacity at the left lung base. Clinical correlation. Additional smaller rounded masslike density at the lateral aspect of the right upper to mid lung zone. Moderate to severe diffuse increased interstitial lung markings which may represent infiltrate or edema. Dense left apical pleural thickening and consolidative change. Patchy increased markings in the right suprahilar region. Cardiomegaly. Impression: Lines and tubes in stable position. Worsening prominent rounded focal consolidated masslike opacity at the left lung base. Clinical correlation. Additional smaller rounded masslike density at the lateral aspect of the right upper to mid lung zone. Moderate to severe diffuse increased interstitial lung markings which may represent infiltrate or edema. Dense left apical pleural thickening and consolidative change. Patchy increased markings in the right suprahilar region. Cardiomegaly.
[2017-08-09] MEDS ORDERED: Lactated Ringer's 500 ML IV ONE (10:41)
[2017-08-09] MEDS ORDERED: Lactated Ringer's 1,000 ML IV SCH ×2 (10:45→11:00)
[2017-08-09] MEDS ORDERED: Lactated Ringer's 1,000 ML IV ONE (10:55)
[2017-08-09] MEDS: Acetaminophen 650mg/20.3ml solution UD PO PRN (11:05)
--- NOTE | 2017-08-09 12:21 | CP.CCUPN ---
<Francisco Taylor - Last Filed: 08/09/17 12:53> CCU Subjective - Physician Review Subjective (Free Text): 08/09/17 12:20 patient seen and examined today intubated, sedated high fever during examination continue antibiotics therapy tylenol, cooling blanket HgB stable post transfusion CCU Objective - Vital Signs / Intake & Output Vital Signs (Last 4 hours): Vital Signs Temp Pulse Resp BP Pulse Ox 08/09/17 11:05 100.5 F H 08/09/17 10:19 118 H 24 92/28 L 95 08/09/17 09:52 122 H 24 87/36 L 95 08/09/17 08:52 129 H 20 86/36 L 95 Intake and Output (Last 8hrs): Intake & Output 08/08/17 08/09/17 08/09/17 22:59 06:59 14:59 Intake Total 465 370 235.4 Output Total 460 310 200 Balance 5 60 35.4 Weight 100 lb 5 oz Intake: IV 50 45 Intake, IV Amount 40 40 10.4 Right Medial Port 40 40 10.4 Tube Feeding 100 280 180 Blood Product 275 Apheresis Rbc Cp2d As3 Lr 275 1st Unit [id number] Other 50 Output: Urine 460 310 200 Urethral (Han) 460 310 200 Other: # Bowel Movements 0 0 - Physical Exam Head: Positive for: Atraumatic, Normocephalic Pupils: Positive for: PERRL Extroacular Muscles: Positive for: EOMI Conjunctiva: Positive for: Normal Mouth: Positive for: Moist Mucous Membranes Neck: Positive for: Normal Range of Motion Respiratory/Chest: Positive for: Rales Cardiovascular: Positive for: Tachycardic Abdomen: Positive for: Normal Bowel Sounds. Negative for: Tenderness, Distention, Peritoneal Signs Skin: Positive for: Warm Psychiatric: Positive for: Alert - Medications Active Medications: Active Medications Generic Name Dose Route Start Last Admin Trade Name Freq PRN Reason Stop Dose Admin Acetaminophen 650 mg 08/09/17 11:00 08/09/17 11:05 Tylenol 650mg/20.3ml Solution Ud PO 650 mg Q6 PRN Administration for temperature >100.4 Albuterol/Ipratropium 3 ml 08/03/17 12:00 08/09/17 11:33 Duoneb 3 Mg/0.5 Mg (3 Ml) Ud INH Not Given Q4H HAZEL Benzocaine/Menthol 1 ryan 07/29/17 16:59 08/05/17 15:22 Cepacol Sore Throat MT 1 ryan Q4 PRN Administration Sore Throat Diltiazem HCl 30 mg 08/07/17 09:15 08/09/17 06:07 Cardizem PO 30 mg Q6 HAZEL Administration Diphenhydramine HCl 25 mg 08/03/17 01:00 08/03/17 01:35 Benadryl PO 25 mg ONCE PRN Administration Pre transfusion Famotidine 20 mg 08/07/17 14:15 08/09/17 09:39 Pepcid IVP 20 mg DAILY HAZEL Administration Cefepime HCl 1 gm/ Dextrose 50 mls @ 100 mls/hr 08/03/17 18:30 08/09/17 09:39 IVPB 100 mls/hr Q8H HAZEL Administration Vancomycin HCl 1 gm/ Sodium 200 mls @ 133.333 mls/hr 08/03/17 17:00 08/09/17 04:16 Chloride IVPB 133.333 mls/hr Q12H HAZEL Administration Propofol 1,000 mg in 100 mls @ 1.683 mls/hr 08/07/17 11:11 08/09/17 08:45 Diprivan IV 5 mcg/kg/min .Q24H PRN 1.683 mls/hr TITRATE PER MD ORDER Titration Protocol 5 MCG/KG/MIN Lactated Ringer's 1,000 mls @ 100 mls/hr 08/09/17 11:00 Lactated Ringer's IV .Q10H HAZEL Lidocaine HCl 15 ml 08/02/17 12:41 08/05/17 15:22 Lidocaine 2% Viscous PO 15 ml ONCE PRN Administration throat pain Nystatin 1 applic 08/03/17 18:00 08/09/17 09:40 Nystop Topical Powder TOP 08/17/17 18:01 1 applic BID HAZEL Administration Rosuvastatin Calcium 5 mg 07/24/17 22:00 08/08/17 22:25 Crestor PO 5 mg HS HAZEL Administration Sodium Chloride 0 ml 07/28/17 16:42 08/04/17 19:12 Holliday Baby Saline 30 Ml [place] 1 spr Q4 PRN Administration Cough and congestion - Patient Studies Lab Studies: Microbiology Studies 08/07/17 12:38 MRSA Culture (Admit) - Final Nose MRSA NOT DETECTED 08/01/17 09:35 Mycobacterial Culture - Preliminary Other: Please Indicate 08/07/17 13:46 Gram Stain - Final Trachasp Sputum Culture - Final Escherichia Coli 08/03/17 16:45 Blood Culture - Final Blood-Venous NO GROWTH AFTER 5 DAYS Gram Stain - Final TEST NOT PERFORMED 08/03/17 17:00 Blood Culture - Final Blood-Venous NO GROWTH AFTER 5 DAYS Gram Stain - Final TEST NOT PERFORMED Lab Studies 08/09/17 08/09/17 08/09/17 Range/Units 11:59 06:18 06:17 WBC 8.0 (4.8-10.8) K/uL RBC 3.43 L (4.40-5.90) Mil/uL Hgb 9.4 L (12.0-18.0) g/dL Hct 27.6 L (35.0-51.0) % MCV 80.6 (80.0-94.0) fL MCH 27.3 (27.0-31.0) pg MCHC 33.8 (33.0-37.0) g/dL RDW 19.9 H (11.5-14.5) % Plt Count 34 L (130-400) K/uL MPV 10.5 (7.2-11.7) fL Neut % (Auto) 96.8 H (50.0-75.0) % Lymph % (Auto) 2.2 L (20.0-40.0) % [place] % (Auto) 0.8 (0.0-10.0) % Eos % (Auto) 0.1 (0.0-4.0) % Baso % (Auto) 0.1 (0.0-2.0) % Neut # (Auto) 7.7 H (1.8-7.0) K/uL Lymph # (Auto) 0.2 L (1.0-4.3) K/uL [place] # (Auto) 0.1 (0.0-0.8) K/uL Eos # (Auto) 0.0 (0.0-0.7) K/uL Baso # (Auto) 0.0 (0.0-0.2) K/uL Neutrophils % (Manual) 85 H (50-75) % Band Neutrophils % 9 H (0-2) % Lymphocytes % (Manual) 3 L (20-40) % Monocytes % (Manual) 2 (0-10) % Eosinophils % (Manual) 1 (0-4) % Toxic Granulation Present Dohle Bodies Present Platelet Estimate Markedly decreased L (NORMAL) Hypochromasia (manual) Slight Anisocytosis (manual) Moderate Ovalocytes Slight Puncture Site pCO2 (35-45) mm/Hg pO2 (80-100) mm/Hg HCO3 (21-28) mmol/L ABG pH (7.35-7.45) ABG Total CO2 (22-28) mmol/L ABG O2 Saturation (95-98) % ABG Base Excess (-2.0-3.0) mmol/L ABG Hemoglobin (11.7-17.4) g/dL ABG Carboxyhemoglobin (0.5-1.5) % POC ABG HHb (Measured) (0.0-5.0) % ABG Methemoglobin (0.0-3.0) % Peter Test A-a O2 Difference mm/Hg Respiratory Index Hgb O2 Saturation (95.0-98.0) % Vent Mode Mechanical Rate FiO2 % Tidal Volume PEEP Sodium 148 (132-148) mmol/L Potassium 3.7 (3.6-5.2) mmol/L Chloride 115 H (98-107) mmol/L Carbon Dioxide 31 H (22-30) mmol/L Anion Gap 6 L (10-20) BUN 36 H (9-20) mg/dL Creatinine 0.7 L (0.8-1.5) mg/dL Est GFR ( Amer) > 60 Est GFR (Non-Af Amer) > 60 POC Glucose (mg/dL) 174 H (65-110) mg/dL Random Glucose 143 H (75-110) mg/dL Calcium 7.4 L (8.6-10.4) mg/dl Phosphorus 2.9 (2.5-4.5) mg/dL Magnesium 2.1 (1.6-2.3) mg/dL Total Bilirubin 2.5 H (0.2-1.3) mg/dL AST 53 (17-59) U/L ALT 53 (21-72) U/L Alkaline Phosphatase 103 (38-126) U/L Total Protein 4.9 L (6.3-8.3) g/dL Albumin 2.2 L (3.5-5.0) g/dL Globulin 2.7 (2.2-3.9) gm/dL Albumin/Globulin Ratio 0.8 L (1.0-2.1) Blood Type Antibody Screen 08/09/17 08/09/17 08/08/17 Range/Units 05:05 04:57 23:40 WBC (4.8-10.8) K/uL RBC (4.40-5.90) Mil/uL Hgb (12.0-18.0) g/dL Hct (35.0-51.0) % MCV (80.0-94.0) fL MCH (27.0-31.0) pg MCHC (33.0-37.0) g/dL RDW (11.5-14.5) % Plt Count (130-400) K/uL MPV (7.2-11.7) fL Neut % (Auto) (50.0-75.0) % Lymph % (Auto) (20.0-40.0) % [place] % (Auto) (0.0-10.0) % Eos % (Auto) (0.0-4.0) % Baso % (Auto) (0.0-2.0) % Neut # (Auto) (1.8-7.0) K/uL Lymph # (Auto) (1.0-4.3) K/uL [place] # (Auto) (0.0-0.8) K/uL Eos # (Auto) (0.0-0.7) K/uL Baso # (Auto) (0.0-0.2) K/uL Neutrophils % (Manual) (50-75) % Band Neutrophils % (0-2) % Lymphocytes % (Manual) (20-40) % Monocytes % (Manual) (0-10) % Eosinophils % (Manual) (0-4) % Toxic Granulation Dohle Bodies Platelet Estimate (NORMAL) Hypochromasia (manual) Anisocytosis (manual) Ovalocytes Puncture Site Lb pCO2 35 (35-45) mm/Hg pO2 73 L (80-100) mm/Hg HCO3 28.1 H (21-28) mmol/L ABG pH 7.50 H (7.35-7.45) ABG Total CO2 28.4 H (22-28) mmol/L ABG O2 Saturation 96.9 (95-98) % ABG Base Excess 4.2 H (-2.0-3.0) mmol/L ABG Hemoglobin 13.8 (11.7-17.4) g/dL ABG Carboxyhemoglobin 2.0 H (0.5-1.5) % POC ABG HHb (Measured) 3.0 (0.0-5.0) % ABG Methemoglobin 1.0 (0.0-3.0) % Peter Test Na A-a O2 Difference 240.0 mm/Hg Respiratory Index 3.3 Hgb O2 Saturation 94.1 L (95.0-98.0) % Vent Mode Prvc Mechanical Rate 14 FiO2 50.0 % Tidal Volume 450 PEEP 5 Sodium (132-148) mmol/L Potassium (3.6-5.2) mmol/L Chloride (98-107) mmol/L Carbon Dioxide (22-30) mmol/L Anion Gap (10-20) BUN (9-20) mg/dL Creatinine (0.8-1.5) mg/dL Est GFR ( Amer) Est GFR (Non-Af Amer) POC Glucose (mg/dL) 147 H 145 H (65-110) mg/dL Random Glucose (75-110) mg/dL Calcium (8.6-10.4) mg/dl Phosphorus (2.5-4.5) mg/dL Magnesium (1.6-2.3) mg/dL Total Bilirubin (0.2-1.3) mg/dL AST (17-59) U/L ALT (21-72) U/L Alkaline Phosphatase (38-126) U/L Total Protein (6.3-8.3) g/dL Albumin (3.5-5.0) g/dL Globulin (2.2-3.9) gm/dL Albumin/Globulin Ratio (1.0-2.1) Blood Type Antibody Screen 08/08/17 08/08/17 08/08/17 Range/Units 19:02 18:38 07:59 WBC 12.3 H (4.8-10.8) K/uL RBC 3.60 L (4.40-5.90) Mil/uL Hgb 9.6 L D (12.0-18.0) g/dL Hct 28.9 L (35.0-51.0) % MCV 80.4 D (80.0-94.0) fL MCH 26.8 L (27.0-31.0) pg MCHC 33.4 (33.0-37.0) g/dL RDW 19.9 H (11.5-14.5) % Plt Count 45 L (130-400) K/uL MPV 8.8 (7.2-11.7) fL Neut % (Auto) 97.4 H (50.0-75.0) % Lymph % (Auto) 1.5 L (20.0-40.0) % [place] % (Auto) 1.0 (0.0-10.0) % Eos % (Auto) 0.0 (0.0-4.0) % Baso % (Auto) 0.1 (0.0-2.0) % Neut # (Auto) 12.0 H (1.8-7.0) K/uL Lymph # (Auto) 0.2 L (1.0-4.3) K/uL [place] # (Auto) 0.1 (0.0-0.8) K/uL Eos # (Auto) 0.0 (0.0-0.7) K/uL Baso # (Auto) 0.0 (0.0-0.2) K/uL Neutrophils % (Manual) 91 H (50-75) % Band Neutrophils % 6 H (0-2) % Lymphocytes % (Manual) 2 L (20-40) % Monocytes % (Manual) 1 (0-10) % Eosinophils % (Manual) (0-4) % Toxic Granulation Dohle Bodies Platelet Estimate Decreased L (NORMAL) Hypochromasia (manual) Anisocytosis (manual) Ovalocytes Puncture Site pCO2 (35-45) mm/Hg pO2 (80-100) mm/Hg HCO3 (21-28) mmol/L ABG pH (7.35-7.45) ABG Total CO2 (22-28) mmol/L ABG O2 Saturation (95-98) % ABG Base Excess (-2.0-3.0) mmol/L ABG Hemoglobin (11.7-17.4) g/dL ABG Carboxyhemoglobin (0.5-1.5) % POC ABG HHb (Measured) (0.0-5.0) % ABG Methemoglobin (0.0-3.0) % Peter Test A-a O2 Difference mm/Hg Respiratory Index Hgb O2 Saturation (95.0-98.0) % Vent Mode Mechanical Rate FiO2 % Tidal Volume PEEP Sodium (132-148) mmol/L Potassium (3.6-5.2) mmol/L Chloride (98-107) mmol/L Carbon Dioxide (22-30) mmol/L Anion Gap (10-20) BUN (9-20) mg/dL Creatinine (0.8-1.5) mg/dL Est GFR ( Amer) Est GFR (Non-Af Amer) POC Glucose (mg/dL) 116 H (65-110) mg/dL Random Glucose (75-110) mg/dL Calcium (8.6-10.4) mg/dl Phosphorus (2.5-4.5) mg/dL Magnesium (1.6-2.3) mg/dL Total Bilirubin (0.2-1.3) mg/dL AST (17-59) U/L ALT (21-72) U/L Alkaline Phosphatase (38-126) U/L Total Protein (6.3-8.3) g/dL Albumin (3.5-5.0) g/dL Globulin (2.2-3.9) gm/dL Albumin/Globulin Ratio (1.0-2.1) Blood Type A NEGATIVE Antibody Screen Negative Laboratory Results - last 24 hr 08/08/17 08/08/17 08/08/17 07:59 18:38 19:02 WBC 12.3 H RBC 3.60 L Hgb 9.6 L D Hct 28.9 L MCV 80.4 D MCH 26.8 L MCHC 33.4 RDW 19.9 H Plt Count 45 L MPV 8.8 Neut % (Auto) 97.4 H Lymph % (Auto) 1.5 L [place] % (Auto) 1.0 Eos % (Auto) 0.0 Baso % (Auto) 0.1 Neut # (Auto) 12.0 H Lymph # (Auto) 0.2 L [place] # (Auto) 0.1 Eos # (Auto) 0.0 Baso # (Auto) 0.0 Neutrophils % (Manual) 91 H Band Neutrophils % 6 H Lymphocytes % (Manual) 2 L Monocytes % (Manual) 1 Eosinophils % (Manual) Toxic Granulation Dohle Bodies Platelet Estimate Decreased L Hypochromasia (manual) Anisocytosis (manual) Ovalocytes Puncture Site pCO2 pO2 HCO3 ABG pH ABG Total CO2 ABG O2 Saturation ABG Base Excess ABG Hemoglobin ABG Carboxyhemoglobin POC ABG HHb (Measured) ABG Methemoglobin Peter Test A-a O2 Difference Respiratory Index Hgb O2 Saturation Vent Mode Mechanical Rate FiO2 Tidal Volume PEEP Sodium Potassium Chloride Carbon Dioxide Anion Gap BUN Creatinine Est GFR ( Amer) Est GFR (Non-Af Amer) POC Glucose (mg/dL) 116 H Random Glucose Calcium Phosphorus Magnesium Total Bilirubin AST ALT Alkaline Phosphatase Total Protein Albumin Globulin Albumin/Globulin Ratio Blood Type A NEGATIVE Antibody Screen Negative 08/08/17 08/09/17 08/09/17 23:40 04:57 05:05 WBC RBC Hgb Hct MCV MCH MCHC RDW Plt Count MPV Neut % (Auto) Lymph % (Auto) [place] % (Auto) Eos % (Auto) Baso % (Auto) Neut # (Auto) Lymph # (Auto) [place] # (Auto) Eos # (Auto) Baso # (Auto) Neutrophils % (Manual) Band Neutrophils % Lymphocytes % (Manual) Monocytes % (Manual) Eosinophils % (Manual) Toxic Granulation Dohle Bodies Platelet Estimate Hypochromasia (manual) Anisocytosis (manual) Ovalocytes Puncture Site Lb pCO2 35 pO2 73 L HCO3 28.1 H ABG pH 7.50 H ABG Total CO2 28.4 H ABG O2 Saturation 96.9 ABG Base Excess 4.2 H ABG Hemoglobin 13.8 ABG Carboxyhemoglobin 2.0 H POC ABG HHb (Measured) 3.0 ABG Methemoglobin 1.0 Peter Test Na A-a O2 Difference 240.0 Respiratory Index 3.3 Hgb O2 Saturation 94.1 L Vent Mode Prvc Mechanical Rate 14 FiO2 50.0 Tidal Volume 450 PEEP 5 Sodium Potassium Chloride Carbon Dioxide Anion Gap BUN Creatinine Est GFR ( Amer) Est GFR (Non-Af Amer) POC Glucose (mg/dL) 145 H 147 H Random Glucose Calcium Phosphorus Magnesium Total Bilirubin AST ALT Alkaline Phosphatase Total Protein Albumin Globulin Albumin/Globulin Ratio Blood Type Antibody Screen 08/09/17 08/09/1708/09/18 06:17 06:18 11:59 WBC 8.0 RBC 3.43 L Hgb 9.4 L Hct 27.6 L MCV 80.6 MCH 27.3 MCHC 33.8 RDW 19.9 H Plt Count 34 L MPV 10.5 Neut % (Auto) 96.8 H Lymph % (Auto) 2.2 L [place] % (Auto) 0.8 Eos % (Auto) 0.1 Baso % (Auto) 0.1 Neut # (Auto) 7.7 H Lymph # (Auto) 0.2 L [place] # (Auto) 0.1 Eos # (Auto) 0.0 Baso # (Auto) 0.0 Neutrophils % (Manual) 85 H Band Neutrophils % 9 H Lymphocytes % (Manual) 3 L Monocytes % (Manual) 2 Eosinophils % (Manual) 1 Toxic Granulation Present Dohle Bodies Present Platelet Estimate Markedly decreased L Hypochromasia (manual) Slight Anisocytosis (manual) Moderate Ovalocytes Slight Puncture Site pCO2 pO2 HCO3 ABG pH ABG Total CO2 ABG O2 Saturation ABG Base Excess ABG Hemoglobin ABG Carboxyhemoglobin POC ABG HHb (Measured) ABG Methemoglobin Peter Test A-a O2 Difference Respiratory Index Hgb O2 Saturation Vent Mode Mechanical Rate FiO2 Tidal Volume PEEP Sodium 148 Potassium 3.7 Chloride 115 H Carbon Dioxide 31 H Anion Gap 6 L BUN 36 H Creatinine 0.7 L Est GFR ( Amer) > 60 Est GFR (Non-Af Amer) > 60 POC Glucose (mg/dL) 174 H Random Glucose 143 H Calcium 7.4 L Phosphorus 2.9 Magnesium 2.1 Total Bilirubin 2.5 H AST 53 ALT 53 Alkaline Phosphatase 103 Total Protein 4.9 L Albumin 2.2 L Globulin 2.7 Albumin/Globulin Ratio 0.8 L Blood Type Antibody Screen Fingerstick Blood Sugar Results: 147 Critical Care Progress Note - Nutrition Nutrition: Nutrition Category Date Time Status NPO Diet [DIET] Diets 08/07/17 Breakfast Active Assessment/Plan - Assessment and Plan (Free Text) Assessment: 88M Afib, Trach ESBL Plan: Neuro: sedated for intubation 2/2 respiratory distress, acute Diprivan 1000mg (propofol 10mg/ml), titrate IV q24hr PRN - APAP 650mg/20.3ml soln UD 650 mg PO q6 PRN for fever - Support with cooling blanket PRN Cards: HTN, chronic; AFib, chronic; sepsis IVF - LR 1000ml bolus followed by 100ml/hr IV q10 ASA 81 mg PO QD Crestor 5mg PO qHS Cardizem 30mg q6hr D/C plavix 75mg PO qd Conntinue to trend platelets (90 --> 59 --> 34) and Hb (7.7 --> 6.5 --> 9.4) Heme: Thrombocytopenia - r/o DIC Heparin Ab test negative; 5HT release assay results pending Anemia - transfusion support PRN Transfused 2U of PRBCs O- blood with APAP 650mg PO 1x pre-transfusion prophylaxis PRN Continue trending WBCs (24.2 --> 16.9 --> 8) Pulm: respiratory distress, ?COPD exacerbation Intubated RR 22, Tidal 400, PEEP 5 Duoneb 3 mg/0.5 mg UD INH RQ4 not given 2/2 hr 130s Azithromycin 500mg IV, 250mg/hr Vancomycin 1g IV, 200mg, 133 ml/hr Cefepime 1g, 100mg/hr q8hr CXR this AM showing minor improvements (per Joe), repeat 2/ AM trach asp grew ESBL GI: no acute issues - Order stool guaic test and GI c/s if positive - Start tube feeds - Dulcolax 10mg GA PPx: Pepcid 20 mg IVP q12 - Nystatin topical powder BID <Maikel Payne - Last Filed: 08/10/17 17:09> CCU Subjective - Physician Review Critical Care Time Spent (in minutes): 35 CCU Objective - Vital Signs / Intake & Output Vital Signs (Last 4 hours): Vital Signs Temp Pulse Resp BP Pulse Ox 08/10/17 15:00 124 H 32 H 95 08/10/17 14:00 100.4 F H 122 H 25 H 106/60 96 Intake and Output (Last 8hrs): Intake & Output 08/10/17 08/10/17 08/10/17 06:59 14:59 22:59 Intake Total 1354 1067 Output Total 345 370 Balance 1009 697 Intake: IV 8 Intake, IV Amount 816 717 Right Medial Port 16 17 Right Proximal Port 800 700 Tube Feeding 400 350 Other 130 Output: Urine 345 370 Urethral (Han) 345 370 - Medications Active Medications: Active Medications Generic Name Dose Route Start Last Admin Trade Name Freq PRN Reason Stop Dose Admin Acetaminophen 650 mg 08/09/17 11:00 08/10/17 09:00 Tylenol 650mg/20.3ml Solution Ud PO 650 mg Q6 PRN Administration for temperature >100.4 Albuterol/Ipratropium 3 ml 08/03/17 12:00 08/10/17 16:23 Duoneb 3 Mg/0.5 Mg (3 Ml) Ud INH 3 ml Q4H HAZEL Administration Benzocaine/Menthol 1 ryan 07/29/17 16:59 08/05/17 15:22 Cepacol Sore Throat MT 1 ryan Q4 PRN Administration Sore Throat Diltiazem HCl 30 mg 08/07/17 09:15 08/10/17 12:00 Cardizem PO Not Given Q6 HAZEL Diphenhydramine HCl 25 mg 08/03/17 01:00 08/03/17 01:35 Benadryl PO 25 mg ONCE PRN Administration Pre transfusion Famotidine 20 mg 08/10/17 18:00 Pepcid IVP BID HAZEL Vancomycin HCl 1 gm/ Sodium 200 mls @ 133.333 mls/hr 08/03/17 17:00 08/10/17 04:51 Chloride IVPB 133.333 mls/hr Q12H HAZEL Administration Lactated Ringer's 1,000 mls @ 100 mls/hr 08/09/17 11:00 08/10/17 09:37 Lactated Ringer's IV Not Given .Q10H HAZEL Meropenem 500 mg/ Sodium 100 mls @ 100 mls/hr 08/10/17 12:00 08/10/17 14:00 Chloride IVPB 100 mls/hr Q6H HAZEL Administration Lidocaine HCl 15 ml 08/02/17 12:41 08/05/17 15:22 Lidocaine 2% Viscous PO 15 ml ONCE PRN Administration throat pain Methylprednisolone 40 mg 08/10/17 14:00 08/10/17 14:00 Solu-Medrol IV 40 mg Q8 HAZEL Administration Nystatin 1 applic 08/03/17 18:00 08/10/17 10:30 Nystop Topical Powder TOP 08/17/17 18:01 1 applic BID HAZEL Administration Rosuvastatin Calcium 5 mg 07/24/17 22:00 08/09/17 21:15 Crestor PO 5 mg HS HAZEL Administration Sodium Chloride 0 ml 07/28/17 16:42 08/04/17 19:12 [place] Baby Saline 30 Ml [place] 1 spr Q4 PRN Administration Cough and congestion Sucralfate 1 gm 08/10/17 16:45 Carafate Oral Susp PO DAILY HAZEL - Patient Studies Lab Studies: Lab Studies 08/10/17 08/10/17 08/10/17 Range/Units 13:15 11:44 06:40 WBC (4.8-10.8) K/uL RBC (4.40-5.90) Mil/uL Hgb (12.0-18.0) g/dL Hct (35.0-51.0) % MCV (80.0-94.0) fL MCH (27.0-31.0) pg MCHC (33.0-37.0) g/dL RDW (11.5-14.5) % Plt Count (130-400) K/uL MPV (7.2-11.7) fL Neut % (Auto) (50.0-75.0) % Lymph % (Auto) (20.0-40.0) % [place] % (Auto) (0.0-10.0) % Eos % (Auto) (0.0-4.0) % Baso % (Auto) (0.0-2.0) % Neut # (Auto) (1.8-7.0) K/uL Lymph # (Auto) (1.0-4.3) K/uL [place] # (Auto) (0.0-0.8) K/uL Eos # (Auto) (0.0-0.7) K/uL Baso # (Auto) (0.0-0.2) K/uL Neutrophils % (Manual) (50-75) % Band Neutrophils % (0-2) % Lymphocytes % (Manual) (20-40) % Monocytes % (Manual) (0-10) % Eosinophils % (Manual) (0-4) % Myelocytes % (0-0) % Platelet Estimate (NORMAL) Hypochromasia (manual) Anisocytosis (manual) Ovalocytes Puncture Site pCO2 (35-45) mm/Hg pO2 (80-100) mm/Hg HCO3 (21-28) mmol/L ABG pH (7.35-7.45) ABG Total CO2 (22-28) mmol/L ABG O2 Saturation (95-98) % ABG Base Excess (-2.0-3.0) mmol/L ABG Hemoglobin (11.7-17.4) g/dL ABG Carboxyhemoglobin (0.5-1.5) % POC ABG HHb (Measured) (0.0-5.0) % ABG Methemoglobin (0.0-3.0) % Peter Test A-a O2 Difference mm/Hg Respiratory Index Hgb O2 Saturation (95.0-98.0) % Vent Mode Mechanical Rate FiO2 % Tidal Volume PEEP Sodium 153 H (132-148) mmol/L Potassium 3.6 (3.6-5.2) mmol/L Chloride 118 H (98-107) mmol/L Carbon Dioxide 28 (22-30) mmol/L Anion Gap 10 (10-20) BUN 43 H (9-20) mg/dL Creatinine 1.0 (0.8-1.5) mg/dL Est GFR ( Amer) > 60 Est GFR (Non-Af Amer) > 60 POC Glucose (mg/dL) 194 H (65-110) mg/dL Random Glucose 162 H (75-110) mg/dL Calcium 7.1 L (8.6-10.4) mg/dl Phosphorus 2.3 L (2.5-4.5) mg/dL Magnesium 2.1 (1.6-2.3) mg/dL Total Bilirubin 1.4 H (0.2-1.3) mg/dL AST 75 H D (17-59) U/L ALT 53 (21-72) U/L Alkaline Phosphatase 92 (38-126) U/L Total Protein 4.8 L (6.3-8.3) g/dL Albumin 2.1 L (3.5-5.0) g/dL Globulin 2.7 (2.2-3.9) gm/dL Albumin/Globulin Ratio 0.8 L (1.0-2.1) UF Heparin Interp (Negative) Urine Color Yellow (YELLOW) Urine Clarity Turbid (Clear) Urine pH 5.0 (5.0-8.0) Ur Specific [place] 1.015 (1.003-1.030) Urine Protein 2+ H (NEGATIVE) mg/dL Urine Glucose (UA) 1+ H (Normal) mg/dL Urine Ketones Negative (NEGATIVE) mg/dL Urine Blood 3+ H (NEGATIVE) Urine Nitrate Negative (NEGATIVE) Urine Bilirubin Negative (NEGATIVE) Urine Urobilinogen 4.0 (0.2-1.0) mg/dL Ur Leukocyte Esterase Neg (Negative) Gaurav/uL Urine WBC (Auto) 3 (0-5) /hpf Urine RBC (Auto) 36 H (0-3) /hpf Ur Squamous Epith Cells 1 (0-5) /hpf Amorphous Sediment Few H (<OCC) /ul Stool Occult Blood (NEGATIVE) Heparin-induced Plt Ab (Negative) PANFILO UFH Low Dose 0.1 % Release PANFILO UFH Low Dose 0.5 % Release PANFILO UFH High Dose 100 % Release 08/10/17 08/10/17 08/10/17 Range/Units 06:39 05:45 05:00 WBC 6.6 (4.8-10.8) K/uL RBC 3.40 L (4.40-5.90) Mil/uL Hgb 9.1 L (12.0-18.0) g/dL Hct 27.9 L (35.0-51.0) % MCV 82.1 (80.0-94.0) fL MCH 26.8 L (27.0-31.0) pg MCHC 32.6 L (33.0-37.0) g/dL RDW 19.9 H (11.5-14.5) % Plt Count 16 L* D (130-400) K/uL MPV 10.2 (7.2-11.7) fL Neut % (Auto) 94.0 H (50.0-75.0) % Lymph % (Auto) 3.8 L (20.0-40.0) % [place] % (Auto) 1.4 (0.0-10.0) % Eos % (Auto) 0.7 (0.0-4.0) % Baso % (Auto) 0.1 (0.0-2.0) % Neut # (Auto) 6.2 (1.8-7.0) K/uL Lymph # (Auto) 0.3 L (1.0-4.3) K/uL [place] # (Auto) 0.1 (0.0-0.8) K/uL Eos # (Auto) 0.0 (0.0-0.7) K/uL Baso # (Auto) 0.0 (0.0-0.2) K/uL Neutrophils % (Manual) 63 (50-75) % Band Neutrophils % 27 H* (0-2) % Lymphocytes % (Manual) 6 L (20-40) % Monocytes % (Manual) 2 (0-10) % Eosinophils % (Manual) 1 (0-4) % Myelocytes % 1 H (0-0) % Platelet Estimate Markedly decreased L (NORMAL) Hypochromasia (manual) Slight Anisocytosis (manual) Moderate Ovalocytes Slight Puncture Site pCO2 (35-45) mm/Hg pO2 (80-100) mm/Hg HCO3 (21-28) mmol/L ABG pH (7.35-7.45) ABG Total CO2 (22-28) mmol/L ABG O2 Saturation (95-98) % ABG Base Excess (-2.0-3.0) mmol/L ABG Hemoglobin (11.7-17.4) g/dL ABG Carboxyhemoglobin (0.5-1.5) % POC ABG HHb (Measured) (0.0-5.0) % ABG Methemoglobin (0.0-3.0) % Peter Test A-a O2 Difference mm/Hg Respiratory Index Hgb O2 Saturation (95.0-98.0) % Vent Mode Mechanical Rate FiO2 % Tidal Volume PEEP Sodium (132-148) mmol/L Potassium (3.6-5.2) mmol/L Chloride (98-107) mmol/L Carbon Dioxide (22-30) mmol/L Anion Gap (10-20) BUN (9-20) mg/dL Creatinine (0.8-1.5) mg/dL Est GFR ( Amer) Est GFR (Non-Af Amer) POC Glucose (mg/dL) 187 H (65-110) mg/dL Random Glucose (75-110) mg/dL Calcium (8.6-10.4) mg/dl Phosphorus (2.5-4.5) mg/dL Magnesium (1.6-2.3) mg/dL Total Bilirubin (0.2-1.3) mg/dL AST (17-59) U/L ALT (21-72) U/L Alkaline Phosphatase (38-126) U/L Total Protein (6.3-8.3) g/dL Albumin (3.5-5.0) g/dL Globulin (2.2-3.9) gm/dL Albumin/Globulin Ratio (1.0-2.1) UF Heparin Interp (Negative) Urine Color (YELLOW) Urine Clarity (Clear) Urine pH (5.0-8.0) Ur Specific [place] (1.003-1.030) Urine Protein (NEGATIVE) mg/dL Urine Glucose (UA) (Normal) mg/dL Urine Ketones (NEGATIVE) mg/dL Urine Blood (NEGATIVE) Urine Nitrate (NEGATIVE) Urine Bilirubin (NEGATIVE) Urine Urobilinogen (0.2-1.0) mg/dL Ur Leukocyte Esterase (Negative) Gaurav/uL Urine WBC (Auto) (0-5) /hpf Urine RBC (Auto) (0-3) /hpf Ur Squamous Epith Cells (0-5) /hpf Amorphous Sediment (<OCC) /ul Stool Occult Blood Positive H (NEGATIVE) Heparin-induced Plt Ab (Negative) PANFILO UFH Low Dose 0.1 % Release PANFILO UFH Low Dose 0.5 % Release PANFILO UFH High Dose 100 % Release 08/10/17 08/09/17 08/09/17 Range/Units 04:40 23:55 17:38 WBC (4.8-10.8) K/uL RBC (4.40-5.90) Mil/uL Hgb (12.0-18.0) g/dL Hct (35.0-51.0) % MCV (80.0-94.0) fL MCH (27.0-31.0) pg MCHC (33.0-37.0) g/dL RDW (11.5-14.5) % Plt Count (130-400) K/uL MPV (7.2-11.7) fL Neut % (Auto) (50.0-75.0) % Lymph % (Auto) (20.0-40.0) % [place] % (Auto) (0.0-10.0) % Eos % (Auto) (0.0-4.0) % Baso % (Auto) (0.0-2.0) % Neut # (Auto) (1.8-7.0) K/uL Lymph # (Auto) (1.0-4.3) K/uL [place] # (Auto) (0.0-0.8) K/uL Eos # (Auto) (0.0-0.7) K/uL Baso # (Auto) (0.0-0.2) K/uL Neutrophils % (Manual) (50-75) % Band Neutrophils % (0-2) % Lymphocytes % (Manual) (20-40) % Monocytes % (Manual) (0-10) % Eosinophils % (Manual) (0-4) % Myelocytes % (0-0) % Platelet Estimate (NORMAL) Hypochromasia (manual) Anisocytosis (manual) Ovalocytes Puncture Site Rr pCO2 41 (35-45) mm/Hg pO2 85 (80-100) mm/Hg HCO3 28.1 H (21-28) mmol/L ABG pH 7.45 (7.35-7.45) ABG Total CO2 29.8 H (22-28) mmol/L ABG O2 Saturation 98.1 H (95-98) % ABG Base Excess 4.1 H (-2.0-3.0) mmol/L ABG Hemoglobin 11.0 L (11.7-17.4) g/dL ABG Carboxyhemoglobin 1.9 H (0.5-1.5) % POC ABG HHb (Measured) 1.8 (0.0-5.0) % ABG Methemoglobin 1.0 (0.0-3.0) % Peter Test Pos A-a O2 Difference 220.0 mm/Hg Respiratory Index 2.6 Hgb O2 Saturation 95.2 (95.0-98.0) % Vent Mode Prvc Mechanical Rate 14 FiO2 50.0 % Tidal Volume 450 PEEP 5 Sodium (132-148) mmol/L Potassium (3.6-5.2) mmol/L Chloride (98-107) mmol/L Carbon Dioxide (22-30) mmol/L Anion Gap (10-20) BUN (9-20) mg/dL Creatinine (0.8-1.5) mg/dL Est GFR ( Amer) Est GFR (Non-Af Amer) POC Glucose (mg/dL) 230 H 210 H (65-110) mg/dL Random Glucose (75-110) mg/dL Calcium (8.6-10.4) mg/dl Phosphorus (2.5-4.5) mg/dL Magnesium (1.6-2.3) mg/dL Total Bilirubin (0.2-1.3) mg/dL AST (17-59) U/L ALT (21-72) U/L Alkaline Phosphatase (38-126) U/L Total Protein (6.3-8.3) g/dL Albumin (3.5-5.0) g/dL Globulin (2.2-3.9) gm/dL Albumin/Globulin Ratio (1.0-2.1) UF Heparin Interp (Negative) Urine Color (YELLOW) Urine Clarity (Clear) Urine pH (5.0-8.0) Ur Specific [place] (1.003-1.030) Urine Protein (NEGATIVE) mg/dL Urine Glucose (UA) (Normal) mg/dL Urine Ketones (NEGATIVE) mg/dL Urine Blood (NEGATIVE) Urine Nitrate (NEGATIVE) Urine Bilirubin (NEGATIVE) Urine Urobilinogen (0.2-1.0) mg/dL Ur Leukocyte Esterase (Negative) Gaurav/uL Urine WBC (Auto) (0-5) /hpf Urine RBC (Auto) (0-3) /hpf Ur Squamous Epith Cells (0-5) /hpf Amorphous Sediment (<OCC) /ul Stool Occult Blood (NEGATIVE) Heparin-induced Plt Ab (Negative) PANFILO UFH Low Dose 0.1 % Release PANFILO UFH Low Dose 0.5 % Release PANFILO UFH High Dose 100 % Release 08/08/17 Range/Units 06:20 WBC (4.8-10.8) K/uL RBC (4.40-5.90) Mil/uL Hgb (12.0-18.0) g/dL Hct (35.0-51.0) % MCV (80.0-94.0) fL MCH (27.0-31.0) pg MCHC (33.0-37.0) g/dL RDW (11.5-14.5) % Plt Count (130-400) K/uL MPV (7.2-11.7) fL Neut % (Auto) (50.0-75.0) % Lymph % (Auto) (20.0-40.0) % [place] % (Auto) (0.0-10.0) % Eos % (Auto) (0.0-4.0) % Baso % (Auto) (0.0-2.0) % Neut # (Auto) (1.8-7.0) K/uL Lymph # (Auto) (1.0-4.3) K/uL [place] # (Auto) (0.0-0.8) K/uL Eos # (Auto) (0.0-0.7) K/uL Baso # (Auto) (0.0-0.2) K/uL Neutrophils % (Manual) (50-75) % Band Neutrophils % (0-2) % Lymphocytes % (Manual) (20-40) % Monocytes % (Manual) (0-10) % Eosinophils % (Manual) (0-4) % Myelocytes % (0-0) % Platelet Estimate (NORMAL) Hypochromasia (manual) Anisocytosis (manual) Ovalocytes Puncture Site pCO2 (35-45) mm/Hg pO2 (80-100) mm/Hg HCO3 (21-28) mmol/L ABG pH (7.35-7.45) ABG Total CO2 (22-28) mmol/L ABG O2 Saturation (95-98) % ABG Base Excess (-2.0-3.0) mmol/L ABG Hemoglobin (11.7-17.4) g/dL ABG Carboxyhemoglobin (0.5-1.5) % POC ABG HHb (Measured) (0.0-5.0) % ABG Methemoglobin (0.0-3.0) % Peter Test A-a O2 Difference mm/Hg Respiratory Index Hgb O2 Saturation (95.0-98.0) % Vent Mode Mechanical Rate FiO2 % Tidal Volume PEEP Sodium (132-148) mmol/L Potassium (3.6-5.2) mmol/L Chloride (98-107) mmol/L Carbon Dioxide (22-30) mmol/L Anion Gap (10-20) BUN (9-20) mg/dL Creatinine (0.8-1.5) mg/dL Est GFR ( Amer) Est GFR (Non-Af Amer) POC Glucose (mg/dL) (65-110) mg/dL Random Glucose (75-110) mg/dL Calcium (8.6-10.4) mg/dl Phosphorus (2.5-4.5) mg/dL Magnesium (1.6-2.3) mg/dL Total Bilirubin (0.2-1.3) mg/dL AST (17-59) U/L ALT (21-72) U/L Alkaline Phosphatase (38-126) U/L Total Protein (6.3-8.3) g/dL Albumin (3.5-5.0) g/dL Globulin (2.2-3.9) gm/dL Albumin/Globulin Ratio (1.0-2.1) UF Heparin Interp Negative (Negative) Urine Color (YELLOW) Urine Clarity (Clear) Urine pH (5.0-8.0) Ur Specific [place] (1.003-1.030) Urine Protein (NEGATIVE) mg/dL Urine Glucose (UA) (Normal) mg/dL Urine Ketones (NEGATIVE) mg/dL Urine Blood (NEGATIVE) Urine Nitrate (NEGATIVE) Urine Bilirubin (NEGATIVE) Urine Urobilinogen (0.2-1.0) mg/dL Ur Leukocyte Esterase (Negative) Gaurav/uL Urine WBC (Auto) (0-5) /hpf Urine RBC (Auto) (0-3) /hpf Ur Squamous Epith Cells (0-5) /hpf Amorphous Sediment (<OCC) /ul Stool Occult Blood (NEGATIVE) Heparin-induced Plt Ab Negative (Negative) PANFILO UFH Low Dose 0.1 0 % Release PANFILO UFH Low Dose 0.5 0 % Release PANFILO UFH High Dose 100 0 % Release Laboratory Results - last 24 hr 08/08/17 08/09/17 08/09/17 06:20 17:38 23:55 WBC RBC Hgb Hct MCV MCH MCHC RDW Plt Count MPV Neut % (Auto) Lymph % (Auto) [place] % (Auto) Eos % (Auto) Baso % (Auto) Neut # (Auto) Lymph # (Auto) [place] # (Auto) Eos # (Auto) Baso # (Auto) Neutrophils % (Manual) Band Neutrophils % Lymphocytes % (Manual) Monocytes % (Manual) Eosinophils % (Manual) Myelocytes % Platelet Estimate Hypochromasia (manual) Anisocytosis (manual) Ovalocytes Puncture Site pCO2 pO2 HCO3 ABG pH ABG Total CO2 ABG O2 Saturation ABG Base Excess ABG Hemoglobin ABG Carboxyhemoglobin POC ABG HHb (Measured) ABG Methemoglobin Peter Test A-a O2 Difference Respiratory Index Hgb O2 Saturation Vent Mode Mechanical Rate FiO2 Tidal Volume PEEP Sodium Potassium Chloride Carbon Dioxide Anion Gap BUN Creatinine Est GFR ( Amer) Est GFR (Non-Af Amer) POC Glucose (mg/dL) 210 H 230 H Random Glucose Calcium Phosphorus Magnesium Total Bilirubin AST ALT Alkaline Phosphatase Total Protein Albumin Globulin Albumin/Globulin Ratio UF Heparin Interp Negative Urine Color Urine Clarity Urine pH Ur Specific [place] Urine Protein Urine Glucose (UA) Urine Ketones Urine Blood Urine Nitrate Urine Bilirubin Urine Urobilinogen Ur Leukocyte Esterase Urine WBC (Auto) Urine RBC (Auto) Ur Squamous Epith Cells Amorphous Sediment Stool Occult Blood Heparin-induced Plt Ab Negative PANFILO UFH Low Dose 0.1 0 PANFILO UFH Low Dose 0.5 0 PANFILO UFH High Dose 100 0 08/10/17 08/10/17 08/10/17 04:40 05:00 05:45 WBC RBC Hgb Hct MCV MCH MCHC RDW Plt Count MPV Neut % (Auto) Lymph % (Auto) [place] % (Auto) Eos % (Auto) Baso % (Auto) Neut # (Auto) Lymph # (Auto) [place] # (Auto) Eos # (Auto) Baso # (Auto) Neutrophils % (Manual) Band Neutrophils % Lymphocytes % (Manual) Monocytes % (Manual) Eosinophils % (Manual) Myelocytes % Platelet Estimate Hypochromasia (manual) Anisocytosis (manual) Ovalocytes Puncture Site Rr pCO2 41 pO2 85 HCO3 28.1 H ABG pH 7.45 ABG Total CO2 29.8 H ABG O2 Saturation 98.1 H ABG Base Excess 4.1 H ABG Hemoglobin 11.0 L ABG Carboxyhemoglobin 1.9 H POC ABG HHb (Measured) 1.8 ABG Methemoglobin 1.0 Peter Test Pos A-a O2 Difference 220.0 Respiratory Index 2.6 Hgb O2 Saturation 95.2 Vent Mode Prvc Mechanical Rate 14 FiO2 50.0 Tidal Volume 450 PEEP 5 Sodium Potassium Chloride Carbon Dioxide Anion Gap BUN Creatinine Est GFR ( Amer) Est GFR (Non-Af Amer) POC Glucose (mg/dL) 187 H Random Glucose Calcium Phosphorus Magnesium Total Bilirubin AST ALT Alkaline Phosphatase Total Protein Albumin Globulin Albumin/Globulin Ratio UF Heparin Interp Urine Color Urine Clarity Urine pH Ur Specific [place] Urine Protein Urine Glucose (UA) Urine Ketones Urine Blood Urine Nitrate Urine Bilirubin Urine Urobilinogen Ur Leukocyte Esterase Urine WBC (Auto) Urine RBC (Auto) Ur Squamous Epith Cells Amorphous Sediment Stool Occult Blood Positive H Heparin-induced Plt Ab PANFILO UFH Low Dose 0.1 PANFILO UFH Low Dose 0.5 PANFILO UFH High Dose 100 08/10/17 08/10/17 08/10/17 06:39 06:40 11:44 WBC 6.6 RBC 3.40 L Hgb 9.1 L Hct 27.9 L MCV 82.1 MCH 26.8 L MCHC 32.6 L RDW 19.9 H Plt Count 16 L* D MPV 10.2 Neut % (Auto) 94.0 H Lymph % (Auto) 3.8 L [place] % (Auto) 1.4 Eos % (Auto) 0.7 Baso % (Auto) 0.1 Neut # (Auto) 6.2 Lymph # (Auto) 0.3 L [place] # (Auto) 0.1 Eos # (Auto) 0.0 Baso # (Auto) 0.0 Neutrophils % (Manual) 63 Band Neutrophils % 27 H* Lymphocytes % (Manual) 6 L Monocytes % (Manual) 2 Eosinophils % (Manual) 1 Myelocytes % 1 H Platelet Estimate Markedly decreased L Hypochromasia (manual) Slight Anisocytosis (manual) Moderate Ovalocytes Slight Puncture Site pCO2 pO2 HCO3 ABG pH ABG Total CO2 ABG O2 Saturation ABG Base Excess ABG Hemoglobin ABG Carboxyhemoglobin POC ABG HHb (Measured) ABG Methemoglobin Peter Test A-a O2 Difference Respiratory Index Hgb O2 Saturation Vent Mode Mechanical Rate FiO2 Tidal Volume PEEP Sodium 153 H Potassium 3.6 Chloride 118 H Carbon Dioxide 28 Anion Gap 10 BUN 43 H Creatinine 1.0 Est GFR ( Amer) > 60 Est GFR (Non-Af Amer) > 60 POC Glucose (mg/dL) 194 H Random Glucose 162 H Calcium 7.1 L Phosphorus 2.3 L Magnesium 2.1 Total Bilirubin 1.4 H AST 75 H D ALT 53 Alkaline Phosphatase 92 Total Protein 4.8 L Albumin 2.1 L Globulin 2.7 Albumin/Globulin Ratio 0.8 L UF Heparin Interp Urine Color Urine Clarity Urine pH Ur Specific [place] Urine Protein Urine Glucose (UA) Urine Ketones Urine Blood Urine Nitrate Urine Bilirubin Urine Urobilinogen Ur Leukocyte Esterase Urine WBC (Auto) Urine RBC (Auto) Ur Squamous Epith Cells Amorphous Sediment Stool Occult Blood Heparin-induced Plt Ab PANFILO UFH Low Dose 0.1 PANFILO UFH Low Dose 0.5 PANFILO UFH High Dose 100 08/10/17 13:15 WBC RBC Hgb Hct MCV MCH MCHC RDW Plt Count MPV Neut % (Auto) Lymph % (Auto) [place] % (Auto) Eos % (Auto) Baso % (Auto) Neut # (Auto) Lymph # (Auto) [place] # (Auto) Eos # (Auto) Baso # (Auto) Neutrophils % (Manual) Band Neutrophils % Lymphocytes % (Manual) Monocytes % (Manual) Eosinophils % (Manual) Myelocytes % Platelet Estimate Hypochromasia (manual) Anisocytosis (manual) Ovalocytes Puncture Site pCO2 pO2 HCO3 ABG pH ABG Total CO2 ABG O2 Saturation ABG Base Excess ABG Hemoglobin ABG Carboxyhemoglobin POC ABG HHb (Measured) ABG Methemoglobin Peter Test A-a O2 Difference Respiratory Index Hgb O2 Saturation Vent Mode Mechanical Rate FiO2 Tidal Volume PEEP Sodium Potassium Chloride Carbon Dioxide Anion Gap BUN Creatinine Est GFR ( Amer) Est GFR (Non-Af Amer) POC Glucose (mg/dL) Random Glucose Calcium Phosphorus Magnesium Total Bilirubin AST ALT Alkaline Phosphatase Total Protein Albumin Globulin Albumin/Globulin Ratio UF Heparin Interp Urine Color Yellow Urine Clarity Turbid Urine pH 5.0 Ur Specific [place] 1.015 Urine Protein 2+ H Urine Glucose (UA) 1+ H Urine Ketones Negative Urine Blood 3+ H Urine Nitrate Negative Urine Bilirubin Negative Urine Urobilinogen 4.0 Ur Leukocyte Esterase Neg Urine WBC (Auto) 3 Urine RBC (Auto) 36 H Ur Squamous Epith Cells 1 Amorphous Sediment Few H Stool Occult Blood Heparin-induced Plt Ab PANFILO UFH Low Dose 0.1 PANFILO UFH Low Dose 0.5 PANFILO UFH High Dose 100 Critical Care Progress Note - Nutrition Nutrition: Nutrition Category Date Time Status NPO Diet [DIET] Diets 08/07/17 Breakfast Active Assessment/Plan - Assessment and Plan (Free Text) Plan: Patient seen and examined at bedside with ICU team. Patient with sepsis suspect source lung aspiration of ESBL -Sepsis -Hypoxic respiratory failure -A-fib not on AC 2nd thrombocytoepnia -continue abx as per ID -hypoxic respiratory failure -continue ng tube feeds -continue IVF, serial lactic -cc time 35 minutes - Date & Time Date: 08/09/17 Time: 21:00
[2017-08-09] MEDS: Lactated Ringer's 1,000 ML IV SCH (12:45)
[2017-08-09] MEDS ORDERED: Meropenem 1 GM in Sodium Chloride 0.9% 100 ML IVPB SCH (14:00)
--- NOTE | 2017-08-09 16:07 | CP.PCM.PN ---
Subjective - Date & Time of Evaluation Date of Evaluation: 08/09/17 Time of Evaluation: 15:30 - Subjective Subjective: Vented, febrile Objective - Vital Signs/Intake and Output Vital Signs (last 24 hours): Temp Pulse Resp BP Pulse Ox 100.1 F H 118 H 24 92/28 L 95 08/09/17 12:05 08/09/17 10:19 08/09/17 10:19 08/09/17 10:19 08/09/17 10:19 Intake and Output: 08/09/17 08/09/17 06:59 18:59 Intake Total 520 235.4 Output Total 550 200 Balance -30 35.4 - Medications Medications: Current Medications Acetaminophen (Tylenol 650mg/20.3ml Solution Ud) 650 mg PO Q6 PRN PRN Reason: for temperature >100.4 Last Admin: 08/09/17 11:05 Dose: 650 mg Albuterol/Ipratropium (Duoneb 3 Mg/0.5 Mg (3 Ml) Ud) 3 ml INH Q4H [facility] Last Admin: 08/09/17 15:43 Dose: 3 ml Benzocaine/Menthol (Cepacol Sore Throat) 1 ryan MT Q4 PRN PRN Reason: Sore Throat Last Admin: 08/05/17 15:22 Dose: 1 ryan Diltiazem HCl (Cardizem) 30 mg PO Q6 [facility] Last Admin: 08/09/17 13:00 Dose: Not Given Diphenhydramine HCl (Benadryl) 25 mg PO ONCE PRN PRN Reason: Pre transfusion Last Admin: 08/03/17 01:35 Dose: 25 mg Famotidine (Pepcid) 20 mg IVP DAILY [facility] Last Admin: 08/09/17 09:39 Dose: 20 mg Cefepime HCl 1 gm/ Dextrose 50 mls @ 100 mls/hr IVPB Q8H [facility] Last Admin: 08/09/17 09:39 Dose: 100 mls/hr Vancomycin HCl 1 gm/ Sodium (Chloride) 200 mls @ 133.333 mls/hr IVPB Q12H [facility] Last Admin: 08/09/17 04:16 Dose: 133.333 mls/hr Propofol (Diprivan) 1,000 mg in 100 mls @ 1.683 mls/hr IV .Q24H PRN; Protocol; 5 MCG/KG/MIN PRN Reason: TITRATE PER MD ORDER Last Titration: 08/09/17 08:45 Dose: 5 mcg/kg/min, 1.683 mls/hr Lactated Ringer's (Lactated Ringer's) 1,000 mls @ 100 mls/hr IV .Q10H [facility] Last Admin: 08/09/17 12:45 Dose: 100 mls/hr Lidocaine HCl (Lidocaine 2% Viscous) 15 ml PO ONCE PRN PRN Reason: throat pain Last Admin: 08/05/17 15:22 Dose: 15 ml Nystatin (Nystop Topical Powder) 1 applic TOP BID [facility] Stop: 08/17/17 18:01 Last Admin: 08/09/17 09:40 Dose: 1 applic Rosuvastatin Calcium (Crestor) 5 mg PO HS [facility] Last Admin: 08/08/17 22:25 Dose: 5 mg Sodium Chloride ([place] Baby Saline 30 Ml) 0 ml [place] Q4 PRN PRN Reason: Cough and congestion Last Admin: 08/04/17 19:12 Dose: 1 spr - Labs Labs: 08/09/17 06:17 08/09/17 06:18 PT 13.6 SECONDS (9.7-12.2) H 07/26/17 17:16 INR 1.2 07/26/17 17:16 APTT 33 SECONDS (21-34) 07/26/17 17:16 - Head Exam Head Exam: ATRAUMATIC - Eye Exam Eye Exam: Normal appearance - ENT Exam ENT Exam: Mucous Membranes Dry - Respiratory Exam Respiratory Exam: NORMAL BREATHING PATTERN - Cardiovascular Exam Cardiovascular Exam: +S1, +S2 - GI/Abdominal Exam GI & Abdominal Exam: Normal Bowel Sounds Assessment and Plan (1) Thrombocytopenia Assessment & Plan: sepsis, acute illness related f/u heparin Ab and serotonin release assay repeat fibrinogen in AM; no current DIC Status: Acute (2) Anemia Assessment & Plan: chronic disease s/p transfusion support Status: Acute (3) Leukocytosis Assessment & Plan: resolved Status: Acute
--- NOTE | 2017-08-09 18:38 | CP.PCM.PN ---
Subjective - Date & Time of Evaluation Date of Evaluation: 08/09/17 Time of Evaluation: 18:38 Objective - Vital Signs/Intake and Output Vital Signs (last 24 hours): Temp Pulse Resp BP Pulse Ox 100.1 F H 115 H 19 105/34 L 96 08/09/17 16:00 08/09/17 16:52 08/09/17 16:52 08/09/17 16:52 08/09/17 16:52 Intake and Output: 08/09/17 08/09/17 06:59 18:59 Intake Total 520 724.8 Output Total 550 564 Balance -30 160.8 - Medications Medications: Current Medications Acetaminophen (Tylenol 650mg/20.3ml Solution Ud) 650 mg PO Q6 PRN PRN Reason: for temperature >100.4 Last Admin: 08/09/17 11:05 Dose: 650 mg Albuterol/Ipratropium (Duoneb 3 Mg/0.5 Mg (3 Ml) Ud) 3 ml INH Q4H [facility] Last Admin: 08/09/17 15:43 Dose: 3 ml Benzocaine/Menthol (Cepacol Sore Throat) 1 ryan MT Q4 PRN PRN Reason: Sore Throat Last Admin: 08/05/17 15:22 Dose: 1 ryan Diltiazem HCl (Cardizem) 30 mg PO Q6 [facility] Last Admin: 08/09/17 13:00 Dose: Not Given Diphenhydramine HCl (Benadryl) 25 mg PO ONCE PRN PRN Reason: Pre transfusion Last Admin: 08/03/17 01:35 Dose: 25 mg Famotidine (Pepcid) 20 mg IVP DAILY [facility] Last Admin: 08/09/17 09:39 Dose: 20 mg Cefepime HCl 1 gm/ Dextrose 50 mls @ 100 mls/hr IVPB Q8H [facility] Last Admin: 08/09/17 17:52 Dose: 100 mls/hr Vancomycin HCl 1 gm/ Sodium (Chloride) 200 mls @ 133.333 mls/hr IVPB Q12H [facility] Last Admin: 08/09/17 17:51 Dose: 133.333 mls/hr Propofol (Diprivan) 1,000 mg in 100 mls @ 1.683 mls/hr IV .Q24H PRN; Protocol; 5 MCG/KG/MIN PRN Reason: TITRATE PER MD ORDER Last Titration: 08/09/17 08:45 Dose: 5 mcg/kg/min, 1.683 mls/hr Lactated Ringer's (Lactated Ringer's) 1,000 mls @ 100 mls/hr IV .Q10H [facility] Last Admin: 08/09/17 12:45 Dose: 100 mls/hr Lidocaine HCl (Lidocaine 2% Viscous) 15 ml PO ONCE PRN PRN Reason: throat pain Last Admin: 08/05/17 15:22 Dose: 15 ml Nystatin (Nystop Topical Powder) 1 applic TOP BID [facility] Stop: 08/17/17 18:01 Last Admin: 08/09/17 17:52 Dose: 1 applic Rosuvastatin Calcium (Crestor) 5 mg PO HS [facility] Last Admin: 08/08/17 22:25 Dose: 5 mg Sodium Chloride ([place] Baby Saline 30 Ml) 0 ml [place] Q4 PRN PRN Reason: Cough and congestion Last Admin: 08/04/17 19:12 Dose: 1 spr - Labs Labs: 08/09/17 06:17 08/09/17 06:18 PT 13.6 SECONDS (9.7-12.2) H 07/26/17 17:16 INR 1.2 07/26/17 17:16 APTT 33 SECONDS (21-34) 07/26/17 17:16
[2017-08-10] MEDS: Albuterol-Ipratrop 3 mg / 0.5 (3 ml) UD INH SCH ×5 (03:08→19:40)
--- NOTE | 2017-08-10 04:22 | CARD ---
APPROVED REPORT EKG Measurement Heart [id number] <Conclusion> Atrial fibrillation with rapid ventricular response with premature ventricular or aberrantly conducted complexes Septal infarct, age undetermined ST & T wave abnormality, consider inferolateral ischemia Abnormal ECG
--- NOTE | 2017-08-10 04:40 | CP.PCM.PN ---
Subjective - Date & Time of Evaluation Date of Evaluation: 08/09/17 Time of Evaluation: 07:30 - Subjective Subjective: COvering for Dr Johnson Pt seen with relative at bedside remains vent-dependent non-verbal Objective - Vital Signs/Intake and Output Vital Signs (last 24 hours): Temp Pulse Resp BP Pulse Ox 98.4 F 122 H 18 114/34 L 96 08/10/17 00:00 08/10/17 03:00 08/10/17 03:00 08/10/17 02:52 08/10/17 03:00 Intake and Output: 08/09/17 08/10/17 18:59 06:59 Intake Total 889.8 1397 Output Total 614 610 Balance 275.8 787 - Medications Medications: Current Medications Acetaminophen (Tylenol 650mg/20.3ml Solution Ud) 650 mg PO Q6 PRN PRN Reason: for temperature >100.4 Last Admin: 08/09/17 11:05 Dose: 650 mg Albuterol/Ipratropium (Duoneb 3 Mg/0.5 Mg (3 Ml) Ud) 3 ml INH Q4H [facility] Last Admin: 08/10/17 03:08 Dose: 3 ml Benzocaine/Menthol (Cepacol Sore Throat) 1 ryan MT Q4 PRN PRN Reason: Sore Throat Last Admin: 08/05/17 15:22 Dose: 1 ryan Diltiazem HCl (Cardizem) 30 mg PO Q6 [facility] Last Admin: 08/09/17 23:51 Dose: 30 mg Diphenhydramine HCl (Benadryl) 25 mg PO ONCE PRN PRN Reason: Pre transfusion Last Admin: 08/03/17 01:35 Dose: 25 mg Famotidine (Pepcid) 20 mg IVP DAILY [facility] Last Admin: 08/09/17 09:39 Dose: 20 mg Cefepime HCl 1 gm/ Dextrose 50 mls @ 100 mls/hr IVPB Q8H [facility] Last Admin: 08/10/17 02:30 Dose: 100 mls/hr Vancomycin HCl 1 gm/ Sodium (Chloride) 200 mls @ 133.333 mls/hr IVPB Q12H [facility] Last Admin: 08/09/17 17:51 Dose: 133.333 mls/hr Propofol (Diprivan) 1,000 mg in 100 mls @ 1.683 mls/hr IV .Q24H PRN; Protocol; 5 MCG/KG/MIN PRN Reason: TITRATE PER MD ORDER Last Titration: 08/09/17 22:00 Dose: 5.94 mcg/kg/min, 2 mls/hr Lactated Ringer's (Lactated Ringer's) 1,000 mls @ 100 mls/hr IV .Q10H [facility] Last Admin: 08/10/17 00:00 Dose: 100 mls/hr Lidocaine HCl (Lidocaine 2% Viscous) 15 ml PO ONCE PRN PRN Reason: throat pain Last Admin: 08/05/17 15:22 Dose: 15 ml Nystatin (Nystop Topical Powder) 1 applic TOP BID [facility] Stop: 08/17/17 18:01 Last Admin: 08/09/17 17:52 Dose: 1 applic Rosuvastatin Calcium (Crestor) 5 mg PO HS [facility] Last Admin: 08/09/17 21:15 Dose: 5 mg Sodium Chloride ([place] Baby Saline 30 Ml) 0 ml [place] Q4 PRN PRN Reason: Cough and congestion Last Admin: 08/04/17 19:12 Dose: 1 spr - Labs Labs: 08/09/17 06:17 08/09/17 06:18 PT 13.6 SECONDS (9.7-12.2) H 07/26/17 17:16 INR 1.2 07/26/17 17:16 APTT 33 SECONDS (21-34) 07/26/17 17:16 - Constitutional Appears: Chronically Ill - Head Exam Head Exam: NORMAL INSPECTION - Eye Exam Eye Exam: absent: Scleral icterus - Neck Exam Neck Exam: Full ROM - Respiratory Exam Respiratory Exam: Rhonchi - Cardiovascular Exam Cardiovascular Exam: REGULAR RHYTHM - GI/Abdominal Exam GI & Abdominal Exam: Soft - Extremities Exam Extremities Exam: absent: Calf Tenderness, Pedal Edema Assessment and Plan - Assessment and Plan (Free Text) Assessment: Pneumonia w/ respiratory failure Afib Anemia Plan: Cont abtx COnt AC
[2017-08-10] MEDS: Vancomycin 1 GM in Sodium Chloride 0.9% 200 ML IVPB SCH ×2 (04:51→17:00)
[2017-08-10 04:59] LABS: ABG ALLEN TEST POS; ARTERIAL BLOOD GAS HCO3 28.1 mmol/L (21-28); ARTERIAL BLOOD GAS O2 SAT 98.1 % (95-98); ARTERIAL BLOOD GAS PCO2 41 mm/Hg (35-45); ARTERIAL BLOOD GAS PH 7.45 (7.35-7.45); ARTERIAL BLOOD GAS PO2 85 mm/Hg (80-100); ARTERIAL BLOOD GAS TCO2 29.8 mmol/L (22-28)
[2017-08-10] MEDS: Propofol 10 mg/ml 1,000 MG/100 ML VIAL IV PRN (05:29)
[2017-08-10 06:46] LABS: BASO % 0.1 % (0.0-2.0); EOS % 0.7 % (0.0-4.0); HEMOGLOBIN 9.1 g/dL (12.0-18.0); LYMPH # 0.3 K/uL (1.0-4.3); LYMPH % 3.8 % (20.0-40.0); MEAN CELL VOLUME 82.1 fL (80.0-94.0); MEAN CORPUSCULAR HEMOGLOBIN 26.8 pg (27.0-31.0); MEAN CORPUSCULAR HGB CONC 32.6 g/dL (33.0-37.0); MEAN PLATELET VOLUME 10.2 fL (7.2-11.7); MONO # 0.1 K/uL (0.0-0.8); MONO % 1.4 % (0.0-10.0); NEUT # 6.2 K/uL (1.8-7.0); NRBC % 0.2 % (0.0-2.0); RED CELL DISTRIBUTION WIDTH 19.9 % (11.5-14.5); WHITE BLOOD COUNT 6.6 K/uL (4.8-10.8)
[2017-08-10 06:59] LABS: PLATELET COUNT 16 K/uL (130-400)
[2017-08-10 07:06] LABS: ALB/GLOB RATIO 0.8 (1.0-2.1); ALBUMIN 2.1 g/dL (3.5-5.0); ALT/SGPT 53 U/L (21-72); AST/SGOT 75 U/L (17-59); BLOOD UREA NITROGEN 43 mg/dL (9-20); CALCIUM 7.1 mg/dl (8.6-10.4); GFR AFRICAN-AMERICAN > 60; GFR NON-AFRICAN AMERICAN > 60; MAGNESIUM 2.1 mg/dL (1.6-2.3)
--- NOTE | 2017-08-10 08:38 | RAD ---
Chest x-ray single frontal view History: Shortness of breath. Comparison: 08/09/2017 Findings: Lines and tubes in stable position. Persistent prominent diffuse increased interstitial lung markings throughout both lung low. Persistent prominent confluent airspace opacification throughout the right upper to mid lung zone as well as at the left lung apex and left mid to lower lung zone. Cardiomegaly. Degenerative changes in the spine and shoulders. Impression: Lines and tubes in stable position. Persistent prominent diffuse increased interstitial lung markings throughout both lung low. Persistent prominent confluent airspace opacification throughout the right upper to mid lung zone as well as at the left lung apex and left mid to lower lung zone. Cardiomegaly.
[2017-08-10 08:55] LABS: ANISOCYTOSIS MODERATE; BANDS 27 % (0-2); EOSINOPHIL 1 % (0-4); HYPOCHROMIC SLIGHT; LYMPHOCYTE 6 % (20-40); MONOCYTE 2 % (0-10); MYELOCYTE 1 % (0-0); NEUTROPHIL 63 % (50-75); OVALOCYTES SLIGHT; PLATELET ESTIMATE MARKEDLY DECREASED (NORMAL); TOTAL CELLS COUNTED 100
[2017-08-10] MEDS: Acetaminophen 650mg/20.3ml solution UD PO PRN (09:00)
[2017-08-10] MEDS: Lactated Ringer's 1,000 ML IV SCH ×3 (09:37→19:08)
--- NOTE | 2017-08-10 11:15 | CP.CCUPN ---
<Francisco Taylor - Last Filed: 08/10/17 12:14> CCU Subjective - Physician Review Subjective (Free Text): 08/10/17 11:14 patient seen and examined at bedside vent, intubated febrile today thrombocytopenia getting worse only tolerated CPAP for a short while today will continue daily continue current antibiotics CCU Objective - Vital Signs / Intake & Output Vital Signs (Last 4 hours): Vital Signs Pulse Resp BP Pulse Ox 08/10/17 10:00 120 H 29 H 95 08/10/17 09:52 129 H 32 H 105/40 L 95 08/10/17 09:00 120 H 27 H 96 08/10/17 08:52 122 H 27 H 95/36 L 96 08/10/17 08:48 119 H 27 H 94/60 L 96 08/10/17 08:00 113 H 21 95 08/10/17 07:52 126 H 29 H 81/36 L 94 L Intake and Output (Last 8hrs): Intake & Output 08/09/17 08/10/17 08/10/17 22:59 06:59 14:59 Intake Total 970 1354 304 Output Total 575 345 40 Balance 395 1009 264 Intake: IV 2 8 Intake, IV Amount 538 816 204 Right Medial Port 5 16 4 Right Proximal Port 533 800 200 Tube Feeding 400 400 100 Other 30 130 Output: Urine 575 345 40 Urethral (Han) 575 345 40 Other: # Bowel Movements 1 - Physical Exam Head: Positive for: Atraumatic, Normocephalic Pupils: Positive for: PERRL Extroacular Muscles: Positive for: EOMI Conjunctiva: Positive for: Normal Mouth: Positive for: Moist Mucous Membranes Neck: Positive for: Normal Range of Motion Respiratory/Chest: Positive for: Rales Cardiovascular: Positive for: Tachycardic Abdomen: Positive for: Normal Bowel Sounds. Negative for: Tenderness, Distention, Peritoneal Signs Skin: Positive for: Warm Psychiatric: Positive for: Alert - Medications Active Medications: Active Medications Generic Name Dose Route Start Last Admin Trade Name Freq PRN Reason Stop Dose Admin Acetaminophen 650 mg 08/09/17 11:00 08/09/17 11:05 Tylenol 650mg/20.3ml Solution Ud PO 650 mg Q6 PRN Administration for temperature >100.4 Albuterol/Ipratropium 3 ml 08/03/17 12:00 08/10/17 07:33 Duoneb 3 Mg/0.5 Mg (3 Ml) Ud INH 3 ml Q4H HAZEL Administration Benzocaine/Menthol 1 ryan 07/29/17 16:59 08/05/17 15:22 Cepacol Sore Throat MT 1 ryan Q4 PRN Administration Sore Throat Diltiazem HCl 30 mg 08/07/17 09:15 08/10/17 05:28 Cardizem PO 30 mg Q6 HAZEL Administration Diphenhydramine HCl 25 mg 08/03/17 01:00 08/03/17 01:35 Benadryl PO 25 mg ONCE PRN Administration Pre transfusion Famotidine 20 mg 08/07/17 14:15 08/09/17 09:39 Pepcid IVP 20 mg DAILY HAZEL Administration Cefepime HCl 1 gm/ Dextrose 50 mls @ 100 mls/hr 08/03/17 18:30 08/10/17 02:30 IVPB 100 mls/hr Q8H HAZEL Administration Vancomycin HCl 1 gm/ Sodium 200 mls @ 133.333 mls/hr 08/03/17 17:00 08/10/17 04:51 Chloride IVPB 133.333 mls/hr Q12H HAZEL Administration Lactated Ringer's 1,000 mls @ 100 mls/hr 08/09/17 11:00 08/10/17 09:37 Lactated Ringer's IV Not Given .Q10H HAZEL Lidocaine HCl 15 ml 08/02/17 12:41 08/05/17 15:22 Lidocaine 2% Viscous PO 15 ml ONCE PRN Administration throat pain Methylprednisolone 40 mg 08/10/17 14:00 Solu-Medrol IV Q8 HAZEL Nystatin 1 applic 08/03/17 18:00 08/09/17 17:52 Nystop Topical Powder TOP 08/17/17 18:01 1 applic BID HAZEL Administration Rosuvastatin Calcium 5 mg 07/24/17 22:00 08/09/17 21:15 Crestor PO 5 mg HS HAZEL Administration Sodium Chloride 0 ml 07/28/17 16:42 08/04/17 19:12 [place] Baby Saline 30 Ml MADISON 1 spr Q4 PRN Administration Cough and congestion - Patient Studies Lab Studies: Microbiology Studies 08/07/17 12:38 MRSA Culture (Admit) - Final Nose MRSA NOT DETECTED 08/01/17 09:35 Mycobacterial Culture - Preliminary Other: Please Indicate 08/07/17 13:46 Gram Stain - Final Trachasp Sputum Culture - Final Escherichia Coli Lab Studies 08/10/17 08/10/17 08/10/17 Range/Units 06:40 06:39 05:45 WBC 6.6 (4.8-10.8) K/uL RBC 3.40 L (4.40-5.90) Mil/uL Hgb 9.1 L (12.0-18.0) g/dL Hct 27.9 L (35.0-51.0) % MCV 82.1 (80.0-94.0) fL MCH 26.8 L (27.0-31.0) pg MCHC 32.6 L (33.0-37.0) g/dL RDW 19.9 H (11.5-14.5) % Plt Count 16 L* D (130-400) K/uL MPV 10.2 (7.2-11.7) fL Neut % (Auto) 94.0 H (50.0-75.0) % Lymph % (Auto) 3.8 L (20.0-40.0) % Kerr % (Auto) 1.4 (0.0-10.0) % Eos % (Auto) 0.7 (0.0-4.0) % Baso % (Auto) 0.1 (0.0-2.0) % Neut # (Auto) 6.2 (1.8-7.0) K/uL Lymph # (Auto) 0.3 L (1.0-4.3) K/uL Kerr # (Auto) 0.1 (0.0-0.8) K/uL Eos # (Auto) 0.0 (0.0-0.7) K/uL Baso # (Auto) 0.0 (0.0-0.2) K/uL Neutrophils % (Manual) 63 (50-75) % Band Neutrophils % 27 H* (0-2) % Lymphocytes % (Manual) 6 L (20-40) % Monocytes % (Manual) 2 (0-10) % Eosinophils % (Manual) 1 (0-4) % Myelocytes % 1 H (0-0) % Platelet Estimate Markedly decreased L (NORMAL) Hypochromasia (manual) Slight Anisocytosis (manual) Moderate Ovalocytes Slight Puncture Site pCO2 (35-45) mm/Hg pO2 (80-100) mm/Hg HCO3 (21-28) mmol/L ABG pH (7.35-7.45) ABG Total CO2 (22-28) mmol/L ABG O2 Saturation (95-98) % ABG Base Excess (-2.0-3.0) mmol/L ABG Hemoglobin (11.7-17.4) g/dL ABG Carboxyhemoglobin (0.5-1.5) % POC ABG HHb (Measured) (0.0-5.0) % ABG Methemoglobin (0.0-3.0) % Peter Test A-a O2 Difference mm/Hg Respiratory Index Hgb O2 Saturation (95.0-98.0) % Vent Mode Mechanical Rate FiO2 % Tidal Volume PEEP Sodium 153 H (132-148) mmol/L Potassium 3.6 (3.6-5.2) mmol/L Chloride 118 H (98-107) mmol/L Carbon Dioxide 28 (22-30) mmol/L Anion Gap 10 (10-20) BUN 43 H (9-20) mg/dL Creatinine 1.0 (0.8-1.5) mg/dL Est GFR ( Amer) > 60 Est GFR (Non-Af Amer) > 60 POC Glucose (mg/dL) 187 H (65-110) mg/dL Random Glucose 162 H (75-110) mg/dL Calcium 7.1 L (8.6-10.4) mg/dl Phosphorus 2.3 L (2.5-4.5) mg/dL Magnesium 2.1 (1.6-2.3) mg/dL Total Bilirubin 1.4 H (0.2-1.3) mg/dL AST 75 H D (17-59) U/L ALT 53 (21-72) U/L Alkaline Phosphatase 92 (38-126) U/L Total Protein 4.8 L (6.3-8.3) g/dL Albumin 2.1 L (3.5-5.0) g/dL Globulin 2.7 (2.2-3.9) gm/dL Albumin/Globulin Ratio 0.8 L (1.0-2.1) Stool Occult Blood (NEGATIVE) 08/10/17 08/10/17 08/09/17 Range/Units 05:00 04:40 23:55 WBC (4.8-10.8) K/uL RBC (4.40-5.90) Mil/uL Hgb (12.0-18.0) g/dL Hct (35.0-51.0) % MCV (80.0-94.0) fL MCH (27.0-31.0) pg MCHC (33.0-37.0) g/dL RDW (11.5-14.5) % Plt Count (130-400) K/uL MPV (7.2-11.7) fL Neut % (Auto) (50.0-75.0) % Lymph % (Auto) (20.0-40.0) % Kerr % (Auto) (0.0-10.0) % Eos % (Auto) (0.0-4.0) % Baso % (Auto) (0.0-2.0) % Neut # (Auto) (1.8-7.0) K/uL Lymph # (Auto) (1.0-4.3) K/uL Kerr # (Auto) (0.0-0.8) K/uL Eos # (Auto) (0.0-0.7) K/uL Baso # (Auto) (0.0-0.2) K/uL Neutrophils % (Manual) (50-75) % Band Neutrophils % (0-2) % Lymphocytes % (Manual) (20-40) % Monocytes % (Manual) (0-10) % Eosinophils % (Manual) (0-4) % Myelocytes % (0-0) % Platelet Estimate (NORMAL) Hypochromasia (manual) Anisocytosis (manual) Ovalocytes Puncture Site Rr pCO2 41 (35-45) mm/Hg pO2 85 (80-100) mm/Hg HCO3 28.1 H (21-28) mmol/L ABG pH 7.45 (7.35-7.45) ABG Total CO2 29.8 H (22-28) mmol/L ABG O2 Saturation 98.1 H (95-98) % ABG Base Excess 4.1 H (-2.0-3.0) mmol/L ABG Hemoglobin 11.0 L (11.7-17.4) g/dL ABG Carboxyhemoglobin 1.9 H (0.5-1.5) % POC ABG HHb (Measured) 1.8 (0.0-5.0) % ABG Methemoglobin 1.0 (0.0-3.0) % Peter Test Pos A-a O2 Difference 220.0 mm/Hg Respiratory Index 2.6 Hgb O2 Saturation 95.2 (95.0-98.0) % Vent Mode Prvc Mechanical Rate 14 FiO2 50.0 % Tidal Volume 450 PEEP 5 Sodium (132-148) mmol/L Potassium (3.6-5.2) mmol/L Chloride (98-107) mmol/L Carbon Dioxide (22-30) mmol/L Anion Gap (10-20) BUN (9-20) mg/dL Creatinine (0.8-1.5) mg/dL Est GFR ( Amer) Est GFR (Non-Af Amer) POC Glucose (mg/dL) 230 H (65-110) mg/dL Random Glucose (75-110) mg/dL Calcium (8.6-10.4) mg/dl Phosphorus (2.5-4.5) mg/dL Magnesium (1.6-2.3) mg/dL Total Bilirubin (0.2-1.3) mg/dL AST (17-59) U/L ALT (21-72) U/L Alkaline Phosphatase (38-126) U/L Total Protein (6.3-8.3) g/dL Albumin (3.5-5.0) g/dL Globulin (2.2-3.9) gm/dL Albumin/Globulin Ratio (1.0-2.1) Stool Occult Blood Positive H (NEGATIVE) 08/09/17 08/09/17 Range/Units 17:38 11:59 WBC (4.8-10.8) K/uL RBC (4.40-5.90) Mil/uL Hgb (12.0-18.0) g/dL Hct (35.0-51.0) % MCV (80.0-94.0) fL MCH (27.0-31.0) pg MCHC (33.0-37.0) g/dL RDW (11.5-14.5) % Plt Count (130-400) K/uL MPV (7.2-11.7) fL Neut % (Auto) (50.0-75.0) % Lymph % (Auto) (20.0-40.0) % Kerr % (Auto) (0.0-10.0) % Eos % (Auto) (0.0-4.0) % Baso % (Auto) (0.0-2.0) % Neut # (Auto) (1.8-7.0) K/uL Lymph # (Auto) (1.0-4.3) K/uL Kerr # (Auto) (0.0-0.8) K/uL Eos # (Auto) (0.0-0.7) K/uL Baso # (Auto) (0.0-0.2) K/uL Neutrophils % (Manual) (50-75) % Band Neutrophils % (0-2) % Lymphocytes % (Manual) (20-40) % Monocytes % (Manual) (0-10) % Eosinophils % (Manual) (0-4) % Myelocytes % (0-0) % Platelet Estimate (NORMAL) Hypochromasia (manual) Anisocytosis (manual) Ovalocytes Puncture Site pCO2 (35-45) mm/Hg pO2 (80-100) mm/Hg HCO3 (21-28) mmol/L ABG pH (7.35-7.45) ABG Total CO2 (22-28) mmol/L ABG O2 Saturation (95-98) % ABG Base Excess (-2.0-3.0) mmol/L ABG Hemoglobin (11.7-17.4) g/dL ABG Carboxyhemoglobin (0.5-1.5) % POC ABG HHb (Measured) (0.0-5.0) % ABG Methemoglobin (0.0-3.0) % Peter Test A-a O2 Difference mm/Hg Respiratory Index Hgb O2 Saturation (95.0-98.0) % Vent Mode Mechanical Rate FiO2 % Tidal Volume PEEP Sodium (132-148) mmol/L Potassium (3.6-5.2) mmol/L Chloride (98-107) mmol/L Carbon Dioxide (22-30) mmol/L Anion Gap (10-20) BUN (9-20) mg/dL Creatinine (0.8-1.5) mg/dL Est GFR ( Amer) Est GFR (Non-Af Amer) POC Glucose (mg/dL) 210 H 174 H (65-110) mg/dL Random Glucose (75-110) mg/dL Calcium (8.6-10.4) mg/dl Phosphorus (2.5-4.5) mg/dL Magnesium (1.6-2.3) mg/dL Total Bilirubin (0.2-1.3) mg/dL AST (17-59) U/L ALT (21-72) U/L Alkaline Phosphatase (38-126) U/L Total Protein (6.3-8.3) g/dL Albumin (3.5-5.0) g/dL Globulin (2.2-3.9) gm/dL Albumin/Globulin Ratio (1.0-2.1) Stool Occult Blood (NEGATIVE) Laboratory Results - last 24 hr 08/09/17 08/09/17 08/09/17 11:59 17:38 23:55 WBC RBC Hgb Hct MCV MCH MCHC RDW Plt Count MPV Neut % (Auto) Lymph % (Auto) Kerr % (Auto) Eos % (Auto) Baso % (Auto) Neut # (Auto) Lymph # (Auto) Kerr # (Auto) Eos # (Auto) Baso # (Auto) Neutrophils % (Manual) Band Neutrophils % Lymphocytes % (Manual) Monocytes % (Manual) Eosinophils % (Manual) Myelocytes % Platelet Estimate Hypochromasia (manual) Anisocytosis (manual) Ovalocytes Puncture Site pCO2 pO2 HCO3 ABG pH ABG Total CO2 ABG O2 Saturation ABG Base Excess ABG Hemoglobin ABG Carboxyhemoglobin POC ABG HHb (Measured) ABG Methemoglobin Peter Test A-a O2 Difference Respiratory Index Hgb O2 Saturation Vent Mode Mechanical Rate FiO2 Tidal Volume PEEP Sodium Potassium Chloride Carbon Dioxide Anion Gap BUN Creatinine Est GFR ( Amer) Est GFR (Non-Af Amer) POC Glucose (mg/dL) 174 H 210 H 230 H Random Glucose Calcium Phosphorus Magnesium Total Bilirubin AST ALT Alkaline Phosphatase Total Protein Albumin Globulin Albumin/Globulin Ratio Stool Occult Blood 08/10/17 08/10/17 08/10/17 04:40 05:00 05:45 WBC RBC Hgb Hct MCV MCH MCHC RDW Plt Count MPV Neut % (Auto) Lymph % (Auto) Kerr % (Auto) Eos % (Auto) Baso % (Auto) Neut # (Auto) Lymph # (Auto) Kerr # (Auto) Eos # (Auto) Baso # (Auto) Neutrophils % (Manual) Band Neutrophils % Lymphocytes % (Manual) Monocytes % (Manual) Eosinophils % (Manual) Myelocytes % Platelet Estimate Hypochromasia (manual) Anisocytosis (manual) Ovalocytes Puncture Site Rr pCO2 41 pO2 85 HCO3 28.1 H ABG pH 7.45 ABG Total CO2 29.8 H ABG O2 Saturation 98.1 H ABG Base Excess 4.1 H ABG Hemoglobin 11.0 L ABG Carboxyhemoglobin 1.9 H POC ABG HHb (Measured) 1.8 ABG Methemoglobin 1.0 Peter Test Pos A-a O2 Difference 220.0 Respiratory Index 2.6 Hgb O2 Saturation 95.2 Vent Mode Prvc Mechanical Rate 14 FiO2 50.0 Tidal Volume 450 PEEP 5 Sodium Potassium Chloride Carbon Dioxide Anion Gap BUN Creatinine Est GFR ( Amer) Est GFR (Non-Af Amer) POC Glucose (mg/dL) 187 H Random Glucose Calcium Phosphorus Magnesium Total Bilirubin AST ALT Alkaline Phosphatase Total Protein Albumin Globulin Albumin/Globulin Ratio Stool Occult Blood Positive H 08/10/17 08/10/17 06:39 06:40 WBC 6.6 RBC 3.40 L Hgb 9.1 L Hct 27.9 L MCV 82.1 MCH 26.8 L MCHC 32.6 L RDW 19.9 H Plt Count 16 L* D MPV 10.2 Neut % (Auto) 94.0 H Lymph % (Auto) 3.8 L Kerr % (Auto) 1.4 Eos % (Auto) 0.7 Baso % (Auto) 0.1 Neut # (Auto) 6.2 Lymph # (Auto) 0.3 L Kerr # (Auto) 0.1 Eos # (Auto) 0.0 Baso # (Auto) 0.0 Neutrophils % (Manual) 63 Band Neutrophils % 27 H* Lymphocytes % (Manual) 6 L Monocytes % (Manual) 2 Eosinophils % (Manual) 1 Myelocytes % 1 H Platelet Estimate Markedly decreased L Hypochromasia (manual) Slight Anisocytosis (manual) Moderate Ovalocytes Slight Puncture Site pCO2 pO2 HCO3 ABG pH ABG Total CO2 ABG O2 Saturation ABG Base Excess ABG Hemoglobin ABG Carboxyhemoglobin POC ABG HHb (Measured) ABG Methemoglobin Peter Test A-a O2 Difference Respiratory Index Hgb O2 Saturation Vent Mode Mechanical Rate FiO2 Tidal Volume PEEP Sodium 153 H Potassium 3.6 Chloride 118 H Carbon Dioxide 28 Anion Gap 10 BUN 43 H Creatinine 1.0 Est GFR ( Amer) > 60 Est GFR (Non-Af Amer) > 60 POC Glucose (mg/dL) Random Glucose 162 H Calcium 7.1 L Phosphorus 2.3 L Magnesium 2.1 Total Bilirubin 1.4 H AST 75 H D ALT 53 Alkaline Phosphatase 92 Total Protein 4.8 L Albumin 2.1 L Globulin 2.7 Albumin/Globulin Ratio 0.8 L Stool Occult Blood Fingerstick Blood Sugar Results: 130 Critical Care Progress Note - Nutrition Nutrition: Nutrition Category Date Time Status NPO Diet [DIET] Diets 08/07/17 Breakfast Active Assessment/Plan - Assessment and Plan (Free Text) Assessment: 86M Afib, ESBL pneumonia Plan: Neuro: sedation - propofol 10 mg/ml q 24H PRN - benadryl 25 mg PO PRN Cards: HTN, afib - LR @ 100 ml/hr IV Q10 - ASA 81 mg PO QD - crestor 5 mg PO QHS - Cardizem 30 mg q6H - Cardio (Alex) Heme: thrombocytopenia - continue to monitor platelets (16) - Heme/Onc ([place]) Pulm: respiratory distress, COPD, intubated, CPAP trials daily - RR 14 Tidal 450 PEEP 5 FiO2 100 - Duoneb 3 mg INH RQ4H - solumedrol 40 mg IV Q8 - Vancomycin 1 g IV, 200 mg/hr - trach cx: ESBL - sputum cx: GN - Pulm (Viola) - ID (Mangia) GI: no acute issues - tubefeeding: Jevity 1.5, 20 ml/hr, goal 50 ml/hr PPx: - Pepcid 20 mg IVP q 12 - nystatin topical BID <Maikel Payne - Last Filed: 08/10/17 17:12> CCU Objective - Vital Signs / Intake & Output Vital Signs (Last 4 hours): Vital Signs Temp Pulse Resp BP Pulse Ox 08/10/17 15:00 124 H 32 H 95 08/10/17 14:00 100.4 F H 122 H 25 H 106/60 96 Intake and Output (Last 8hrs): Intake & Output 08/10/17 08/10/17 08/10/17 06:59 14:59 22:59 Intake Total 1354 1067 Output Total 345 370 Balance 1009 697 Intake: IV 8 Intake, IV Amount 816 717 Right Medial Port 16 17 Right Proximal Port 800 700 Tube Feeding 400 350 Other 130 Output: Urine 345 370 Urethral (Han) 345 370 - Medications Active Medications: Active Medications Generic Name Dose Route Start Last Admin Trade Name Freq PRN Reason Stop Dose Admin Acetaminophen 650 mg 08/09/17 11:00 08/10/17 09:00 Tylenol 650mg/20.3ml Solution Ud PO 650 mg Q6 PRN Administration for temperature >100.4 Albuterol/Ipratropium 3 ml 08/03/17 12:00 08/10/17 16:23 Duoneb 3 Mg/0.5 Mg (3 Ml) Ud INH 3 ml Q4H HAZEL Administration Benzocaine/Menthol 1 ryan 07/29/17 16:59 08/05/17 15:22 Cepacol Sore Throat MT 1 ryan Q4 PRN Administration Sore Throat Diltiazem HCl 30 mg 08/07/17 09:15 08/10/17 12:00 Cardizem PO Not Given Q6 HAZEL Diphenhydramine HCl 25 mg 08/03/17 01:00 08/03/17 01:35 Benadryl PO 25 mg ONCE PRN Administration Pre transfusion Famotidine 20 mg 08/10/17 18:00 Pepcid IVP BID HAZEL Vancomycin HCl 1 gm/ Sodium 200 mls @ 133.333 mls/hr 08/03/17 17:00 08/10/17 04:51 Chloride IVPB 133.333 mls/hr Q12H HAZEL Administration Lactated Ringer's 1,000 mls @ 100 mls/hr 08/09/17 11:00 08/10/17 09:37 Lactated Ringer's IV Not Given .Q10H HAZEL Meropenem 500 mg/ Sodium 100 mls @ 100 mls/hr 08/10/17 12:00 08/10/17 14:00 Chloride IVPB 100 mls/hr Q6H HAZEL Administration Lidocaine HCl 15 ml 08/02/17 12:41 08/05/17 15:22 Lidocaine 2% Viscous PO 15 ml ONCE PRN Administration throat pain Methylprednisolone 40 mg 08/10/17 14:00 08/10/17 14:00 Solu-Medrol IV 40 mg Q8 HAZEL Administration Nystatin 1 applic 08/03/17 18:00 08/10/17 10:30 Nystop Topical Powder TOP 08/17/17 18:01 1 applic BID HAZEL Administration Rosuvastatin Calcium 5 mg 07/24/17 22:00 08/09/17 21:15 Crestor PO 5 mg HS HAZEL Administration Sodium Chloride 0 ml 07/28/17 16:42 08/04/17 19:12 [place] Baby Saline 30 Ml [place] 1 spr Q4 PRN Administration Cough and congestion Sucralfate 1 gm 08/10/17 16:45 Carafate Oral Susp PO DAILY HAZEL - Patient Studies Lab Studies: Lab Studies 08/10/17 08/10/17 08/10/17 Range/Units 13:15 11:44 06:40 WBC (4.8-10.8) K/uL RBC (4.40-5.90) Mil/uL Hgb (12.0-18.0) g/dL Hct (35.0-51.0) % MCV (80.0-94.0) fL MCH (27.0-31.0) pg MCHC (33.0-37.0) g/dL RDW (11.5-14.5) % Plt Count (130-400) K/uL MPV (7.2-11.7) fL Neut % (Auto) (50.0-75.0) % Lymph % (Auto) (20.0-40.0) % Kerr % (Auto) (0.0-10.0) % Eos % (Auto) (0.0-4.0) % Baso % (Auto) (0.0-2.0) % Neut # (Auto) (1.8-7.0) K/uL Lymph # (Auto) (1.0-4.3) K/uL Kerr # (Auto) (0.0-0.8) K/uL Eos # (Auto) (0.0-0.7) K/uL Baso # (Auto) (0.0-0.2) K/uL Neutrophils % (Manual) (50-75) % Band Neutrophils % (0-2) % Lymphocytes % (Manual) (20-40) % Monocytes % (Manual) (0-10) % Eosinophils % (Manual) (0-4) % Myelocytes % (0-0) % Platelet Estimate (NORMAL) Hypochromasia (manual) Anisocytosis (manual) Ovalocytes Puncture Site pCO2 (35-45) mm/Hg pO2 (80-100) mm/Hg HCO3 (21-28) mmol/L ABG pH (7.35-7.45) ABG Total CO2 (22-28) mmol/L ABG O2 Saturation (95-98) % ABG Base Excess (-2.0-3.0) mmol/L ABG Hemoglobin (11.7-17.4) g/dL ABG Carboxyhemoglobin (0.5-1.5) % POC ABG HHb (Measured) (0.0-5.0) % ABG Methemoglobin (0.0-3.0) % Peter Test A-a O2 Difference mm/Hg Respiratory Index Hgb O2 Saturation (95.0-98.0) % Vent Mode Mechanical Rate FiO2 % Tidal Volume PEEP Sodium 153 H (132-148) mmol/L Potassium 3.6 (3.6-5.2) mmol/L Chloride 118 H (98-107) mmol/L Carbon Dioxide 28 (22-30) mmol/L Anion Gap 10 (10-20) BUN 43 H (9-20) mg/dL Creatinine 1.0 (0.8-1.5) mg/dL Est GFR ( Amer) > 60 Est GFR (Non-Af Amer) > 60 POC Glucose (mg/dL) 194 H (65-110) mg/dL Random Glucose 162 H (75-110) mg/dL Calcium 7.1 L (8.6-10.4) mg/dl Phosphorus 2.3 L (2.5-4.5) mg/dL Magnesium 2.1 (1.6-2.3) mg/dL Total Bilirubin 1.4 H (0.2-1.3) mg/dL AST 75 H D (17-59) U/L ALT 53 (21-72) U/L Alkaline Phosphatase 92 (38-126) U/L Total Protein 4.8 L (6.3-8.3) g/dL Albumin 2.1 L (3.5-5.0) g/dL Globulin 2.7 (2.2-3.9) gm/dL Albumin/Globulin Ratio 0.8 L (1.0-2.1) UF Heparin Interp (Negative) Urine Color Yellow (YELLOW) Urine Clarity Turbid (Clear) Urine pH 5.0 (5.0-8.0) Ur Specific [place] 1.015 (1.003-1.030) Urine Protein 2+ H (NEGATIVE) mg/dL Urine Glucose (UA) 1+ H (Normal) mg/dL Urine Ketones Negative (NEGATIVE) mg/dL Urine Blood 3+ H (NEGATIVE) Urine Nitrate Negative (NEGATIVE) Urine Bilirubin Negative (NEGATIVE) Urine Urobilinogen 4.0 (0.2-1.0) mg/dL Ur Leukocyte Esterase Neg (Negative) Gaurav/uL Urine WBC (Auto) 3 (0-5) /hpf Urine RBC (Auto) 36 H (0-3) /hpf Ur Squamous Epith Cells 1 (0-5) /hpf Amorphous Sediment Few H (<OCC) /ul Stool Occult Blood (NEGATIVE) Heparin-induced Plt Ab (Negative) PANFILO UFH Low Dose 0.1 % Release PANFILO UFH Low Dose 0.5 % Release PANFILO UFH High Dose 100 % Release 08/10/17 08/10/17 08/10/17 Range/Units 06:39 05:45 05:00 WBC 6.6 (4.8-10.8) K/uL RBC 3.40 L (4.40-5.90) Mil/uL Hgb 9.1 L (12.0-18.0) g/dL Hct 27.9 L (35.0-51.0) % MCV 82.1 (80.0-94.0) fL MCH 26.8 L (27.0-31.0) pg MCHC 32.6 L (33.0-37.0) g/dL RDW 19.9 H (11.5-14.5) % Plt Count 16 L* D (130-400) K/uL MPV 10.2 (7.2-11.7) fL Neut % (Auto) 94.0 H (50.0-75.0) % Lymph % (Auto) 3.8 L (20.0-40.0) % Kerr % (Auto) 1.4 (0.0-10.0) % Eos % (Auto) 0.7 (0.0-4.0) % Baso % (Auto) 0.1 (0.0-2.0) % Neut # (Auto) 6.2 (1.8-7.0) K/uL Lymph # (Auto) 0.3 L (1.0-4.3) K/uL Kerr # (Auto) 0.1 (0.0-0.8) K/uL Eos # (Auto) 0.0 (0.0-0.7) K/uL Baso # (Auto) 0.0 (0.0-0.2) K/uL Neutrophils % (Manual) 63 (50-75) % Band Neutrophils % 27 H* (0-2) % Lymphocytes % (Manual) 6 L (20-40) % Monocytes % (Manual) 2 (0-10) % Eosinophils % (Manual) 1 (0-4) % Myelocytes % 1 H (0-0) % Platelet Estimate Markedly decreased L (NORMAL) Hypochromasia (manual) Slight Anisocytosis (manual) Moderate Ovalocytes Slight Puncture Site pCO2 (35-45) mm/Hg pO2 (80-100) mm/Hg HCO3 (21-28) mmol/L ABG pH (7.35-7.45) ABG Total CO2 (22-28) mmol/L ABG O2 Saturation (95-98) % ABG Base Excess (-2.0-3.0) mmol/L ABG Hemoglobin (11.7-17.4) g/dL ABG Carboxyhemoglobin (0.5-1.5) % POC ABG HHb (Measured) (0.0-5.0) % ABG Methemoglobin (0.0-3.0) % Peter Test A-a O2 Difference mm/Hg Respiratory Index Hgb O2 Saturation (95.0-98.0) % Vent Mode Mechanical Rate FiO2 % Tidal Volume PEEP Sodium (132-148) mmol/L Potassium (3.6-5.2) mmol/L Chloride (98-107) mmol/L Carbon Dioxide (22-30) mmol/L Anion Gap (10-20) BUN (9-20) mg/dL Creatinine (0.8-1.5) mg/dL Est GFR ( Amer) Est GFR (Non-Af Amer) POC Glucose (mg/dL) 187 H (65-110) mg/dL Random Glucose (75-110) mg/dL Calcium (8.6-10.4) mg/dl Phosphorus (2.5-4.5) mg/dL Magnesium (1.6-2.3) mg/dL Total Bilirubin (0.2-1.3) mg/dL AST (17-59) U/L ALT (21-72) U/L Alkaline Phosphatase (38-126) U/L Total Protein (6.3-8.3) g/dL Albumin (3.5-5.0) g/dL Globulin (2.2-3.9) gm/dL Albumin/Globulin Ratio (1.0-2.1) UF Heparin Interp (Negative) Urine Color (YELLOW) Urine Clarity (Clear) Urine pH (5.0-8.0) Ur Specific [place] (1.003-1.030) Urine Protein (NEGATIVE) mg/dL Urine Glucose (UA) (Normal) mg/dL Urine Ketones (NEGATIVE) mg/dL Urine Blood (NEGATIVE) Urine Nitrate (NEGATIVE) Urine Bilirubin (NEGATIVE) Urine Urobilinogen (0.2-1.0) mg/dL Ur Leukocyte Esterase (Negative) Gaurav/uL Urine WBC (Auto) (0-5) /hpf Urine RBC (Auto) (0-3) /hpf Ur Squamous Epith Cells (0-5) /hpf Amorphous Sediment (<OCC) /ul Stool Occult Blood Positive H (NEGATIVE) Heparin-induced Plt Ab (Negative) PANFILO UFH Low Dose 0.1 % Release PANFILO UFH Low Dose 0.5 % Release PANFILO UFH High Dose 100 % Release 08/10/17 08/09/17 08/09/17 Range/Units 04:40 23:55 17:38 WBC (4.8-10.8) K/uL RBC (4.40-5.90) Mil/uL Hgb (12.0-18.0) g/dL Hct (35.0-51.0) % MCV (80.0-94.0) fL MCH (27.0-31.0) pg MCHC (33.0-37.0) g/dL RDW (11.5-14.5) % Plt Count (130-400) K/uL MPV (7.2-11.7) fL Neut % (Auto) (50.0-75.0) % Lymph % (Auto) (20.0-40.0) % Kerr % (Auto) (0.0-10.0) % Eos % (Auto) (0.0-4.0) % Baso % (Auto) (0.0-2.0) % Neut # (Auto) (1.8-7.0) K/uL Lymph # (Auto) (1.0-4.3) K/uL Kerr # (Auto) (0.0-0.8) K/uL Eos # (Auto) (0.0-0.7) K/uL Baso # (Auto) (0.0-0.2) K/uL Neutrophils % (Manual) (50-75) % Band Neutrophils % (0-2) % Lymphocytes % (Manual) (20-40) % Monocytes % (Manual) (0-10) % Eosinophils % (Manual) (0-4) % Myelocytes % (0-0) % Platelet Estimate (NORMAL) Hypochromasia (manual) Anisocytosis (manual) Ovalocytes Puncture Site Rr pCO2 41 (35-45) mm/Hg pO2 85 (80-100) mm/Hg HCO3 28.1 H (21-28) mmol/L ABG pH 7.45 (7.35-7.45) ABG Total CO2 29.8 H (22-28) mmol/L ABG O2 Saturation 98.1 H (95-98) % ABG Base Excess 4.1 H (-2.0-3.0) mmol/L ABG Hemoglobin 11.0 L (11.7-17.4) g/dL ABG Carboxyhemoglobin 1.9 H (0.5-1.5) % POC ABG HHb (Measured) 1.8 (0.0-5.0) % ABG Methemoglobin 1.0 (0.0-3.0) % Peter Test Pos A-a O2 Difference 220.0 mm/Hg Respiratory Index 2.6 Hgb O2 Saturation 95.2 (95.0-98.0) % Vent Mode Prvc Mechanical Rate 14 FiO2 50.0 % Tidal Volume 450 PEEP 5 Sodium (132-148) mmol/L Potassium (3.6-5.2) mmol/L Chloride (98-107) mmol/L Carbon Dioxide (22-30) mmol/L Anion Gap (10-20) BUN (9-20) mg/dL Creatinine (0.8-1.5) mg/dL Est GFR ( Amer) Est GFR (Non-Af Amer) POC Glucose (mg/dL) 230 H 210 H (65-110) mg/dL Random Glucose (75-110) mg/dL Calcium (8.6-10.4) mg/dl Phosphorus (2.5-4.5) mg/dL Magnesium (1.6-2.3) mg/dL Total Bilirubin (0.2-1.3) mg/dL AST (17-59) U/L ALT (21-72) U/L Alkaline Phosphatase (38-126) U/L Total Protein (6.3-8.3) g/dL Albumin (3.5-5.0) g/dL Globulin (2.2-3.9) gm/dL Albumin/Globulin Ratio (1.0-2.1) UF Heparin Interp (Negative) Urine Color (YELLOW) Urine Clarity (Clear) Urine pH (5.0-8.0) Ur Specific [place] (1.003-1.030) Urine Protein (NEGATIVE) mg/dL Urine Glucose (UA) (Normal) mg/dL Urine Ketones (NEGATIVE) mg/dL Urine Blood (NEGATIVE) Urine Nitrate (NEGATIVE) Urine Bilirubin (NEGATIVE) Urine Urobilinogen (0.2-1.0) mg/dL Ur Leukocyte Esterase (Negative) Gaurav/uL Urine WBC (Auto) (0-5) /hpf Urine RBC (Auto) (0-3) /hpf Ur Squamous Epith Cells (0-5) /hpf Amorphous Sediment (<OCC) /ul Stool Occult Blood (NEGATIVE) Heparin-induced Plt Ab (Negative) PANFILO UFH Low Dose 0.1 % Release PANFILO UFH Low Dose 0.5 % Release PANFILO UFH High Dose 100 % Release 08/08/17 Range/Units 06:20 WBC (4.8-10.8) K/uL RBC (4.40-5.90) Mil/uL Hgb (12.0-18.0) g/dL Hct (35.0-51.0) % MCV (80.0-94.0) fL MCH (27.0-31.0) pg MCHC (33.0-37.0) g/dL RDW (11.5-14.5) % Plt Count (130-400) K/uL MPV (7.2-11.7) fL Neut % (Auto) (50.0-75.0) % Lymph % (Auto) (20.0-40.0) % Kerr % (Auto) (0.0-10.0) % Eos % (Auto) (0.0-4.0) % Baso % (Auto) (0.0-2.0) % Neut # (Auto) (1.8-7.0) K/uL Lymph # (Auto) (1.0-4.3) K/uL Kerr # (Auto) (0.0-0.8) K/uL Eos # (Auto) (0.0-0.7) K/uL Baso # (Auto) (0.0-0.2) K/uL Neutrophils % (Manual) (50-75) % Band Neutrophils % (0-2) % Lymphocytes % (Manual) (20-40) % Monocytes % (Manual) (0-10) % Eosinophils % (Manual) (0-4) % Myelocytes % (0-0) % Platelet Estimate (NORMAL) Hypochromasia (manual) Anisocytosis (manual) Ovalocytes Puncture Site pCO2 (35-45) mm/Hg pO2 (80-100) mm/Hg HCO3 (21-28) mmol/L ABG pH (7.35-7.45) ABG Total CO2 (22-28) mmol/L ABG O2 Saturation (95-98) % ABG Base Excess (-2.0-3.0) mmol/L ABG Hemoglobin (11.7-17.4) g/dL ABG Carboxyhemoglobin (0.5-1.5) % POC ABG HHb (Measured) (0.0-5.0) % ABG Methemoglobin (0.0-3.0) % Peter Test A-a O2 Difference mm/Hg Respiratory Index Hgb O2 Saturation (95.0-98.0) % Vent Mode Mechanical Rate FiO2 % Tidal Volume PEEP Sodium (132-148) mmol/L Potassium (3.6-5.2) mmol/L Chloride (98-107) mmol/L Carbon Dioxide (22-30) mmol/L Anion Gap (10-20) BUN (9-20) mg/dL Creatinine (0.8-1.5) mg/dL Est GFR ( Amer) Est GFR (Non-Af Amer) POC Glucose (mg/dL) (65-110) mg/dL Random Glucose (75-110) mg/dL Calcium (8.6-10.4) mg/dl Phosphorus (2.5-4.5) mg/dL Magnesium (1.6-2.3) mg/dL Total Bilirubin (0.2-1.3) mg/dL AST (17-59) U/L ALT (21-72) U/L Alkaline Phosphatase (38-126) U/L Total Protein (6.3-8.3) g/dL Albumin (3.5-5.0) g/dL Globulin (2.2-3.9) gm/dL Albumin/Globulin Ratio (1.0-2.1) UF Heparin Interp Negative (Negative) Urine Color (YELLOW) Urine Clarity (Clear) Urine pH (5.0-8.0) Ur Specific [place] (1.003-1.030) Urine Protein (NEGATIVE) mg/dL Urine Glucose (UA) (Normal) mg/dL Urine Ketones (NEGATIVE) mg/dL Urine Blood (NEGATIVE) Urine Nitrate (NEGATIVE) Urine Bilirubin (NEGATIVE) Urine Urobilinogen (0.2-1.0) mg/dL Ur Leukocyte Esterase (Negative) Gaurav/uL Urine WBC (Auto) (0-5) /hpf Urine RBC (Auto) (0-3) /hpf Ur Squamous Epith Cells (0-5) /hpf Amorphous Sediment (<OCC) /ul Stool Occult Blood (NEGATIVE) Heparin-induced Plt Ab Negative (Negative) PANFILO UFH Low Dose 0.1 0 % Release PANFILO UFH Low Dose 0.5 0 % Release PANFILO UFH High Dose 100 0 % Release Laboratory Results - last 24 hr 08/08/17 08/09/17 08/09/17 06:20 17:38 23:55 WBC RBC Hgb Hct MCV MCH MCHC RDW Plt Count MPV Neut % (Auto) Lymph % (Auto) Kerr % (Auto) Eos % (Auto) Baso % (Auto) Neut # (Auto) Lymph # (Auto) Kerr # (Auto) Eos # (Auto) Baso # (Auto) Neutrophils % (Manual) Band Neutrophils % Lymphocytes % (Manual) Monocytes % (Manual) Eosinophils % (Manual) Myelocytes % Platelet Estimate Hypochromasia (manual) Anisocytosis (manual) Ovalocytes Puncture Site pCO2 pO2 HCO3 ABG pH ABG Total CO2 ABG O2 Saturation ABG Base Excess ABG Hemoglobin ABG Carboxyhemoglobin POC ABG HHb (Measured) ABG Methemoglobin Peter Test A-a O2 Difference Respiratory Index Hgb O2 Saturation Vent Mode Mechanical Rate FiO2 Tidal Volume PEEP Sodium Potassium Chloride Carbon Dioxide Anion Gap BUN Creatinine Est GFR ( Amer) Est GFR (Non-Af Amer) POC Glucose (mg/dL) 210 H 230 H Random Glucose Calcium Phosphorus Magnesium Total Bilirubin AST ALT Alkaline Phosphatase Total Protein Albumin Globulin Albumin/Globulin Ratio UF Heparin Interp Negative Urine Color Urine Clarity Urine pH Ur Specific [place] Urine Protein Urine Glucose (UA) Urine Ketones Urine Blood Urine Nitrate Urine Bilirubin Urine Urobilinogen Ur Leukocyte Esterase Urine WBC (Auto) Urine RBC (Auto) Ur Squamous Epith Cells Amorphous Sediment Stool Occult Blood Heparin-induced Plt Ab Negative PANFILO UFH Low Dose 0.1 0 PANFILO UFH Low Dose 0.5 0 PANFILO UFH High Dose 100 0 08/10/17 08/10/17 08/10/17 04:40 05:00 05:45 WBC RBC Hgb Hct MCV MCH MCHC RDW Plt Count MPV Neut % (Auto) Lymph % (Auto) Kerr % (Auto) Eos % (Auto) Baso % (Auto) Neut # (Auto) Lymph # (Auto) Kerr # (Auto) Eos # (Auto) Baso # (Auto) Neutrophils % (Manual) Band Neutrophils % Lymphocytes % (Manual) Monocytes % (Manual) Eosinophils % (Manual) Myelocytes % Platelet Estimate Hypochromasia (manual) Anisocytosis (manual) Ovalocytes Puncture Site Rr pCO2 41 pO2 85 HCO3 28.1 H ABG pH 7.45 ABG Total CO2 29.8 H ABG O2 Saturation 98.1 H ABG Base Excess 4.1 H ABG Hemoglobin 11.0 L ABG Carboxyhemoglobin 1.9 H POC ABG HHb (Measured) 1.8 ABG Methemoglobin 1.0 Peter Test Pos A-a O2 Difference 220.0 Respiratory Index 2.6 Hgb O2 Saturation 95.2 Vent Mode Prvc Mechanical Rate 14 FiO2 50.0 Tidal Volume 450 PEEP 5 Sodium Potassium Chloride Carbon Dioxide Anion Gap BUN Creatinine Est GFR ( Amer) Est GFR (Non-Af Amer) POC Glucose (mg/dL) 187 H Random Glucose Calcium Phosphorus Magnesium Total Bilirubin AST ALT Alkaline Phosphatase Total Protein Albumin Globulin Albumin/Globulin Ratio UF Heparin Interp Urine Color Urine Clarity Urine pH Ur Specific [place] Urine Protein Urine Glucose (UA) Urine Ketones Urine Blood Urine Nitrate Urine Bilirubin Urine Urobilinogen Ur Leukocyte Esterase Urine WBC (Auto) Urine RBC (Auto) Ur Squamous Epith Cells Amorphous Sediment Stool Occult Blood Positive H Heparin-induced Plt Ab PANFILO UFH Low Dose 0.1 PANFILO UFH Low Dose 0.5 PANFILO UFH High Dose 100 08/10/17 08/10/17 08/10/17 06:39 06:40 11:44 WBC 6.6 RBC 3.40 L Hgb 9.1 L Hct 27.9 L MCV 82.1 MCH 26.8 L MCHC 32.6 L RDW 19.9 H Plt Count 16 L* D MPV 10.2 Neut % (Auto) 94.0 H Lymph % (Auto) 3.8 L Kerr % (Auto) 1.4 Eos % (Auto) 0.7 Baso % (Auto) 0.1 Neut # (Auto) 6.2 Lymph # (Auto) 0.3 L Kerr # (Auto) 0.1 Eos # (Auto) 0.0 Baso # (Auto) 0.0 Neutrophils % (Manual) 63 Band Neutrophils % 27 H* Lymphocytes % (Manual) 6 L Monocytes % (Manual) 2 Eosinophils % (Manual) 1 Myelocytes % 1 H Platelet Estimate Markedly decreased L Hypochromasia (manual) Slight Anisocytosis (manual) Moderate Ovalocytes Slight Puncture Site pCO2 pO2 HCO3 ABG pH ABG Total CO2 ABG O2 Saturation ABG Base Excess ABG Hemoglobin ABG Carboxyhemoglobin POC ABG HHb (Measured) ABG Methemoglobin Peter Test A-a O2 Difference Respiratory Index Hgb O2 Saturation Vent Mode Mechanical Rate FiO2 Tidal Volume PEEP Sodium 153 H Potassium 3.6 Chloride 118 H Carbon Dioxide 28 Anion Gap 10 BUN 43 H Creatinine 1.0 Est GFR ( Amer) > 60 Est GFR (Non-Af Amer) > 60 POC Glucose (mg/dL) 194 H Random Glucose 162 H Calcium 7.1 L Phosphorus 2.3 L Magnesium 2.1 Total Bilirubin 1.4 H AST 75 H D ALT 53 Alkaline Phosphatase 92 Total Protein 4.8 L Albumin 2.1 L Globulin 2.7 Albumin/Globulin Ratio 0.8 L UF Heparin Interp Urine Color Urine Clarity Urine pH Ur Specific [place] Urine Protein Urine Glucose (UA) Urine Ketones Urine Blood Urine Nitrate Urine Bilirubin Urine Urobilinogen Ur Leukocyte Esterase Urine WBC (Auto) Urine RBC (Auto) Ur Squamous Epith Cells Amorphous Sediment Stool Occult Blood Heparin-induced Plt Ab PANFILO UFH Low Dose 0.1 PANFILO UFH Low Dose 0.5 PANFILO UFH High Dose 100 08/10/17 13:15 WBC RBC Hgb Hct MCV MCH MCHC RDW Plt Count MPV Neut % (Auto) Lymph % (Auto) Kerr % (Auto) Eos % (Auto) Baso % (Auto) Neut # (Auto) Lymph # (Auto) Kerr # (Auto) Eos # (Auto) Baso # (Auto) Neutrophils % (Manual) Band Neutrophils % Lymphocytes % (Manual) Monocytes % (Manual) Eosinophils % (Manual) Myelocytes % Platelet Estimate Hypochromasia (manual) Anisocytosis (manual) Ovalocytes Puncture Site pCO2 pO2 HCO3 ABG pH ABG Total CO2 ABG O2 Saturation ABG Base Excess ABG Hemoglobin ABG Carboxyhemoglobin POC ABG HHb (Measured) ABG Methemoglobin Peter Test A-a O2 Difference Respiratory Index Hgb O2 Saturation Vent Mode Mechanical Rate FiO2 Tidal Volume PEEP Sodium Potassium Chloride Carbon Dioxide Anion Gap BUN Creatinine Est GFR ( Amer) Est GFR (Non-Af Amer) POC Glucose (mg/dL) Random Glucose Calcium Phosphorus Magnesium Total Bilirubin AST ALT Alkaline Phosphatase Total Protein Albumin Globulin Albumin/Globulin Ratio UF Heparin Interp Urine Color Yellow Urine Clarity Turbid Urine pH 5.0 Ur Specific [place] 1.015 Urine Protein 2+ H Urine Glucose (UA) 1+ H Urine Ketones Negative Urine Blood 3+ H Urine Nitrate Negative Urine Bilirubin Negative Urine Urobilinogen 4.0 Ur Leukocyte Esterase Neg Urine WBC (Auto) 3 Urine RBC (Auto) 36 H Ur Squamous Epith Cells 1 Amorphous Sediment Few H Stool Occult Blood Heparin-induced Plt Ab PANFILO UFH Low Dose 0.1 PANFILO UFH Low Dose 0.5 PANFILO UFH High Dose 100 Critical Care Progress Note - Nutrition Nutrition: Nutrition Category Date Time Status NPO Diet [DIET] Diets 08/07/17 Breakfast Active Assessment/Plan - Assessment and Plan (Free Text) Plan: Patient seen and examined at bedside. Above resident note reflects my management and documentation of PE. Above note reviewed and verified Fevers resolved -CXR improved -off pressors -continue abx management -CPAP trials today - - Date & Time Date: 08/10/17 Time: 17:11
[2017-08-10 13:47] LABS: SQUAMOUS EPITHIAL 1 /hpf (0-5); URINE BILIRUBIN NEGATIVE (NEGATIVE); URINE BLOOD 3+ (NEGATIVE); URINE CLARITY Turbid (Clear); URINE COLOR Yellow (YELLOW); URINE GLUCOSE (UA) 1+ mg/dL (Normal); URINE LEUKOCYTE ESTERASE NEG Leu/uL (Negative); URINE NITRATE NEGATIVE (NEGATIVE); URINE PROTEIN 2+ mg/dL (NEGATIVE)
[2017-08-10 13:52] LABS: URINE AMORPHOUS SEDIMENT FEW /ul (<OCC)
[2017-08-10] MEDS: Meropenem 500 MG in Sodium Chloride 0.9% 100 ML IVPB SCH ×2 (14:00→18:00)
[2017-08-10] MEDS: MethylPREDNISolone 40 mg Vial IV SCH ×2 (14:00→21:04)
--- NOTE | 2017-08-10 15:34 | CP.PCM.PN ---
Subjective - Date & Time of Evaluation Date of Evaluation: 08/10/17 Time of Evaluation: 15:34 Objective - Vital Signs/Intake and Output Vital Signs (last 24 hours): Temp Pulse Resp BP Pulse Ox 100.4 F H 124 H 32 H 106/60 95 08/10/17 14:00 08/10/17 15:00 08/10/17 15:00 08/10/17 14:00 08/10/17 15:00 Intake and Output: 08/10/17 08/10/17 06:59 18:59 Intake Total 1891 1067 Output Total 720 370 Balance 1171 697 - Medications Medications: Current Medications Acetaminophen (Tylenol 650mg/20.3ml Solution Ud) 650 mg PO Q6 PRN PRN Reason: for temperature >100.4 Last Admin: 08/10/17 09:00 Dose: 650 mg Albuterol/Ipratropium (Duoneb 3 Mg/0.5 Mg (3 Ml) Ud) 3 ml INH Q4H [facility] Last Admin: 08/10/17 11:33 Dose: 3 ml Benzocaine/Menthol (Cepacol Sore Throat) 1 ryan MT Q4 PRN PRN Reason: Sore Throat Last Admin: 08/05/17 15:22 Dose: 1 ryan Diltiazem HCl (Cardizem) 30 mg PO Q6 [facility] Last Admin: 08/10/17 12:00 Dose: Not Given Diphenhydramine HCl (Benadryl) 25 mg PO ONCE PRN PRN Reason: Pre transfusion Last Admin: 08/03/17 01:35 Dose: 25 mg Famotidine (Pepcid) 20 mg IVP DAILY [facility] Last Admin: 08/10/17 10:00 Dose: 20 mg Vancomycin HCl 1 gm/ Sodium (Chloride) 200 mls @ 133.333 mls/hr IVPB Q12H [facility] Last Admin: 08/10/17 04:51 Dose: 133.333 mls/hr Lactated Ringer's (Lactated Ringer's) 1,000 mls @ 100 mls/hr IV .Q10H [facility] Last Admin: 08/10/17 09:37 Dose: Not Given Meropenem 500 mg/ Sodium (Chloride) 100 mls @ 100 mls/hr IVPB Q6H [facility] Last Admin: 08/10/17 14:00 Dose: 100 mls/hr Lidocaine HCl (Lidocaine 2% Viscous) 15 ml PO ONCE PRN PRN Reason: throat pain Last Admin: 08/05/17 15:22 Dose: 15 ml Methylprednisolone (Solu-Medrol) 40 mg IV Q8 [facility] Last Admin: 08/10/17 14:00 Dose: 40 mg Nystatin (Nystop Topical Powder) 1 applic TOP BID [facility] Stop: 08/17/17 18:01 Last Admin: 08/10/17 10:30 Dose: 1 applic Rosuvastatin Calcium (Crestor) 5 mg PO HS [facility] Last Admin: 08/09/17 21:15 Dose: 5 mg Sodium Chloride ([place] Baby Saline 30 Ml) 0 ml [place] Q4 PRN PRN Reason: Cough and congestion Last Admin: 08/04/17 19:12 Dose: 1 spr - Labs Labs: 08/10/17 06:39 08/10/17 06:40 PT 13.6 SECONDS (9.7-12.2) H 07/26/17 17:16 INR 1.2 07/26/17 17:16 APTT 33 SECONDS (21-34) 07/26/17 17:16
[2017-08-10] MEDS ORDERED: Sucralfate 1 gm/10 ml Oral Susp UD PO SCH (16:45)
--- NOTE | 2017-08-10 18:25 | CP.PCM.PN ---
Subjective - Date & Time of Evaluation Date of Evaluation: 08/10/17 Time of Evaluation: 08:00 - Subjective Subjective: s/p resp arrest cultures sputum + ESBL iv rx in progress Objective - Vital Signs/Intake and Output Vital Signs (last 24 hours): Temp Pulse Resp BP Pulse Ox 100.4 F H 124 H 32 H 106/60 95 08/10/17 14:00 08/10/17 15:00 08/10/17 15:00 08/10/17 14:00 08/10/17 15:00 Intake and Output: 08/10/17 08/10/17 06:59 18:59 Intake Total 1891 1067 Output Total 720 370 Balance 1171 697 - Medications Medications: Current Medications Acetaminophen (Tylenol 650mg/20.3ml Solution Ud) 650 mg PO Q6 PRN PRN Reason: for temperature >100.4 Last Admin: 08/10/17 09:00 Dose: 650 mg Albuterol/Ipratropium (Duoneb 3 Mg/0.5 Mg (3 Ml) Ud) 3 ml INH Q4H [facility] Last Admin: 08/10/17 16:23 Dose: 3 ml Benzocaine/Menthol (Cepacol Sore Throat) 1 ryan MT Q4 PRN PRN Reason: Sore Throat Last Admin: 08/05/17 15:22 Dose: 1 ryan Diltiazem HCl (Cardizem) 30 mg PO Q6 [facility] Last Admin: 08/10/17 12:00 Dose: Not Given Diphenhydramine HCl (Benadryl) 25 mg PO ONCE PRN PRN Reason: Pre transfusion Last Admin: 08/03/17 01:35 Dose: 25 mg Famotidine (Pepcid) 20 mg IVP BID [facility] Vancomycin HCl 1 gm/ Sodium (Chloride) 200 mls @ 133.333 mls/hr IVPB Q12H [facility] Last Admin: 08/10/17 04:51 Dose: 133.333 mls/hr Lactated Ringer's (Lactated Ringer's) 1,000 mls @ 100 mls/hr IV .Q10H [facility] Last Admin: 08/10/17 09:37 Dose: Not Given Meropenem 500 mg/ Sodium (Chloride) 100 mls @ 100 mls/hr IVPB Q6H [facility] Last Admin: 08/10/17 14:00 Dose: 100 mls/hr Lidocaine HCl (Lidocaine 2% Viscous) 15 ml PO ONCE PRN PRN Reason: throat pain Last Admin: 08/05/17 15:22 Dose: 15 ml Methylprednisolone (Solu-Medrol) 40 mg IV Q8 [facility] Last Admin: 08/10/17 14:00 Dose: 40 mg Nystatin (Nystop Topical Powder) 1 applic TOP BID [facility] Stop: 08/17/17 18:01 Last Admin: 08/10/17 10:30 Dose: 1 applic Rosuvastatin Calcium (Crestor) 5 mg PO HS [facility] Last Admin: 08/09/17 21:15 Dose: 5 mg Sodium Chloride ([place] Baby Saline 30 Ml) 0 ml [place] Q4 PRN PRN Reason: Cough and congestion Last Admin: 08/04/17 19:12 Dose: 1 spr Sucralfate (Carafate Oral Susp) 1 gm PO DAILY [facility] - Labs Labs: 08/10/17 06:39 08/10/17 06:40 PT 13.6 SECONDS (9.7-12.2) H 07/26/17 17:16 INR 1.2 07/26/17 17:16 APTT 33 SECONDS (21-34) 07/26/17 17:16 - Constitutional Appears: Non-toxic, Chronically Ill - Head Exam Head Exam: NORMOCEPHALIC - Eye Exam Eye Exam: PERRL - ENT Exam ENT Exam: Mucous Membranes Dry - Neck Exam Neck Exam: absent: Lymphadenopathy - Respiratory Exam Respiratory Exam: Decreased Breath Sounds - Cardiovascular Exam Cardiovascular Exam: REGULAR RHYTHM - GI/Abdominal Exam GI & Abdominal Exam: Distended, Soft - Rectal Exam Rectal Exam: Deferred - Exam Exam: NORMAL INSPECTION - Extremities Exam Extremities Exam: absent: Pedal Edema - Back Exam Back Exam: absent: CVA tenderness (L), CVA tenderness (R) - Neurological Exam Neurological Exam: Altered - Psychiatric Exam Psychiatric exam: Depressed - Skin Skin Exam: Dry Assessment and Plan (1) Anemia Status: Acute (2) Atrial fibrillation with RVR Status: Acute (3) COPD with exacerbation Status: Acute (4) Leukocytosis Status: Acute (5) PNA (pneumonia) Status: Acute (6) Productive cough Status: Acute - Assessment and Plan (Free Text) Assessment: iv rx reordered poor prognosis
--- NOTE | 2017-08-10 19:14 | CP.PCM.PN ---
Subjective - Date & Time of Evaluation Date of Evaluation: 08/10/17 Time of Evaluation: 18:00 - Subjective Subjective: Vented Objective - Vital Signs/Intake and Output Vital Signs (last 24 hours): Temp Pulse Resp BP Pulse Ox 100.4 F H 124 H 32 H 106/60 95 08/10/17 14:00 08/10/17 15:00 08/10/17 15:00 08/10/17 14:00 08/10/17 15:00 Intake and Output: 08/10/17 08/11/17 18:59 06:59 Intake Total 1067 Output Total 370 Balance 697 - Medications Medications: Current Medications Acetaminophen (Tylenol 650mg/20.3ml Solution Ud) 650 mg PO Q6 PRN PRN Reason: for temperature >100.4 Last Admin: 08/10/17 09:00 Dose: 650 mg Albuterol/Ipratropium (Duoneb 3 Mg/0.5 Mg (3 Ml) Ud) 3 ml INH Q4H [facility] Last Admin: 08/10/17 16:23 Dose: 3 ml Benzocaine/Menthol (Cepacol Sore Throat) 1 ryan MT Q4 PRN PRN Reason: Sore Throat Last Admin: 08/05/17 15:22 Dose: 1 ryan Diltiazem HCl (Cardizem) 30 mg PO Q6 [facility] Last Admin: 08/10/17 12:00 Dose: Not Given Diphenhydramine HCl (Benadryl) 25 mg PO ONCE PRN PRN Reason: Pre transfusion Last Admin: 08/03/17 01:35 Dose: 25 mg Famotidine (Pepcid) 20 mg IVP BID [facility] Vancomycin HCl 1 gm/ Sodium (Chloride) 200 mls @ 133.333 mls/hr IVPB Q12H [facility] Last Admin: 08/10/17 17:00 Dose: 133.333 mls/hr Lactated Ringer's (Lactated Ringer's) 1,000 mls @ 100 mls/hr IV .Q10H [facility] Last Admin: 08/10/17 19:08 Dose: Not Given Meropenem 500 mg/ Sodium (Chloride) 100 mls @ 100 mls/hr IVPB Q6H [facility] Last Admin: 08/10/17 14:00 Dose: 100 mls/hr Lidocaine HCl (Lidocaine 2% Viscous) 15 ml PO ONCE PRN PRN Reason: throat pain Last Admin: 08/05/17 15:22 Dose: 15 ml Methylprednisolone (Solu-Medrol) 40 mg IV Q8 [facility] Last Admin: 08/10/17 14:00 Dose: 40 mg Nystatin (Nystop Topical Powder) 1 applic TOP BID [facility] Stop: 08/17/17 18:01 Last Admin: 08/10/17 19:11 Dose: 1 applic Rosuvastatin Calcium (Crestor) 5 mg PO HS [facility] Last Admin: 08/09/17 21:15 Dose: 5 mg Sodium Chloride ([place] Baby Saline 30 Ml) 0 ml [place] Q4 PRN PRN Reason: Cough and congestion Last Admin: 08/04/17 19:12 Dose: 1 spr Sucralfate (Carafate Oral Susp) 1 gm PO DAILY [facility] - Labs Labs: 08/10/17 06:39 08/10/17 06:40 PT 13.6 SECONDS (9.7-12.2) H 07/26/17 17:16 INR 1.2 07/26/17 17:16 APTT 33 SECONDS (21-34) 07/26/17 17:16 - Head Exam Head Exam: ATRAUMATIC - Eye Exam Eye Exam: Normal appearance - ENT Exam ENT Exam: Mucous Membranes Dry - Respiratory Exam Respiratory Exam: Decreased Breath Sounds - Cardiovascular Exam Cardiovascular Exam: +S1, +S2 - GI/Abdominal Exam GI & Abdominal Exam: Normal Bowel Sounds Assessment and Plan (1) Thrombocytopenia Assessment & Plan: sepsis, acute illness related heparin antibody negative; not HIT repeat fibrinogen in AM; no current DIC Status: Acute (2) Anemia Assessment & Plan: chronic disease transfusion support PRN Status: Acute
[2017-08-11] MEDS ORDERED: Lactated Ringer's 1,000 ML IV ONE (00:02)
[2017-08-11] MEDS: Meropenem 500 MG in Sodium Chloride 0.9% 100 ML IVPB SCH ×4 (00:13→18:36)
[2017-08-11] MEDS: Albuterol-Ipratrop 3 mg / 0.5 (3 ml) UD INH SCH ×6 (00:38→19:42)
[2017-08-11] MEDS: Lactated Ringer's 1,000 ML IV SCH (03:00)
[2017-08-11] MEDS: Vancomycin 1 GM in Sodium Chloride 0.9% 200 ML IVPB SCH (05:06)
[2017-08-11] MEDS: MethylPREDNISolone 40 mg Vial IV SCH ×3 (06:20→21:14)
[2017-08-11 06:46] LABS: BASO % 0.2 % (0.0-2.0); EOS # 0.1 K/uL (0.0-0.7); EOS % 2.8 % (0.0-4.0); HEMOGLOBIN 7.9 g/dL (12.0-18.0); LYMPH # 0.2 K/uL (1.0-4.3); LYMPH % 4.3 % (20.0-40.0); MEAN CELL VOLUME 82.4 fL (80.0-94.0); MEAN CORPUSCULAR HEMOGLOBIN 27.2 pg (27.0-31.0); MEAN PLATELET VOLUME 7.9 fL (7.2-11.7); MONO % 0.7 % (0.0-10.0); NEUT # 4.9 K/uL (1.8-7.0); NRBC % 0.1 % (0.0-2.0); PLATELET COUNT 47 K/uL (130-400); RBC 2.92 Mil/uL (4.40-5.90); WHITE BLOOD COUNT 5.3 K/uL (4.8-10.8)
[2017-08-11 06:58] LABS: ALB/GLOB RATIO 0.7 (1.0-2.1); ALBUMIN 2.1 g/dL (3.5-5.0); CALCIUM 6.9 mg/dl (8.6-10.4); MAGNESIUM 2.2 mg/dL (1.6-2.3)
[2017-08-11] MEDS ORDERED: Sodium Chloride 0.9% 1,000 ML IV ONE (07:04)
[2017-08-11 07:14] LABS: ARTERIAL BLOOD GAS HCO3 28.8 mmol/L (21-28); ARTERIAL BLOOD GAS HEMOGLOBIN 8.7 g/dL (11.7-17.4); ARTERIAL BLOOD GAS O2 SAT 98.2 % (95-98); ARTERIAL BLOOD GAS PCO2 45 mm/Hg (35-45); ARTERIAL BLOOD GAS PH 7.43 (7.35-7.45); ARTERIAL BLOOD GAS PO2 98 mm/Hg (80-100); ARTERIAL BLOOD GAS TCO2 31.3 mmol/L (22-28)
[2017-08-11 08:20] LABS: ANISOCYTOSIS MODERATE; BANDS 9 % (0-2); LYMPHOCYTE 2 % (20-40); METAMYELOCYTE 2 % (0-0); MICROCYTOSIS SLIGHT; MONOCYTE 2 % (0-10); NEUTROPHIL 85 % (50-75); PLATELET ESTIMATE MARKEDLY DECREASED (NORMAL); POIKILOCYTOSIS SLIGHT; TOTAL CELLS COUNTED 100; TOXIC GRANULATION PRESENT
[2017-08-11 08:21] LABS: OVALOCYTES SLIGHT; SPHEROCYTES SLIGHT
[2017-08-11 08:22] LABS: LARGE PLATELETS PRESENT
[2017-08-11] MEDS: Acetylcysteine 20% Inhal Soln (4ml) PO SCH ×2 (10:36→21:14)
--- NOTE | 2017-08-11 11:26 | CP.CCUPN ---
CCU Subjective - Physician Review Events Since Last Encounter (Free Text): 08/11/17 11:26 This is an 86-year-old man with a history of COPD admitted with a history of pneumonia recently the month ago. During the stay in the floor patient developed a worsening respiratory insufficiency, he was intubated and brought into ICU. Patient currently on ventilator. Family at bedside. 50% FiO2. Patient is awake and responding. Thick secretions noted from the ET tube. On examination: Vital signs: Heart data 111. Blood pressure 105/43 saturation 98%, awake and responding Chest bilateral good air entry regular heart sounds nontender abdomen edema negative Chest x-ray worsening right upper, and the right lower lung pneumonia noted. 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 The sputum culture positive for ESBL Escherichia coli infectious disease on the case Assessment and determination: 86-year-old male with history of COPD, fibrotic lung changes admitted at the worsening pneumonia on ventilator with acute respiratory insufficiency hypoxic. Atrial fibrillation. We'll continue the current treatment. Antibiotic, respiratory support. Patient not a candidate for weaning yet. CCU Objective - Vital Signs / Intake & Output Vital Signs (Last 4 hours): Vital Signs Temp Pulse Resp BP Pulse Ox 08/11/17 10:25 106 H 22 105/43 L 97 08/11/17 10:00 116 H 19 99 08/11/17 09:25 106 H 26 H 105/51 L 100 08/11/17 09:00 92 H 10 L 100 08/11/17 08:25 107 H 15 103/55 L 100 08/11/17 08:00 99.0 F 104 H 20 100 Intake and Output (Last 8hrs): Intake & Output 08/10/17 08/11/17 08/11/17 22:59 06:59 14:59 Intake Total 906.8 2256 550 Output Total 240 65 30 Balance 666.8 2191 520 Intake: Intake, IV Amount 606.8 1700 400 Right Medial Port 6.8 Right Proximal Port 600 1700 400 Tube Feeding 300 300 150 Blood Product 0 206 Apheresis Plts Acda Lr 0 206 Irr 2nd Unit [id number] Other 50 Apheresis Plts Acda Lr 50 Irr 2nd Unit [id number] Output: Urine 240 65 30 Urethral (Han) 240 65 30 Other: # Bowel Movements 1 1 - Physical Exam Head: Positive for: Atraumatic, Normocephalic Pupils: Positive for: PERRL Extroacular Muscles: Positive for: EOMI Conjunctiva: Positive for: Normal Mouth: Positive for: Moist Mucous Membranes Neck: Positive for: Normal Range of Motion Respiratory/Chest: Positive for: Rales Cardiovascular: Positive for: Tachycardic Abdomen: Positive for: Normal Bowel Sounds. Negative for: Tenderness, Distention, Peritoneal Signs Skin: Positive for: Warm Psychiatric: Positive for: Alert - Medications Active Medications: Active Medications Generic Name Dose Route Start Last Admin Trade Name Freq PRN Reason Stop Dose Admin Acetaminophen 650 mg 08/09/17 11:00 08/10/17 09:00 Tylenol 650mg/20.3ml Solution Ud PO 650 mg Q6 PRN Administration for temperature >100.4 Acetylcysteine 6 ml 08/11/17 10:00 Acetylcysteine 20% PO 08/12/17 22:01 Q12 HAZEL Albuterol/Ipratropium 3 ml 08/03/17 12:00 08/11/17 11:08 Duoneb 3 Mg/0.5 Mg (3 Ml) Ud INH 3 ml Q4H HAZEL Administration Benzocaine/Menthol 1 ryan 07/29/17 16:59 08/05/17 15:22 Cepacol Sore Throat MT 1 ryan Q4 PRN Administration Sore Throat Diltiazem HCl 30 mg 08/07/17 09:15 08/11/17 06:20 Cardizem PO 30 mg Q6 HAZEL Administration Diphenhydramine HCl 25 mg 08/03/17 01:00 08/03/17 01:35 Benadryl PO 25 mg ONCE PRN Administration Pre transfusion Famotidine 20 mg 08/10/17 18:00 08/10/17 18:00 Pepcid IVP 20 mg BID HAZEL Administration Lactated Ringer's 1,000 mls @ 100 mls/hr 08/09/17 11:00 08/11/17 03:00 Lactated Ringer's IV 100 mls/hr .Q10H HAZEL Administration Meropenem 500 mg/ Sodium 100 mls @ 100 mls/hr 08/10/17 12:00 08/11/17 06:26 Chloride IVPB 100 mls/hr Q6H HAZEL Administration Lidocaine HCl 15 ml 08/02/17 12:41 08/05/17 15:22 Lidocaine 2% Viscous PO 15 ml ONCE PRN Administration throat pain Methylprednisolone 40 mg 08/10/17 14:00 08/11/17 06:20 Solu-Medrol IV 40 mg Q8 HAZEL Administration Nystatin 1 applic 08/03/17 18:00 08/10/17 19:11 Nystop Topical Powder TOP 08/17/17 18:01 1 applic BID HAZEL Administration Rosuvastatin Calcium 5 mg 07/24/17 22:00 08/10/17 21:04 Crestor PO 5 mg HS HAZEL Administration Sodium Chloride 0 ml 07/28/17 16:42 08/04/17 19:12 Mcbee Baby Saline 30 Ml MADISON 1 spr Q4 PRN Administration Cough and congestion Sucralfate 1 gm 08/12/17 07:30 Carafate Oral Susp PO ACB HAZEL - Patient Studies Lab Studies: Microbiology Studies 08/02/17 11:53 Mycobacterial Culture - Preliminary Other: Please Indicate 08/10/17 11:44 Gram Stain - Final Trachasp Lab Studies 08/11/17 08/11/17 08/11/17 Range/Units 08:11 06:38 06:38 WBC (4.8-10.8) K/uL RBC (4.40-5.90) Mil/uL Hgb (12.0-18.0) g/dL Hct (35.0-51.0) % MCV (80.0-94.0) fL MCH (27.0-31.0) pg MCHC (33.0-37.0) g/dL RDW (11.5-14.5) % Plt Count (130-400) K/uL MPV (7.2-11.7) fL Neut % (Auto) (50.0-75.0) % Lymph % (Auto) (20.0-40.0) % Frederick % (Auto) (0.0-10.0) % Eos % (Auto) (0.0-4.0) % Baso % (Auto) (0.0-2.0) % Neut # (Auto) (1.8-7.0) K/uL Lymph # (Auto) (1.0-4.3) K/uL Frederick # (Auto) (0.0-0.8) K/uL Eos # (Auto) (0.0-0.7) K/uL Baso # (Auto) (0.0-0.2) K/uL Neutrophils % (Manual) (50-75) % Band Neutrophils % (0-2) % Lymphocytes % (Manual) (20-40) % Monocytes % (Manual) (0-10) % Metamyelocytes % (0-0) % Toxic Granulation Dohle Bodies Platelet Estimate (NORMAL) Large Platelets Poikilocytosis (manual Anisocytosis (manual) Microcytosis (manual) Macrocytosis (manual) Spherocytes Ovalocytes Puncture Site pCO2 (35-45) mm/Hg pO2 (80-100) mm/Hg HCO3 (21-28) mmol/L ABG pH (7.35-7.45) ABG Total CO2 (22-28) mmol/L ABG O2 Saturation (95-98) % ABG Base Excess (-2.0-3.0) mmol/L ABG Hemoglobin (11.7-17.4) g/dL ABG Carboxyhemoglobin (0.5-1.5) % POC ABG HHb (Measured) (0.0-5.0) % ABG Methemoglobin (0.0-3.0) % Peter Test A-a O2 Difference mm/Hg Respiratory Index Hgb O2 Saturation (95.0-98.0) % Vent Mode Mechanical Rate FiO2 % Tidal Volume PEEP Sodium 148 (132-148) mmol/L Potassium 5.1 (3.6-5.2) mmol/L Chloride 113 H (98-107) mmol/L Carbon Dioxide 28 (22-30) mmol/L Anion Gap 12 (10-20) BUN 68 H (9-20) mg/dL Creatinine 2.1 H (0.8-1.5) mg/dL Est GFR ( Amer) 36 Est GFR (Non-Af Amer) 30 POC Glucose (mg/dL) (65-110) mg/dL Random Glucose 263 H (75-110) mg/dL Lactic Acid 2.8 H (0.7-2.1) mmol/L Calcium 6.9 L (8.6-10.4) mg/dl Phosphorus 4.3 (2.5-4.5) mg/dL Magnesium 2.2 (1.6-2.3) mg/dL Total Bilirubin 1.4 H (0.2-1.3) mg/dL AST 107 H D (17-59) U/L ALT 65 (21-72) U/L Alkaline Phosphatase 82 (38-126) U/L Total Protein 4.9 L (6.3-8.3) g/dL Albumin 2.1 L (3.5-5.0) g/dL Globulin 2.8 (2.2-3.9) gm/dL Albumin/Globulin Ratio 0.7 L (1.0-2.1) UF Heparin Interp (Negative) Urine Color (YELLOW) Urine Clarity (Clear) Urine pH (5.0-8.0) Ur Specific Leonard (1.003-1.030) Urine Protein (NEGATIVE) mg/dL Urine Glucose (UA) (Normal) mg/dL Urine Ketones (NEGATIVE) mg/dL Urine Blood (NEGATIVE) Urine Nitrate (NEGATIVE) Urine Bilirubin (NEGATIVE) Urine Urobilinogen (0.2-1.0) mg/dL Ur Leukocyte Esterase (Negative) Gaurav/uL Urine WBC (Auto) (0-5) /hpf Urine RBC (Auto) (0-3) /hpf Ur Squamous Epith Cells (0-5) /hpf Amorphous Sediment (<OCC) /ul Stool Occult Blood (NEGATIVE) Random Vancomycin 48.25 ug/mL Heparin-induced Plt Ab (Negative) PANFILO UFH Low Dose 0.1 % Release PANFILO UFH Low Dose 0.5 % Release PANFILO UFH High Dose 100 % Release 08/11/17 08/11/17 08/11/17 Range/Units 06:38 05:20 05:02 WBC 5.3 (4.8-10.8) K/uL RBC 2.92 L (4.40-5.90) Mil/uL Hgb 7.9 L (12.0-18.0) g/dL Hct 24.1 L (35.0-51.0) % MCV 82.4 (80.0-94.0) fL MCH 27.2 (27.0-31.0) pg MCHC 33.0 (33.0-37.0) g/dL RDW 20.0 H (11.5-14.5) % Plt Count 47 L D (130-400) K/uL MPV 7.9 (7.2-11.7) fL Neut % (Auto) 92.0 H (50.0-75.0) % Lymph % (Auto) 4.3 L (20.0-40.0) % Frederick % (Auto) 0.7 (0.0-10.0) % Eos % (Auto) 2.8 (0.0-4.0) % Baso % (Auto) 0.2 (0.0-2.0) % Neut # (Auto) 4.9 (1.8-7.0) K/uL Lymph # (Auto) 0.2 L (1.0-4.3) K/uL Frederick # (Auto) 0.0 (0.0-0.8) K/uL Eos # (Auto) 0.1 (0.0-0.7) K/uL Baso # (Auto) 0.0 (0.0-0.2) K/uL Neutrophils % (Manual) 85 H (50-75) % Band Neutrophils % 9 H (0-2) % Lymphocytes % (Manual) 2 L (20-40) % Monocytes % (Manual) 2 (0-10) % Metamyelocytes % 2 H (0-0) % Toxic Granulation Present Dohle Bodies Present Platelet Estimate Markedly decreased L (NORMAL) Large Platelets Present Poikilocytosis (manual Slight Anisocytosis (manual) Moderate Microcytosis (manual) Slight Macrocytosis (manual) Slight Spherocytes Slight Ovalocytes Slight Puncture Site L bra pCO2 45 (35-45) mm/Hg pO2 98 (80-100) mm/Hg HCO3 28.8 H (21-28) mmol/L ABG pH 7.43 (7.35-7.45) ABG Total CO2 31.3 H (22-28) mmol/L ABG O2 Saturation 98.2 H (95-98) % ABG Base Excess 5.0 H (-2.0-3.0) mmol/L ABG Hemoglobin 8.7 L (11.7-17.4) g/dL ABG Carboxyhemoglobin 1.8 H (0.5-1.5) % POC ABG HHb (Measured) 1.8 (0.0-5.0) % ABG Methemoglobin 1.0 (0.0-3.0) % Peter Test Na A-a O2 Difference 202.0 mm/Hg Respiratory Index 2.1 Hgb O2 Saturation 95.5 (95.0-98.0) % Vent Mode Prvc Mechanical Rate 14 FiO2 50.0 % Tidal Volume 450 PEEP 5 Sodium (132-148) mmol/L Potassium (3.6-5.2) mmol/L Chloride (98-107) mmol/L Carbon Dioxide (22-30) mmol/L Anion Gap (10-20) BUN (9-20) mg/dL Creatinine (0.8-1.5) mg/dL Est GFR ( Amer) Est GFR (Non-Af Amer) POC Glucose (mg/dL) 243 H (65-110) mg/dL Random Glucose (75-110) mg/dL Lactic Acid (0.7-2.1) mmol/L Calcium (8.6-10.4) mg/dl Phosphorus (2.5-4.5) mg/dL Magnesium (1.6-2.3) mg/dL Total Bilirubin (0.2-1.3) mg/dL AST (17-59) U/L ALT (21-72) U/L Alkaline Phosphatase (38-126) U/L Total Protein (6.3-8.3) g/dL Albumin (3.5-5.0) g/dL Globulin (2.2-3.9) gm/dL Albumin/Globulin Ratio (1.0-2.1) UF Heparin Interp (Negative) Urine Color (YELLOW) Urine Clarity (Clear) Urine pH (5.0-8.0) Ur Specific Leonard (1.003-1.030) Urine Protein (NEGATIVE) mg/dL Urine Glucose (UA) (Normal) mg/dL Urine Ketones (NEGATIVE) mg/dL Urine Blood (NEGATIVE) Urine Nitrate (NEGATIVE) Urine Bilirubin (NEGATIVE) Urine Urobilinogen (0.2-1.0) mg/dL Ur Leukocyte Esterase (Negative) Gaurav/uL Urine WBC (Auto) (0-5) /hpf Urine RBC (Auto) (0-3) /hpf Ur Squamous Epith Cells (0-5) /hpf Amorphous Sediment (<OCC) /ul Stool Occult Blood (NEGATIVE) Random Vancomycin ug/mL Heparin-induced Plt Ab (Negative) PANFILO UFH Low Dose 0.1 % Release PANFILO UFH Low Dose 0.5 % Release PANFILO UFH High Dose 100 % Release 08/11/17 08/10/17 08/10/17 Range/Units 00:14 17:54 13:15 WBC (4.8-10.8) K/uL RBC (4.40-5.90) Mil/uL Hgb (12.0-18.0) g/dL Hct (35.0-51.0) % MCV (80.0-94.0) fL MCH (27.0-31.0) pg MCHC (33.0-37.0) g/dL RDW (11.5-14.5) % Plt Count (130-400) K/uL MPV (7.2-11.7) fL Neut % (Auto) (50.0-75.0) % Lymph % (Auto) (20.0-40.0) % Frederick % (Auto) (0.0-10.0) % Eos % (Auto) (0.0-4.0) % Baso % (Auto) (0.0-2.0) % Neut # (Auto) (1.8-7.0) K/uL Lymph # (Auto) (1.0-4.3) K/uL Frederick # (Auto) (0.0-0.8) K/uL Eos # (Auto) (0.0-0.7) K/uL Baso # (Auto) (0.0-0.2) K/uL Neutrophils % (Manual) (50-75) % Band Neutrophils % (0-2) % Lymphocytes % (Manual) (20-40) % Monocytes % (Manual) (0-10) % Metamyelocytes % (0-0) % Toxic Granulation Dohle Bodies Platelet Estimate (NORMAL) Large Platelets Poikilocytosis (manual Anisocytosis (manual) Microcytosis (manual) Macrocytosis (manual) Spherocytes Ovalocytes Puncture Site pCO2 (35-45) mm/Hg pO2 (80-100) mm/Hg HCO3 (21-28) mmol/L ABG pH (7.35-7.45) ABG Total CO2 (22-28) mmol/L ABG O2 Saturation (95-98) % ABG Base Excess (-2.0-3.0) mmol/L ABG Hemoglobin (11.7-17.4) g/dL ABG Carboxyhemoglobin (0.5-1.5) % POC ABG HHb (Measured) (0.0-5.0) % ABG Methemoglobin (0.0-3.0) % Peter Test A-a O2 Difference mm/Hg Respiratory Index Hgb O2 Saturation (95.0-98.0) % Vent Mode Mechanical Rate FiO2 % Tidal Volume PEEP Sodium (132-148) mmol/L Potassium (3.6-5.2) mmol/L Chloride (98-107) mmol/L Carbon Dioxide (22-30) mmol/L Anion Gap (10-20) BUN (9-20) mg/dL Creatinine (0.8-1.5) mg/dL Est GFR ( Amer) Est GFR (Non-Af Amer) POC Glucose (mg/dL) 252 H 123 H (65-110) mg/dL Random Glucose (75-110) mg/dL Lactic Acid (0.7-2.1) mmol/L Calcium (8.6-10.4) mg/dl Phosphorus (2.5-4.5) mg/dL Magnesium (1.6-2.3) mg/dL Total Bilirubin (0.2-1.3) mg/dL AST (17-59) U/L ALT (21-72) U/L Alkaline Phosphatase (38-126) U/L Total Protein (6.3-8.3) g/dL Albumin (3.5-5.0) g/dL Globulin (2.2-3.9) gm/dL Albumin/Globulin Ratio (1.0-2.1) UF Heparin Interp (Negative) Urine Color Yellow (YELLOW) Urine Clarity Turbid (Clear) Urine pH 5.0 (5.0-8.0) Ur Specific Leonard 1.015 (1.003-1.030) Urine Protein 2+ H (NEGATIVE) mg/dL Urine Glucose (UA) 1+ H (Normal) mg/dL Urine Ketones Negative (NEGATIVE) mg/dL Urine Blood 3+ H (NEGATIVE) Urine Nitrate Negative (NEGATIVE) Urine Bilirubin Negative (NEGATIVE) Urine Urobilinogen 4.0 (0.2-1.0) mg/dL Ur Leukocyte Esterase Neg (Negative) Gaurav/uL Urine WBC (Auto) 3 (0-5) /hpf Urine RBC (Auto) 36 H (0-3) /hpf Ur Squamous Epith Cells 1 (0-5) /hpf Amorphous Sediment Few H (<OCC) /ul Stool Occult Blood (NEGATIVE) Random Vancomycin ug/mL Heparin-induced Plt Ab (Negative) PANFILO UFH Low Dose 0.1 % Release PANFILO UFH Low Dose 0.5 % Release PANFILO UFH High Dose 100 % Release 08/10/17 08/10/17 08/08/17 Range/Units 11:44 11:20 06:20 WBC (4.8-10.8) K/uL RBC (4.40-5.90) Mil/uL Hgb (12.0-18.0) g/dL Hct (35.0-51.0) % MCV (80.0-94.0) fL MCH (27.0-31.0) pg MCHC (33.0-37.0) g/dL RDW (11.5-14.5) % Plt Count (130-400) K/uL MPV (7.2-11.7) fL Neut % (Auto) (50.0-75.0) % Lymph % (Auto) (20.0-40.0) % Frederick % (Auto) (0.0-10.0) % Eos % (Auto) (0.0-4.0) % Baso % (Auto) (0.0-2.0) % Neut # (Auto) (1.8-7.0) K/uL Lymph # (Auto) (1.0-4.3) K/uL Frederick # (Auto) (0.0-0.8) K/uL Eos # (Auto) (0.0-0.7) K/uL Baso # (Auto) (0.0-0.2) K/uL Neutrophils % (Manual) (50-75) % Band Neutrophils % (0-2) % Lymphocytes % (Manual) (20-40) % Monocytes % (Manual) (0-10) % Metamyelocytes % (0-0) % Toxic Granulation Dohle Bodies Platelet Estimate (NORMAL) Large Platelets Poikilocytosis (manual Anisocytosis (manual) Microcytosis (manual) Macrocytosis (manual) Spherocytes Ovalocytes Puncture Site pCO2 (35-45) mm/Hg pO2 (80-100) mm/Hg HCO3 (21-28) mmol/L ABG pH (7.35-7.45) ABG Total CO2 (22-28) mmol/L ABG O2 Saturation (95-98) % ABG Base Excess (-2.0-3.0) mmol/L ABG Hemoglobin (11.7-17.4) g/dL ABG Carboxyhemoglobin (0.5-1.5) % POC ABG HHb (Measured) (0.0-5.0) % ABG Methemoglobin (0.0-3.0) % Peter Test A-a O2 Difference mm/Hg Respiratory Index Hgb O2 Saturation (95.0-98.0) % Vent Mode Mechanical Rate FiO2 % Tidal Volume PEEP Sodium (132-148) mmol/L Potassium (3.6-5.2) mmol/L Chloride (98-107) mmol/L Carbon Dioxide (22-30) mmol/L Anion Gap (10-20) BUN (9-20) mg/dL Creatinine (0.8-1.5) mg/dL Est GFR ( Amer) Est GFR (Non-Af Amer) POC Glucose (mg/dL) 194 H (65-110) mg/dL Random Glucose (75-110) mg/dL Lactic Acid (0.7-2.1) mmol/L Calcium (8.6-10.4) mg/dl Phosphorus (2.5-4.5) mg/dL Magnesium (1.6-2.3) mg/dL Total Bilirubin (0.2-1.3) mg/dL AST (17-59) U/L ALT (21-72) U/L Alkaline Phosphatase (38-126) U/L Total Protein (6.3-8.3) g/dL Albumin (3.5-5.0) g/dL Globulin (2.2-3.9) gm/dL Albumin/Globulin Ratio (1.0-2.1) UF Heparin Interp Negative (Negative) Urine Color (YELLOW) Urine Clarity (Clear) Urine pH (5.0-8.0) Ur Specific Leonard (1.003-1.030) Urine Protein (NEGATIVE) mg/dL Urine Glucose (UA) (Normal) mg/dL Urine Ketones (NEGATIVE) mg/dL Urine Blood (NEGATIVE) Urine Nitrate (NEGATIVE) Urine Bilirubin (NEGATIVE) Urine Urobilinogen (0.2-1.0) mg/dL Ur Leukocyte Esterase (Negative) Gaurav/uL Urine WBC (Auto) (0-5) /hpf Urine RBC (Auto) (0-3) /hpf Ur Squamous Epith Cells (0-5) /hpf Amorphous Sediment (<OCC) /ul Stool Occult Blood Positive H (NEGATIVE) Random Vancomycin ug/mL Heparin-induced Plt Ab Negative (Negative) PANFILO UFH Low Dose 0.1 0 % Release PANFILO UFH Low Dose 0.5 0 % Release PANFILO UFH High Dose 100 0 % Release Laboratory Results - last 24 hr 08/08/17 08/10/17 08/10/17 06:20 11:20 11:44 WBC RBC Hgb Hct MCV MCH MCHC RDW Plt Count MPV Neut % (Auto) Lymph % (Auto) Frederick % (Auto) Eos % (Auto) Baso % (Auto) Neut # (Auto) Lymph # (Auto) Frederick # (Auto) Eos # (Auto) Baso # (Auto) Neutrophils % (Manual) Band Neutrophils % Lymphocytes % (Manual) Monocytes % (Manual) Metamyelocytes % Toxic Granulation Dohle Bodies Platelet Estimate Large Platelets Poikilocytosis (manual Anisocytosis (manual) Microcytosis (manual) Macrocytosis (manual) Spherocytes Ovalocytes Puncture Site pCO2 pO2 HCO3 ABG pH ABG Total CO2 ABG O2 Saturation ABG Base Excess ABG Hemoglobin ABG Carboxyhemoglobin POC ABG HHb (Measured) ABG Methemoglobin Peter Test A-a O2 Difference Respiratory Index Hgb O2 Saturation Vent Mode Mechanical Rate FiO2 Tidal Volume PEEP Sodium Potassium Chloride Carbon Dioxide Anion Gap BUN Creatinine Est GFR ( Amer) Est GFR (Non-Af Amer) POC Glucose (mg/dL) 194 H Random Glucose Lactic Acid Calcium Phosphorus Magnesium Total Bilirubin AST ALT Alkaline Phosphatase Total Protein Albumin Globulin Albumin/Globulin Ratio UF Heparin Interp Negative Urine Color Urine Clarity Urine pH Ur Specific Leonard Urine Protein Urine Glucose (UA) Urine Ketones Urine Blood Urine Nitrate Urine Bilirubin Urine Urobilinogen Ur Leukocyte Esterase Urine WBC (Auto) Urine RBC (Auto) Ur Squamous Epith Cells Amorphous Sediment Stool Occult Blood Positive H Random Vancomycin Heparin-induced Plt Ab Negative PANFILO UFH Low Dose 0.1 0 PANFILO UFH Low Dose 0.5 0 PANFILO UFH High Dose 100 0 08/10/17 08/10/17 08/11/17 13:15 17:54 00:14 WBC RBC Hgb Hct MCV MCH MCHC RDW Plt Count MPV Neut % (Auto) Lymph % (Auto) Frederick % (Auto) Eos % (Auto) Baso % (Auto) Neut # (Auto) Lymph # (Auto) Frederick # (Auto) Eos # (Auto) Baso # (Auto) Neutrophils % (Manual) Band Neutrophils % Lymphocytes % (Manual) Monocytes % (Manual) Metamyelocytes % Toxic Granulation Dohle Bodies Platelet Estimate Large Platelets Poikilocytosis (manual Anisocytosis (manual) Microcytosis (manual) Macrocytosis (manual) Spherocytes Ovalocytes Puncture Site pCO2 pO2 HCO3 ABG pH ABG Total CO2 ABG O2 Saturation ABG Base Excess ABG Hemoglobin ABG Carboxyhemoglobin POC ABG HHb (Measured) ABG Methemoglobin Peter Test A-a O2 Difference Respiratory Index Hgb O2 Saturation Vent Mode Mechanical Rate FiO2 Tidal Volume PEEP Sodium Potassium Chloride Carbon Dioxide Anion Gap BUN Creatinine Est GFR ( Amer) Est GFR (Non-Af Amer) POC Glucose (mg/dL) 123 H 252 H Random Glucose Lactic Acid Calcium Phosphorus Magnesium Total Bilirubin AST ALT Alkaline Phosphatase Total Protein Albumin Globulin Albumin/Globulin Ratio UF Heparin Interp Urine Color Yellow Urine Clarity Turbid Urine pH 5.0 Ur Specific Leonard 1.015 Urine Protein 2+ H Urine Glucose (UA) 1+ H Urine Ketones Negative Urine Blood 3+ H Urine Nitrate Negative Urine Bilirubin Negative Urine Urobilinogen 4.0 Ur Leukocyte Esterase Neg Urine WBC (Auto) 3 Urine RBC (Auto) 36 H Ur Squamous Epith Cells 1 Amorphous Sediment Few H Stool Occult Blood Random Vancomycin Heparin-induced Plt Ab PANFILO UFH Low Dose 0.1 PANFILO UFH Low Dose 0.5 PANFILO UFH High Dose 100 08/11/17 08/11/17 08/11/17 05:02 05:20 06:38 WBC 5.3 RBC 2.92 L Hgb 7.9 L Hct 24.1 L MCV 82.4 MCH 27.2 MCHC 33.0 RDW 20.0 H Plt Count 47 L D MPV 7.9 Neut % (Auto) 92.0 H Lymph % (Auto) 4.3 L Frederick % (Auto) 0.7 Eos % (Auto) 2.8 Baso % (Auto) 0.2 Neut # (Auto) 4.9 Lymph # (Auto) 0.2 L Frederick # (Auto) 0.0 Eos # (Auto) 0.1 Baso # (Auto) 0.0 Neutrophils % (Manual) 85 H Band Neutrophils % 9 H Lymphocytes % (Manual) 2 L Monocytes % (Manual) 2 Metamyelocytes % 2 H Toxic Granulation Present Dohle Bodies Present Platelet Estimate Markedly decreased L Large Platelets Present Poikilocytosis (manual Slight Anisocytosis (manual) Moderate Microcytosis (manual) Slight Macrocytosis (manual) Slight Spherocytes Slight Ovalocytes Slight Puncture Site L bra pCO2 45 pO2 98 HCO3 28.8 H ABG pH 7.43 ABG Total CO2 31.3 H ABG O2 Saturation 98.2 H ABG Base Excess 5.0 H ABG Hemoglobin 8.7 L ABG Carboxyhemoglobin 1.8 H POC ABG HHb (Measured) 1.8 ABG Methemoglobin 1.0 Peter Test Na A-a O2 Difference 202.0 Respiratory Index 2.1 Hgb O2 Saturation 95.5 Vent Mode Prvc Mechanical Rate 14 FiO2 50.0 Tidal Volume 450 PEEP 5 Sodium Potassium Chloride Carbon Dioxide Anion Gap BUN Creatinine Est GFR ( Amer) Est GFR (Non-Af Amer) POC Glucose (mg/dL) 243 H Random Glucose Lactic Acid Calcium Phosphorus Magnesium Total Bilirubin AST ALT Alkaline Phosphatase Total Protein Albumin Globulin Albumin/Globulin Ratio UF Heparin Interp Urine Color Urine Clarity Urine pH Ur Specific Leonard Urine Protein Urine Glucose (UA) Urine Ketones Urine Blood Urine Nitrate Urine Bilirubin Urine Urobilinogen Ur Leukocyte Esterase Urine WBC (Auto) Urine RBC (Auto) Ur Squamous Epith Cells Amorphous Sediment Stool Occult Blood Random Vancomycin Heparin-induced Plt Ab PANFILO UFH Low Dose 0.1 PANFILO UFH Low Dose 0.5 PANFILO UFH High Dose 100 08/11/17 08/11/17 08/11/17 06:38 06:38 08:11 WBC RBC Hgb Hct MCV MCH MCHC RDW Plt Count MPV Neut % (Auto) Lymph % (Auto) Frederick % (Auto) Eos % (Auto) Baso % (Auto) Neut # (Auto) Lymph # (Auto) Frederick # (Auto) Eos # (Auto) Baso # (Auto) Neutrophils % (Manual) Band Neutrophils % Lymphocytes % (Manual) Monocytes % (Manual) Metamyelocytes % Toxic Granulation Dohle Bodies Platelet Estimate Large Platelets Poikilocytosis (manual Anisocytosis (manual) Microcytosis (manual) Macrocytosis (manual) Spherocytes Ovalocytes Puncture Site pCO2 pO2 HCO3 ABG pH ABG Total CO2 ABG O2 Saturation ABG Base Excess ABG Hemoglobin ABG Carboxyhemoglobin POC ABG HHb (Measured) ABG Methemoglobin Peter Test A-a O2 Difference Respiratory Index Hgb O2 Saturation Vent Mode Mechanical Rate FiO2 Tidal Volume PEEP Sodium 148 Potassium 5.1 Chloride 113 H Carbon Dioxide 28 Anion Gap 12 BUN 68 H Creatinine 2.1 H Est GFR ( Amer) 36 Est GFR (Non-Af Amer) 30 POC Glucose (mg/dL) Random Glucose 263 H Lactic Acid 2.8 H Calcium 6.9 L Phosphorus 4.3 Magnesium 2.2 Total Bilirubin 1.4 H AST 107 H D ALT 65 Alkaline Phosphatase 82 Total Protein 4.9 L Albumin 2.1 L Globulin 2.8 Albumin/Globulin Ratio 0.7 L UF Heparin Interp Urine Color Urine Clarity Urine pH Ur Specific Leonard Urine Protein Urine Glucose (UA) Urine Ketones Urine Blood Urine Nitrate Urine Bilirubin Urine Urobilinogen Ur Leukocyte Esterase Urine WBC (Auto) Urine RBC (Auto) Ur Squamous Epith Cells Amorphous Sediment Stool Occult Blood Random Vancomycin 48.25 Heparin-induced Plt Ab PANFILO UFH Low Dose 0.1 PANFILO UFH Low Dose 0.5 PANFILO UFH High Dose 100 Fingerstick Blood Sugar Results: 243 Critical Care Progress Note - Nutrition Nutrition: Nutrition Category Date Time Status NPO Diet [DIET] Diets 08/07/17 Breakfast Active
--- NOTE | 2017-08-11 12:03 | RAD ---
HISTORY: Pneumonia COMPARISON: No prior. FINDINGS: ETT tip lies approximately 5 cm above valentina however note the valentina is poorly delineated on this study. NGT tip has not been included on this film though distal aspect does lie well below EG junction. . No change right IJ central venous line with tip in the SVC. LUNGS: Diffuse bilateral infiltrates with more confluent opacities in the right upper, right lower and left mid to lower lung field. With probable left-sided effusion PLEURA: As above. No pneumothorax apparent. CARDIOVASCULAR: Normal. OSSEOUS STRUCTURES: No significant abnormalities. VISUALIZED UPPER ABDOMEN: Normal. OTHER FINDINGS: None. IMPRESSION: Support lines and tubes as above. Diffuse bilateral infiltrates with probable left-sided effusion
--- NOTE | 2017-08-11 13:09 | CP.PCM.CON ---
History of Present Illness - History of Present Illness History of Present Illness: Asked by Dr. Payne for a GI consultation on this patient. 86 year old male with history of atrial fibrillation, COPD, HTN who was initially admitted to hospital on 07/21 with complaint of progressive dyspnea, was found to be positive for influenza. His hospital course was complicated by development of respiratory failure, pneumonia requiring intubation. He is seen in critical care, responds to painful stimuli but is not able to participate in meaningful conversation. Additional history obtained via discussion with nursing staff, chart review, and discussion with family members. GI called for evaluation of anemia with fecal occult blood positive. He was noted to have dark stool with progressive anemia on August 08 and was given PRBC transfusion with appropriate response of hemoglobin. Since then there has not been any reported abdominal pain, vomiting, diarrhea, or rectal bleeding. Patient has had two loose brown colored bowel movements as per nursing staff and tolerating tube feeding. Unknown prior endoscopic history. Social history: former smoker, no ETOH use Family history: reviewed with family, no history of GI malignancies Review of Systems - Review of Systems Systems not reviewed;Unavailable: Intubated Past Patient History - Past Medical History & Family History Past Medical History?: Yes - Past Social History Smoking Status: Former Smoker - CARDIAC Hx Atrial Fibrillation: Yes Hx Hypertension: Yes - PULMONARY Hx Asthma: Yes Hx Chronic Obstructive Pulmonary Disease (COPD): Yes Hx Emphysema: Yes - MUSCULOSKELETAL/RHEUMATOLOGICAL Hx Falls: No - PSYCHIATRIC Hx Substance Use: No - SURGICAL HISTORY Other/Comment: abdominal sx - ANESTHESIA Hx Anesthesia: Yes Hx Anesthesia Reactions: No Hx Malignant Hyperthermia: No Meds Allergies/Adverse Reactions: Allergies Allergy/AdvReac Type Severity Reaction Status Date / Time No Known Allergies Allergy Verified 07/21/17 09:32 - Medications Medications: Current Medications Acetaminophen (Tylenol 650mg/20.3ml Solution Ud) 650 mg PO Q6 PRN PRN Reason: for temperature >100.4 Last Admin: 08/10/17 09:00 Dose: 650 mg Acetylcysteine (Acetylcysteine 20%) 6 ml PO Q12 [facility] Stop: 08/12/17 22:01 Albuterol/Ipratropium (Duoneb 3 Mg/0.5 Mg (3 Ml) Ud) 3 ml INH Q4H [facility] Last Admin: 08/11/17 11:08 Dose: 3 ml Benzocaine/Menthol (Cepacol Sore Throat) 1 ryan MT Q4 PRN PRN Reason: Sore Throat Last Admin: 08/05/17 15:22 Dose: 1 ryan Diltiazem HCl (Cardizem) 30 mg PO Q6 [facility] Last Admin: 08/11/17 06:20 Dose: 30 mg Diphenhydramine HCl (Benadryl) 25 mg PO ONCE PRN PRN Reason: Pre transfusion Last Admin: 08/03/17 01:35 Dose: 25 mg Famotidine (Pepcid) 20 mg IVP BID [facility] Last Admin: 08/10/17 18:00 Dose: 20 mg Meropenem 500 mg/ Sodium (Chloride) 100 mls @ 100 mls/hr IVPB Q6H [facility] Last Admin: 08/11/17 06:26 Dose: 100 mls/hr Lidocaine HCl (Lidocaine 2% Viscous) 15 ml PO ONCE PRN PRN Reason: throat pain Last Admin: 08/05/17 15:22 Dose: 15 ml Methylprednisolone (Solu-Medrol) 40 mg IV Q8 [facility] Last Admin: 08/11/17 06:20 Dose: 40 mg Nystatin (Nystop Topical Powder) 1 applic TOP BID [facility] Stop: 08/17/17 18:01 Last Admin: 08/10/17 19:11 Dose: 1 applic Rosuvastatin Calcium (Crestor) 5 mg PO HS [facility] Last Admin: 08/10/17 21:04 Dose: 5 mg Sodium Chloride ([place] Baby Saline 30 Ml) 0 ml [place] Q4 PRN PRN Reason: Cough and congestion Last Admin: 08/04/17 19:12 Dose: 1 spr Sucralfate (Carafate Oral Susp) 1 gm PO ACB [facility] Physical Exam - Constitutional Appears: Non-toxic, Chronically Ill - Head Exam Head Exam: NORMAL INSPECTION - Eye Exam Eye Exam: EOMI, Normal appearance - ENT Exam ENT Exam: Mucous Membranes Dry Additional comments: patient intubated - Respiratory Exam Additional comments: coarse breath sounds b/l lung low - Cardiovascular Exam Cardiovascular Exam: Irregular Rhythm, +S1, +S2 - GI/Abdominal Exam GI & Abdominal Exam: Normal Bowel Sounds, Soft Additional comments: non tender to palpation in four quadrants midline surgical scar present no palpable hepato/splenomegaly - Rectal Exam Additional comments: normal sphincter tone, no palpable lesions, soft brown stool in rectal vault - Extremities Exam Extremities exam: Positive for: normal inspection - Neurological Exam Additional comments: patient unable to participate in neurological exam - Psychiatric Exam Additional comments: unable to assess - Skin Skin Exam: Mottled Additional comments: diffuse mottled and ecchymotic appearance of abdomen, pelvis, and trunk Results - Vital Signs Recent Vital Signs: Last Vital Signs Temp 99.0 F 08/11/17 08:00 Pulse 106 H 08/11/17 10:25 Resp 22 08/11/17 10:25 BP 105/43 L 08/11/17 10:25 Pulse Ox 97 08/11/17 10:25 - Labs Result Diagrams: 08/11/17 06:38 08/11/17 06:38 Labs: Laboratory Results - last 24 hr 08/08/17 08/10/17 08/10/17 06:20 11:20 13:15 WBC RBC Hgb Hct MCV MCH MCHC RDW Plt Count MPV Neut % (Auto) Lymph % (Auto) [place] % (Auto) Eos % (Auto) Baso % (Auto) Neut # (Auto) Lymph # (Auto) [place] # (Auto) Eos # (Auto) Baso # (Auto) Neutrophils % (Manual) Band Neutrophils % Lymphocytes % (Manual) Monocytes % (Manual) Metamyelocytes % Toxic Granulation Dohle Bodies Platelet Estimate Large Platelets Poikilocytosis (manual Anisocytosis (manual) Microcytosis (manual) Macrocytosis (manual) Spherocytes Ovalocytes Puncture Site pCO2 pO2 HCO3 ABG pH ABG Total CO2 ABG O2 Saturation ABG Base Excess ABG Hemoglobin ABG Carboxyhemoglobin POC ABG HHb (Measured) ABG Methemoglobin Peter Test A-a O2 Difference Respiratory Index Hgb O2 Saturation Vent Mode Mechanical Rate FiO2 Tidal Volume PEEP Sodium Potassium Chloride Carbon Dioxide Anion Gap BUN Creatinine Est GFR ( Amer) Est GFR (Non-Af Amer) POC Glucose (mg/dL) Random Glucose Lactic Acid Calcium Phosphorus Magnesium Total Bilirubin AST ALT Alkaline Phosphatase Total Protein Albumin Globulin Albumin/Globulin Ratio UF Heparin Interp Negative Urine Color Yellow Urine Clarity Turbid Urine pH 5.0 Ur Specific [place] 1.015 Urine Protein 2+ H Urine Glucose (UA) 1+ H Urine Ketones Negative Urine Blood 3+ H Urine Nitrate Negative Urine Bilirubin Negative Urine Urobilinogen 4.0 Ur Leukocyte Esterase Neg Urine WBC (Auto) 3 Urine RBC (Auto) 36 H Ur Squamous Epith Cells 1 Amorphous Sediment Few H Stool Occult Blood Positive H Random Vancomycin Heparin-induced Plt Ab Negative PANFILO UFH Low Dose 0.1 0 PANFILO UFH Low Dose 0.5 0 PANFILO UFH High Dose 100 0 08/10/17 08/11/17 08/11/17 17:54 00:14 05:02 WBC RBC Hgb Hct MCV MCH MCHC RDW Plt Count MPV Neut % (Auto) Lymph % (Auto) [place] % (Auto) Eos % (Auto) Baso % (Auto) Neut # (Auto) Lymph # (Auto) [place] # (Auto) Eos # (Auto) Baso # (Auto) Neutrophils % (Manual) Band Neutrophils % Lymphocytes % (Manual) Monocytes % (Manual) Metamyelocytes % Toxic Granulation Dohle Bodies Platelet Estimate Large Platelets Poikilocytosis (manual Anisocytosis (manual) Microcytosis (manual) Macrocytosis (manual) Spherocytes Ovalocytes Puncture Site L bra pCO2 45 pO2 98 HCO3 28.8 H ABG pH 7.43 ABG Total CO2 31.3 H ABG O2 Saturation 98.2 H ABG Base Excess 5.0 H ABG Hemoglobin 8.7 L ABG Carboxyhemoglobin 1.8 H POC ABG HHb (Measured) 1.8 ABG Methemoglobin 1.0 Peter Test Na A-a O2 Difference 202.0 Respiratory Index 2.1 Hgb O2 Saturation 95.5 Vent Mode Prvc Mechanical Rate 14 FiO2 50.0 Tidal Volume 450 PEEP 5 Sodium Potassium Chloride Carbon Dioxide Anion Gap BUN Creatinine Est GFR ( Amer) Est GFR (Non-Af Amer) POC Glucose (mg/dL) 123 H 252 H Random Glucose Lactic Acid Calcium Phosphorus Magnesium Total Bilirubin AST ALT Alkaline Phosphatase Total Protein Albumin Globulin Albumin/Globulin Ratio UF Heparin Interp Urine Color Urine Clarity Urine pH Ur Specific [place] Urine Protein Urine Glucose (UA) Urine Ketones Urine Blood Urine Nitrate Urine Bilirubin Urine Urobilinogen Ur Leukocyte Esterase Urine WBC (Auto) Urine RBC (Auto) Ur Squamous Epith Cells Amorphous Sediment Stool Occult Blood Random Vancomycin Heparin-induced Plt Ab PANFILO UFH Low Dose 0.1 PANFILO UFH Low Dose 0.5 PANFILO UFH High Dose 100 08/11/17 08/11/17 08/11/17 05:20 06:38 06:38 WBC 5.3 RBC 2.92 L Hgb 7.9 L Hct 24.1 L MCV 82.4 MCH 27.2 MCHC 33.0 RDW 20.0 H Plt Count 47 L D MPV 7.9 Neut % (Auto) 92.0 H Lymph % (Auto) 4.3 L [place] % (Auto) 0.7 Eos % (Auto) 2.8 Baso % (Auto) 0.2 Neut # (Auto) 4.9 Lymph # (Auto) 0.2 L [place] # (Auto) 0.0 Eos # (Auto) 0.1 Baso # (Auto) 0.0 Neutrophils % (Manual) 85 H Band Neutrophils % 9 H Lymphocytes % (Manual) 2 L Monocytes % (Manual) 2 Metamyelocytes % 2 H Toxic Granulation Present Dohle Bodies Present Platelet Estimate Markedly decreased L Large Platelets Present Poikilocytosis (manual Slight Anisocytosis (manual) Moderate Microcytosis (manual) Slight Macrocytosis (manual) Slight Spherocytes Slight Ovalocytes Slight Puncture Site pCO2 pO2 HCO3 ABG pH ABG Total CO2 ABG O2 Saturation ABG Base Excess ABG Hemoglobin ABG Carboxyhemoglobin POC ABG HHb (Measured) ABG Methemoglobin Peter Test A-a O2 Difference Respiratory Index Hgb O2 Saturation Vent Mode Mechanical Rate FiO2 Tidal Volume PEEP Sodium 148 Potassium 5.1 Chloride 113 H Carbon Dioxide 28 Anion Gap 12 BUN 68 H Creatinine 2.1 H Est GFR ( Amer) 36 Est GFR (Non-Af Amer) 30 POC Glucose (mg/dL) 243 H Random Glucose 263 H Lactic Acid Calcium 6.9 L Phosphorus 4.3 Magnesium 2.2 Total Bilirubin 1.4 H AST 107 H D ALT 65 Alkaline Phosphatase 82 Total Protein 4.9 L Albumin 2.1 L Globulin 2.8 Albumin/Globulin Ratio 0.7 L UF Heparin Interp Urine Color Urine Clarity Urine pH Ur Specific [place] Urine Protein Urine Glucose (UA) Urine Ketones Urine Blood Urine Nitrate Urine Bilirubin Urine Urobilinogen Ur Leukocyte Esterase Urine WBC (Auto) Urine RBC (Auto) Ur Squamous Epith Cells Amorphous Sediment Stool Occult Blood Random Vancomycin Heparin-induced Plt Ab PANFILO UFH Low Dose 0.1 PANFILO UFH Low Dose 0.5 PANFILO UFH High Dose 100 08/11/17 08/11/17 08/11/17 06:38 08:11 11:38 WBC RBC Hgb Hct MCV MCH MCHC RDW Plt Count MPV Neut % (Auto) Lymph % (Auto) [place] % (Auto) Eos % (Auto) Baso % (Auto) Neut # (Auto) Lymph # (Auto) [place] # (Auto) Eos # (Auto) Baso # (Auto) Neutrophils % (Manual) Band Neutrophils % Lymphocytes % (Manual) Monocytes % (Manual) Metamyelocytes % Toxic Granulation Dohle Bodies Platelet Estimate Large Platelets Poikilocytosis (manual Anisocytosis (manual) Microcytosis (manual) Macrocytosis (manual) Spherocytes Ovalocytes Puncture Site pCO2 pO2 HCO3 ABG pH ABG Total CO2 ABG O2 Saturation ABG Base Excess ABG Hemoglobin ABG Carboxyhemoglobin POC ABG HHb (Measured) ABG Methemoglobin Peter Test A-a O2 Difference Respiratory Index Hgb O2 Saturation Vent Mode Mechanical Rate FiO2 Tidal Volume PEEP Sodium Potassium Chloride Carbon Dioxide Anion Gap BUN Creatinine Est GFR ( Amer) Est GFR (Non-Af Amer) POC Glucose (mg/dL) 243 H Random Glucose Lactic Acid 2.8 H Calcium Phosphorus Magnesium Total Bilirubin AST ALT Alkaline Phosphatase Total Protein Albumin Globulin Albumin/Globulin Ratio UF Heparin Interp Urine Color Urine Clarity Urine pH Ur Specific [place] Urine Protein Urine Glucose (UA) Urine Ketones Urine Blood Urine Nitrate Urine Bilirubin Urine Urobilinogen Ur Leukocyte Esterase Urine WBC (Auto) Urine RBC (Auto) Ur Squamous Epith Cells Amorphous Sediment Stool Occult Blood Random Vancomycin 48.25 Heparin-induced Plt Ab PANFILO UFH Low Dose 0.1 PANFILO UFH Low Dose 0.5 PANFILO UFH High Dose 100 Assessment & Plan - Assessment and Plan (Free Text) Assessment: Atrial fibrillation - anticoagulation held COPD HTN Pneumonia, respiratory failure, s/p intubation Thrombocytopenia - likely secondary to sepsis, HIT negative Anemia - fecal occult blood positive Plan: - Continue with tube feeding as tolerated - H/H drop today noted though no overt blood loss reported. Continue to monitor and transfuse as necessary. - Continue use of H2 yamilet therapy, PPI use not indicated given severe thrombocytopenia. - Follow up hematology recommendations - Continue with antibiotic therapy - Ventilator management as per critical care team - Currently no indication for endoscopic evaluation given patient advanced age, medical cormorbidities, and acute medical illness. Favor conservative management with continued observation. Will continue to monitor patient clinical course.
--- NOTE | 2017-08-11 17:40 | CP.PCM.PN ---
Subjective - Date & Time of Evaluation Date of Evaluation: 08/11/17 Time of Evaluation: 17:40 Objective - Vital Signs/Intake and Output Vital Signs (last 24 hours): Temp Pulse Resp BP Pulse Ox 97.5 F L 102 H 24 106/49 L 98 08/11/17 16:00 08/11/17 16:25 08/11/17 16:25 08/11/17 16:25 08/11/17 15:00 Intake and Output: 08/11/17 08/11/17 06:59 18:59 Intake Total 2856 1350 Output Total 165 90 Balance 2691 1260 - Medications Medications: Current Medications Acetaminophen (Tylenol 650mg/20.3ml Solution Ud) 650 mg PO Q6 PRN PRN Reason: for temperature >100.4 Last Admin: 08/10/17 09:00 Dose: 650 mg Acetylcysteine (Acetylcysteine 20%) 6 ml PO Q12 [facility] Stop: 08/12/17 22:01 Albuterol/Ipratropium (Duoneb 3 Mg/0.5 Mg (3 Ml) Ud) 3 ml INH Q4H [facility] Last Admin: 08/11/17 16:33 Dose: 3 ml Benzocaine/Menthol (Cepacol Sore Throat) 1 ryan MT Q4 PRN PRN Reason: Sore Throat Last Admin: 08/05/17 15:22 Dose: 1 ryan Diltiazem HCl (Cardizem) 30 mg PO Q6 [facility] Last Admin: 08/11/17 06:20 Dose: 30 mg Diphenhydramine HCl (Benadryl) 25 mg PO ONCE PRN PRN Reason: Pre transfusion Last Admin: 08/03/17 01:35 Dose: 25 mg Famotidine (Pepcid) 20 mg IVP BID [facility] Last Admin: 08/10/17 18:00 Dose: 20 mg Meropenem 500 mg/ Sodium (Chloride) 100 mls @ 100 mls/hr IVPB Q6H [facility] Last Admin: 08/11/17 06:26 Dose: 100 mls/hr Lidocaine HCl (Lidocaine 2% Viscous) 15 ml PO ONCE PRN PRN Reason: throat pain Last Admin: 08/05/17 15:22 Dose: 15 ml Methylprednisolone (Solu-Medrol) 40 mg IV Q8 [facility] Last Admin: 08/11/17 06:20 Dose: 40 mg Nystatin (Nystop Topical Powder) 1 applic TOP BID [facility] Stop: 08/17/17 18:01 Last Admin: 08/10/17 19:11 Dose: 1 applic Rosuvastatin Calcium (Crestor) 5 mg PO HS [facility] Last Admin: 08/10/17 21:04 Dose: 5 mg Sodium Chloride ([place] Baby Saline 30 Ml) 0 ml [place] Q4 PRN PRN Reason: Cough and congestion Last Admin: 08/04/17 19:12 Dose: 1 spr Sucralfate (Carafate Oral Susp) 1 gm PO ACB [facility] - Labs Labs: 08/11/17 06:38 08/11/17 06:38 PT 13.6 SECONDS (9.7-12.2) H 07/26/17 17:16 INR 1.2 07/26/17 17:16 APTT 33 SECONDS (21-34) 07/26/17 17:16
--- NOTE | 2017-08-11 18:18 | CP.PCM.PN ---
Subjective - Date & Time of Evaluation Date of Evaluation: 08/10/17 Time of Evaluation: 08:10 - Subjective Subjective: no change remains ventilator dependent Objective - Vital Signs/Intake and Output Vital Signs (last 24 hours): Temp Pulse Resp BP Pulse Ox 97.5 F L 102 H 24 106/49 L 98 08/11/17 16:00 08/11/17 16:25 08/11/17 16:25 08/11/17 16:25 08/11/17 15:00 Intake and Output: 08/11/17 08/11/17 06:59 18:59 Intake Total 2856 1350 Output Total 165 90 Balance 2691 1260 - Medications Medications: Current Medications Acetaminophen (Tylenol 650mg/20.3ml Solution Ud) 650 mg PO Q6 PRN PRN Reason: for temperature >100.4 Last Admin: 08/10/17 09:00 Dose: 650 mg Acetylcysteine (Acetylcysteine 20%) 6 ml PO Q12 [facility] Stop: 08/12/17 22:01 Albuterol/Ipratropium (Duoneb 3 Mg/0.5 Mg (3 Ml) Ud) 3 ml INH Q4H [facility] Last Admin: 08/11/17 16:33 Dose: 3 ml Benzocaine/Menthol (Cepacol Sore Throat) 1 ryan MT Q4 PRN PRN Reason: Sore Throat Last Admin: 08/05/17 15:22 Dose: 1 ryan Diltiazem HCl (Cardizem) 30 mg PO Q6 [facility] Last Admin: 08/11/17 06:20 Dose: 30 mg Diphenhydramine HCl (Benadryl) 25 mg PO ONCE PRN PRN Reason: Pre transfusion Last Admin: 08/03/17 01:35 Dose: 25 mg Famotidine (Pepcid) 20 mg IVP BID [facility] Last Admin: 08/10/17 18:00 Dose: 20 mg Meropenem 500 mg/ Sodium (Chloride) 100 mls @ 100 mls/hr IVPB Q6H [facility] Last Admin: 08/11/17 06:26 Dose: 100 mls/hr Lidocaine HCl (Lidocaine 2% Viscous) 15 ml PO ONCE PRN PRN Reason: throat pain Last Admin: 08/05/17 15:22 Dose: 15 ml Methylprednisolone (Solu-Medrol) 40 mg IV Q8 [facility] Last Admin: 08/11/17 06:20 Dose: 40 mg Nystatin (Nystop Topical Powder) 1 applic TOP BID [facility] Stop: 08/17/17 18:01 Last Admin: 08/10/17 19:11 Dose: 1 applic Rosuvastatin Calcium (Crestor) 5 mg PO HS [facility] Last Admin: 08/10/17 21:04 Dose: 5 mg Sodium Chloride ([place] Baby Saline 30 Ml) 0 ml [place] Q4 PRN PRN Reason: Cough and congestion Last Admin: 08/04/17 19:12 Dose: 1 spr Sucralfate (Carafate Oral Susp) 1 gm PO ACB [facility] - Labs Labs: 08/11/17 06:38 08/11/17 06:38 PT 13.6 SECONDS (9.7-12.2) H 07/26/17 17:16 INR 1.2 07/26/17 17:16 APTT 33 SECONDS (21-34) 07/26/17 17:16 - Constitutional Appears: Chronically Ill - ENT Exam ENT Exam: Mucous Membranes Moist - Neck Exam Neck Exam: Full ROM - Respiratory Exam Respiratory Exam: Rales, Rhonchi, Wheezes - Cardiovascular Exam Cardiovascular Exam: REGULAR RHYTHM - GI/Abdominal Exam GI & Abdominal Exam: Soft. absent: Tenderness - Extremities Exam Extremities Exam: absent: Pedal Edema Assessment and Plan - Assessment and Plan (Free Text) Assessment: Pneumonia Respiratory failure Pancytopenia Plan: Cont abtx Pulmonary care
--- NOTE | 2017-08-11 18:33 | CP.PCM.PN ---
Subjective - Date & Time of Evaluation Date of Evaluation: 08/11/17 Time of Evaluation: 09:00 - Subjective Subjective: no clinical change still vent-dependent Objective - Vital Signs/Intake and Output Vital Signs (last 24 hours): Temp Pulse Resp BP Pulse Ox 97.5 F L 102 H 24 106/49 L 98 08/11/17 16:00 08/11/17 16:25 08/11/17 16:25 08/11/17 16:25 08/11/17 15:00 Intake and Output: 08/11/17 08/11/17 06:59 18:59 Intake Total 2856 1350 Output Total 165 90 Balance 2691 1260 - Medications Medications: Current Medications Acetaminophen (Tylenol 650mg/20.3ml Solution Ud) 650 mg PO Q6 PRN PRN Reason: for temperature >100.4 Last Admin: 08/10/17 09:00 Dose: 650 mg Acetylcysteine (Acetylcysteine 20%) 6 ml PO Q12 [facility] Stop: 08/12/17 22:01 Albuterol/Ipratropium (Duoneb 3 Mg/0.5 Mg (3 Ml) Ud) 3 ml INH Q4H [facility] Last Admin: 08/11/17 16:33 Dose: 3 ml Benzocaine/Menthol (Cepacol Sore Throat) 1 ryan MT Q4 PRN PRN Reason: Sore Throat Last Admin: 08/05/17 15:22 Dose: 1 ryan Diltiazem HCl (Cardizem) 30 mg PO Q6 [facility] Last Admin: 08/11/17 06:20 Dose: 30 mg Diphenhydramine HCl (Benadryl) 25 mg PO ONCE PRN PRN Reason: Pre transfusion Last Admin: 08/03/17 01:35 Dose: 25 mg Famotidine (Pepcid) 20 mg IVP BID [facility] Last Admin: 08/10/17 18:00 Dose: 20 mg Meropenem 500 mg/ Sodium (Chloride) 100 mls @ 100 mls/hr IVPB Q6H [facility] Last Admin: 08/11/17 06:26 Dose: 100 mls/hr Lidocaine HCl (Lidocaine 2% Viscous) 15 ml PO ONCE PRN PRN Reason: throat pain Last Admin: 08/05/17 15:22 Dose: 15 ml Methylprednisolone (Solu-Medrol) 40 mg IV Q8 [facility] Last Admin: 02/03/18 06:20 Dose: 40 mg Nystatin (Nystop Topical Powder) 1 applic TOP BID [facility] Stop: 08/17/17 18:01 Last Admin: 08/10/17 19:11 Dose: 1 applic Rosuvastatin Calcium (Crestor) 5 mg PO HS [facility] Last Admin: 08/10/17 21:04 Dose: 5 mg Sodium Chloride ([place] Baby Saline 30 Ml) 0 ml [place] Q4 PRN PRN Reason: Cough and congestion Last Admin: 08/04/17 19:12 Dose: 1 spr Sucralfate (Carafate Oral Susp) 1 gm PO ACB [facility] - Labs Labs: 08/11/17 06:38 08/11/17 06:38 PT 13.6 SECONDS (9.7-12.2) H 07/26/17 17:16 INR 1.2 07/26/17 17:16 APTT 33 SECONDS (21-34) 07/26/17 17:16 - Constitutional Appears: Chronically Ill - Head Exam Head Exam: ATRAUMATIC - Eye Exam Eye Exam: absent: Scleral icterus - Neck Exam Neck Exam: Full ROM - Respiratory Exam Respiratory Exam: Rales, Rhonchi, Wheezes - GI/Abdominal Exam GI & Abdominal Exam: Soft - Extremities Exam Extremities Exam: absent: Pedal Edema Assessment and Plan - Assessment and Plan (Free Text) Assessment: Pneumonia w/ respiratory failure Pancytopenia COPD Plan: Cont abtx Cont pulmonary care Heme follow up
[2017-08-12] MEDS: Meropenem 500 MG in Sodium Chloride 0.9% 100 ML IVPB SCH ×5 (01:00→23:43)
[2017-08-12] MEDS: Albuterol-Ipratrop 3 mg / 0.5 (3 ml) UD INH SCH ×6 (01:14→19:55)
[2017-08-12 05:52] LABS: ARTERIAL BLOOD GAS HCO3 23.9 mmol/L (21-28); ARTERIAL BLOOD GAS HEMOGLOBIN 8.3 g/dL (11.7-17.4); ARTERIAL BLOOD GAS O2 SAT 99.2 % (95-98); ARTERIAL BLOOD GAS PCO2 33 mm/Hg (35-45); ARTERIAL BLOOD GAS PH 7.44 (7.35-7.45); ARTERIAL BLOOD GAS PO2 131 mm/Hg (80-100); ARTERIAL BLOOD GAS TCO2 23.4 mmol/L (22-28)
[2017-08-12] MEDS: MethylPREDNISolone 40 mg Vial IV SCH ×2 (06:08→13:01)
[2017-08-12 06:43] LABS: BASO % 0.3 % (0.0-2.0); EOS % 0.1 % (0.0-4.0); HEMOGLOBIN 8.3 g/dL (12.0-18.0); LYMPH # 0.2 K/uL (1.0-4.3); LYMPH % 2.4 % (20.0-40.0); MEAN CORPUSCULAR HEMOGLOBIN 30.3 pg (27.0-31.0); MEAN CORPUSCULAR HGB CONC 34.4 g/dL (33.0-37.0); MEAN PLATELET VOLUME 8.7 fL (7.2-11.7); MONO # 0.1 K/uL (0.0-0.8); NEUT # 6.5 K/uL (1.8-7.0); NEUT % 96.2 % (50.0-75.0); NRBC % 0.1 % (0.0-2.0); PLATELET COUNT 37 K/uL (130-400); RBC 2.73 Mil/uL (4.40-5.90); RED CELL DISTRIBUTION WIDTH 20.8 % (11.5-14.5); WHITE BLOOD COUNT 6.7 K/uL (4.8-10.8)
[2017-08-12 07:13] LABS: ALB/GLOB RATIO 0.7 (1.0-2.1); ALBUMIN 2.2 g/dL (3.5-5.0); CALCIUM 6.9 mg/dl (8.6-10.4); MAGNESIUM 2.4 mg/dL (1.6-2.3)
[2017-08-12] MEDS: Sucralfate 1 gm/10 ml Oral Susp UD PO SCH (08:07)
--- NOTE | 2017-08-12 08:34 | CP.PCM.PN ---
<Regla Payne - Last Filed: 08/12/17 13:13> Subjective - Date & Time of Evaluation Date of Evaluation: 08/12/17 Time of Evaluation: 08:00 - Subjective Subjective: PGY4 GI Follow-up Pt seen and examined bedside no reports of any overnight events 2 lyn DANIEL as per RN vital stable intubated ROS: could not conduct Objective - Vital Signs/Intake and Output Vital Signs (last 24 hours): Temp Pulse Resp BP Pulse Ox 99 F 86 30 H 123/39 L 98 08/12/17 04:00 08/12/17 07:26 08/12/17 07:26 08/12/17 07:26 08/12/17 06:25 Intake and Output: 08/12/17 08/12/17 06:59 18:59 Intake Total 900 50 Output Total 160 10 Balance 740 40 - Medications Medications: Current Medications Acetaminophen (Tylenol 650mg/20.3ml Solution Ud) 650 mg PO Q6 PRN PRN Reason: for temperature >100.4 Last Admin: 08/10/17 09:00 Dose: 650 mg Acetylcysteine (Acetylcysteine 20%) 6 ml PO Q12 [facility]ZEL Stop: 08/12/17 22:01 Last Admin: 08/11/17 21:14 Dose: 6 ml Albuterol/Ipratropium (Duoneb 3 Mg/0.5 Mg (3 Ml) Ud) 3 ml INH Q4H [facility] Last Admin: 08/12/17 07:38 Dose: 3 ml Benzocaine/Menthol (Cepacol Sore Throat) 1 ryan MT Q4 PRN PRN Reason: Sore Throat Last Admin: 08/05/17 15:22 Dose: 1 ryan Diltiazem HCl (Cardizem) 30 mg PO Q6 [facility] Last Admin: 08/12/17 06:02 Dose: 30 mg Diphenhydramine HCl (Benadryl) 25 mg PO ONCE PRN PRN Reason: Pre transfusion Last Admin: 08/03/17 01:35 Dose: 25 mg Famotidine (Pepcid) 20 mg IVP BID [facility] Last Admin: 08/11/17 18:36 Dose: 20 mg Meropenem 500 mg/ Sodium (Chloride) 100 mls @ 100 mls/hr IVPB Q6H [facility] Last Admin: 08/12/17 06:02 Dose: 100 mls/hr Lidocaine HCl (Lidocaine 2% Viscous) 15 ml PO ONCE PRN PRN Reason: throat pain Last Admin: 08/05/17 15:22 Dose: 15 ml Methylprednisolone (Solu-Medrol) 40 mg IV Q8 [facility] Last Admin: 08/12/17 06:08 Dose: 40 mg Nystatin (Nystop Topical Powder) 1 applic TOP BID [facility]ZEL Stop: 08/17/17 18:01 Last Admin: 08/11/17 18:38 Dose: 1 applic Rosuvastatin Calcium (Crestor) 5 mg PO HS [facility] Last Admin: 08/11/17 21:14 Dose: 5 mg Sodium Chloride ([place] Baby Saline 30 Ml) 0 ml [place] Q4 PRN PRN Reason: Cough and congestion Last Admin: 08/04/17 19:12 Dose: 1 spr Sucralfate (Carafate Oral Susp) 1 gm PO ACB [facility] Last Admin: 08/12/17 08:07 Dose: 1 gm - Labs Labs: 08/12/17 06:36 08/12/17 06:36 PT 13.6 SECONDS (9.7-12.2) H 07/26/17 17:16 INR 1.2 07/26/17 17:16 APTT 33 SECONDS (21-34) 07/26/17 17:16 - Constitutional Appears: Well, No Acute Distress - Head Exam Head Exam: ATRAUMATIC, NORMOCEPHALIC - Eye Exam Eye Exam: Normal appearance - ENT Exam ENT Exam: Mucous Membranes Moist - Respiratory Exam Respiratory Exam: Rales, Rhonchi, NORMAL BREATHING PATTERN. absent: Respiratory Distress, Stridor - Cardiovascular Exam Cardiovascular Exam: REGULAR RHYTHM, +S1, +S2 - GI/Abdominal Exam GI & Abdominal Exam: Soft, Normal Bowel Sounds. absent: Guarding, Rigid, Tenderness, Organomegaly - Extremities Exam Extremities Exam: absent: Joint Swelling, Pedal Edema - Neurological Exam Neurological Exam: Altered - Psychiatric Exam Additional comments: could not assess - Skin Skin Exam: Dry, Intact, Normal Color, Warm Assessment and Plan - Assessment and Plan (Free Text) Assessment: Elvis Urbina is a 86M w/ hx of a-fib, COPD, HTN who has had an extensive hospital course for influenza and complicated by ventilator dependent respiratory failure, and sepsis. GI was consulted for drop in hgb and + FOBT Anemia - fecal occult blood positive Thrombocytopenia - likely secondary to sepsis, HIT negative Atrial fibrillation - anticoagulation held COPD HTN Pneumonia, respiratory failure, s/p intubation Plan: - Continue with tube feeding as tolerated - continues to have no overt blood loss - Continue to monitor and transfuse as necessary. - Continue use of H2 yamilet therapy, PPI use not indicated given severe thrombocytopenia. - Follow up hematology recommendations - Continue with antibiotic therapy - Ventilator management as per critical care team - Currently no indication for endoscopic evaluation given patient advanced age, medical cormorbidities, and acute medical illness. Favor conservative management with continued observation. Will continue to monitor patient clinical course. -will sign off Will D/w Dr. Bear <Indira Bear MD - Last Filed: 08/12/17 15:46> Objective - Vital Signs/Intake and Output Vital Signs (last 24 hours): Temp Pulse Resp BP Pulse Ox 97.3 F L 80 31 H 105/42 L 100 08/12/17 13:55 08/12/17 15:00 08/12/17 15:00 08/12/17 14:25 08/12/17 15:00 Intake and Output: 08/12/17 08/12/17 06:59 18:59 Intake Total 900 280 Output Total 160 10 Balance 740 270 - Medications Medications: Current Medications Acetaminophen (Tylenol 650mg/20.3ml Solution Ud) 650 mg PO Q6 PRN PRN Reason: for temperature >100.4 Last Admin: 08/10/17 09:00 Dose: 650 mg Acetylcysteine (Acetylcysteine 20%) 6 ml PO Q12 HAZEL Stop: 08/12/17 22:01 Last Admin: 08/12/17 10:22 Dose: 6 ml Albuterol/Ipratropium (Duoneb 3 Mg/0.5 Mg (3 Ml) Ud) 3 ml INH Q4H [facility] Last Admin: 08/12/17 13:14 Dose: 3 ml Benzocaine/Menthol (Cepacol Sore Throat) 1 ryan MT Q4 PRN PRN Reason: Sore Throat Last Admin: 08/05/17 15:22 Dose: 1 ryan Diltiazem HCl (Cardizem) 30 mg PO Q6 [facility] Last Admin: 08/12/17 13:01 Dose: 30 mg Diphenhydramine HCl (Benadryl) 25 mg PO ONCE PRN PRN Reason: Pre transfusion Last Admin: 08/03/17 01:35 Dose: 25 mg Famotidine (Pepcid) 20 mg IVP BID [facility] Last Admin: 08/12/17 10:22 Dose: 20 mg Meropenem 500 mg/ Sodium (Chloride) 100 mls @ 100 mls/hr IVPB Q6H [facility] Last Admin: 08/12/17 13:01 Dose: 100 mls/hr Sodium Chloride (Sodium Chloride 0.45%) 1,000 mls @ 50 mls/hr IV .Q20H [facility] Stop: 08/13/17 05:59 Last Admin: 08/12/17 10:24 Dose: 50 mls/hr Vancomycin HCl 1 gm/ Sodium (Chloride) 250 mls @ 166.7 mls/hr IVPB Q24H [facility] Lidocaine HCl (Lidocaine 2% Viscous) 15 ml PO ONCE PRN PRN Reason: throat pain Last Admin: 08/05/17 15:22 Dose: 15 ml Methylprednisolone (Solu-Medrol) 40 mg IV Q8 [facility] Last Admin: 08/12/17 13:01 Dose: 40 mg Nystatin (Nystop Topical Powder) 1 applic TOP BID [facility] Stop: 08/17/17 18:01 Last Admin: 08/12/17 10:23 Dose: 1 applic Rosuvastatin Calcium (Crestor) 5 mg PO HS [facility] Last Admin: 08/11/17 21:14 Dose: 5 mg Sodium Chloride ([place] Baby Saline 30 Ml) 0 ml [place] Q4 PRN PRN Reason: Cough and congestion Last Admin: 08/04/17 19:12 Dose: 1 spr Sucralfate (Carafate Oral Susp) 1 gm PO ACB [facility] Last Admin: 08/12/17 08:07 Dose: 1 gm - Labs Labs: 08/12/17 06:36 08/12/17 06:36 PT 13.6 SECONDS (9.7-12.2) H 07/26/17 17:16 INR 1.2 07/26/17 17:16 APTT 33 SECONDS (21-34) 07/26/17 17:16 Attending/Attestation - Attestation I have personally seen and examined this patient.: Yes I have fully participated in the care of the patient.: Yes I have reviewed all pertinent clinical information, including history, physical exam and plan: Yes Notes (Text): 08/12/17 15:41 Patient seen with GI fellow on rounds. This is a 86 yr old M with Atrial fibrillation with anticoagulation held, COPD, HTN, Pneumonia, respiratory failure, s/p intubation and anemia with FOBT positive. Gi called for anemia. Hemodynamically stable. No overt GI bleeding. NGT tube with no blood clots. Feeds in progress. Continue PPI and antibiotics for PNA. No urgent indication for endoscopic evaluation due to no overt GI bleeding, patient advanced age, medical cormorbidities, and acute medical illness. Discussed with conveyor system operator. Will sign off. Please recall prn. Thank you for letting us participate in the care of your patient
[2017-08-12 09:02] LABS: BANDS 11 % (0-2); LYMPHOCYTE 3 % (20-40); MONOCYTE 3 % (0-10); NEUTROPHIL 83 % (50-75); TOTAL CELLS COUNTED 100
[2017-08-12 09:03] LABS: ANISOCYTOSIS MODERATE; OVALOCYTES SLIGHT; PLATELET ESTIMATE MARKEDLY DECREASED (NORMAL); POIKILOCYTOSIS SLIGHT
[2017-08-12 09:04] LABS: HYPOCHROMIC SLIGHT; TOXIC GRANULATION PRESENT
--- NOTE | 2017-08-12 09:30 | CP.CCUPN ---
CCU Subjective - Physician Review Events Since Last Encounter (Free Text): 08/12/17 09:23 This is an 86-year-old man with a history of COPD admitted with a history of pneumonia recently the month ago. During the stay in the floor patient developed a worsening respiratory insufficiency, he was intubated and brought into ICU. Patient currently on ventilator. Family at bedside. 50% FiO2. Patient is awake and responding. Thick secretions noted from the ET tube. On examination: Vital signs: HR 92 Blood pressure 115/54 saturation 99%, awake and responding Chest bilateral good air entry regular heart sounds nontender abdomen edema negative Chest x-ray worsening right upper, and the right lower lung pneumonia noted. 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 The sputum culture positive for ESBL Escherichia coli infectious disease on the case LFT increasing SPO2 better. Assessment and determination: 86-year-old male with history of COPD, fibrotic lung changes admitted at the worsening pneumonia on ventilator with acute respiratory insufficiency hypoxic. Atrial fibrillation. We'll continue the current treatment. Antibiotic, respiratory support. Patient not a candidate for weaning yet. worsening renal and liver failure dvt and GI prophylaxis CCU Objective - Vital Signs / Intake & Output Vital Signs (Last 4 hours): Vital Signs Temp Pulse Resp BP Pulse Ox 08/12/17 09:00 86 26 H 99 08/12/17 08:25 88 25 H 111/62 100 08/12/17 08:00 98.5 F 92 H 20 99 08/12/17 07:26 86 30 H 123/39 L 08/12/17 06:25 101 H 15 137/47 L 98 08/12/17 06:00 92 H 20 99 08/12/17 05:25 80 26 H 125/56 L 99 Intake and Output (Last 8hrs): Intake & Output 08/11/17 08/12/17 08/12/17 22:59 06:59 14:59 Intake Total 800 600 150 Output Total 110 60 10 Balance 690 540 140 Weight 100 lb Intake: Intake, IV Amount 400 200 Right Medial Port 200 Right Proximal Port 400 Tube Feeding 400 400 100 Other 50 Output: Urine 110 60 10 Urethral (Han) 110 60 10 Other: # Bowel Movements 1 1 - Physical Exam Head: Positive for: Atraumatic, Normocephalic Pupils: Positive for: PERRL Extroacular Muscles: Positive for: EOMI Conjunctiva: Positive for: Normal Mouth: Positive for: Moist Mucous Membranes Neck: Positive for: Normal Range of Motion Respiratory/Chest: Positive for: Rales Cardiovascular: Positive for: Tachycardic Abdomen: Positive for: Normal Bowel Sounds. Negative for: Tenderness, Distention, Peritoneal Signs Skin: Positive for: Warm Psychiatric: Positive for: Alert - Medications Active Medications: Active Medications Generic Name Dose Route Start Last Admin Trade Name Freq PRN Reason Stop Dose Admin Acetaminophen 650 mg 08/09/17 11:00 08/10/17 09:00 Tylenol 650mg/20.3ml Solution Ud PO 650 mg Q6 PRN Administration for temperature >100.4 Acetylcysteine 6 ml 08/11/17 10:00 08/11/17 21:14 Acetylcysteine 20% PO 08/12/17 22:01 6 ml Q12 HAZEL Administration Albuterol/Ipratropium 3 ml 08/03/17 12:00 08/12/17 07:38 Duoneb 3 Mg/0.5 Mg (3 Ml) Ud INH 3 ml Q4H [facility]ZEL Administration Benzocaine/Menthol 1 ryan 07/29/17 16:59 08/05/17 15:22 Cepacol Sore Throat MT 1 ryan Q4 PRN Administration Sore Throat Diltiazem HCl 30 mg 08/07/17 09:15 08/12/17 06:02 Cardizem PO 30 mg Q6 [facility]ZEL Administration Diphenhydramine HCl 25 mg 08/03/17 01:00 08/03/17 01:35 Benadryl PO 25 mg ONCE PRN Administration Pre transfusion Famotidine 20 mg 08/10/17 18:00 08/11/17 18:36 Pepcid IVP 20 mg BID [facility]ZEL Administration Meropenem 500 mg/ Sodium 100 mls @ 100 mls/hr 08/10/17 12:00 08/12/17 06:02 Chloride IVPB 100 mls/hr Q6H [facility]EL Administration Lidocaine HCl 15 ml 08/02/17 12:41 08/05/17 15:22 Lidocaine 2% Viscous PO 15 ml ONCE PRN Administration throat pain Methylprednisolone 40 mg 08/10/17 14:00 08/12/17 06:08 Solu-Medrol IV 40 mg Q8 [facility]ZEL Administration Nystatin 1 applic 08/03/17 18:00 08/11/17 18:38 Nystop Topical Powder TOP 08/17/17 18:01 1 applic BID HAZEL Administration Rosuvastatin Calcium 5 mg 07/24/17 22:00 08/11/17 21:14 Crestor PO 5 mg HS [facility]EL Administration Sodium Chloride 0 ml 07/28/17 16:42 08/04/17 19:12 [place] Baby Saline 30 Ml [place]ISON 1 spr Q4 PRN Administration Cough and congestion Sucralfate 1 gm 08/12/17 07:30 08/12/17 08:07 Carafate Oral Susp PO 1 gm ACB HAZEL Administration - Patient Studies Lab Studies: Microbiology Studies 08/10/17 11:43 Urine Culture - Final Urine,Han No Growth (<1,000 CFU/ML) 08/10/17 12:00 Blood Culture - Preliminary Blood-Venous NO GROWTH AFTER 24 HOURS 08/10/17 12:30 Blood Culture - Preliminary Blood-Venous NO GROWTH AFTER 24 HOURS 08/02/17 11:53 Mycobacterial Culture - Preliminary Other: Please Indicate Lab Studies 08/12/17 08/12/17 08/12/17 Range/Units 07:14 06:36 06:36 WBC 6.7 (4.8-10.8) K/uL RBC 2.73 L (4.40-5.90) Mil/uL Hgb 8.3 L (12.0-18.0) g/dL Hct 24.0 L (35.0-51.0) % MCV 88.0 D (80.0-94.0) fL MCH 30.3 (27.0-31.0) pg MCHC 34.4 (33.0-37.0) g/dL RDW 20.8 H (11.5-14.5) % Plt Count 37 L (130-400) K/uL MPV 8.7 (7.2-11.7) fL Neut % (Auto) 96.2 H (50.0-75.0) % Lymph % (Auto) 2.4 L (20.0-40.0) % Dixie % (Auto) 1.0 (0.0-10.0) % Eos % (Auto) 0.1 (0.0-4.0) % Baso % (Auto) 0.3 (0.0-2.0) % Neut # (Auto) 6.5 (1.8-7.0) K/uL Lymph # (Auto) 0.2 L (1.0-4.3) K/uL Dixie # (Auto) 0.1 (0.0-0.8) K/uL Eos # (Auto) 0.0 (0.0-0.7) K/uL Baso # (Auto) 0.0 (0.0-0.2) K/uL Neutrophils % (Manual) 83 H (50-75) % Band Neutrophils % 11 H* (0-2) % Lymphocytes % (Manual) 3 L (20-40) % Monocytes % (Manual) 3 (0-10) % Toxic Granulation Present Platelet Estimate Markedly decreased L (NORMAL) Hypochromasia (manual) Slight Poikilocytosis (manual Slight Anisocytosis (manual) Moderate Ovalocytes Slight Puncture Site pCO2 (35-45) mm/Hg pO2 (80-100) mm/Hg HCO3 (21-28) mmol/L ABG pH (7.35-7.45) ABG Total CO2 (22-28) mmol/L ABG O2 Saturation (95-98) % ABG Base Excess (-2.0-3.0) mmol/L ABG Hemoglobin (11.7-17.4) g/dL ABG Carboxyhemoglobin (0.5-1.5) % POC ABG HHb (Measured) (0.0-5.0) % ABG Methemoglobin (0.0-3.0) % Peter Test A-a O2 Difference mm/Hg Respiratory Index Hgb O2 Saturation (95.0-98.0) % Vent Mode Mechanical Rate FiO2 % Tidal Volume PEEP Sodium 148 (132-148) mmol/L Potassium 5.9 H (3.6-5.2) mmol/L Chloride 112 H (98-107) mmol/L Carbon Dioxide 25 (22-30) mmol/L Anion Gap 17 (10-20) BUN 95 H (9-20) mg/dL Creatinine 2.9 H (0.8-1.5) mg/dL Est GFR ( Amer) 25 Est GFR (Non-Af Amer) 21 POC Glucose (mg/dL) 283 H (65-110) mg/dL Random Glucose 272 H (75-110) mg/dL Calcium 6.9 L (8.6-10.4) mg/dl Phosphorus 5.1 H (2.5-4.5) mg/dL Magnesium 2.4 H (1.6-2.3) mg/dL Total Bilirubin 1.3 (0.2-1.3) mg/dL AST 189 H D (17-59) U/L ALT 110 H D (21-72) U/L Alkaline Phosphatase 194 H D (38-126) U/L Total Protein 5.3 L (6.3-8.3) g/dL Albumin 2.2 L (3.5-5.0) g/dL Globulin 3.1 (2.2-3.9) gm/dL Albumin/Globulin Ratio 0.7 L (1.0-2.1) Stool Occult Blood (NEGATIVE) 08/12/17 08/12/17 08/11/17 Range/Units 04:50 02:11 23:47 WBC (4.8-10.8) K/uL RBC (4.40-5.90) Mil/uL Hgb (12.0-18.0) g/dL Hct (35.0-51.0) % MCV (80.0-94.0) fL MCH (27.0-31.0) pg MCHC (33.0-37.0) g/dL RDW (11.5-14.5) % Plt Count (130-400) K/uL MPV (7.2-11.7) fL Neut % (Auto) (50.0-75.0) % Lymph % (Auto) (20.0-40.0) % Dixie % (Auto) (0.0-10.0) % Eos % (Auto) (0.0-4.0) % Baso % (Auto) (0.0-2.0) % Neut # (Auto) (1.8-7.0) K/uL Lymph # (Auto) (1.0-4.3) K/uL Dixie # (Auto) (0.0-0.8) K/uL Eos # (Auto) (0.0-0.7) K/uL Baso # (Auto) (0.0-0.2) K/uL Neutrophils % (Manual) (50-75) % Band Neutrophils % (0-2) % Lymphocytes % (Manual) (20-40) % Monocytes % (Manual) (0-10) % Toxic Granulation Platelet Estimate (NORMAL) Hypochromasia (manual) Poikilocytosis (manual Anisocytosis (manual) Ovalocytes Puncture Site Lb pCO2 33 L (35-45) mm/Hg pO2 131 H (80-100) mm/Hg HCO3 23.9 (21-28) mmol/L ABG pH 7.44 (7.35-7.45) ABG Total CO2 23.4 (22-28) mmol/L ABG O2 Saturation 99.2 H (95-98) % ABG Base Excess -1.4 (-2.0-3.0) mmol/L ABG Hemoglobin 8.3 L (11.7-17.4) g/dL ABG Carboxyhemoglobin 1.4 (0.5-1.5) % POC ABG HHb (Measured) 0.8 (0.0-5.0) % ABG Methemoglobin 1.1 (0.0-3.0) % Peter Test Na A-a O2 Difference 184.0 mm/Hg Respiratory Index 1.4 Hgb O2 Saturation 96.7 (95.0-98.0) % Vent Mode Prvc Mechanical Rate 14 FiO2 50.0 % Tidal Volume 450 PEEP 5 Sodium (132-148) mmol/L Potassium (3.6-5.2) mmol/L Chloride (98-107) mmol/L Carbon Dioxide (22-30) mmol/L Anion Gap (10-20) BUN (9-20) mg/dL Creatinine (0.8-1.5) mg/dL Est GFR ( Amer) Est GFR (Non-Af Amer) POC Glucose (mg/dL) 230 H (65-110) mg/dL Random Glucose (75-110) mg/dL Calcium (8.6-10.4) mg/dl Phosphorus (2.5-4.5) mg/dL Magnesium (1.6-2.3) mg/dL Total Bilirubin (0.2-1.3) mg/dL AST (17-59) U/L ALT (21-72) U/L Alkaline Phosphatase (38-126) U/L Total Protein (6.3-8.3) g/dL Albumin (3.5-5.0) g/dL Globulin (2.2-3.9) gm/dL Albumin/Globulin Ratio (1.0-2.1) Stool Occult Blood Positive H (NEGATIVE) 08/11/17 08/11/17 Range/Units 17:19 11:38 WBC (4.8-10.8) K/uL RBC (4.40-5.90) Mil/uL Hgb (12.0-18.0) g/dL Hct (35.0-51.0) % MCV (80.0-94.0) fL MCH (27.0-31.0) pg MCHC (33.0-37.0) g/dL RDW (11.5-14.5) % Plt Count (130-400) K/uL MPV (7.2-11.7) fL Neut % (Auto) (50.0-75.0) % Lymph % (Auto) (20.0-40.0) % Dixie % (Auto) (0.0-10.0) % Eos % (Auto) (0.0-4.0) % Baso % (Auto) (0.0-2.0) % Neut # (Auto) (1.8-7.0) K/uL Lymph # (Auto) (1.0-4.3) K/uL Dixie # (Auto) (0.0-0.8) K/uL Eos # (Auto) (0.0-0.7) K/uL Baso # (Auto) (0.0-0.2) K/uL Neutrophils % (Manual) (50-75) % Band Neutrophils % (0-2) % Lymphocytes % (Manual) (20-40) % Monocytes % (Manual) (0-10) % Toxic Granulation Platelet Estimate (NORMAL) Hypochromasia (manual) Poikilocytosis (manual Anisocytosis (manual) Ovalocytes Puncture Site pCO2 (35-45) mm/Hg pO2 (80-100) mm/Hg HCO3 (21-28) mmol/L ABG pH (7.35-7.45) ABG Total CO2 (22-28) mmol/L ABG O2 Saturation (95-98) % ABG Base Excess (-2.0-3.0) mmol/L ABG Hemoglobin (11.7-17.4) g/dL ABG Carboxyhemoglobin (0.5-1.5) % POC ABG HHb (Measured) (0.0-5.0) % ABG Methemoglobin (0.0-3.0) % Peter Test A-a O2 Difference mm/Hg Respiratory Index Hgb O2 Saturation (95.0-98.0) % Vent Mode Mechanical Rate FiO2 % Tidal Volume PEEP Sodium (132-148) mmol/L Potassium (3.6-5.2) mmol/L Chloride (98-107) mmol/L Carbon Dioxide (22-30) mmol/L Anion Gap (10-20) BUN (9-20) mg/dL Creatinine (0.8-1.5) mg/dL Est GFR ( Amer) Est GFR (Non-Af Amer) POC Glucose (mg/dL) 294 H 243 H (65-110) mg/dL Random Glucose (75-110) mg/dL Calcium (8.6-10.4) mg/dl Phosphorus (2.5-4.5) mg/dL Magnesium (1.6-2.3) mg/dL Total Bilirubin (0.2-1.3) mg/dL AST (17-59) U/L ALT (21-72) U/L Alkaline Phosphatase (38-126) U/L Total Protein (6.3-8.3) g/dL Albumin (3.5-5.0) g/dL Globulin (2.2-3.9) gm/dL Albumin/Globulin Ratio (1.0-2.1) Stool Occult Blood (NEGATIVE) Laboratory Results - last 24 hr 08/11/17 08/11/17 08/11/17 11:38 17:19 23:47 WBC RBC Hgb Hct MCV MCH MCHC RDW Plt Count MPV Neut % (Auto) Lymph % (Auto) Dixie % (Auto) Eos % (Auto) Baso % (Auto) Neut # (Auto) Lymph # (Auto) Dixie # (Auto) Eos # (Auto) Baso # (Auto) Neutrophils % (Manual) Band Neutrophils % Lymphocytes % (Manual) Monocytes % (Manual) Toxic Granulation Platelet Estimate Hypochromasia (manual) Poikilocytosis (manual Anisocytosis (manual) Ovalocytes Puncture Site pCO2 pO2 HCO3 ABG pH ABG Total CO2 ABG O2 Saturation ABG Base Excess ABG Hemoglobin ABG Carboxyhemoglobin POC ABG HHb (Measured) ABG Methemoglobin Peter Test A-a O2 Difference Respiratory Index Hgb O2 Saturation Vent Mode Mechanical Rate FiO2 Tidal Volume PEEP Sodium Potassium Chloride Carbon Dioxide Anion Gap BUN Creatinine Est GFR ( Amer) Est GFR (Non-Af Amer) POC Glucose (mg/dL) 243 H 294 H 230 H Random Glucose Calcium Phosphorus Magnesium Total Bilirubin AST ALT Alkaline Phosphatase Total Protein Albumin Globulin Albumin/Globulin Ratio Stool Occult Blood 08/12/17 08/12/17 08/12/17 02:11 04:50 06:36 WBC 6.7 RBC 2.73 L Hgb 8.3 L Hct 24.0 L MCV 88.0 D MCH 30.3 MCHC 34.4 RDW 20.8 H Plt Count 37 L MPV 8.7 Neut % (Auto) 96.2 H Lymph % (Auto) 2.4 L Dixie % (Auto) 1.0 Eos % (Auto) 0.1 Baso % (Auto) 0.3 Neut # (Auto) 6.5 Lymph # (Auto) 0.2 L Dixie # (Auto) 0.1 Eos # (Auto) 0.0 Baso # (Auto) 0.0 Neutrophils % (Manual) 83 H Band Neutrophils % 11 H* Lymphocytes % (Manual) 3 L Monocytes % (Manual) 3 Toxic Granulation Present Platelet Estimate Markedly decreased L Hypochromasia (manual) Slight Poikilocytosis (manual Slight Anisocytosis (manual) Moderate Ovalocytes Slight Puncture Site Lb pCO2 33 L pO2 131 H HCO3 23.9 ABG pH 7.44 ABG Total CO2 23.4 ABG O2 Saturation 99.2 H ABG Base Excess -1.4 ABG Hemoglobin 8.3 L ABG Carboxyhemoglobin 1.4 POC ABG HHb (Measured) 0.8 ABG Methemoglobin 1.1 Peter Test Na A-a O2 Difference 184.0 Respiratory Index 1.4 Hgb O2 Saturation 96.7 Vent Mode Prvc Mechanical Rate 14 FiO2 50.0 Tidal Volume 450 PEEP 5 Sodium Potassium Chloride Carbon Dioxide Anion Gap BUN Creatinine Est GFR ( Amer) Est GFR (Non-Af Amer) POC Glucose (mg/dL) Random Glucose Calcium Phosphorus Magnesium Total Bilirubin AST ALT Alkaline Phosphatase Total Protein Albumin Globulin Albumin/Globulin Ratio Stool Occult Blood Positive H 08/12/17 08/12/17 06:36 07:14 WBC RBC Hgb Hct MCV MCH MCHC RDW Plt Count MPV Neut % (Auto) Lymph % (Auto) Dixie % (Auto) Eos % (Auto) Baso % (Auto) Neut # (Auto) Lymph # (Auto) Dixie # (Auto) Eos # (Auto) Baso # (Auto) Neutrophils % (Manual) Band Neutrophils % Lymphocytes % (Manual) Monocytes % (Manual) Toxic Granulation Platelet Estimate Hypochromasia (manual) Poikilocytosis (manual Anisocytosis (manual) Ovalocytes Puncture Site pCO2 pO2 HCO3 ABG pH ABG Total CO2 ABG O2 Saturation ABG Base Excess ABG Hemoglobin ABG Carboxyhemoglobin POC ABG HHb (Measured) ABG Methemoglobin Petre Test A-a O2 Difference Respiratory Index Hgb O2 Saturation Vent Mode Mechanical Rate FiO2 Tidal Volume PEEP Sodium 148 Potassium 5.9 H Chloride 112 H Carbon Dioxide 25 Anion Gap 17 BUN 95 H Creatinine 2.9 H Est GFR ( Amer) 25 Est GFR (Non-Af Amer) 21 POC Glucose (mg/dL) 283 H Random Glucose 272 H Calcium 6.9 L Phosphorus 5.1 H Magnesium 2.4 H Total Bilirubin 1.3 AST 189 H D ALT 110 H D Alkaline Phosphatase 194 H D Total Protein 5.3 L Albumin 2.2 L Globulin 3.1 Albumin/Globulin Ratio 0.7 L Stool Occult Blood Fingerstick Blood Sugar Results: 283 Critical Care Progress Note - Nutrition Nutrition: Nutrition Category Date Time Status NPO Diet [DIET] Diets 08/07/17 Breakfast Active
[2017-08-12] MEDS ORDERED: Sodium Chloride 0.45% 1,000 ML IV SCH (10:00)
[2017-08-12] MEDS: Acetylcysteine 20% Inhal Soln (4ml) PO SCH ×2 (10:22→22:00)
--- NOTE | 2017-08-12 10:24 | RAD ---
HISTORY: Follow up COMPARISON: Comparison chest dated 08/11/2014 FINDINGS: In situ ETT, tip 7.5 cm above valent[place], tip of which lies approximately. In situ NGT, tip of which has not been included on film though distal aspect does lie well below junction. No change right-sided unchanged central venous line with tip in the SVC LUNGS: Diffuse bilateral pulmonary infiltrates. Questionable small left effusion PLEURA: Questionable small left effusion No evidence of pneumothorax. CARDIOVASCULAR: Normal. OSSEOUS STRUCTURES: No significant abnormalities. VISUALIZED UPPER ABDOMEN: Normal. OTHER FINDINGS: None. IMPRESSION: Support lines and tubes as above. Diffuse bilateral infiltrates. Questionable small left effusion
--- NOTE | 2017-08-12 14:17 | CP.PCM.PN ---
Subjective - Date & Time of Evaluation Date of Evaluation: 08/12/17 Time of Evaluation: 14:17 Objective - Vital Signs/Intake and Output Vital Signs (last 24 hours): Temp Pulse Resp BP Pulse Ox 97.3 F L 81 30 H 114/48 L 99 08/12/17 13:55 08/12/17 14:00 08/12/17 14:00 08/12/17 13:25 08/12/17 14:00 Intake and Output: 08/12/17 08/12/17 06:59 18:59 Intake Total 900 280 Output Total 160 10 Balance 740 270 - Medications Medications: Current Medications Acetaminophen (Tylenol 650mg/20.3ml Solution Ud) 650 mg PO Q6 PRN PRN Reason: for temperature >100.4 Last Admin: 08/10/17 09:00 Dose: 650 mg Acetylcysteine (Acetylcysteine 20%) 6 ml PO Q12 [facility] Stop: 08/12/17 22:01 Last Admin: 08/12/17 10:22 Dose: 6 ml Albuterol/Ipratropium (Duoneb 3 Mg/0.5 Mg (3 Ml) Ud) 3 ml INH Q4H [facility] Last Admin: 08/12/17 13:14 Dose: 3 ml Benzocaine/Menthol (Cepacol Sore Throat) 1 ryan MT Q4 PRN PRN Reason: Sore Throat Last Admin: 08/05/17 15:22 Dose: 1 ryan Diltiazem HCl (Cardizem) 30 mg PO Q6 [facility] Last Admin: 08/12/17 13:01 Dose: 30 mg Diphenhydramine HCl (Benadryl) 25 mg PO ONCE PRN PRN Reason: Pre transfusion Last Admin: 08/03/17 01:35 Dose: 25 mg Famotidine (Pepcid) 20 mg IVP BID [facility] Last Admin: 08/12/17 10:22 Dose: 20 mg Meropenem 500 mg/ Sodium (Chloride) 100 mls @ 100 mls/hr IVPB Q6H [facility] Last Admin: 08/12/17 13:01 Dose: 100 mls/hr Sodium Chloride (Sodium Chloride 0.45%) 1,000 mls @ 50 mls/hr IV .Q20H [facility] Stop: 08/13/17 05:59 Last Admin: 08/12/17 10:24 Dose: 50 mls/hr Lidocaine HCl (Lidocaine 2% Viscous) 15 ml PO ONCE PRN PRN Reason: throat pain Last Admin: 08/05/17 15:22 Dose: 15 ml Methylprednisolone (Solu-Medrol) 40 mg IV Q8 [facility] Last Admin: 08/12/17 13:01 Dose: 40 mg Nystatin (Nystop Topical Powder) 1 applic TOP BID [facility] Stop: 08/17/17 18:01 Last Admin: 08/12/17 10:23 Dose: 1 applic Rosuvastatin Calcium (Crestor) 5 mg PO HS [facility] Last Admin: 08/11/17 21:14 Dose: 5 mg Sodium Chloride ([place] Baby Saline 30 Ml) 0 ml [facility] Q4 PRN PRN Reason: Cough and congestion Last Admin: 08/04/17 19:12 Dose: 1 spr Sucralfate (Carafate Oral Susp) 1 gm PO ACB [facility] Last Admin: 08/12/17 08:07 Dose: 1 gm - Labs Labs: 08/12/17 06:36 08/12/17 06:36 PT 13.6 SECONDS (9.7-12.2) H 07/26/17 17:16 INR 1.2 07/26/17 17:16 APTT 33 SECONDS (21-34) 07/26/17 17:16
--- NOTE | 2017-08-12 15:16 | CP.PCM.PN ---
Subjective - Date & Time of Evaluation Date of Evaluation: 08/12/17 Time of Evaluation: 08:00 - Subjective Subjective: intubated orally more alert afebat present orders renewed Objective - Vital Signs/Intake and Output Vital Signs (last 24 hours): Temp Pulse Resp BP Pulse Ox 97.3 F L 81 30 H 114/48 L 99 08/12/17 13:55 08/12/17 14:00 08/12/17 14:00 08/12/17 13:25 08/12/17 14:00 Intake and Output: 08/12/17 08/12/17 06:59 18:59 Intake Total 900 280 Output Total 160 10 Balance 740 270 - Medications Medications: Current Medications Acetaminophen (Tylenol 650mg/20.3ml Solution Ud) 650 mg PO Q6 PRN PRN Reason: for temperature >100.4 Last Admin: 08/10/17 09:00 Dose: 650 mg Acetylcysteine (Acetylcysteine 20%) 6 ml PO Q12 [facility] Stop: 08/12/17 22:01 Last Admin: 08/12/17 10:22 Dose: 6 ml Albuterol/Ipratropium (Duoneb 3 Mg/0.5 Mg (3 Ml) Ud) 3 ml INH Q4H [facility] Last Admin: 08/12/17 13:14 Dose: 3 ml Benzocaine/Menthol (Cepacol Sore Throat) 1 ryan MT Q4 PRN PRN Reason: Sore Throat Last Admin: 08/05/17 15:22 Dose: 1 ryan Diltiazem HCl (Cardizem) 30 mg PO Q6 [facility] Last Admin: 08/12/17 13:01 Dose: 30 mg Diphenhydramine HCl (Benadryl) 25 mg PO ONCE PRN PRN Reason: Pre transfusion Last Admin: 08/03/17 01:35 Dose: 25 mg Famotidine (Pepcid) 20 mg IVP BID [facility] Last Admin: 08/12/17 10:22 Dose: 20 mg Meropenem 500 mg/ Sodium (Chloride) 100 mls @ 100 mls/hr IVPB Q6H [facility] Last Admin: 08/12/17 13:01 Dose: 100 mls/hr Sodium Chloride (Sodium Chloride 0.45%) 1,000 mls @ 50 mls/hr IV .Q20H [facility] Stop: 08/13/17 05:59 Last Admin: 08/12/17 10:24 Dose: 50 mls/hr Lidocaine HCl (Lidocaine 2% Viscous) 15 ml PO ONCE PRN PRN Reason: throat pain Last Admin: 08/05/17 15:22 Dose: 15 ml Methylprednisolone (Solu-Medrol) 40 mg IV Q8 [facility] Last Admin: 08/12/17 13:01 Dose: 40 mg Nystatin (Nystop Topical Powder) 1 applic TOP BID [facility] Stop: 08/17/17 18:01 Last Admin: 08/12/17 10:23 Dose: 1 applic Rosuvastatin Calcium (Crestor) 5 mg PO HS [facility] Last Admin: 08/11/17 21:14 Dose: 5 mg Sodium Chloride ([place] Baby Saline 30 Ml) 0 ml [facility] Q4 PRN PRN Reason: Cough and congestion Last Admin: 08/04/17 19:12 Dose: 1 spr Sucralfate (Carafate Oral Susp) 1 gm PO ACB [facility] Last Admin: 08/12/17 08:07 Dose: 1 gm - Labs Labs: 08/12/17 06:36 08/12/17 06:36 PT 13.6 SECONDS (9.7-12.2) H 07/26/17 17:16 INR 1.2 07/26/17 17:16 APTT 33 SECONDS (21-34) 07/26/17 17:16 - Constitutional Appears: Non-toxic, Cachectic, Chronically Ill - Head Exam Head Exam: NORMOCEPHALIC - Eye Exam Eye Exam: PERRL. absent: Scleral icterus - ENT Exam ENT Exam: Mucous Membranes Dry - Neck Exam Neck Exam: absent: Lymphadenopathy - Respiratory Exam Respiratory Exam: Decreased Breath Sounds - Cardiovascular Exam Cardiovascular Exam: REGULAR RHYTHM - GI/Abdominal Exam GI & Abdominal Exam: Distended, Soft - Rectal Exam Rectal Exam: Deferred - Exam Exam: NORMAL INSPECTION - Extremities Exam Extremities Exam: absent: Pedal Edema - Back Exam Back Exam: absent: CVA tenderness (L), CVA tenderness (R) - Neurological Exam Neurological Exam: Alert, Altered, CN II-XII Intact - Psychiatric Exam Psychiatric exam: Depressed - Skin Skin Exam: Dry Assessment and Plan (1) Anemia Status: Acute (2) Atrial fibrillation with RVR Status: Acute (3) COPD with exacerbation Status: Acute (4) Leukocytosis Status: Acute (5) PNA (pneumonia) Status: Acute (6) Productive cough Status: Acute
[2017-08-12] MEDS ORDERED: Vancomycin 1 GM in Sodium Chloride 0.9% 200 ML IVPB SCH (17:00)
[2017-08-12] MEDS ORDERED: Midazolam 2 MG/2 ML VIAL IVP ONE (19:45)
[2017-08-12 21:34] LABS: VENOUS BLOOD GAS BASE EXCESS -14.5 mmol/L (0.0-2.0); VENOUS BLOOD GAS PCO2 33 mmHg (40-60); VENOUS BLOOD GAS PO2 43 mm/Hg (30-55); VENOUS BLOOD PH 7.19 (7.32-7.43)
[2017-08-12 21:45] LABS: HEMOGLOBIN 7.8 g/dL (12.0-18.0); MEAN CORPUSCULAR HEMOGLOBIN 26.5 pg (27.0-31.0); MEAN CORPUSCULAR HGB CONC 31.1 g/dL (33.0-37.0); MEAN PLATELET VOLUME 8.7 fL (7.2-11.7); RBC 2.96 Mil/uL (4.40-5.90); RED CELL DISTRIBUTION WIDTH 21.4 % (11.5-14.5); WHITE BLOOD COUNT 7.7 K/uL (4.8-10.8)
[2017-08-12] MEDS ORDERED: Sodium Bicarbonate (8.4%) 50 Meq Syringe IVP ONE (21:45)
[2017-08-12 21:49] LABS: MEAN CELL VOLUME 85.1 fL (80.0-94.0)
[2017-08-12 21:54] LABS: INR 1.1; PROTHROMBIN TIME 12.1 SECONDS (9.7-12.2)
[2017-08-12 22:02] LABS: ALB/GLOB RATIO 0.7 (1.0-2.1); ALBUMIN 2.2 g/dL (3.5-5.0); CALCIUM 6.8 mg/dl (8.6-10.4)
[2017-08-12] MEDS ORDERED: Sod Polystyrene Sulf 15 gm/60 ml Susp PO ONE (22:10)
[2017-08-12] MEDS ORDERED: Albumin Human 25% (12.5 gm/50 ml) IV ONE (22:30)
--- NOTE | 2017-08-12 22:30 | CP.PCM.PN ---
Subjective - Date & Time of Evaluation Date of Evaluation: 08/11/17 Time of Evaluation: 14:00 - Subjective Subjective: Vented Objective - Vital Signs/Intake and Output Vital Signs (last 24 hours): Temp Pulse Resp BP Pulse Ox 97.9 F 79 33 H 95/44 L 100 08/12/17 17:00 08/12/17 22:00 08/12/17 22:00 08/12/17 21:54 08/12/17 22:00 Intake and Output: 08/12/17 08/13/17 18:59 06:59 Intake Total 1730 200 Output Total 15 0 Balance 1715 200 - Medications Medications: Current Medications Acetaminophen (Tylenol 650mg/20.3ml Solution Ud) 650 mg PO Q6 PRN PRN Reason: for temperature >100.4 Last Admin: 08/10/17 09:00 Dose: 650 mg Albumin Human (Albumin Human 25% (12.5 Gm/50 Ml)) 12.5 gm IV ONCE ONE Stop: 08/12/17 22:31 Albuterol/Ipratropium (Duoneb 3 Mg/0.5 Mg (3 Ml) Ud) 3 ml INH Q4H [facility] Last Admin: 08/12/17 19:55 Dose: 3 ml Benzocaine/Menthol (Cepacol Sore Throat) 1 ryan MT Q4 PRN PRN Reason: Sore Throat Last Admin: 08/05/17 15:22 Dose: 1 ryan Diltiazem HCl (Cardizem) 30 mg PO Q6 [facility] Last Admin: 08/12/17 17:13 Dose: 30 mg Diphenhydramine HCl (Benadryl) 25 mg PO ONCE PRN PRN Reason: Pre transfusion Last Admin: 08/03/17 01:35 Dose: 25 mg Meropenem 500 mg/ Sodium (Chloride) 100 mls @ 100 mls/hr IVPB Q6H [facility] Last Admin: 08/12/17 17:13 Dose: 100 mls/hr Sodium Bicarbonate 150 meq/ (Dextrose) 1,150 mls @ 100 mls/hr IV .[id number] [facility] Lidocaine HCl (Lidocaine 2% Viscous) 15 ml PO ONCE PRN PRN Reason: throat pain Last Admin: 08/05/17 15:22 Dose: 15 ml Nystatin (Nystop Topical Powder) 1 applic TOP BID [facility] Stop: 08/17/17 18:01 Last Admin: 08/12/17 17:13 Dose: 1 applic Rosuvastatin Calcium (Crestor) 5 mg PO HS [facility] Last Admin: 08/12/17 22:01 Dose: 5 mg Sodium Chloride ([place] Baby Saline 30 Ml) 0 ml [facility] Q4 PRN PRN Reason: Cough and congestion Last Admin: 08/04/17 19:12 Dose: 1 spr Sucralfate (Carafate Oral Susp) 1 gm PO ACB [facility] Last Admin: 08/12/17 08:07 Dose: 1 gm - Labs Labs: 08/12/17 21:36 08/12/17 21:36 PT 12.1 SECONDS (9.7-12.2) 08/12/17 21:36 INR 1.1 08/12/17 21:36 APTT 37 SECONDS (21-34) H 08/12/17 21:36 - Head Exam Head Exam: ATRAUMATIC - Eye Exam Eye Exam: Normal appearance - ENT Exam ENT Exam: Mucous Membranes Dry - Respiratory Exam Respiratory Exam: NORMAL BREATHING PATTERN - Cardiovascular Exam Cardiovascular Exam: +S1, +S2 - GI/Abdominal Exam GI & Abdominal Exam: Normal Bowel Sounds Assessment and Plan (1) Thrombocytopenia Assessment & Plan: sepsis, acute illness transfusion support if plt < 10,000 Status: Acute (2) Anemia Assessment & Plan: chronic disease Status: Acute
--- NOTE | 2017-08-12 22:31 | CP.PCM.PN ---
Subjective - Date & Time of Evaluation Date of Evaluation: 08/12/17 Time of Evaluation: 16:00 - Subjective Subjective: Vented Objective - Vital Signs/Intake and Output Vital Signs (last 24 hours): Temp Pulse Resp BP Pulse Ox 97.9 F 79 33 H 95/44 L 100 08/12/17 17:00 08/12/17 22:00 08/12/17 22:00 08/12/17 21:54 08/12/17 22:00 Intake and Output: 08/12/17 08/13/17 18:59 06:59 Intake Total 1730 200 Output Total 15 0 Balance 1715 200 - Medications Medications: Current Medications Acetaminophen (Tylenol 650mg/20.3ml Solution Ud) 650 mg PO Q6 PRN PRN Reason: for temperature >100.4 Last Admin: 08/10/17 09:00 Dose: 650 mg Albumin Human (Albumin Human 25% (12.5 Gm/50 Ml)) 12.5 gm IV ONCE ONE Stop: 08/12/17 22:31 Albuterol/Ipratropium (Duoneb 3 Mg/0.5 Mg (3 Ml) Ud) 3 ml INH Q4H [facility] Last Admin: 08/12/17 19:55 Dose: 3 ml Benzocaine/Menthol (Cepacol Sore Throat) 1 ryan MT Q4 PRN PRN Reason: Sore Throat Last Admin: 08/05/17 15:22 Dose: 1 ryan Diltiazem HCl (Cardizem) 30 mg PO Q6 [facility] Last Admin: 08/12/17 17:13 Dose: 30 mg Diphenhydramine HCl (Benadryl) 25 mg PO ONCE PRN PRN Reason: Pre transfusion Last Admin: 08/03/17 01:35 Dose: 25 mg Meropenem 500 mg/ Sodium (Chloride) 100 mls @ 100 mls/hr IVPB Q6H [facility] Last Admin: 08/12/17 17:13 Dose: 100 mls/hr Sodium Bicarbonate 150 meq/ (Dextrose) 1,150 mls @ 100 mls/hr IV .[id number] [facility] Lidocaine HCl (Lidocaine 2% Viscous) 15 ml PO ONCE PRN PRN Reason: throat pain Last Admin: 08/05/17 15:22 Dose: 15 ml Nystatin (Nystop Topical Powder) 1 applic TOP BID [facility] Stop: 08/17/17 18:01 Last Admin: 08/12/17 17:13 Dose: 1 applic Rosuvastatin Calcium (Crestor) 5 mg PO HS [facility] Last Admin: 08/12/17 22:01 Dose: 5 mg Sodium Chloride ([place] Baby Saline 30 Ml) 0 ml [facility] Q4 PRN PRN Reason: Cough and congestion Last Admin: 08/04/17 19:12 Dose: 1 spr Sucralfate (Carafate Oral Susp) 1 gm PO ACB [facility] Last Admin: 08/12/17 08:07 Dose: 1 gm - Labs Labs: 08/12/17 21:36 08/12/17 21:36 PT 12.1 SECONDS (9.7-12.2) 08/12/17 21:36 INR 1.1 08/12/17 21:36 APTT 37 SECONDS (21-34) H 08/12/17 21:36 - Head Exam Head Exam: ATRAUMATIC - Eye Exam Eye Exam: Normal appearance - ENT Exam ENT Exam: Mucous Membranes Dry - Respiratory Exam Respiratory Exam: NORMAL BREATHING PATTERN - Cardiovascular Exam Cardiovascular Exam: +S1, +S2 - GI/Abdominal Exam GI & Abdominal Exam: Normal Bowel Sounds Assessment and Plan (1) Thrombocytopenia Assessment & Plan: sepsis, acute illness Status: Acute (2) Anemia Assessment & Plan: chronic disease transfusion support PRN Status: Acute
[2017-08-12] MEDS ORDERED: Calcium Gluconate 4.65 mEq/10 ml Inj IVP ONE (22:45)
[2017-08-12] MEDS: Sodium Bicarbonate 8.4% 150 MEQ in Dextrose 5% In Water 1,000 ML IV SCH (22:58)
[2017-08-12] MEDS ORDERED: (Novolin R) Insulin Human Regular 100 units/ml vial IV ONE (23:13)
[2017-08-12] MEDS ORDERED: Albuterol 0.083% Inhal Sol (2.5 mg/3 mL) UD INH STA (23:14)
--- NOTE | 2017-08-13 00:30 | CP.PCM.PN ---
Subjective - Date & Time of Evaluation Date of Evaluation: 08/13/17 Time of Evaluation: 00:18 - Subjective Subjective: Patient noticed to be tachpnic during the shift, maintaining spo2 100% on 50% fio2, w/u showed patient metabolic acidosis ph 7.2, k 7.8, lactate 10, eddie, transaminitis, urine output 5ml last 4 hrs, patient admitted with pna, developed anemia, prvc, then resp failure, then thrombocytopenia, huber, transaminitis. Bicarb 2 amps, started on bicarb drip, insulin 5 units iv, calcium gluconate, kayexlate 30gms, stopped vanco as high random, ordered platelets. D/w nephrology Dr Sweeney recommended hd if above intervention not improve potassium, as patient is very high risk for acute hd due to multiple comorbidities including systolic heart failure above and lower side bp. Spoke to patient's family who preferred to come to hospital, spoke to daughter, grand daughter, explained about above measure being temporary measures, if pt still is oliguric, will need hd which again is a risky procedure. Family understood above and requested no hd for now, did discuss about considering DNR due to multiorgan failure and if patient worsens to that from despite current treatment will have almost no chance to recover from cardiac arrest. Patient's family is have discussion currently, requested to continue meds for now, code status is still full code, but family will be having discussion about the same amongst them selves. Objective - Vital Signs/Intake and Output Vital Signs (last 24 hours): Temp Pulse Resp BP Pulse Ox 100.1 F H 138 H 38 H 84/36 L 100 08/12/17 20:00 08/12/17 23:00 08/12/17 23:00 08/12/17 22:57 08/12/17 23:00 Intake and Output: 08/12/17 08/13/17 18:59 06:59 Intake Total 1730 410 Output Total 15 0 Balance 1715 410 - Medications Medications: Current Medications Acetaminophen (Tylenol 650mg/20.3ml Solution Ud) 650 mg PO Q6 PRN PRN Reason: for temperature >100.4 Last Admin: 08/10/17 09:00 Dose: 650 mg Albuterol/Ipratropium (Duoneb 3 Mg/0.5 Mg (3 Ml) Ud) 3 ml INH Q4H [facility] Last Admin: 08/12/17 19:55 Dose: 3 ml Benzocaine/Menthol (Cepacol Sore Throat) 1 ryan MT Q4 PRN PRN Reason: Sore Throat Last Admin: 08/05/17 15:22 Dose: 1 ryan Diltiazem HCl (Cardizem) 30 mg PO Q6 [facility] Last Admin: 08/12/17 17:13 Dose: 30 mg Diphenhydramine HCl (Benadryl) 25 mg PO ONCE PRN PRN Reason: Pre transfusion Last Admin: 08/03/17 01:35 Dose: 25 mg Meropenem 500 mg/ Sodium (Chloride) 100 mls @ 100 mls/hr IVPB Q6H [facility] Last Admin: 08/12/17 23:43 Dose: 100 mls/hr Sodium Bicarbonate 150 meq/ (Dextrose) 1,150 mls @ 100 mls/hr IV .[id number] [facility] Last Admin: 08/12/17 22:58 Dose: 100 mls/hr Norepinephrine Bitartrate 8 mg (/ Dextrose) 258 mls @ 7.74 mls/hr IV .Q24H [facility]N ; Protocol; 4 MCG/MIN PRN Reason: TITRATE PER MD ORDER Lidocaine HCl (Lidocaine 2% Viscous) 15 ml PO ONCE PRN PRN Reason: throat pain Last Admin: 08/05/17 15:22 Dose: 15 ml Nystatin (Nystop Topical Powder) 1 applic TOP BID [facility] Stop: 08/17/17 18:01 Last Admin: 08/12/17 17:13 Dose: 1 applic Rosuvastatin Calcium (Crestor) 5 mg PO HS [facility] Last Admin: 08/12/17 22:01 Dose: 5 mg Sodium Chloride ([place] Baby Saline 30 Ml) 0 ml [facility] Q4 PRN PRN Reason: Cough and congestion Last Admin: 08/04/17 19:12 Dose: 1 spr Sucralfate (Carafate Oral Susp) 1 gm PO ACB [facility] Last Admin: 08/12/17 08:07 Dose: 1 gm - Labs Labs: 08/12/17 21:36 08/12/17 21:36 PT 12.1 SECONDS (9.7-12.2) 08/12/17 21:36 INR 1.1 08/12/17 21:36 APTT 37 SECONDS (21-34) H 08/12/17 21:36
[2017-08-13] MEDS ORDERED: Albuterol 0.083% Inhal Sol (2.5 mg/3 mL) UD INH STA ×2 (00:42→05:26)
[2017-08-13 04:19] LABS: BASO % 0.1 % (0.0-2.0); EOS % 0.1 % (0.0-4.0); HEMOGLOBIN 6.9 g/dL (12.0-18.0); LYMPH # 0.3 K/uL (1.0-4.3); LYMPH % 4.3 % (20.0-40.0); MEAN CELL VOLUME 84.4 fL (80.0-94.0); MEAN CORPUSCULAR HEMOGLOBIN 26.6 pg (27.0-31.0); MEAN CORPUSCULAR HGB CONC 31.5 g/dL (33.0-37.0); MEAN PLATELET VOLUME 7.5 fL (7.2-11.7); MONO # 0.2 K/uL (0.0-0.8); MONO % 2.5 % (0.0-10.0); NEUT # 6.3 K/uL (1.8-7.0); NRBC % 0.7 % (0.0-2.0); PLATELET COUNT 48 K/uL (130-400); RBC 2.59 Mil/uL (4.40-5.90); RED CELL DISTRIBUTION WIDTH 21.2 % (11.5-14.5); WHITE BLOOD COUNT 6.8 K/uL (4.8-10.8)
[2017-08-13 04:52] LABS: ALB/GLOB RATIO 0.8 (1.0-2.1); ALBUMIN 2.2 g/dL (3.5-5.0); CALCIUM 6.9 mg/dl (8.6-10.4); MAGNESIUM 2.8 mg/dL (1.6-2.3)
[2017-08-13] MEDS ORDERED: (Novolin R) Insulin Human Regular 100 units/ml vial SC ONE ×2 (05:26→06:45)
[2017-08-13] MEDS ORDERED: Sodium Bicarbonate (8.4%) 50 Meq Syringe IVP ONE ×2 (05:26→06:45)
[2017-08-13] MEDS ORDERED: Sod Polystyrene Sulf 15 gm/60 ml Susp PO ONE ×2 (05:26→06:45)
[2017-08-13] MEDS: Meropenem 500 MG in Sodium Chloride 0.9% 100 ML IVPB SCH (05:46)
[2017-08-13 06:25] LABS: ABG ALLEN TEST POS; ARTERIAL BLOOD GAS HCO3 12.9 mmol/L (21-28); ARTERIAL BLOOD GAS O2 SAT 99.9 % (95-98); ARTERIAL BLOOD GAS PCO2 27 mm/Hg (35-45); ARTERIAL BLOOD GAS PH 7.21 (7.35-7.45); ARTERIAL BLOOD GAS PO2 159 mm/Hg (80-100); ARTERIAL BLOOD GAS TCO2 11.6 mmol/L (22-28)
[2017-08-13 06:28] LABS: BANDS 8 % (0-2); BLASTS 1 % (0-0); LYMPHOCYTE 9 % (20-40); MONOCYTE 3 % (0-10); NEUTROPHIL 79 % (50-75); NUCLEATED RED BLOOD CELL 1 % (0-0); PLATELET ESTIMATE MARKEDLY DECREASED (NORMAL); TOTAL CELLS COUNTED 100
[2017-08-13] MEDS: Albuterol-Ipratrop 3 mg / 0.5 (3 ml) UD INH SCH ×4 (06:48→11:30)
[2017-08-13 07:29] VITALS: O2SAT 100
[2017-08-13] MEDS ORDERED: Calcium Gluconate 4.65 mEq/10 ml Inj ONE (08:13)
[2017-08-13] MEDS: Sucralfate 1 gm/10 ml Oral Susp UD PO SCH (09:27)
[2017-08-13 09:34] VITALS: TEMP 97.8
[2017-08-13] MEDS: Sodium Bicarbonate 8.4% 150 MEQ in Dextrose 5% In Water 1,000 ML IV SCH (10:05)
--- NOTE | 2017-08-13 10:30 | CP.PCM.PN ---
Subjective - Date & Time of Evaluation Date of Evaluation: 08/12/17 Time of Evaluation: 10:10 - Subjective Subjective: no change clinically vent-dependent awake Objective - Vital Signs/Intake and Output Vital Signs (last 24 hours): Temp Pulse Resp BP Pulse Ox 97.8 F 71 29 H 90/35 L 100 08/13/17 09:00 08/13/17 09:27 08/13/17 09:27 08/13/17 09:27 08/13/17 09:27 Intake and Output: 08/13/17 08/13/17 06:59 18:59 Intake Total 1718.2 590.1 Output Total 10 0 Balance 1708.2 590.1 - Medications Medications: Current Medications Acetaminophen (Tylenol 650mg/20.3ml Solution Ud) 650 mg PO Q6 PRN PRN Reason: for temperature >100.4 Last Admin: 08/10/17 09:00 Dose: 650 mg Albuterol/Ipratropium (Duoneb 3 Mg/0.5 Mg (3 Ml) Ud) 3 ml INH Q4H [facility] Last Admin: 08/13/17 07:21 Dose: Not Given Benzocaine/Menthol (Cepacol Sore Throat) 1 ryan MT Q4 PRN PRN Reason: Sore Throat Last Admin: 08/05/17 15:22 Dose: 1 ryan Diphenhydramine HCl (Benadryl) 25 mg PO ONCE PRN PRN Reason: Pre transfusion Last Admin: 08/03/17 01:35 Dose: 25 mg Sodium Bicarbonate 150 meq/ (Dextrose) 1,150 mls @ 100 mls/hr IV .[id number] [facility] Last Admin: 08/13/17 10:05 Dose: 100 mls/hr Norepinephrine Bitartrate 8 mg (/ Dextrose) 258 mls @ 7.74 mls/hr IV .Q24H [facility] ; Protocol; 4 MCG/MIN PRN Reason: TITRATE PER MD ORDER Last Titration: 08/13/17 09:27 Dose: 11.62 mcg/min, 22.5 mls/hr Meropenem 500 mg/ Sodium (Chloride) 100 mls @ 100 mls/hr IVPB Q12H [facility] Lidocaine HCl (Lidocaine 2% Viscous) 15 ml PO ONCE PRN PRN Reason: throat pain Last Admin: 08/05/17 15:22 Dose: 15 ml Nystatin (Nystop Topical Powder) 1 applic TOP BID [facility] Stop: 08/17/17 18:01 Last Admin: 08/13/17 09:36 Dose: 1 applic Pantoprazole Sodium (Protonix Inj) 40 mg IVP Q12H [facility] Last Admin: 08/13/17 10:09 Dose: 40 mg Sodium Chloride ([place] Baby Saline 30 Ml) 0 ml [facility] Q4 PRN PRN Reason: Cough and congestion Last Admin: 08/04/17 19:12 Dose: 1 spr - Labs Labs: 08/13/17 04:14 08/13/17 04:14 PT 12.1 SECONDS (9.7-12.2) 08/12/17 21:36 INR 1.1 08/12/17 21:36 APTT 37 SECONDS (21-34) H 08/12/17 21:36 - Constitutional Appears: Chronically Ill - Head Exam Head Exam: NORMAL INSPECTION - Neck Exam Neck Exam: Full ROM - Respiratory Exam Respiratory Exam: Prolonged Expiratory Phase, Rhonchi - Cardiovascular Exam Cardiovascular Exam: REGULAR RHYTHM - GI/Abdominal Exam GI & Abdominal Exam: Soft - Extremities Exam Extremities Exam: absent: Pedal Edema Assessment and Plan - Assessment and Plan (Free Text) Assessment: Acute respiratory failure Pneumonia Plan: Cont Abtx Cont pulmonary care Prognosis guarded
--- NOTE | 2017-08-13 10:45 | CP.CCUPN ---
CCU Subjective - Physician Review Events Since Last Encounter (Free Text): 08/13/17 10:43 This is an 86-year-old man with a history of COPD admitted with a history of pneumonia recently the month ago. During the stay in the floor patient developed a worsening respiratory insufficiency, he was intubated and brought into ICU. Patient currently on ventilator. Family at bedside. 50% FiO2. Patient is awake and responding. Thick secretions noted from the ET tube. On examination: Vital signs: HR 92 become hypotensive and on levophed Chest bilateral good air entry regular heart sounds nontender abdomen edema negative Chest x-ray worsening right upper, and the right lower lung pneumonia noted. 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 The sputum culture positive for ESBL Escherichia coli infectious disease on the case LFT increasing Patient condition yesterday night worsened, getting worsening renal failure, liver failure, multiorgan failure, is imminent, I spoke to the patient's family, they're waiting for the patient's to make further decision, I also spoke to the human resources recruiter, a dialysis is the only alternative, But very unstable condition, dialysis may not make any difference in the o Assessment and determination: 86-year-old male with history of COPD, fibrotic lung changes admitted at the worsening pneumonia on ventilator with acute respiratory insufficiency hypoxic. Atrial fibrillation. We'll continue the current treatment. Antibiotic, respiratory support. Worsening multiorgan very poor prognosis CCU Objective - Vital Signs / Intake & Output Vital Signs (Last 4 hours): Vital Signs Temp Pulse Resp BP Pulse Ox 08/13/17 09:27 71 29 H 90/35 L 100 08/13/17 09:00 97.8 F 71 21 100 08/13/17 08:57 71 26 H 99/36 L 100 08/13/17 08:27 73 25 H 93/44 L 100 08/13/17 08:00 127 H 30 H 100 08/13/17 07:57 122 H 28 H 97/34 L 100 08/13/17 07:27 110 H 29 H 103/40 L 100 08/13/17 07:00 151 H 22 100 08/13/17 06:57 128 H 20 98/32 L 100 Intake and Output (Last 8hrs): Intake & Output 08/12/17 08/13/17 08/13/17 22:59 06:59 14:59 Intake Total 1050 1518.2 590.1 Output Total 5 10 0 Balance 1045 1508.2 590.1 Weight 117 lb 3 oz Intake: IV 258 0 Intake, IV Amount 700 1170.2 560.1 Proximal Port 120.2 60.1 Right Medial Port 250 200 Right Proximal Port 700 800 300 Tube Feeding 300 Other 50 90 30 Output: Urine 5 10 0 Urethral (Han) 5 10 0 Other: # Bowel Movements 1 1 - Physical Exam Head: Positive for: Atraumatic, Normocephalic Pupils: Positive for: PERRL Extroacular Muscles: Positive for: EOMI Conjunctiva: Positive for: Normal Mouth: Positive for: Moist Mucous Membranes Neck: Positive for: Normal Range of Motion Respiratory/Chest: Positive for: Rales Cardiovascular: Positive for: Tachycardic Abdomen: Positive for: Normal Bowel Sounds. Negative for: Tenderness, Distention, Peritoneal Signs Skin: Positive for: Warm Psychiatric: Positive for: Alert - Medications Active Medications: Active Medications Generic Name Dose Route Start Last Admin Trade Name Freq PRN Reason Stop Dose Admin Acetaminophen 650 mg 08/09/17 11:00 08/10/17 09:00 Tylenol 650mg/20.3ml Solution Ud PO 650 mg Q6 PRN Administration for temperature >100.4 Albuterol/Ipratropium 3 ml 08/03/17 12:00 08/13/17 07:21 Duoneb 3 Mg/0.5 Mg (3 Ml) Ud INH Not Given Q4H HAZEL Benzocaine/Menthol 1 ryan 07/29/17 16:59 08/05/17 15:22 Cepacol Sore Throat MT 1 ryan Q4 PRN Administration Sore Throat Diphenhydramine HCl 25 mg 08/03/17 01:00 08/03/17 01:35 Benadryl PO 25 mg ONCE PRN Administration Pre transfusion Sodium Bicarbonate 150 meq/ 1,150 mls @ 100 mls/hr 08/12/17 23:00 08/13/17 10 :05 Dextrose IV 100 mls/hr .[id number] HAZEL Administration Norepinephrine Bitartrate 8 mg 258 mls @ 7.74 mls/hr 08/13/17 00:17 08/13/17 09:27 / Dextrose IV 11.62 mcg/min .Q24H PRN 22.5 mls/hr TITRATE PER MD ORDER Titration Protocol 4 MCG/MIN Meropenem 500 mg/ Sodium 100 mls @ 100 mls/hr 08/13/17 17:00 Chloride IVPB Q12H HAZEL Lidocaine HCl 15 ml 08/02/17 12:41 08/05/17 15:22 Lidocaine 2% Viscous PO 15 ml ONCE PRN Administration throat pain Nystatin 1 applic 08/03/17 18:00 08/13/17 09:36 Nystop Topical Powder TOP 08/17/17 18:01 1 applic BID HAZEL Administration Pantoprazole Sodium 40 mg 08/13/17 10:00 08/13/17 10:09 Protonix Inj IVP 40 mg Q12H HAZEL Administration Sodium Chloride 0 ml 07/28/17 16:42 08/04/17 19:12 Keller Baby Saline 30 Ml MADISON 1 spr Q4 PRN Administration Cough and congestion - Patient Studies Lab Studies: Microbiology Studies 08/10/17 12:30 Blood Culture - Preliminary Blood-Venous NO GROWTH AFTER 48 HOURS 08/03/17 17:10 Mycobacterial Culture - Preliminary Other: Please Indicate 08/10/17 12:00 S.aureus & Coag-Neg Staph PNA FISH - Final Blood-Venous Blood Culture - Preliminary Gram Positive Cocci Gram Stain - Final 08/10/17 11:44 Gram Stain - Final Trachasp Sputum Culture - Preliminary Gram Negative Andreas 08/10/17 11:43 Urine Culture - Final Urine,Han No Growth (<1,000 CFU/ML) Lab Studies 08/13/17 08/13/17 08/13/17 Range/Units 05:01 04:14 04:14 WBC 6.8 (4.8-10.8) K/uL RBC 2.59 L (4.40-5.90) Mil/uL Hgb 6.9 L (12.0-18.0) g/dL Hct 21.8 L (35.0-51.0) % MCV 84.4 (80.0-94.0) fL MCH 26.6 L (27.0-31.0) pg MCHC 31.5 L (33.0-37.0) g/dL RDW 21.2 H (11.5-14.5) % Plt Count 48 L D (130-400) K/uL MPV 7.5 (7.2-11.7) fL Neut % (Auto) 93.0 H (50.0-75.0) % Lymph % (Auto) 4.3 L (20.0-40.0) % Roosevelt % (Auto) 2.5 (0.0-10.0) % Eos % (Auto) 0.1 (0.0-4.0) % Baso % (Auto) 0.1 (0.0-2.0) % Neut # (Auto) 6.3 (1.8-7.0) K/uL Lymph # (Auto) 0.3 L (1.0-4.3) K/uL Roosevelt # (Auto) 0.2 (0.0-0.8) K/uL Eos # (Auto) 0.0 (0.0-0.7) K/uL Baso # (Auto) 0.0 (0.0-0.2) K/uL Neutrophils % (Manual) 79 H (50-75) % Band Neutrophils % 8 H (0-2) % Lymphocytes % (Manual) 9 L (20-40) % Monocytes % (Manual) 3 (0-10) % Blast Cells % 1 H (0-0) % Nucleated RBC % 1 H (0-0) % Platelet Estimate Markedly decreased L (NORMAL) PT (9.7-12.2) SECONDS INR APTT (21-34) SECONDS Fibrinogen (200-400) mg/dL Puncture Site L r pCO2 27 L (35-45) mm/Hg pO2 159 H (30-55) mm/Hg HCO3 12.9 L (21-28) mmol/L ABG pH 7.21 L (7.35-7.45) ABG Total CO2 11.6 L (22-28) mmol/L ABG O2 Saturation 99.9 H (95-98) % ABG Base Excess -15.5 L (-2.0-3.0) mmol/L Peter Test Pos ABG Potassium 8.2 H* (3.6-5.2) mmol/L VBG pH (7.32-7.43) VBG pCO2 (40-60) mmHg VBG HCO3 mmol/L VBG Total CO2 (22-28) mmol/L VBG O2 Sat (Calc) (40-65) % VBG Base Excess (0.0-2.0) mmol/L VBG Potassium (3.6-5.2) mmol/L A-a O2 Difference 164.0 mm/Hg Respiratory Index 1.0 Sodium 149.0 H 148 (132-148) mmol/l Chloride 110.0 H 108 H (98-107) mmol/L Glucose 259 H (75-110) mg/dl Lactate 16.5 H* (0.7-2.1) mmol/L Vent Mode Prvc Mechanical Rate 14 FiO2 50.0 % Tidal Volume 500 PEEP 5 Crit Value Called To Nazanin hargrove agricultural engineering teacher Crit Value Called By Tarah alvarado rt Crit Value Read Back Y Blood Gas Notified Time 624 Potassium 7.7 H* (3.6-5.2) mmol/L Carbon Dioxide 15 L (22-30) mmol/L Anion Gap 33 H (10-20) BUN 104 H* (9-20) mg/dL Creatinine 3.5 H (0.8-1.5) mg/dL Est GFR ( Amer) 20 Est GFR (Non-Af Amer) 17 POC Glucose (mg/dL) (65-110) mg/dL Random Glucose 271 H (75-110) mg/dL Calcium 6.9 L (8.6-10.4) mg/dl Phosphorus 9.1 H (2.5-4.5) mg/dL Magnesium 2.8 H (1.6-2.3) mg/dL Total Bilirubin 2.3 H (0.2-1.3) mg/dL AST 4630 H (17-59) U/L ALT 1730 H (21-72) U/L Alkaline Phosphatase 189 H D (38-126) U/L Total Protein 5.1 L (6.3-8.3) g/dL Albumin 2.2 L (3.5-5.0) g/dL Globulin 2.9 (2.2-3.9) gm/dL Albumin/Globulin Ratio 0.8 L (1.0-2.1) Arterial Blood Potassium 8.2 H* (3.6-5.2) mmol/L Venous Blood Potassium (3.6-5.2) mmol/L 08/13/17 08/12/17 08/12/17 Range/Units 04:10 23:31 21:36 WBC (4.8-10.8) K/uL RBC (4.40-5.90) Mil/uL Hgb (12.0-18.0) g/dL Hct (35.0-51.0) % MCV (80.0-94.0) fL MCH (27.0-31.0) pg MCHC (33.0-37.0) g/dL RDW (11.5-14.5) % Plt Count (130-400) K/uL MPV (7.2-11.7) fL Neut % (Auto) (50.0-75.0) % Lymph % (Auto) (20.0-40.0) % Roosevelt % (Auto) (0.0-10.0) % Eos % (Auto) (0.0-4.0) % Baso % (Auto) (0.0-2.0) % Neut # (Auto) (1.8-7.0) K/uL Lymph # (Auto) (1.0-4.3) K/uL Roosevelt # (Auto) (0.0-0.8) K/uL Eos # (Auto) (0.0-0.7) K/uL Baso # (Auto) (0.0-0.2) K/uL Neutrophils % (Manual) (50-75) % Band Neutrophils % (0-2) % Lymphocytes % (Manual) (20-40) % Monocytes % (Manual) (0-10) % Blast Cells % (0-0) % Nucleated RBC % (0-0) % Platelet Estimate (NORMAL) PT (9.7-12.2) SECONDS INR APTT (21-34) SECONDS Fibrinogen (200-400) mg/dL Puncture Site pCO2 (35-45) mm/Hg pO2 (30-55) mm/Hg HCO3 (21-28) mmol/L ABG pH (7.35-7.45) ABG Total CO2 (22-28) mmol/L ABG O2 Saturation (95-98) % ABG Base Excess (-2.0-3.0) mmol/L Peter Test ABG Potassium (3.6-5.2) mmol/L VBG pH (7.32-7.43) VBG pCO2 (40-60) mmHg VBG HCO3 mmol/L VBG Total CO2 (22-28) mmol/L VBG O2 Sat (Calc) (40-65) % VBG Base Excess (0.0-2.0) mmol/L VBG Potassium (3.6-5.2) mmol/L A-a O2 Difference mm/Hg Respiratory Index Sodium 146 (132-148) mmol/l Chloride 111 H (98-107) mmol/L Glucose (75-110) mg/dl Lactate (0.7-2.1) mmol/L Vent Mode Mechanical Rate FiO2 % Tidal Volume PEEP Crit Value Called To Crit Value Called By Crit Value Read Back Blood Gas Notified Time Potassium 7.8 H* D (3.6-5.2) mmol/L Carbon Dioxide 14 L (22-30) mmol/L Anion Gap 29 H (10-20) BUN 101 H* (9-20) mg/dL Creatinine 3.7 H (0.8-1.5) mg/dL Est GFR ( Amer) 19 Est GFR (Non-Af Amer) 16 POC Glucose (mg/dL) 271 H 349 H (65-110) mg/dL Random Glucose 375 H (75-110) mg/dL Calcium 6.8 L (8.6-10.4) mg/dl Phosphorus (2.5-4.5) mg/dL Magnesium (1.6-2.3) mg/dL Total Bilirubin 1.7 H (0.2-1.3) mg/dL AST 373 H D (17-59) U/L ALT 193 H D (21-72) U/L Alkaline Phosphatase 242 H D (38-126) U/L Total Protein 5.3 L (6.3-8.3) g/dL Albumin 2.2 L (3.5-5.0) g/dL Globulin 3.2 (2.2-3.9) gm/dL Albumin/Globulin Ratio 0.7 L (1.0-2.1) Arterial Blood Potassium (3.6-5.2) mmol/L Venous Blood Potassium (3.6-5.2) mmol/L 08/12/17 08/12/17 08/12/17 Range/Units 21:36 21:36 21:36 WBC 7.7 (4.8-10.8) K/uL RBC 2.96 L (4.40-5.90) Mil/uL Hgb 7.8 L (12.0-18.0) g/dL Hct 25.2 L (35.0-51.0) % MCV 85.1 D (80.0-94.0) fL MCH 26.5 L (27.0-31.0) pg MCHC 31.1 L (33.0-37.0) g/dL RDW 21.4 H (11.5-14.5) % Plt Count 25 L* D (130-400) K/uL MPV 8.7 (7.2-11.7) fL Neut % (Auto) (50.0-75.0) % Lymph % (Auto) (20.0-40.0) % Roosevelt % (Auto) (0.0-10.0) % Eos % (Auto) (0.0-4.0) % Baso % (Auto) (0.0-2.0) % Neut # (Auto) (1.8-7.0) K/uL Lymph # (Auto) (1.0-4.3) K/uL Roosevelt # (Auto) (0.0-0.8) K/uL Eos # (Auto) (0.0-0.7) K/uL Baso # (Auto) (0.0-0.2) K/uL Neutrophils % (Manual) (50-75) % Band Neutrophils % (0-2) % Lymphocytes % (Manual) (20-40) % Monocytes % (Manual) (0-10) % Blast Cells % (0-0) % Nucleated RBC % (0-0) % Platelet Estimate (NORMAL) PT 12.1 (9.7-12.2) SECONDS INR 1.1 APTT 37 H (21-34) SECONDS Fibrinogen 495 H (200-400) mg/dL Puncture Site pCO2 (35-45) mm/Hg pO2 (30-55) mm/Hg HCO3 (21-28) mmol/L ABG pH (7.35-7.45) ABG Total CO2 (22-28) mmol/L ABG O2 Saturation (95-98) % ABG Base Excess (-2.0-3.0) mmol/L Peter Test ABG Potassium (3.6-5.2) mmol/L VBG pH (7.32-7.43) VBG pCO2 (40-60) mmHg VBG HCO3 mmol/L VBG Total CO2 (22-28) mmol/L VBG O2 Sat (Calc) (40-65) % VBG Base Excess (0.0-2.0) mmol/L VBG Potassium (3.6-5.2) mmol/L A-a O2 Difference mm/Hg Respiratory Index Sodium (132-148) mmol/l Chloride (98-107) mmol/L Glucose (75-110) mg/dl Lactate (0.7-2.1) mmol/L Vent Mode Mechanical Rate FiO2 % Tidal Volume PEEP Crit Value Called To Crit Value Called By Crit Value Read Back Blood Gas Notified Time Potassium (3.6-5.2) mmol/L Carbon Dioxide (22-30) mmol/L Anion Gap (10-20) BUN (9-20) mg/dL Creatinine (0.8-1.5) mg/dL Est GFR ( Amer) Est GFR (Non-Af Amer) POC Glucose (mg/dL) (65-110) mg/dL Random Glucose (75-110) mg/dL Calcium (8.6-10.4) mg/dl Phosphorus (2.5-4.5) mg/dL Magnesium (1.6-2.3) mg/dL Total Bilirubin (0.2-1.3) mg/dL AST (17-59) U/L ALT (21-72) U/L Alkaline Phosphatase (38-126) U/L Total Protein (6.3-8.3) g/dL Albumin (3.5-5.0) g/dL Globulin (2.2-3.9) gm/dL Albumin/Globulin Ratio (1.0-2.1) Arterial Blood Potassium (3.6-5.2) mmol/L Venous Blood Potassium (3.6-5.2) mmol/L 08/12/17 08/12/17 08/12/17 Range/Units 21:31 17:37 13:18 WBC (4.8-10.8) K/uL RBC (4.40-5.90) Mil/uL Hgb (12.0-18.0) g/dL Hct (35.0-51.0) % MCV (80.0-94.0) fL MCH (27.0-31.0) pg MCHC (33.0-37.0) g/dL RDW (11.5-14.5) % Plt Count (130-400) K/uL MPV (7.2-11.7) fL Neut % (Auto) (50.0-75.0) % Lymph % (Auto) (20.0-40.0) % Roosevelt % (Auto) (0.0-10.0) % Eos % (Auto) (0.0-4.0) % Baso % (Auto) (0.0-2.0) % Neut # (Auto) (1.8-7.0) K/uL Lymph # (Auto) (1.0-4.3) K/uL Roosevelt # (Auto) (0.0-0.8) K/uL Eos # (Auto) (0.0-0.7) K/uL Baso # (Auto) (0.0-0.2) K/uL Neutrophils % (Manual) (50-75) % Band Neutrophils % (0-2) % Lymphocytes % (Manual) (20-40) % Monocytes % (Manual) (0-10) % Blast Cells % (0-0) % Nucleated RBC % (0-0) % Platelet Estimate (NORMAL) PT (9.7-12.2) SECONDS INR APTT (21-34) SECONDS Fibrinogen (200-400) mg/dL Puncture Site pCO2 (35-45) mm/Hg pO2 43 (30-55) mm/Hg HCO3 (21-28) mmol/L ABG pH (7.35-7.45) ABG Total CO2 (22-28) mmol/L ABG O2 Saturation (95-98) % ABG Base Excess (-2.0-3.0) mmol/L Peter Test ABG Potassium (3.6-5.2) mmol/L VBG pH 7.19 L* (7.32-7.43) VBG pCO2 33 L (40-60) mmHg VBG HCO3 12.7 mmol/L VBG Total CO2 13.6 L (22-28) mmol/L VBG O2 Sat (Calc) 72.5 H (40-65) % VBG Base Excess -14.5 L (0.0-2.0) mmol/L VBG Potassium 7.8 H* (3.6-5.2) mmol/L A-a O2 Difference mm/Hg Respiratory Index Sodium 147.0 (132-148) mmol/l Chloride 115.0 H (98-107) mmol/L Glucose 384 H (75-110) mg/dl Lactate 10.1 H* (0.7-2.1) mmol/L Vent Mode Mechanical Rate FiO2 % Tidal Volume PEEP Crit Value Called To Sonal azul Crit Value Called By James Crit Value Read Back Y Blood Gas Notified Time 2133 Potassium (3.6-5.2) mmol/L Carbon Dioxide (22-30) mmol/L Anion Gap (10-20) BUN (9-20) mg/dL Creatinine (0.8-1.5) mg/dL Est GFR ( Amer) Est GFR (Non-Af Amer) POC Glucose (mg/dL) 408 H* 391 H (65-110) mg/dL Random Glucose (75-110) mg/dL Calcium (8.6-10.4) mg/dl Phosphorus (2.5-4.5) mg/dL Magnesium (1.6-2.3) mg/dL Total Bilirubin (0.2-1.3) mg/dL AST (17-59) U/L ALT (21-72) U/L Alkaline Phosphatase (38-126) U/L Total Protein (6.3-8.3) g/dL Albumin (3.5-5.0) g/dL Globulin (2.2-3.9) gm/dL Albumin/Globulin Ratio (1.0-2.1) Arterial Blood Potassium (3.6-5.2) mmol/L Venous Blood Potassium 7.8 H* (3.6-5.2) mmol/L Laboratory Results - last 24 hr 08/12/17 08/12/17 08/12/17 13:18 17:37 21:31 WBC RBC Hgb Hct MCV MCH MCHC RDW Plt Count MPV Neut % (Auto) Lymph % (Auto) Roosevelt % (Auto) Eos % (Auto) Baso % (Auto) Neut # (Auto) Lymph # (Auto) Roosevelt # (Auto) Eos # (Auto) Baso # (Auto) Neutrophils % (Manual) Band Neutrophils % Lymphocytes % (Manual) Monocytes % (Manual) Blast Cells % Nucleated RBC % Platelet Estimate PT INR APTT Fibrinogen Puncture Site pCO2 pO2 43 HCO3 ABG pH ABG Total CO2 ABG O2 Saturation ABG Base Excess Peter Test ABG Potassium VBG pH 7.19 L* VBG pCO2 33 L VBG HCO3 12.7 VBG Total CO2 13.6 L VBG O2 Sat (Calc) 72.5 H VBG Base Excess -14.5 L VBG Potassium 7.8 H* A-a O2 Difference Respiratory Index Sodium 147.0 Chloride 115.0 H Glucose 384 H Lactate 10.1 H* Vent Mode Mechanical Rate FiO2 Tidal Volume PEEP Crit Value Called To Sonal azul Crit Value Called By James Crit Value Read Back Y Blood Gas Notified Time 2133 Potassium Carbon Dioxide Anion Gap BUN Creatinine Est GFR ( Amer) Est GFR (Non-Af Amer) POC Glucose (mg/dL) 391 H 408 H* Random Glucose Calcium Phosphorus Magnesium Total Bilirubin AST ALT Alkaline Phosphatase Total Protein Albumin Globulin Albumin/Globulin Ratio Arterial Blood Potassium Venous Blood Potassium 7.8 H* 08/12/17 08/12/17 08/12/17 21:36 21:36 21:36 WBC 7.7 RBC 2.96 L Hgb 7.8 L Hct 25.2 L MCV 85.1 D MCH 26.5 L MCHC 31.1 L RDW 21.4 H Plt Count 25 L* D MPV 8.7 Neut % (Auto) Lymph % (Auto) Roosevelt % (Auto) Eos % (Auto) Baso % (Auto) Neut # (Auto) Lymph # (Auto) Roosevelt # (Auto) Eos # (Auto) Baso # (Auto) Neutrophils % (Manual) Band Neutrophils % Lymphocytes % (Manual) Monocytes % (Manual) Blast Cells % Nucleated RBC % Platelet Estimate PT 12.1 INR 1.1 APTT 37 H Fibrinogen 495 H Puncture Site pCO2 pO2 HCO3 ABG pH ABG Total CO2 ABG O2 Saturation ABG Base Excess Peter Test ABG Potassium VBG pH VBG pCO2 VBG HCO3 VBG Total CO2 VBG O2 Sat (Calc) VBG Base Excess VBG Potassium A-a O2 Difference Respiratory Index Sodium Chloride Glucose Lactate Vent Mode Mechanical Rate FiO2 Tidal Volume PEEP Crit Value Called To Crit Value Called By Crit Value Read Back Blood Gas Notified Time Potassium Carbon Dioxide Anion Gap BUN Creatinine Est GFR ( Amer) Est GFR (Non-Af Amer) POC Glucose (mg/dL) Random Glucose Calcium Phosphorus Magnesium Total Bilirubin AST ALT Alkaline Phosphatase Total Protein Albumin Globulin Albumin/Globulin Ratio Arterial Blood Potassium Venous Blood Potassium 08/12/17 08/12/17 08/13/17 21:36 23:31 04:10 WBC RBC Hgb Hct MCV MCH MCHC RDW Plt Count MPV Neut % (Auto) Lymph % (Auto) Roosevelt % (Auto) Eos % (Auto) Baso % (Auto) Neut # (Auto) Lymph # (Auto) Roosevelt # (Auto) Eos # (Auto) Baso # (Auto) Neutrophils % (Manual) Band Neutrophils % Lymphocytes % (Manual) Monocytes % (Manual) Blast Cells % Nucleated RBC % Platelet Estimate PT INR APTT Fibrinogen Puncture Site pCO2 pO2 HCO3 ABG pH ABG Total CO2 ABG O2 Saturation ABG Base Excess Peter Test ABG Potassium VBG pH VBG pCO2 VBG HCO3 VBG Total CO2 VBG O2 Sat (Calc) VBG Base Excess VBG Potassium A-a O2 Difference Respiratory Index Sodium 146 Chloride 111 H Glucose Lactate Vent Mode Mechanical Rate FiO2 Tidal Volume PEEP Crit Value Called To Crit Value Called By Crit Value Read Back Blood Gas Notified Time Potassium 7.8 H* D Carbon Dioxide 14 L Anion Gap 29 H BUN 101 H* Creatinine 3.7 H Est GFR ( Amer) 19 Est GFR (Non-Af Amer) 16 POC Glucose (mg/dL) 349 H 271 H Random Glucose 375 H Calcium 6.8 L Phosphorus Magnesium Total Bilirubin 1.7 H AST 373 H D ALT 193 H D Alkaline Phosphatase 242 H D Total Protein 5.3 L Albumin 2.2 L Globulin 3.2 Albumin/Globulin Ratio 0.7 L Arterial Blood Potassium Venous Blood Potassium 08/13/17 08/13/17 08/13/17 04:14 04:14 05:01 WBC 6.8 RBC 2.59 L Hgb 6.9 L Hct 21.8 L MCV 84.4 MCH 26.6 L MCHC 31.5 L RDW 21.2 H Plt Count 48 L D MPV 7.5 Neut % (Auto) 93.0 H Lymph % (Auto) 4.3 L Roosevelt % (Auto) 2.5 Eos % (Auto) 0.1 Baso % (Auto) 0.1 Neut # (Auto) 6.3 Lymph # (Auto) 0.3 L Roosevelt # (Auto) 0.2 Eos # (Auto) 0.0 Baso # (Auto) 0.0 Neutrophils % (Manual) 79 H Band Neutrophils % 8 H Lymphocytes % (Manual) 9 L Monocytes % (Manual) 3 Blast Cells % 1 H Nucleated RBC % 1 H Platelet Estimate Markedly decreased L PT INR APTT Fibrinogen Puncture Site L r pCO2 27 L pO2 159 H HCO3 12.9 L ABG pH 7.21 L ABG Total CO2 11.6 L ABG O2 Saturation 99.9 H ABG Base Excess -15.5 L Peter Test Pos ABG Potassium 8.2 H* VBG pH VBG pCO2 VBG HCO3 VBG Total CO2 VBG O2 Sat (Calc) VBG Base Excess VBG Potassium A-a O2 Difference 164.0 Respiratory Index 1.0 Sodium 148 149.0 H Chloride 108 H 110.0 H Glucose 259 H Lactate 16.5 H* Vent Mode Prvc Mechanical Rate 14 FiO2 50.0 Tidal Volume 500 PEEP 5 Crit Value Called To Nazanin hargrove agricultural engineering teacher Crit Value Called By Tarah alvarado rt Crit Value Read Back Y Blood Gas Notified Time 624 Potassium 7.7 H* Carbon Dioxide 15 L Anion Gap 33 H BUN 104 H* Creatinine 3.5 H Est GFR ( Amer) 20 Est GFR (Non-Af Amer) 17 POC Glucose (mg/dL) Random Glucose 271 H Calcium 6.9 L Phosphorus 9.1 H Magnesium 2.8 H Total Bilirubin 2.3 H AST 4630 H ALT 1730 H Alkaline Phosphatase 189 H D Total Protein 5.1 L Albumin 2.2 L Globulin 2.9 Albumin/Globulin Ratio 0.8 L Arterial Blood Potassium 8.2 H* Venous Blood Potassium Fingerstick Blood Sugar Results: 271 Critical Care Progress Note - Nutrition Nutrition: Nutrition Category Date Time Status NPO Diet [DIET] Diets 08/13/17 Breakfast Active
--- NOTE | 2017-08-13 11:07 | CP.PCM.CON ---
History of Present Illness - History of Present Illness History of Present Illness: RENAL CONSULT 86 yo M w/ pmh of COPD, HTN that initially presented w/ shortness of breath and flu. His hospital course was complicated by developement of respiratory failure and pneumonia as well as sepsis. He also developed in the setting of sepsis and shock associated w/ ARF. He is currently on pressors and oligoanuric. He has been on broad spectrum abx. He is otherwise unable to give any further hx. ros; limited as pt is intubated and sedated pmh: htn, copd all: nkda famhx: unable to obtain intubated and sedated sochx: unable to obtain intubated and sedated pe: vs reviewed as below gen: intubated and sedated sclera: anicteric op: et tube neck: supple cv+s1+s2 lungs coarse bs b/l abd: soft , + bs ext: 1+ edema neuro: intubated and sedated psych: intubated and sedate skin: no rash imaging: reviewed labs: below reviewed imp: arf / hyperkalemia/ acidosis/ septic shock/ vdrf / hyperphosphatemia / anemia plan: AISSATOU - consistent w/ ATN from sepsis. Primary icu team yesterday had discussion re: dialysis and they declined. I once again had another discussion w/ family re : renal replacement therapy - given current illness and multiple organ dysfunction and requirement of pressors may not tolerate HD but could try. Pt remains unsure if they want to pursue but are leaning towards no , they are awaiting another family member to arrive. Explained to family grave situation and need for critical time dependant decision given the refractory hyperkalemia. Discussed at [facility] w/ intensive care team as well -continue medical management for hyperkalemia at the moment -will start phoslo for hyperphos -transfusions per primary team, f/u heme and GI re: anemia and ? blood loss Past Patient History - Past Medical History & Family History Past Medical History?: Yes - Past Social History Smoking Status: Former Smoker - CARDIAC Hx Atrial Fibrillation: Yes Hx Hypertension: Yes - PULMONARY Hx Asthma: Yes Hx Chronic Obstructive Pulmonary Disease (COPD): Yes Hx Emphysema: Yes - MUSCULOSKELETAL/RHEUMATOLOGICAL Hx Falls: No - PSYCHIATRIC Hx Substance Use: No - SURGICAL HISTORY Other/Comment: abdominal sx - ANESTHESIA Hx Anesthesia: Yes Hx Anesthesia Reactions: No Hx Malignant Hyperthermia: No Meds Allergies/Adverse Reactions: Allergies Allergy/AdvReac Type Severity Reaction Status Date / Time No Known Allergies Allergy Verified 07/21/17 09:32 - Medications Medications: Current Medications Acetaminophen (Tylenol 650mg/20.3ml Solution Ud) 650 mg PO Q6 PRN PRN Reason: for temperature >100.4 Last Admin: 08/10/17 09:00 Dose: 650 mg Albuterol/Ipratropium (Duoneb 3 Mg/0.5 Mg (3 Ml) Ud) 3 ml INH Q4H [facility] Last Admin: 08/13/17 07:21 Dose: Not Given Benzocaine/Menthol (Cepacol Sore Throat) 1 ryan MT Q4 PRN PRN Reason: Sore Throat Last Admin: 08/05/17 15:22 Dose: 1 ryan Diphenhydramine HCl (Benadryl) 25 mg PO ONCE PRN PRN Reason: Pre transfusion Last Admin: 08/03/17 01:35 Dose: 25 mg Sodium Bicarbonate 150 meq/ (Dextrose) 1,150 mls @ 100 mls/hr IV .[id number] [facility] Last Admin: 08/13/17 10:05 Dose: 100 mls/hr Norepinephrine Bitartrate 8 mg (/ Dextrose) 258 mls @ 7.74 mls/hr IV .Q24H PRN ; Protocol; 4 MCG/MIN PRN Reason: TITRATE PER MD ORDER Last Titration: 08/13/17 11:00 Dose: 14.52 mcg/min, 28.1 mls/hr Meropenem 500 mg/ Sodium (Chloride) 100 mls @ 100 mls/hr IVPB Q12H [facility] Lidocaine HCl (Lidocaine 2% Viscous) 15 ml PO ONCE PRN PRN Reason: throat pain Last Admin: 08/05/17 15:22 Dose: 15 ml Nystatin (Nystop Topical Powder) 1 applic TOP BID [facility] Stop: 08/17/17 18:01 Last Admin: 08/13/17 09:36 Dose: 1 applic Pantoprazole Sodium (Protonix Inj) 40 mg IVP Q12H [facility] Last Admin: 08/13/17 10:09 Dose: 40 mg Sodium Chloride ([place] Baby Saline 30 Ml) 0 ml [place] Q4 PRN PRN Reason: Cough and congestion Last Admin: 08/04/17 19:12 Dose: 1 spr Results - Vital Signs Recent Vital Signs: Last Vital Signs Temp 97.8 F 08/13/17 09:00 Pulse 71 08/13/17 09:27 Resp 29 H 08/13/17 09:27 BP 90/35 L 08/13/17 09:27 Pulse Ox 100 08/13/17 09:27 - Labs Result Diagrams: 08/13/17 04:14 08/13/17 04:14 Labs: Laboratory Results - last 24 hr 08/12/17 08/12/17 08/12/17 13:18 17:37 21:31 WBC RBC Hgb Hct MCV MCH MCHC RDW Plt Count MPV Neut % (Auto) Lymph % (Auto) Dixon % (Auto) Eos % (Auto) Baso % (Auto) Neut # (Auto) Lymph # (Auto) Dixon # (Auto) Eos # (Auto) Baso # (Auto) Neutrophils % (Manual) Band Neutrophils % Lymphocytes % (Manual) Monocytes % (Manual) Blast Cells % Nucleated RBC % Platelet Estimate PT INR APTT Fibrinogen Puncture Site pCO2 pO2 43 HCO3 ABG pH ABG Total CO2 ABG O2 Saturation ABG Base Excess Peter Test ABG Potassium VBG pH 7.19 L* VBG pCO2 33 L VBG HCO3 12.7 VBG Total CO2 13.6 L VBG O2 Sat (Calc) 72.5 H VBG Base Excess -14.5 L VBG Potassium 7.8 H* A-a O2 Difference Respiratory Index Sodium 147.0 Chloride 115.0 H Glucose 384 H Lactate 10.1 H* Vent Mode Mechanical Rate FiO2 Tidal Volume PEEP Crit Value Called To Sonal azul Crit Value Called By James Crit Value Read Back Y Blood Gas Notified Time 2133 Potassium Carbon Dioxide Anion Gap BUN Creatinine Est GFR ( Amer) Est GFR (Non-Af Amer) POC Glucose (mg/dL) 391 H 408 H* Random Glucose Calcium Phosphorus Magnesium Total Bilirubin AST ALT Alkaline Phosphatase Total Protein Albumin Globulin Albumin/Globulin Ratio Arterial Blood Potassium Venous Blood Potassium 7.8 H* 08/12/17 08/12/17 08/12/17 21:36 21:36 21:36 WBC 7.7 RBC 2.96 L Hgb 7.8 L Hct 25.2 L MCV 85.1 D MCH 26.5 L MCHC 31.1 L RDW 21.4 H Plt Count 25 L* D MPV 8.7 Neut % (Auto) Lymph % (Auto) Dixon % (Auto) Eos % (Auto) Baso % (Auto) Neut # (Auto) Lymph # (Auto) Dixon # (Auto) Eos # (Auto) Baso # (Auto) Neutrophils % (Manual) Band Neutrophils % Lymphocytes % (Manual) Monocytes % (Manual) Blast Cells % Nucleated RBC % Platelet Estimate PT 12.1 INR 1.1 APTT 37 H Fibrinogen 495 H Puncture Site pCO2 pO2 HCO3 ABG pH ABG Total CO2 ABG O2 Saturation ABG Base Excess Peter Test ABG Potassium VBG pH VBG pCO2 VBG HCO3 VBG Total CO2 VBG O2 Sat (Calc) VBG Base Excess VBG Potassium A-a O2 Difference Respiratory Index Sodium Chloride Glucose Lactate Vent Mode Mechanical Rate FiO2 Tidal Volume PEEP Crit Value Called To Crit Value Called By Crit Value Read Back Blood Gas Notified Time Potassium Carbon Dioxide Anion Gap BUN Creatinine Est GFR ( Amer) Est GFR (Non-Af Amer) POC Glucose (mg/dL) Random Glucose Calcium Phosphorus Magnesium Total Bilirubin AST ALT Alkaline Phosphatase Total Protein Albumin Globulin Albumin/Globulin Ratio Arterial Blood Potassium Venous Blood Potassium 08/12/17 08/12/17 08/13/17 21:36 23:31 04:10 WBC RBC Hgb Hct MCV MCH MCHC RDW Plt Count MPV Neut % (Auto) Lymph % (Auto) Dixon % (Auto) Eos % (Auto) Baso % (Auto) Neut # (Auto) Lymph # (Auto) Dixon # (Auto) Eos # (Auto) Baso # (Auto) Neutrophils % (Manual) Band Neutrophils % Lymphocytes % (Manual) Monocytes % (Manual) Blast Cells % Nucleated RBC % Platelet Estimate PT INR APTT Fibrinogen Puncture Site pCO2 pO2 HCO3 ABG pH ABG Total CO2 ABG O2 Saturation ABG Base Excess Peter Test ABG Potassium VBG pH VBG pCO2 VBG HCO3 VBG Total CO2 VBG O2 Sat (Calc) VBG Base Excess VBG Potassium A-a O2 Difference Respiratory Index Sodium 146 Chloride 111 H Glucose Lactate Vent Mode Mechanical Rate FiO2 Tidal Volume PEEP Crit Value Called To Crit Value Called By Crit Value Read Back Blood Gas Notified Time Potassium 7.8 H* D Carbon Dioxide 14 L Anion Gap 29 H BUN 101 H* Creatinine 3.7 H Est GFR ( Amer) 19 Est GFR (Non-Af Amer) 16 POC Glucose (mg/dL) 349 H 271 H Random Glucose 375 H Calcium 6.8 L Phosphorus Magnesium Total Bilirubin 1.7 H AST 373 H D ALT 193 H D Alkaline Phosphatase 242 H D Total Protein 5.3 L Albumin 2.2 L Globulin 3.2 Albumin/Globulin Ratio 0.7 L Arterial Blood Potassium Venous Blood Potassium 08/13/17 08/13/17 08/13/17 04:14 04:14 05:01 WBC 6.8 RBC 2.59 L Hgb 6.9 L Hct 21.8 L MCV 84.4 MCH 26.6 L MCHC 31.5 L RDW 21.2 H Plt Count 48 L D MPV 7.5 Neut % (Auto) 93.0 H Lymph % (Auto) 4.3 L Dixon % (Auto) 2.5 Eos % (Auto) 0.1 Baso % (Auto) 0.1 Neut # (Auto) 6.3 Lymph # (Auto) 0.3 L Dixon # (Auto) 0.2 Eos # (Auto) 0.0 Baso # (Auto) 0.0 Neutrophils % (Manual) 79 H Band Neutrophils % 8 H Lymphocytes % (Manual) 9 L Monocytes % (Manual) 3 Blast Cells % 1 H Nucleated RBC % 1 H Platelet Estimate Markedly decreased L PT INR APTT Fibrinogen Puncture Site L r pCO2 27 L pO2 159 H HCO3 12.9 L ABG pH 7.21 L ABG Total CO2 11.6 L ABG O2 Saturation 99.9 H ABG Base Excess -15.5 L Peter Test Pos ABG Potassium 8.2 H* VBG pH VBG pCO2 VBG HCO3 VBG Total CO2 VBG O2 Sat (Calc) VBG Base Excess VBG Potassium A-a O2 Difference 164.0 Respiratory Index 1.0 Sodium 148 149.0 H Chloride 108 H 110.0 H Glucose 259 H Lactate 16.5 H* Vent Mode Prvc Mechanical Rate 14 FiO2 50.0 Tidal Volume 500 PEEP 5 Crit Value Called To Nazanin hargrove viticulturist Crit Value Called By Tarah alvarado rt Crit Value Read Back Y Blood Gas Notified Time 624 Potassium 7.7 H* Carbon Dioxide 15 L Anion Gap 33 H BUN 104 H* Creatinine 3.5 H Est GFR ( Amer) 20 Est GFR (Non-Af Amer) 17 POC Glucose (mg/dL) Random Glucose 271 H Calcium 6.9 L Phosphorus 9.1 H Magnesium 2.8 H Total Bilirubin 2.3 H AST 4630 H ALT 1730 H Alkaline Phosphatase 189 H D Total Protein 5.1 L Albumin 2.2 L Globulin 2.9 Albumin/Globulin Ratio 0.8 L Arterial Blood Potassium 8.2 H* Venous Blood Potassium
[2017-08-13 11:25] VITALS: RESP 23
--- NOTE | 2017-08-13 11:45 | CP.PCM.PN ---
Subjective - Date & Time of Evaluation Date of Evaluation: 08/13/17 Time of Evaluation: 07:00 - Subjective Subjective: IV rx in progress events noted + blood c/s renal on board zyvox added consided change all lines Objective - Vital Signs/Intake and Output Vital Signs (last 24 hours): Temp Pulse Resp BP Pulse Ox 97.8 F 66 23 110/38 L 100 08/13/17 09:00 08/13/17 11:00 08/13/17 11:00 08/13/17 10:58 08/13/17 11:00 Intake and Output: 08/13/17 08/13/17 06:59 18:59 Intake Total 1718.2 840.7 Output Total 10 0 Balance 1708.2 840.7 - Medications Medications: Current Medications Acetaminophen (Tylenol 650mg/20.3ml Solution Ud) 650 mg PO Q6 PRN PRN Reason: for temperature >100.4 Last Admin: 08/10/17 09:00 Dose: 650 mg Albuterol/Ipratropium (Duoneb 3 Mg/0.5 Mg (3 Ml) Ud) 3 ml INH Q4H [facility] Last Admin: 08/13/17 11:30 Dose: 3 ml Benzocaine/Menthol (Cepacol Sore Throat) 1 ryan MT Q4 PRN PRN Reason: Sore Throat Last Admin: 08/05/17 15:22 Dose: 1 ryan Calcium Acetate (Phoslo) 2,001 mg PO TIDCC [facility] Diphenhydramine HCl (Benadryl) 25 mg PO ONCE PRN PRN Reason: Pre transfusion Last Admin: 08/03/17 01:35 Dose: 25 mg Sodium Bicarbonate 150 meq/ (Dextrose) 1,150 mls @ 100 mls/hr IV .[id number] [facility] Last Admin: 08/13/17 10:05 Dose: 100 mls/hr Norepinephrine Bitartrate 8 mg (/ Dextrose) 258 mls @ 7.74 mls/hr IV .Q24H PRN ; Protocol; 4 MCG/MIN PRN Reason: TITRATE PER MD ORDER Last Titration: 08/13/17 11:00 Dose: 14.52 mcg/min, 28.1 mls/hr Meropenem 500 mg/ Sodium (Chloride) 100 mls @ 100 mls/hr IVPB Q12H [facility] Lidocaine HCl (Lidocaine 2% Viscous) 15 ml PO ONCE PRN PRN Reason: throat pain Last Admin: 08/05/17 15:22 Dose: 15 ml Nystatin (Nystop Topical Powder) 1 applic TOP BID [facility] Stop: 08/17/17 18:01 Last Admin: 08/13/17 09:36 Dose: 1 applic Pantoprazole Sodium (Protonix Inj) 40 mg IVP Q12H [facility] Last Admin: 08/13/17 10:09 Dose: 40 mg Sodium Chloride ([place] Baby Saline 30 Ml) 0 ml [place] Q4 PRN PRN Reason: Cough and congestion Last Admin: 08/04/17 19:12 Dose: 1 spr - Labs Labs: 08/13/17 04:14 08/13/17 04:14 PT 12.1 SECONDS (9.7-12.2) 08/12/17 21:36 INR 1.1 08/12/17 21:36 APTT 37 SECONDS (21-34) H 08/12/17 21:36 Assessment and Plan (1) Anemia Status: Acute (2) Atrial fibrillation with RVR Status: Acute (3) COPD with exacerbation Status: Acute (4) Leukocytosis Status: Acute (5) PNA (pneumonia) Status: Acute (6) Productive cough Status: Acute
[2017-08-13 12:05] VITALS: BP 106/53; PULSE 69
[2017-08-13] MEDS ORDERED: Linezolid 600 mg in D5W 300 ml 600 MG/300 ML BAG IVPB SCH (12:30)
[2017-08-13] MEDS ORDERED: Morphine 4 MG/ML VIAL ONE (12:37)
--- NOTE | 2017-08-13 13:17 | CP.PCM.PN ---
Subjective - Date & Time of Evaluation Date of Evaluation: 08/13/17 Time of Evaluation: 13:14 - Subjective Subjective: pt got extubated as per family request but pt at 12.50PM family at bed side Objective - Vital Signs/Intake and Output Vital Signs (last 24 hours): Temp Pulse Resp BP Pulse Ox 97.8 F 69 23 106/53 L 100 08/13/17 09:00 08/13/17 12:00 08/13/17 12:00 08/13/17 11:57 08/13/17 12:00 Intake and Output: 08/13/17 08/13/17 06:59 18:59 Intake Total 1718.2 968.8 Output Total 10 0 Balance 1708.2 968.8 - Medications Medications: Current Medications Acetaminophen (Tylenol 650mg/20.3ml Solution Ud) 650 mg PO Q6 PRN PRN Reason: for temperature >100.4 Last Admin: 08/10/17 09:00 Dose: 650 mg Albuterol/Ipratropium (Duoneb 3 Mg/0.5 Mg (3 Ml) Ud) 3 ml INH Q4H [facility] Last Admin: 08/13/17 11:30 Dose: 3 ml Benzocaine/Menthol (Cepacol Sore Throat) 1 ryan MT Q4 PRN PRN Reason: Sore Throat Last Admin: 08/05/17 15:22 Dose: 1 ryan Calcium Acetate (Phoslo) 2,001 mg PO TIDCC [facility] Last Admin: 08/13/17 12:27 Dose: Not Given Diphenhydramine HCl (Benadryl) 25 mg PO ONCE PRN PRN Reason: Pre transfusion Last Admin: 08/03/17 01:35 Dose: 25 mg Sodium Bicarbonate 150 meq/ (Dextrose) 1,150 mls @ 100 mls/hr IV .[id number] [facility] Last Admin: 08/13/17 10:05 Dose: 100 mls/hr Norepinephrine Bitartrate 8 mg (/ Dextrose) 258 mls @ 7.74 mls/hr IV .Q24H PRN ; Protocol; 4 MCG/MIN PRN Reason: TITRATE PER MD ORDER Last Titration: 08/13/17 11:00 Dose: 14.52 mcg/min, 28.1 mls/hr Meropenem 500 mg/ Sodium (Chloride) 100 mls @ 100 mls/hr IVPB Q12H [facility] Linezolid (Zyvox 600mg/300ml D5w) 600 mg in 300 mls @ 200 mls/hr IVPB Q12H [facility] Lidocaine HCl (Lidocaine 2% Viscous) 15 ml PO ONCE PRN PRN Reason: throat pain Last Admin: 08/05/17 15:22 Dose: 15 ml Morphine Sulfate (Morphine) 2 mg IVP Q2 [facility] Nystatin (Nystop Topical Powder) 1 applic TOP BID [facility] Stop: 08/17/17 18:01 Last Admin: 08/13/17 09:36 Dose: 1 applic Pantoprazole Sodium (Protonix Inj) 40 mg IVP Q12H [facility] Last Admin: 08/13/17 10:09 Dose: 40 mg Sodium Chloride ([place] Baby Saline 30 Ml) 0 ml [place] Q4 PRN PRN Reason: Cough and congestion Last Admin: 08/04/17 19:12 Dose: 1 spr - Labs Labs: 08/13/17 04:14 08/13/17 04:14 PT 12.1 SECONDS (9.7-12.2) 08/12/17 21:36 INR 1.1 08/12/17 21:36 APTT 37 SECONDS (21-34) H 08/12/17 21:36
--- NOTE | 2017-08-13 13:54 | CP.PCM.CON ---
History of Present Illness - History of Present Illness History of Present Illness: Palliative consult requested by Dr. Torrez for the goals of care discussion and family support I was called to assist the family of this patient will be disc fusion on the terminal extubation due to very poor condition of this patient. Patient was admitted July 21 with shortness of breath, wheezing, cough, and sharp substernal pain. The initial CAT scan of the chest show pleural effusion, bronchiectasis, and infiltrates. Patient's hemoglobin was dropping and Dr. familia Kline was called on consult. His impression was that patient had a chronic iron deficiency anemia and blood transfusions as needed that suggested. Patient was treated with Zyvox IV and Merrem IV. On August 04 patient's condition has worsened.Patient sustained severe renal and liver failure. Despite all prudent medical interventions, patient's condition become terminal. Past medical history: asthma, Atrial fibrillation on the Xarelton, COPD, hypertension, emphysema Social history:quit smoking 15 years ago, was smoking for 50 years, chronic fibroids disease Family history: father from complications of COPD Review of Systems - Review of Systems All systems: reviewed and no additional remarkable complaints except Review of Systems: review of system obtained from nursing due to patient's critical condition. patient remained intubated on for life support. Past Patient History - Past Medical History & Family History Past Medical History?: Yes - Past Social History Smoking Status: Former Smoker - CARDIAC Hx Atrial Fibrillation: Yes Hx Hypertension: Yes - PULMONARY Hx Asthma: Yes Hx Chronic Obstructive Pulmonary Disease (COPD): Yes Hx Emphysema: Yes - MUSCULOSKELETAL/RHEUMATOLOGICAL Hx Falls: No - PSYCHIATRIC Hx Substance Use: No - SURGICAL HISTORY Other/Comment: abdominal sx - ANESTHESIA Hx Anesthesia: Yes Hx Anesthesia Reactions: No Hx Malignant Hyperthermia: No Meds Allergies/Adverse Reactions: Allergies Allergy/AdvReac Type Severity Reaction Status Date / Time No Known Allergies Allergy Verified 07/21/17 09:32 - Medications Medications: Current Medications Acetaminophen (Tylenol 650mg/20.3ml Solution Ud) 650 mg PO Q6 PRN PRN Reason: for temperature >100.4 Last Admin: 08/10/17 09:00 Dose: 650 mg Albuterol/Ipratropium (Duoneb 3 Mg/0.5 Mg (3 Ml) Ud) 3 ml INH Q4H [facility]ZEL Last Admin: 08/13/17 11:30 Dose: 3 ml Benzocaine/Menthol (Cepacol Sore Throat) 1 ryan MT Q4 PRN PRN Reason: Sore Throat Last Admin: 08/05/17 15:22 Dose: 1 ryan Calcium Acetate (Phoslo) 2,001 mg PO TIDCC [facility] [place] Last Admin: 08/13/17 12:27 Dose: Not Given Diphenhydramine HCl (Benadryl) 25 mg PO ONCE PRN PRN Reason: Pre transfusion Last Admin: 08/03/17 01:35 Dose: 25 mg Sodium Bicarbonate 150 meq/ (Dextrose) 1,150 mls @ 100 mls/hr IV .[id number] [facility] [place] Last Admin: 08/13/17 10:05 Dose: 100 mls/hr Norepinephrine Bitartrate 8 mg (/ Dextrose) 258 mls @ 7.74 mls/hr IV .Q24H PRN ; Protocol; 4 MCG/MIN PRN Reason: TITRATE PER MD ORDER Last Titration: 08/13/17 11:00 Dose: 14.52 mcg/min, 28.1 mls/hr Meropenem 500 mg/ Sodium (Chloride) 100 mls @ 100 mls/hr IVPB Q12H [facility] Linezolid (Zyvox 600mg/300ml D5w) 600 mg in 300 mls @ 200 mls/hr IVPB Q12H [facility] [place] Last Admin: 08/13/17 13:19 Dose: Not Given Lidocaine HCl (Lidocaine 2% Viscous) 15 ml PO ONCE PRN PRN Reason: throat pain Last Admin: 08/05/17 15:22 Dose: 15 ml Morphine Sulfate (Morphine) 2 mg IVP Q2 [facility] [place] Last Admin: 08/13/17 12:35 Dose: 2 mg Nystatin (Nystop Topical Powder) 1 applic TOP BID [facility] [place] Stop: 08/17/17 18:01 Last Admin: 08/13/17 09:36 Dose: 1 applic Pantoprazole Sodium (Protonix Inj) 40 mg IVP Q12H [facility] [place] Last Admin: 08/13/17 10:09 Dose: 40 mg Sodium Chloride ([place] Baby Saline 30 Ml) 0 ml [place] Q4 PRN PRN Reason: Cough and congestion Last Admin: 08/04/17 19:12 Dose: 1 spr Physical Exam - Constitutional Appears: In Acute Distress, Chronically Ill - Head Exam Head Exam: ATRAUMATIC, NORMAL INSPECTION, NORMOCEPHALIC - Eye Exam Eye Exam: Normal appearance Pupil Exam: NORMAL ACCOMODATION, PERRL - ENT Exam Additional comments: intubated - Neck Exam Neck exam: Positive for: Normal Inspection - Respiratory Exam Additional comments: on mechanical ventilator suppor - Cardiovascular Exam Cardiovascular Exam: Tachycardia - GI/Abdominal Exam GI & Abdominal Exam: Hypoactive Bowel Sounds - Rectal Exam Rectal Exam: Deferred - Extremities Exam Extremities exam: Positive for: pedal edema - Back Exam Back exam: NORMAL INSPECTION - Neurological Exam Neurological exam: Motor Sensory Deficit Additional comments: unresponsive - Psychiatric Exam Psychiatric exam: Flat Affect - Skin Skin Exam: Pallor Results - Vital Signs Recent Vital Signs: Last Vital Signs Temp 97.8 F 08/13/17 09:00 Pulse 69 08/13/17 12:00 Resp 23 08/13/17 12:00 BP 106/53 L 08/13/17 11:57 Pulse Ox 100 08/13/17 12:00 - Labs Result Diagrams: 08/13/17 04:14 08/13/17 04:14 Labs: Laboratory Results - last 24 hr 08/12/17 08/12/17 08/12/17 17:37 21:31 21:36 WBC RBC Hgb Hct MCV MCH MCHC RDW Plt Count MPV Neut % (Auto) Lymph % (Auto) [place] % (Auto) Eos % (Auto) Baso % (Auto) Neut # (Auto) Lymph # (Auto) [place] # (Auto) Eos # (Auto) Baso # (Auto) Neutrophils % (Manual) Band Neutrophils % Lymphocytes % (Manual) Monocytes % (Manual) Blast Cells % Nucleated RBC % Platelet Estimate PT INR APTT Fibrinogen 495 H Puncture Site pCO2 pO2 43 HCO3 ABG pH ABG Total CO2 ABG O2 Saturation ABG Base Excess Peter Test ABG Potassium VBG pH 7.19 L* VBG pCO2 33 L VBG HCO3 12.7 VBG Total CO2 13.6 L VBG O2 Sat (Calc) 72.5 H VBG Base Excess -14.5 L VBG Potassium 7.8 H* A-a O2 Difference Respiratory Index Sodium 147.0 Chloride 115.0 H Glucose 384 H Lactate 10.1 H* Vent Mode Mechanical Rate FiO2 Tidal Volume PEEP Crit Value Called To Sonal azul Crit Value Called By James Crit Value Read Back Y Blood Gas Notified Time 2134 Potassium Carbon Dioxide Anion Gap BUN Creatinine Est GFR ( Amer) Est GFR (Non-Af Amer) POC Glucose (mg/dL) 408 H* Random Glucose Calcium Phosphorus Magnesium Total Bilirubin AST ALT Alkaline Phosphatase Total Protein Albumin Globulin Albumin/Globulin Ratio Arterial Blood Potassium Venous Blood Potassium 7.8 H* 08/12/17 08/12/17 08/12/17 21:36 21:36 21:36 WBC 7.7 RBC 2.96 L Hgb 7.8 L Hct 25.2 L MCV 85.1 D MCH 26.5 L MCHC 31.1 L RDW 21.4 H Plt Count 25 L* D MPV 8.7 Neut % (Auto) Lymph % (Auto) [place] % (Auto) Eos % (Auto) Baso % (Auto) Neut # (Auto) Lymph # (Auto) [place] # (Auto) Eos # (Auto) Baso # (Auto) Neutrophils % (Manual) Band Neutrophils % Lymphocytes % (Manual) Monocytes % (Manual) Blast Cells % Nucleated RBC % Platelet Estimate PT 12.1 INR 1.1 APTT 37 H Fibrinogen Puncture Site pCO2 pO2 HCO3 ABG pH ABG Total CO2 ABG O2 Saturation ABG Base Excess Peter Test ABG Potassium VBG pH VBG pCO2 VBG HCO3 VBG Total CO2 VBG O2 Sat (Calc) VBG Base Excess VBG Potassium A-a O2 Difference Respiratory Index Sodium 146 Chloride 111 H Glucose Lactate Vent Mode Mechanical Rate FiO2 Tidal Volume PEEP Crit Value Called To Crit Value Called By Crit Value Read Back Blood Gas Notified Time Potassium 7.8 H* D Carbon Dioxide 14 L Anion Gap 29 H BUN 101 H* Creatinine 3.7 H Est GFR ( Amer) 19 Est GFR (Non-Af Amer) 16 POC Glucose (mg/dL) Random Glucose 375 H Calcium 6.8 L Phosphorus Magnesium Total Bilirubin 1.7 H AST 373 H D ALT 193 H D Alkaline Phosphatase 242 H D Total Protein 5.3 L Albumin 2.2 L Globulin 3.2 Albumin/Globulin Ratio 0.7 L Arterial Blood Potassium Venous Blood Potassium 08/12/17 08/13/17 08/13/17 23:31 04:10 04:14 WBC 6.8 RBC 2.59 L Hgb 6.9 L Hct 21.8 L MCV 84.4 MCH 26.6 L MCHC 31.5 L RDW 21.2 H Plt Count 48 L D MPV 7.5 Neut % (Auto) 93.0 H Lymph % (Auto) 4.3 L [place] % (Auto) 2.5 Eos % (Auto) 0.1 Baso % (Auto) 0.1 Neut # (Auto) 6.3 Lymph # (Auto) 0.3 L [place] # (Auto) 0.2 Eos # (Auto) 0.0 Baso # (Auto) 0.0 Neutrophils % (Manual) 79 H Band Neutrophils % 8 H Lymphocytes % (Manual) 9 L Monocytes % (Manual) 3 Blast Cells % 1 H Nucleated RBC % 1 H Platelet Estimate Markedly decreased L PT INR APTT Fibrinogen Puncture Site pCO2 pO2 HCO3 ABG pH ABG Total CO2 ABG O2 Saturation ABG Base Excess Peter Test ABG Potassium VBG pH VBG pCO2 VBG HCO3 VBG Total CO2 VBG O2 Sat (Calc) VBG Base Excess VBG Potassium A-a O2 Difference Respiratory Index Sodium Chloride Glucose Lactate Vent Mode Mechanical Rate FiO2 Tidal Volume PEEP Crit Value Called To Crit Value Called By Crit Value Read Back Blood Gas Notified Time Potassium Carbon Dioxide Anion Gap BUN Creatinine Est GFR ( Amer) Est GFR (Non-Af Amer) POC Glucose (mg/dL) 349 H 271 H Random Glucose Calcium Phosphorus Magnesium Total Bilirubin AST ALT Alkaline Phosphatase Total Protein Albumin Globulin Albumin/Globulin Ratio Arterial Blood Potassium Venous Blood Potassium 08/13/17 08/13/17 08/13/17 04:14 05:01 12:10 WBC RBC Hgb Hct MCV MCH MCHC RDW Plt Count MPV Neut % (Auto) Lymph % (Auto) [place] % (Auto) Eos % (Auto) Baso % (Auto) Neut # (Auto) Lymph # (Auto) [place] # (Auto) Eos # (Auto) Baso # (Auto) Neutrophils % (Manual) Band Neutrophils % Lymphocytes % (Manual) Monocytes % (Manual) Blast Cells % Nucleated RBC % Platelet Estimate PT INR APTT Fibrinogen Puncture Site L r pCO2 27 L pO2 159 H HCO3 12.9 L ABG pH 7.21 L ABG Total CO2 11.6 L ABG O2 Saturation 99.9 H ABG Base Excess -15.5 L Peter Test Pos ABG Potassium 8.2 H* VBG pH VBG pCO2 VBG HCO3 VBG Total CO2 VBG O2 Sat (Calc) VBG Base Excess VBG Potassium A-a O2 Difference 164.0 Respiratory Index 1.0 Sodium 148 149.0 H Chloride 108 H 110.0 H Glucose 259 H Lactate 16.5 H* Vent Mode Prvc Mechanical Rate 14 FiO2 50.0 Tidal Volume 500 PEEP 5 Crit Value Called To Nazanin hargrove manager agricultural Crit Value Called By Tarah alvarado rt Crit Value Read Back Y Blood Gas Notified Time 624 Potassium 7.7 H* Carbon Dioxide 15 L Anion Gap 33 H BUN 104 H* Creatinine 3.5 H Est GFR ( Amer) 20 Est GFR (Non-Af Amer) 17 POC Glucose (mg/dL) 183 H Random Glucose 271 H Calcium 6.9 L Phosphorus 9.1 H Magnesium 2.8 H Total Bilirubin 2.3 H AST 4630 H ALT 1730 H Alkaline Phosphatase 189 H D Total Protein 5.1 L Albumin 2.2 L Globulin 2.9 Albumin/Globulin Ratio 0.8 L Arterial Blood Potassium 8.2 H* Venous Blood Potassium Assessment & Plan - Assessment and Plan (Free Text) Assessment: Palliative consult There is no advanced directive on chart, called status full called, BPS 0% I reviewed medical records, all diagnostic studies, examined patient in the bed , discussed she is condition with the nursing and family Patient is intubated, on mechanical ventilatory support, unresponsive to verbal and tactile stimuli, locating chronically ill, in acute respiratory distress. Skin is pale, hemoglobin 6.9, days of pedal edema and swelling of both hands. Breath sounds are diminished, respirations regular, there is no jugular veins distention. Abdomen is flat, hypoactive bowel sounds. There is no wall entirely range of motion of upper and lower extremities. Multiple family members at the bedside, including , 2 daughters , 2 sons, and 2 grandchildren. Goals of care discussed. I elicited families knowledge about patient's condition. The family stated being very well of the patient's terminal condition. They spoke over the phone to Dr. Payne. Family is over the patient's condition is irreversible and that is imminent. Family didn't want continually moves all support measures and wished for the removal of all the life supporting interventions. I reviewed with the family the process of removing the life support. I reassured the family that the process of removing the life support is to keep the patient comfortable as much as possible while promoting the natural . Family agreed those were same concerns they had. There are intention was dual promote patient to diet natural without any further suffering. I discussed the DNR/DNI status. Family chose DNR DNI. The daughter Faye signed the POLST, as the patient's wasn't able to attend discussion and decision-making process to her cognitive impairment. Faye also signed the document asking for the removal of life support as the burden of those actions overweight the benefits. family agreed for the process of terminal extubation to start Immediately. The respiratory therapist was called,Dr. Tommy de la rosa of , Dr. Payne was made ofby texting, and the bereavement card was ordered. Impression * This is terminally ill patient approached the end of his life * Family is fully aware of patient's condition and the wish for the natural suggestions * Agree with terminal extubation * Agree with promotion of natural * Agree with DNR/DNI * Pastoral care for spiritual support Thank you for consultation palliative care Advanced care planning 45 minutes
[2017-08-13] MEDS ORDERED: Morphine 4 MG/ML VIAL IVP SCH (14:00)
[2017-08-13] MEDS ORDERED: Meropenem 500 MG in Sodium Chloride 0.9% 100 ML IVPB SCH (17:00)
== END 2017-08-13 16:30 | DRG 207 ==
LOC: C.ER 09:20 → C.9E 11:57 → C.6T 12:28 → C.9I 07-24 18:28 → C.6T 07-24 18:35 → C.5S 07-25 15:03 → C.9I 08-07 12:48
PROVIDERS: ADMIT Internal Medicine Nephrology; ATTEND Internal Medicine Nephrology
PROC: 02HV33Z Insertion of Infusion Device into Superior Vena Cava, Percutaneous Approach (ICD-10-PCS; principal; 2017-08-07)
PROC: 5A1955Z Respiratory Ventilation, Greater than 96 Consecutive Hours (ICD-10-PCS; 2017-08-07)
PROC: 0BH17EZ Insertion of Endotracheal Airway into Trachea, Via Natural or Artificial Opening (ICD-10-PCS; 2017-08-07)
DX: J11.08 Influenza due to unidentified influenza virus with specified pneumonia (principal); R65.21 Severe sepsis with septic shock; I47.2 Ventricular tachycardia; A41.9 Sepsis, unspecified organism; J90 Pleural effusion, not elsewhere classified; J96.00 Acute respiratory failure, unspecified whether with hypoxia or hypercapnia; E87.2 Acidosis; J44.1 Chronic obstructive pulmonary disease with (acute) exacerbation; I48.91 Unspecified atrial fibrillation; E87.5 Hyperkalemia; I25.10 Atherosclerotic heart disease of native coronary artery without angina pectoris; I11.9 Hypertensive heart disease without heart failure; Z66 Do not resuscitate; Z87.891 Personal history of nicotine dependence; Z51.5 Encounter for palliative care; Z68.20 Body mass index [BMI] 20.0-20.9, adult; D50.9 Iron deficiency anemia, unspecified